=== PATIENT | female | born 1965 | race Two or more races ===

== ENCOUNTER 2019-12-10 01:20 | Emergency (ER) | payer MEDICAID, SELFPAY ==
--- NOTE | 2019-12-10 | XR_ITS ---
EXAMINATION: XR HAND, RIGHT CLINICAL INFORMATION: Pain COMPARISON: 10/11/2019 TECHNIQUE: PA, lateral, and oblique views of the right hand. FINDINGS: Osseous alignment is anatomic. No acute fracture is seen. There is redemonstrated severe degenerative change at the basal joint of the thumb. Redemonstrated soft tissue calcification near the second MCP joint. No acute fracture is seen. Generalized osteopenia is noted. There are scattered degenerative changes in the digits, most prominently at the DIP joints of the second and fifth digits. XR/XR hand RT min 3V IMPRESSION: No acute findings identified. Chronic/degenerative changes as noted above.
[2019-12-10 03:08] VITALS: BP 113/55; PULSE 63; RESP 18; TEMP 36.6; O2SAT 96; BMI 33.7
--- NOTE | 2019-12-10 03:14 | PC.NURSE ---
Pt to room #14 with c/o right arm pain after a dresser drawer fell on arm/hand. +right thumb pain. no bruising noted to area. Pt arrives alert, respirations easy, n/l. skin w/d. Ice pack applied to hand/arm. Pt awaiting for MD jesús hallman.
[2019-12-10 04:00] VITALS: BP 133/78; PULSE 85; RESP 16; O2SAT 97
--- NOTE | 2019-12-10 04:31 | PC.NURSE ---
in room for eval. Page getting x-rays at this time.
--- NOTE | 2019-12-10 04:50 | PC.NURSE ---
X-ray in room for right hand x-ray.
--- NOTE | 2019-12-10 05:22 | ED.EXTPRO ---
HPI - Extremity Problem General Chief complaint: Extremity Injury, Upper Stated complaint: hand injury Time Seen by Provider: 12/10/19 05:21 History of Present Illness HPI Narrative: patient is a 54-year-old female had a dresser fell on her right thumb. Patient complaining of increasing pain there since. There is no systemic complaints. Patient denies any nausea vomiting. No coughing or congestion or upper respiratory symptoms. No head injury. Not on any blood thinners. Pain is localized worse with movement. Related Data Allergies Allergy/AdvReac Type Severity Reaction Status Date / Time clindamycin [Clindamycin] Allergy Severe BURGESS-JOHNATHON Unverified 11/02/19 17:11 SYNDROME ibuprofen [From MOTRIN] Allergy Severe UNKNOWN Unverified 11/02/19 17:11 Sulfa (Sulfonamide Allergy Severe RASH, hives Unverified 11/02/19 17:11 Antibiotics) [Sulfa (Sulfonamides)] latex [LATEX] Allergy Unknown RASH Unverified 11/02/19 17:11 nitrofurantoin Allergy Unknown Verified 08/24/19 00:00 paroxetine Allergy Unknown Verified 08/24/19 00:00 phenazopyridine Allergy Unknown Verified 08/24/19 00:00 sumatriptan Allergy Unknown avoid due Verified 08/24/19 00:00 to sulfa allergy Clindamycin HCl Allergy Unknown Uncoded 08/24/19 00:00 Motrin Allergy Unknown hives Uncoded 12/31/16 00:00 Ondansetron HCl Allergy Unknown Uncoded 08/24/19 00:00 Review of Systems Review of Systems: Constitutional: No Weight loss, No Fever, No Chills, No Night Sweats, No Fatigue, No Malaise ENT/Mouth: No Hearing loss, No Ear Pain, No Nasal Congestion, No Sinus Pain, No Hoarseness, No sore throat, No Rhinorrhea, No Swallowing Difficulty Eyes: No Eye Pain, No Swelling, No Redness, No Foreign Body, No Discharge, No Vision Changes Cardiovascular: No Chest Pain, No SOB, No Dyspnea on Exertion, No Orthopnea, No Edema, No Palpitations Respiratory: No Cough, No Sputum, No Wheezing, No Smoke Exposure, No Dyspnea Gastrointestinal: No Nausea, No Vomiting, No Diarrhea, No Constipation, No abdominal Pain, No Hematochezia, No Melena Genitourinary: no irregular bleeding, No Dysuria, No Urinary Frequency, No Hematuria, No Urinary Incontinence, No Urgency, No Flank Pain, No Urinary Flow Changes, No Hesitancy Musculoskeletal: positive pain to the right thumb No Myalgias, No Joint Swelling Skin: No Skin Lesions, No rash Neuro: No Weakness, No Numbness, No Paresthesias, No Loss of Consciousness, No Dizziness, No Headache Psych: No Anxiety/Panic, No Depression, No SI/HI/AH/VH, No Social Issues, Heme/Lymph: No Bruising, No Bleeding,No Lymphadenopathy Endocrine: No Polyuria, No Polydipsia, No Temperature Intolerance [facility], [facility] Social History Social History Smoked in Last 30 Days: No Advance Directives: No Advance Directives Information Provided: No Physical Exam Vital Signs: Vital Signs: Vital Signs Temp Pulse Resp BP Pulse Ox 12/10/19 04:00 85 16 133/78 97 12/10/19 03:08 98 F 63 18 113/55 L 96 Body Mass Index 33.7 Appearance: Alert. Oriented X3. No acute distress. Eyes: Pupils equal, round and reactive to light. ENT: Pharynx normal. Neck: Normal inspection. Neck supple. No lymph nodes noted. No crepitus CVS: Normal heart rate and rhythm. Pulses normal. Normal S1 and S2 Respiratory: No respiratory distress. Breath sounds normal. No Wheezing. No rales Abdomen: Soft and nontender. No rigidity. No distention. good BS x4 Skin: Skin warm and dry. Normal skin color. Normal skin turgor. Extremities: examination of the right hand showed pain on palpation of the right thumb. Nail bed intact. Skin intact. Pain on opposition of the thumb. There is no anatomical snuffbox tenderness. Flexion extension ulnar deviation and radial deviation at the wrist is completely intact.. No Lacerations. No Rash Neuro: Oriented X 3. No motor deficit. No sensory deficit. Moving all extermities. No slurred speech MDM - Extremity (Nontraumatic) MDM Narrative Medical decision making narrative: X-ray showed no acute fracture. There is no anatomical snuffbox tenderness. No evidence of any risk injury. Range of motion there is intact. Will have patient take some Tylenol close follow-up on an outpatient basis. In stable condition. Discharge Plan Discharge Clinical Impression: Finger sprain Patient Disposition: Home, Self-Care Instructions: Finger Sprain (ED) Referrals: Iris Herring MD [Primary Care Provider] - 2 days
== END 2019-12-10 05:30 | disposition home or self-care (01) ==
PROVIDERS: Emergency Provider Emergency Medicine Emergency Medical Services; PCP Internal Medicine
DX: S63.601A Unspecified sprain of right thumb, initial encounter (principal); M79.641 Pain in right hand; Y29.XXXA Contact with blunt object, undetermined intent, initial encounter; Y93.9 Activity, unspecified; Y92.009 Unspecified place in unspecified non-institutional (private) residence as the place of occurrence of the external cause
CPT/HCPCS: 73130; 99283; 99284

== ENCOUNTER 2020-03-12 10:44 | Outpatient (REF) | payer MEDICAID, SELFPAY ==
[2020-03-12 12:33] LABS: MANUAL DIFF FLAG NO
[2020-03-12 12:36] LABS: Basophils Absolute Auto 0.1 X10*3/uL (0.0-0.2); Basophils Percent Auto 1.1 % (0-2); Eosinophils Absolute Auto 0.2 X10*3/uL (0.0-0.4); Hematocrit 43.7 % (37-47); Hemoglobin 13.8 g/dl (12.0-16.0); Imm Gran Abs Auto 0.01 X10*3/uL (0.00-0.03); Imm Gran Pct Auto 0.2 % (0.0-0.4); Lymphocytes Absolute Auto 1.7 X10*3/uL (1.2-4.9); Lymphocytes Percent Auto 30.9 % (20-40); Mean Corpuscular HGB Conc 31.6 g/dl (31.0-35.0); Mean Corpuscular Hemoglobin 30.1 pg (27.0-33.0); Mean Corpuscular Volume 95.4 fL (80-98); Mean Platelet Volume 10.9 fL (9.4-12.3); Monocytes Absolute Auto 0.4 X10*3/uL (0.1-1.2); Monocytes Percent Auto 7.5 % (2-11); Neutrophils Absolute Auto 3.1 X10*3/uL (2.0-8.3); Neutrophils Percent Auto 57.3 % (45-73); Platelet Count 263 X10*3/uL (160-400); Red Blood Count 4.58 X10*6/uL (4.20-5.50); Red Cell Distribution Width 12.4 % (11.0-16.0); White Blood Count 5.3 X10*3/uL (4.8-10.8)
[2020-03-12 13:12] LABS: Alanine Aminotransferase 12 U/L (0-31); Albumin Level 4.4 g/dL (3.5-5.0); Alkaline Phosphatase 161 U/L (39-117); Anion Gap 12 (12-20); Aspartate Amino Transferase 16 U/L (5-31); Bilirubin Total 0.6 mg/dL (0.0-1.0); Blood Urea Nitrogen 17 mg/dL (9-16); C Reactive Protein 0.12 mg/dL (< or = 0.50); Calcium 9.6 mg/dL (8.4-10.2); Carbon Dioxide 30 mmol/L (22-29); Chloride 104 mmol/L (96-108); Estimated Glomerular Filt Rate > 60; Glucose Random 82 mg/dL (60-115); Potassium 4.3 mmol/l (3.3-5.1); Sodium 142 mmol/L (135-145); Total Protein 7.7 g/dL (6.5-8.0)
[2020-03-12 13:29] LABS: Erythrocyte Sedimentation Rate 7 MM/HR (0-20)
== END 2020-03-12 10:45 | disposition home or self-care (01) ==
LOC: HO.LAB 10:44
PROVIDERS: PCP Internal Medicine; Visit Provider Student in an Organized Health Care Education/Training Program
DX: M05.9 Rheumatoid arthritis with rheumatoid factor, unspecified (principal); M89.49 Other hypertrophic osteoarthropathy, multiple sites; Z79.899 Other long term (current) drug therapy; Z79.52 Long term (current) use of systemic steroids
CPT/HCPCS: 36415; 80053; 85025; 85652; 86140; 99212

== ENCOUNTER 2020-03-27 11:42 | Emergency (ER) | payer MEDICAID, SELFPAY ==
--- NOTE | ~2020-03-27 | XR_ITS ---
EXAMINATION: CHEST. LEFT ELBOW.. Left shoulder CLINICAL INFORMATION: Chest pain. COMPARISON: None TECHNIQUE: Chest 2 views. Left shoulder 3 views. Left elbow 4 views. FINDINGS: CHEST: Both lungs are fairly well-expanded and clear. The heart size and pulmonary vascularity is normal. There is mild to moderate dextroscoliosis. LEFT SHOULDER: There is no visible acute fracture, dislocation or subluxation. There is moderate enthesophyte lateral to the humeral head. The soft tissues are normal. LEFT ELBOW: There is no visible acute fracture, dislocation or subluxation. There is a positive anterior fat pad sign. The soft tissues are normal. XR/XR elbow LT min 3V IMPRESSION: Unremarkable chest exam. Unremarkable left shoulder. Lateral humeral head enthesophyte. Positive anterior fat pad sign with no visible fracture seen.
--- NOTE | ~2020-03-27 | XR_ITS ---
EXAMINATION: CHEST. LEFT ELBOW.. Left shoulder CLINICAL INFORMATION: Chest pain. COMPARISON: None TECHNIQUE: Chest 2 views. Left shoulder 3 views. Left elbow 4 views. FINDINGS: CHEST: Both lungs are fairly well-expanded and clear. The heart size and pulmonary vascularity is normal. There is mild to moderate dextroscoliosis. LEFT SHOULDER: There is no visible acute fracture, dislocation or subluxation. There is moderate enthesophyte lateral to the humeral head. The soft tissues are normal. LEFT ELBOW: There is no visible acute fracture, dislocation or subluxation. There is a positive anterior fat pad sign. The soft tissues are normal. XR/XR shoulder LT min 2V IMPRESSION: Unremarkable chest exam. Unremarkable left shoulder. Lateral humeral head enthesophyte. Positive anterior fat pad sign with no visible fracture seen.
--- NOTE | ~2020-03-27 | XR_ITS ---
EXAMINATION: CHEST. LEFT ELBOW.. Left shoulder CLINICAL INFORMATION: Chest pain. COMPARISON: None TECHNIQUE: Chest 2 views. Left shoulder 3 views. Left elbow 4 views. FINDINGS: CHEST: Both lungs are fairly well-expanded and clear. The heart size and pulmonary vascularity is normal. There is mild to moderate dextroscoliosis. LEFT SHOULDER: There is no visible acute fracture, dislocation or subluxation. There is moderate enthesophyte lateral to the humeral head. The soft tissues are normal. LEFT ELBOW: There is no visible acute fracture, dislocation or subluxation. There is a positive anterior fat pad sign. The soft tissues are normal. XR/XR chest 2V IMPRESSION: Unremarkable chest exam. Unremarkable left shoulder. Lateral humeral head enthesophyte. Positive anterior fat pad sign with no visible fracture seen.
[2020-03-27 12:16] VITALS: BP 127/67; PULSE 58; RESP 18; TEMP 37.3; O2SAT 95; BMI 26.1
--- NOTE | 2020-03-27 12:22 | ED_ITS ---
HPI - Chest Pain General Chief Complaint: Chest Pain Stated Complaint: chest pain going down lt arm Time Seen by Provider: 03/27/20 12:22 Related Data Home Medications Medication Instructions Recorded Confirmed amlodipine 2.5 mg tablet 2.5 mg PO DAILY 03/12/20 03/12/20 okjrcxypzt-axdkgkumtvunq-cbitmreh 1 cap PO Q4H PRN 03/12/20 03/12/20 50 mg-325 mg-40 mg capsule omeprazole 20 mg capsule,delayed 20 mg PO DAILY 03/12/20 03/12/20 release oxycodone 15 mg tablet 15 mg PO QID PRN 03/12/20 03/12/20 Previous Rx's Medication Instructions Recorded prednisone 5 mg tablet 5 mg PO DAILY #30 tab 12/12/19 baricitinib 2 mg tablet 2 mg PO DAILY #30 tab 03/12/20 Allergies Allergy/AdvReac Type Severity Reaction Status Date / Time clindamycin [Clindamycin] Allergy Severe BURGESS-JOHNATHON Verified 03/12/20 11:05 SYNDROME ibuprofen [From MOTRIN] Allergy Severe UNKNOWN Verified 03/12/20 11:05 Sulfa (Sulfonamide Allergy Severe RASH, hives Verified 03/12/20 11:05 Antibiotics) [Sulfa (Sulfonamides)] latex [LATEX] Allergy Unknown RASH Verified 03/12/20 11:05 nitrofurantoin Allergy Unknown unknown Verified 03/12/20 11:05 paroxetine Allergy Unknown unknown Verified 03/12/20 11:05 phenazopyridine Allergy Unknown unknown Verified 03/12/20 11:05 sumatriptan Allergy Unknown avoid due Verified 03/12/20 11:05 to sulfa allergy Ondansetron HCl Allergy Unknown unknown Uncoded 03/12/20 11:05 [facility] Past Medical History Medical History Primary osteoarthritis involving multiple joints Seropositive rheumatoid arthritis Social History Social History (Updated 03/12/20 @ 11:06 by Rios Shah LPN) Alcohol intake: never Smoking Status: Never smoker Advance Directives: Yes Advance Directives Information Provided: Yes Advance Directives on File: No Physical Exam Vital Signs: Vital Signs: Last Vital Signs Temp 99.1 F 03/27/20 12:16 Pulse 58 03/27/20 12:16 Resp 18 03/27/20 12:16 BP 127/67 03/27/20 12:16 Pulse Ox 95 03/27/20 12:16 Body Mass Index 26.1 Discharge Plan Discharge Prescriptions: No Action prednisone 5 mg tablet 5 mg PO DAILY Qty: 30 RF: 3 oxycodone 15 mg tablet 15 mg PO QID PRNRF: 0 amlodipine 2.5 mg tablet 2.5 mg PO DAILY RF: 0 omeprazole 20 mg capsule,delayed release(DR/EC) 20 mg PO DAILY RF: 0 xfuzxkqxbj-dmybvfcwecwps-qdia 50-325-40 mg capsule 1 cap PO Q4H PRNRF: 0 Olumiant 2 mg tablet 2 mg PO DAILY Qty: 30 RF: 3
--- NOTE | 2020-03-27 12:35 | ECG_ITS ---
Test Reason : CP Blood Pressure : / mmHG Vent. Rate : 070 BPM Atrial Rate : 070 BPM P-R Int : 156 ms QRS Dur : 086 ms QT Int : 416 ms P-R-T Axes : 048 -12 040 degrees QTc Int : 449 ms Normal sinus rhythm Moderate voltage criteria for LVH, may be normal variant Nonspecific ST and T wave abnormality Borderline ECG When compared with ECG of 09-MAY-2011 17:50, No significant change was found Referred By: Caleb Hogan Electronically Signed By:MATHEUS MCFADDEN
--- NOTE | 2020-03-27 13:15 | ED.EXTPRO ---
HPI - Extremity Problem General Chief complaint: Chest Pain Stated complaint: chest pain going down lt arm Time Seen by Provider: 03/27/20 12:22 History of Present Illness HPI Narrative: Patient complains of left shoulder pain for over 24 hours that is worse with movement worse when she presses on it and the pain is radiating somewhat into the left clavicle area and is worse when she takes a deep breath, she denies any chest pain or shortness of breath. The pain radiates from the left shoulder when she moves it towards the left upper chest area, pain is continuous and not associated with exertion, the there is no sweating, no nausea no vomiting no exertional symptoms, there is no numbness or weakness, the pain radiates down the arm as well as to the left upper chest when she moves her arm but there is no numbness or weakness. There has been no injury. She does have a history of rheumatoid arthritis but has never had pain in the shoulder joint before MD Complaint: extremity pain Related Data Home Medications Medication Instructions Recorded Confirmed amlodipine 2.5 mg tablet 2.5 mg PO DAILY 03/12/20 03/12/20 iohhlnpfxt-jvyzhlrtjdvqk-vkjdglws 1 cap PO Q4H PRN 03/12/20 03/12/20 50 mg-325 mg-40 mg capsule omeprazole 20 mg capsule,delayed 20 mg PO DAILY 03/12/20 03/12/20 release oxycodone 15 mg tablet 15 mg PO QID PRN 03/12/20 03/12/20 Previous Rx's Medication Instructions Recorded prednisone 5 mg tablet 5 mg PO DAILY #30 tab 12/12/19 baricitinib 2 mg tablet 2 mg PO DAILY #30 tab 03/12/20 diazepam [Valium] 5 mg PO TID PRN #10 tab 03/27/20 prednisone 40 mg PO DAILY 3 Days #6 tab 03/27/20 Allergies Allergy/AdvReac Type Severity Reaction Status Date / Time clindamycin [Clindamycin] Allergy Severe BURGESS-JOHNATHON Verified 03/12/20 11:05 SYNDROME ibuprofen [From MOTRIN] Allergy Severe UNKNOWN Verified 03/12/20 11:05 Sulfa (Sulfonamide Allergy Severe RASH, hives Verified 03/12/20 11:05 Antibiotics) [Sulfa (Sulfonamides)] latex [LATEX] Allergy Unknown RASH Verified 03/12/20 11:05 nitrofurantoin Allergy Unknown unknown Verified 03/12/20 11:05 paroxetine Allergy Unknown unknown Verified 03/12/20 11:05 phenazopyridine Allergy Unknown unknown Verified 03/12/20 11:05 sumatriptan Allergy Unknown avoid due Verified 03/12/20 11:05 to sulfa allergy Ondansetron HCl Allergy Unknown unknown Uncoded 03/12/20 11:05 Review of Systems Review of Systems: Positive for left shoulder pain Negatives are no fever no chills no dizziness no weakness no palpitations no chest pain no shortness of breath no exertional symptoms no nausea no sweating, no fainting, no numbness no weakness no headache no rash no pain in any other joints [facility] Past Medical History [facility] Narrative: History of hypertension and rheumatoid as well as osteoarthritis Medical History Primary osteoarthritis involving multiple joints Seropositive rheumatoid arthritis Social History Social History (Updated 03/12/20 @ 11:06 by Rios Shah LPN) Alcohol intake: never Smoking Status: Never smoker Advance Directives: Yes Advance Directives Information Provided: Yes Advance Directives on File: No Physical Exam Vital Signs: Vital Signs: Last Vital Signs Temp 99.1 F 03/27/20 12:16 Pulse 58 03/27/20 12:16 Resp 18 03/27/20 12:16 BP 127/67 03/27/20 12:16 Pulse Ox 95 03/27/20 12:16 Body Mass Index 26.1 General appearance no acute distress Normocephalic atraumatic Neck is supple nontender The chest is clear to auscultation bilaterally, there is some tenderness to the left upper clavicular region, pain is reproduced with a very deep breath in that area, the skin there is no rash no shingles The heart no murmur auscultated Abdomen soft nontender Extremities there is no calf swelling or edema Left shoulder was not red or warm but it was very tender to the touch as well as left trapezius and deltoid area, pain is elicited with movement of extension abduction and external rotation of the shoulder there was also pain on extension of the left elbow, the skin of the left arm is normal, pulses radial pulse was 2 +, intact and symmetric with right pulse, neurovascular sensation and motor intact distal Skin no rashes Course Course Course Narrative: Patient's shoulder pain with some radiation to the clavicle area is not consistent with cardiac pain as it is completely reproducible and only occurs with movement EKG did not show any evidence of ischemic change, shoulder and chest x-rays were without acute finding Patient was given a sling diagnosis musculoskeletal pain and will follow with Orthopedics MDM - Extremity (Nontraumatic) ECG Data Interpretation: EKG was normal sinus rhythm with a rate of 70, no acute ischemic changes no acute ST changes, QT was normal and QRS duration was normal Discharge Plan Discharge Clinical Impression: Arthralgia of left shoulder region Patient Disposition: Home, Self-Care Additional Instructions: Follow with your blower feeder dyed raw stock and if needed orthopedist Return any time any worse condition or any concerns I started a short course of prednisone so discuss with your blower feeder dyed raw stock whether a longer course is needed Prescriptions: New prednisone 20 mg tablet 40 mg PO DAILY 3 Days Qty: 6 RF: 0 diazepam [Valium] 5 mg tablet 5 mg PO TID PRN (Reason: muscle spasm) Qty: 10 RF: 0 No Action prednisone 5 mg tablet 5 mg PO DAILY Qty: 30 RF: 3 oxycodone 15 mg tablet 15 mg PO QID PRNRF: 0 amlodipine 2.5 mg tablet 2.5 mg PO DAILY RF: 0 omeprazole 20 mg capsule,delayed release(DR/EC) 20 mg PO DAILY RF: 0 cabgwhsjop-llbioufkdpauf-jekh 50-325-40 mg capsule 1 cap PO Q4H PRNRF: 0 Olumiant 2 mg tablet 2 mg PO DAILY Qty: 30 RF: 3 Referrals: Gil Crystal MD [Physician] - 2 days ( Left shoulder pain) Interventions: ED Discharge Assessment Last Done: 03/27/20 15:16 Discharge Date/Time: 03/27/20 15:19
[2020-03-27] MEDS: predniSONE 20 MG TABLET 60 MG PO (15:05)
== END 2020-03-27 15:19 | disposition home or self-care (01) ==
PROVIDERS: Emergency Provider Emergency Medicine Emergency Medical Services; PCP Internal Medicine
DX: M25.512 Pain in left shoulder (principal)
CPT/HCPCS: 71046; 73030; 73080; 93005; 99283

== ENCOUNTER → 2020-04-05 12:03 | Outpatient (BNVA) | payer MEDICAID, SELFPAY | PROVIDERS: PCP Internal Medicine; Visit Provider Physician Assistant | DX: Z13.89 Encounter for screening for other disorder (principal) | CPT/HCPCS: 99202 ==

== ENCOUNTER → 2020-04-24 12:39 | Outpatient (BNVA) | payer MEDICAID, SELFPAY | PROVIDERS: Visit Provider Physician Assistant ==

== ENCOUNTER 2020-05-03 11:32 | Outpatient (REF) | payer MEDICAID, SELFPAY ==
[2020-05-03 13:32] LABS: Alanine Aminotransferase 13 U/L (0-31); Albumin Level 4.2 g/dL (3.5-5.0); Alkaline Phosphatase 131 U/L (39-117); Anion Gap 12 (12-20); Aspartate Amino Transferase 22 U/L (5-31); Bilirubin Total 1.2 mg/dL (0.0-1.0); Blood Urea Nitrogen 15 mg/dL (9-16); C Reactive Protein 0.26 mg/dL (< or = 0.50); Calcium 9.3 mg/dL (8.4-10.2); Carbon Dioxide 28 mmol/L (22-29); Chloride 104 mmol/L (96-108); Estimated Glomerular Filt Rate > 60; Glucose Random 91 mg/dL (60-115); Potassium 4.2 mmol/L (3.3-5.1); Sodium 140 mmol/L (135-145); Total Protein 7.2 g/dL (6.5-8.0)
[2020-05-03 14:22] LABS: Erythrocyte Sedimentation Rate 9 MM/HR (0-20)
== END 2020-05-03 11:33 | disposition home or self-care (01) ==
LOC: HO.LAB 11:32
PROVIDERS: PCP Family Medicine Geriatric Medicine; Visit Provider Student in an Organized Health Care Education/Training Program
DX: M05.9 Rheumatoid arthritis with rheumatoid factor, unspecified (principal); M89.49 Other hypertrophic osteoarthropathy, multiple sites
CPT/HCPCS: 36415; 80053; 85652; 86140; 99212

== ENCOUNTER 2020-07-08 09:55 | Day surgery (SDC) | payer MEDICAID, SELFPAY ==
--- NOTE | 2020-07-04 12:26 | HO.ANESPROP2 ---
Documented by User: Kaylin Gee 07/04/20 12:28 HPI - Anesthesia Eval Consult details Narrative: 54yo F for Colonoscopy mult med allergies chronic opioids PMFSH Active Problems Active Problems: All Active Problems (Updated 05/17/20 @ 14:53 by Violeta Francis) Shoulder arthralgia (Acute) Tendinitis of left rotator cuff (Acute) Encounter for screening colonoscopy (Acute) Chronic constipation (Acute) Primary osteoarthritis involving multiple joints (Acute) Seropositive rheumatoid arthritis (Acute) Past Medical History Medical History Anemia Back pain Chronic constipation GERD (gastroesophageal reflux disease) HTN (hypertension) Hx of migraines Primary osteoarthritis involving multiple joints Rheumatoid arthritis Seropositive rheumatoid arthritis Family History Family History Father Prostate cancer Skin cancer Son Stomach problems Surgical History Surgical History History of left knee surgery Hx of colonoscopy Hx of esophagogastroduodenoscopy Social History Social History Alcohol intake: never Smoking Status: Never smoker Use of substances other than those prescribed or required for medical reasons: No Are you DNR?: No Advance Directives: No Advance Directives Information Provided: Yes Advance Directives on File: No Meds Allergies Allergy/AdvReac Type Severity Reaction Status Date / Time clindamycin [Clindamycin] Allergy Severe BURGESS-JOHNATHON Verified 05/17/20 14:53 SYNDROME ibuprofen [From MOTRIN] Allergy Severe UNKNOWN Verified 05/17/20 14:53 Sulfa (Sulfonamide Allergy Severe RASH, hives Verified 05/17/20 14:53 Antibiotics) [Sulfa (Sulfonamides)] latex [LATEX] Allergy Unknown RASH Verified 05/17/20 14:53 nitrofurantoin Allergy Unknown unknown Verified 05/17/20 14:53 paroxetine Allergy Unknown unknown Verified 05/17/20 14:53 sumatriptan Allergy Unknown avoid due Verified 05/17/20 14:53 to sulfa allergy Home Medications Medication Instructions Recorded Confirmed Last Taken Type amlodipine 2.5 mg tablet 2.5 mg PO DAILY 03/12/20 05/17/20 Unknown History clreyrjiig-dmzllvpnwggla-mevmiwbw 1 cap PO Q4H PRN 03/12/20 05/17/20 Unknown History 50 mg-325 mg-40 mg capsule omeprazole 20 mg capsule,delayed 20 mg PO DAILY 03/12/20 05/17/20 Unknown History release oxycodone 15 mg tablet 15 mg PO QID PRN 03/12/20 05/17/20 Unknown History diazepam 1 tab PO TID PRN 05/17/20 05/17/20 Unknown History fluoxetine [Prozac] 1 cap PO QAM 05/17/20 05/17/20 Unknown History lisinopril 1 tab PO DAILY 05/17/20 05/17/20 Unknown History naloxone [Narcan] 1 INTRANASAL DAILY 05/17/20 Unknown History nortriptyline 1 cap PO BEDTIME 05/17/20 05/17/20 Unknown History tizanidine 1 tab PO Q6-8H PRN 05/17/20 05/17/20 Unknown History topiramate 1 tab PO BEDTIME 05/17/20 05/17/20 Unknown History zolpidem 1 tab PO BEDTIME PRN 05/17/20 05/17/20 Unknown History Exam Exam Date and Time: July 04, 2020 1226 Pertinent Lab Results Pertinent Lab Results: Laboratory Tests 03/12/20 05/03/20 11:40 11:40 WBC 5.3 Hgb 13.8 Hct 43.7 Plt Count 263 Sodium 140 Potassium 4.2 Chloride 104 Carbon Dioxide 28 BUN 15 Creatinine 0.72 Assessment and Plan Assessment Anesthesia Assessment: Chart Reviewed Documented by User: Danika Crocker 07/08/20 11:25 PMFSH Past Medical History Medical History Anemia Back pain Chronic constipation GERD (gastroesophageal reflux disease) HTN (hypertension) Hx of migraines Primary osteoarthritis involving multiple joints Rheumatoid arthritis Seropositive rheumatoid arthritis Family History Family History Father Prostate cancer Skin cancer Son Stomach problems Surgical History Surgical History History of left knee surgery Hx of colonoscopy Hx of esophagogastroduodenoscopy Social History Social History Alcohol intake: never Smoking Status: Never smoker Use of substances other than those prescribed or required for medical reasons: No Are you DNR?: No Advance Directives: No Advance Directives Information Provided: Yes Advance Directives on File: No Meds Allergies Allergy/AdvReac Type Severity Reaction Status Date / Time clindamycin [Clindamycin] Allergy Severe BURGESS-JOHNATHON Verified 05/17/20 14:53 SYNDROME ibuprofen [From MOTRIN] Allergy Severe UNKNOWN Verified 05/17/20 14:53 Sulfa (Sulfonamide Allergy Severe RASH, hives Verified 05/17/20 14:53 Antibiotics) [Sulfa (Sulfonamides)] latex [LATEX] Allergy Unknown RASH Verified 05/17/20 14:53 nitrofurantoin Allergy Unknown unknown Verified 05/17/20 14:53 paroxetine Allergy Unknown unknown Verified 05/17/20 14:53 sumatriptan Allergy Unknown avoid due Verified 05/17/20 14:53 to sulfa allergy Home Medications Medication Instructions Recorded Confirmed Last Taken Type amlodipine 2.5 mg tablet 2.5 mg PO DAILY 03/12/20 05/17/20 Unknown History ffxlqfvhrq-dvaluqaznqsdc-qvlhqict 1 cap PO Q4H PRN 03/12/20 05/17/20 Unknown History 50 mg-325 mg-40 mg capsule omeprazole 20 mg capsule,delayed 20 mg PO DAILY 03/12/20 05/17/20 Unknown History release oxycodone 15 mg tablet 15 mg PO QID PRN 03/12/20 05/17/20 Unknown History diazepam 1 tab PO TID PRN 05/17/20 05/17/20 Unknown History fluoxetine [Prozac] 1 cap PO QAM 05/17/20 05/17/20 Unknown History lisinopril 1 tab PO DAILY 05/17/20 05/17/20 Unknown History naloxone [Narcan] 1 INTRANASAL DAILY 05/17/20 Unknown History nortriptyline 1 cap PO BEDTIME 05/17/20 05/17/20 Unknown History tizanidine 1 tab PO Q6-8H PRN 05/17/20 05/17/20 Unknown History topiramate 1 tab PO BEDTIME 05/17/20 05/17/20 Unknown History zolpidem 1 tab PO BEDTIME PRN 05/17/20 05/17/20 Unknown History Exam Airway Mallampati Class: II TM Dist: >3cm Neck ROM: Full Assessment and Plan Assessment Anesthesia Assessment: Anesthesia Plan Discussed and Chart Reviewed Final Anesthetic Review NPO: Yes ASA Class: II Final Preanesthetic Review: No Changes in Pt Med Stat, Meds/Allgs Chart Reviewed, Consent Obtained/Reviewed and Anes Risks/Benef Reviewed Patient Risk: Low Procedure Risk: Low Assessment/Block/Sedation in SS: Assess/Block/Sedation-SS Anesthetic Plan Anesthetic Plan: MAC: Disposition: Standard PACU
--- NOTE | 2020-07-08 10:33 | MHC.SHP ---
Pre-Procedural Eval Section B Chief Complaint: Screening Relevant Family History (Specify if Yes): No Relevant Social History: None Present Medications: see Short Stay Collaborative assessment Medical History: Significant History (Anemia Back pain Chronic constipation GERD (gastroesophageal reflux disease) HTN (hypertension) Hx of migraines Primary osteoarthritis involving multiple joints Rheumatoid arthritis Seropositive rheumatoid arthriti) History of Previous Operations: Relevant previous surgery/procedure and date(s) (knee surgery, colonoscopy) Allergies: Allergies Allergy/AdvReac Type Severity Reaction Status Date / Time clindamycin [Clindamycin] Allergy Severe BURGESS-JOHNATHON Verified 05/17/20 14:53 SYNDROME ibuprofen [From MOTRIN] Allergy Severe UNKNOWN Verified 05/17/20 14:53 Sulfa (Sulfonamide Allergy Severe RASH, hives Verified 05/17/20 14:53 Antibiotics) [Sulfa (Sulfonamides)] latex [LATEX] Allergy Unknown RASH Verified 05/17/20 14:53 nitrofurantoin Allergy Unknown unknown Verified 05/17/20 14:53 paroxetine Allergy Unknown unknown Verified 05/17/20 14:53 sumatriptan Allergy Unknown avoid due Verified 05/17/20 14:53 to sulfa allergy Review of Systems Sugical H&P ROS: Negative: Constitution, Cardiovascular, Respiratory, Neurological, Psychiatric, Hem-Onc, Allergic/Immunologic, Gastrointestinal, Genitourinary, Musculoskeletal, Integumentary, Endocrine and Eyes/Ears/Nose/Throat Exam Surgical H&P Exam: Normal: HEENT, Normal: Heart, Normal: Lungs, Normal: Extremities, Normal: Abdomen, Normal: Skin and Normal: Neurological Plan Diagnosis/Plan: Unchanged I have reviewed the history and physical and performed a pertinent physical examination on my patient. No changes have occurred unless specified.
[2020-07-08 10:45] VITALS: BMI 26.1
[2020-07-08 10:52] VITALS: BP 120/78; PULSE 76; RESP 16; TEMP 36.6; O2SAT 98
--- NOTE | 2020-07-08 11:06 | P.BOP_ITS ---
Brief Operative Note Date of Service: 07/08/20 Pre-op diagnosis: colon screen, hx of polyp Post-op diagnosis: same Procedure: see op note Surgeon: Kerwin Briones MD Anesthesia: MAC Was an Head Up Operator used for this Procedure?: No Estimated blood loss (mL): 0 Condition: stable Disposition: PACU
[2020-07-08] MEDS: Lactated Ringers 1,000 ML 100 ML IVCONT (11:07)
--- NOTE | 2020-07-08 11:07 | W.PM.OPN ---
Operative Note Operative Note Date of Service: 07/08/20 Narrative: Operative Information Procedure Description: Colonoscopy COLONOSCOPY Instrument: Olympus variable stiffness pediatric scope 190L Colonoscopy Monitoring: Vital signs and clinical assessment, continuous EKG monitoring, Pulse oximetry, Carbon Dioxide monitoring and blood pressure monitoring were done throughout the procedure. Colon withdrawal time was 12 minutes. Procedure: The patient was placed in the left lateral decubitis position and pre-procedure medications were administered. After a digital rectal examination of the ano-rectum, the video colonoscope was inserted into the rectum and advanced through the colon to the cecum/TI. The colonoscope was slowly withdrawn in a retrograde panoramic fashion and the colon mucosa was carefully examined including a retroflexed view of the rectum. Findings and interventions are described below. Procedure Difficulty: easy Findings: Terminal Ileum-normal Cecum:normal Ascending Colon: x 2 sessile polyps 10-12 mm in length removed with cold snare Transverse Colon -normal Descending Colon:normal Sigmoid Colon: normal Rectum: Retroflexion with moderate sized internal hemorrhoids, grade I Anorectum - normal Colon preparation: Stendal Bowel Preparation Scale Right colon; 3 Transverse colon: 3 Left colon; 3 (0 = Unprepared colon segment with mucosa not seen due to solid stool that cannot be cleared. 1 = Portion of mucosa of the colon segment seen, but other areas of the colon segment not well seen due to staining, residual stool and/or opaque liquid. 2 = Minor amount of residual staining, small fragments of stool and/or opaque liquid, but mucosa of colon segment seen well. 3 = Entire mucosa of colon segment seen well with no residual staining, small fragments of stool or opaque liquid) Impression and Post Procedure Diagnosis: polyps internal hemorrhoids Plan: High fiber diet leaflet Avoid straining at stool, epsom salts and sitz bath, anusol supps or cream as needed Repeat Colonoscopy in 5 years or earlier if clinically indicated Above findings were reviewed with the patient and relevant handouts were provided if indicated.
[2020-07-08 11:45] VITALS: BP 106/57; PULSE 78; RESP 16; TEMP 36.2; O2SAT 94
[2020-07-08 12:00] VITALS: BP 110/71; PULSE 69; RESP 16; TEMP 36.2; O2SAT 96
== END 2020-07-08 12:36 | disposition home or self-care (01) ==
PROVIDERS: PCP Family Medicine Geriatric Medicine; Visit Provider Internal Medicine Gastroenterology
PROC: 0DJD8ZZ Inspection of Lower Intestinal Tract, Via Natural or Artificial Opening Endoscopic (ICD-10-PCS; CPT 45378; principal; 2020-07-08 11:40)
DX: Z12.11 Encounter for screening for malignant neoplasm of colon (principal); D12.2 Benign neoplasm of ascending colon; K64.0 First degree hemorrhoids; K59.09 Other constipation; K21.9 Gastro-esophageal reflux disease without esophagitis; D64.9 Anemia, unspecified; I10 Essential (primary) hypertension; Z79.899 Other long term (current) drug therapy; M05.9 Rheumatoid arthritis with rheumatoid factor, unspecified; Z88.2 Allergy status to sulfonamides; Z88.8 Allergy status to other drugs, medicaments and biological substances; Z91.040 Latex allergy status
CPT/HCPCS: 45385; 88305

== ENCOUNTER 2020-07-10 10:49 | Outpatient (REF) | payer MEDICAID, SELFPAY ==
--- NOTE | ~2020-07-10 | MM_ITS ---
EXAMINATION: MM SCREENING DIGITAL BREAST TOMOSYNTHESIS, BILATERAL CLINICAL INFORMATION: Screening. Asymptomatic. The lifetime risk of breast cancer based on the Tyrer-Cuzick Model is 6%. COMPARISON: Mammography: 06/27/2018, 06/11/2017, 08/31/2016 TECHNIQUE: Digital breast tomosynthesis is performed in both the craniocaudal and mediolateral oblique views along with computer-aided detection (CAD). Synthesized 2D images are generated from the tomosynthesis. FINDINGS: There are scattered areas of fibroglandular density (ACR BI-RADS breast composition Category b). There are no significant masses, abnormal calcifications, or other abnormalities. There is small oval stable nodular asymmetry central left breast on CC view mid depth approximately 0.4 cm. No significant changes from prior studies. The axilla and skin contours are unremarkable. MM/MM tomosynthesis screening BI IMPRESSION: No significant changes from prior exams. ASSESSMENT: BI-RADS 2: Benign RECOMMENDATION: Routine annual mammography screening. This patient's information was entered into a reminder system with a target due date for their next mammogram.
== END 2020-07-10 10:50 | disposition home or self-care (01) ==
LOC: HO.MAMMO 10:49
PROVIDERS: PCP Student in an Organized Health Care Education/Training Program; Visit Provider Student in an Organized Health Care Education/Training Program
DX: Z12.31 Encounter for screening mammogram for malignant neoplasm of breast (principal)
CPT/HCPCS: 77063; 77067

== ENCOUNTER → 2020-08-12 10:21 | Outpatient (BNVA) | payer MEDICAID, SELFPAY | PROVIDERS: PCP Student in an Organized Health Care Education/Training Program; Visit Provider Physician Assistant ==

== ENCOUNTER 2020-09-02 09:01 | Outpatient (REF) | payer MEDICAID, SELFPAY ==
[2020-09-02 10:07] LABS: MANUAL DIFF FLAG NO
[2020-09-02 10:15] LABS: Basophils Percent Auto 0.6 % (0-2); Eosinophils Absolute Auto 0.1 X10*3/uL (0.0-0.4); Eosinophils Percent Auto 2.5 % (0-4); Hematocrit 41.6 % (37-47); Hemoglobin 13.5 g/dl (12.0-16.0); Imm Gran Abs Auto 0.01 X10*3/uL (0.00-0.03); Imm Gran Pct Auto 0.2 % (0.0-0.4); Lymphocytes Absolute Auto 1.4 X10*3/uL (1.2-4.9); Lymphocytes Percent Auto 27.3 % (20-40); Mean Corpuscular HGB Conc 32.5 g/dl (31.0-35.0); Mean Corpuscular Hemoglobin 30.8 pg (27.0-33.0); Mean Corpuscular Volume 94.8 fL (80-98); Mean Platelet Volume 10.8 fL (9.4-12.3); Monocytes Absolute Auto 0.4 X10*3/uL (0.1-1.2); Monocytes Percent Auto 7.6 % (2-11); Neutrophils Absolute Auto 3.3 X10*3/uL (2.0-8.3); Neutrophils Percent Auto 61.8 % (45-73); Platelet Count 254 X10*3/uL (160-400); Red Blood Count 4.39 X10*6/uL (4.20-5.50); Red Cell Distribution Width 12.6 % (11.0-16.0); White Blood Count 5.3 X10*3/uL (4.8-10.8)
[2020-09-02 10:39] LABS: Alanine Aminotransferase 20 U/L (0-31); Albumin Level 4.3 g/dL (3.5-5.0); Alkaline Phosphatase 189 U/L (39-117); Anion Gap 12 (12-20); Aspartate Amino Transferase 18 U/L (5-31); Bilirubin Total 0.9 mg/dL (0.0-1.0); Blood Urea Nitrogen 12 mg/dL (9-16); C Reactive Protein 0.13 mg/dL (< or = 0.50); Calcium 9.8 mg/dL (8.4-10.2); Carbon Dioxide 27 mmol/L (22-29); Chloride 105 mmol/L (96-108); Cholesterol 225 mg/dL; Estimated Glomerular Filt Rate > 60; Glucose Random 92 mg/dL (60-115); HDL Cholesterol 61 mg/dL; LDL Cholesterol Calculated 141 mg/dl; Potassium 3.9 mmol/L (3.3-5.1); Sodium 140 mmol/L (135-145); Total Protein 7.6 g/dL (6.5-8.0); Triglycerides 119 mg/dL
[2020-09-02 10:47] LABS: Reflex LDLD? No
[2020-09-02 11:15] LABS: Erythrocyte Sedimentation Rate 10 MM/HR (0-20)
== END 2020-09-02 09:02 | disposition home or self-care (01) ==
LOC: HO.LAB 09:01
PROVIDERS: PCP Student in an Organized Health Care Education/Training Program; Visit Provider Student in an Organized Health Care Education/Training Program
DX: M05.9 Rheumatoid arthritis with rheumatoid factor, unspecified (principal)
CPT/HCPCS: 36415; 80053; 80061; 85025; 85652; 86140

== ENCOUNTER → 2020-09-03 08:31 | Outpatient (BNVA) | payer MEDICAID, SELFPAY | PROVIDERS: PCP Student in an Organized Health Care Education/Training Program; Visit Provider Student in an Organized Health Care Education/Training Program | DX: R21 Rash and other nonspecific skin eruption (principal); M05.9 Rheumatoid arthritis with rheumatoid factor, unspecified; M89.49 Other hypertrophic osteoarthropathy, multiple sites; R94.5 Abnormal results of liver function studies; Z88.2 Allergy status to sulfonamides; Z88.8 Allergy status to other drugs, medicaments and biological substances; Z91.040 Latex allergy status; Z79.899 Other long term (current) drug therapy; Z79.891 Long term (current) use of opiate analgesic; Z51.81 Encounter for therapeutic drug level monitoring | CPT/HCPCS: 99212 ==

== ENCOUNTER 2020-10-15 04:13 | Emergency (ER) | payer MEDICAID, SELFPAY ==
[2020-10-15 04:26] VITALS: BP 132/83; PULSE 66; RESP 18; TEMP 36.6; O2SAT 98; BMI 24.2
[2020-10-15] MEDS: Acetaminophen 325 MG TABLET 975 MG PO (04:48)
[2020-10-15] MEDS: Ketorolac Tromethamine 15 MG/ML VIAL IM (04:49)
[2020-10-15] MEDS: Lidocaine 4 % Patch ADH..PATCH 1 PATCH TRANSDERMA (04:49)
--- NOTE | 2020-10-15 07:25 | ED_ITS ---
HPI - Back Pain/Injury General Chief Complaint: Back Pain/Injury Stated Complaint: body aches Time Seen by Provider: 10/15/20 04:33 Source: patient and staff interpreter Mode of arrival: ambulatory Limitations: no limitations History of Present Illness HPI Narrative: 55 yo female with fibromyalgia and RA on prednisone currently and 15mg oxycodone for pain states the last 3 days she has had worsening body aches and sore throat MD elicited complaint: other (body aches) Pertinent past history: arthritis Onset (ago): day(s) (3) Timing: constant Severity: moderate Similar Symptoms Previously: Yes Quality: dull, aching and throbbing Radiation: none Exacerbating factors: movement Relieving factors: none Context: other (hx of similar bouts in the past) Associated symptoms: denies other symptoms Treatments prior to arrival: other (took her oxycodone prior to arrival) Work related injury: No Related Data Home Medications Medication Instructions Recorded Confirmed amlodipine 2.5 mg tablet 2.5 mg PO DAILY 03/12/20 09/03/20 uoovevqjci-sxhhvtkfehstm-[id number] 1 cap PO Q4H PRN 03/12/20 09/03/20 50 mg-325 mg-40 mg capsule omeprazole 20 mg capsule,delayed 20 mg PO DAILY 03/12/20 09/03/20 release oxycodone 15 mg tablet 15 mg PO QID PRN 03/12/20 09/03/20 lisinopril 20 mg tablet 1 tab PO DAILY 05/17/20 09/03/20 naloxone 4 mg/actuation nasal 1 INTRANASAL DAILY 05/17/20 09/03/20 spray (Narcan) Previous Rx's Medication Instructions Recorded docusate sodium 100 mg capsule 200 mg PO BEDTIME #60 cap 04/24/20 (Colace) polyethylene glycol 3350 17 238 g PO ONCE 1 Days #238 g 04/24/20 gram/dose oral powder (Miralax) sennosides 8.6 mg tablet (Senna 8.6 mg PO DAILY #30 tab 04/24/20 Laxative) polyethylene glycol 3350 17 238 g PO ONCE 1 Days #238 g 05/22/20 gram/dose oral powder (Miralax) sodium,potassium,mag sulfates 17.5 See Rx Instructions PO .COMPLEX 06/14/20 gram-3.13 gram-1.6 gram oral soln #354 ml (Suprep Bowel Prep Kit) hydrocortisone 2.5 % topical cream 1 appl ID BID PRN #30 g 08/12/20 with perineal applicator (Proctozone-HC) methylcellulose (laxative) 500 mg 500 mg PO BID #60 tab 08/12/20 tablet (Citrucel) baricitinib 2 mg tablet (Olumiant) 2 mg PO DAILY #30 tab 09/03/20 miscellaneous medical supply 1 ea MISCELLANEOUS DAILY #1 ea 09/03/20 prednisone 5 mg tablet 5 mg PO DAILY #30 tab 09/03/20 cefuroxime axetil 250 mg tablet 250 mg PO BID 7 Days #14 tab 10/15/20 diazepam 5 mg tablet (Valium) 5 mg PO TID PRN #10 tab 10/15/20 Allergies Allergy/AdvReac Type Severity Reaction Status Date / Time clindamycin [Clindamycin] Allergy Severe BURGESS-JOHNATHON Verified 09/03/20 08:38 SYNDROME ibuprofen [From MOTRIN] Allergy Severe UNKNOWN Verified 09/03/20 08:38 Sulfa (Sulfonamide Allergy Severe RASH, hives Verified 09/03/20 08:38 Antibiotics) [Sulfa (Sulfonamides)] latex [LATEX] Allergy Unknown RASH Verified 09/03/20 08:38 nitrofurantoin Allergy Unknown unknown Verified 09/03/20 08:38 paroxetine Allergy Unknown unknown Verified 09/03/20 08:38 sumatriptan Allergy Unknown avoid due Verified 09/03/20 08:38 to sulfa allergy Review of Systems Review of Systems: Constitutional : No Weight loss, No Fever, No Chills, ENT/Mouth : No Hearing loss, No Ear Pain, No Nasal Congestion, No Sinus Pain, No Hoarseness, pos sore throat, No Rhinorrhea, No Swallowing Difficulty Cardiovascular : No Chest Pain, No SOB Respiratory : No Cough, No Dyspnea Gastrointestinal : No Nausea, No Vomiting, No Diarrhea, No abdominal Pain, No Hematochezia, No Melena Genitourinary : No Dysuria, No Urinary Frequency, No Hematuria, No Urinary Incontinence, Musculoskeletal : positive back pain, pos myalgias Skin : No Skin Lesions, No rash Neuro : No Weakness, No Numbness, No Paresthesias, no loss of bowel or bladder incontinence, no saddle anesthesia All other systems reviewed and are negative PMFSH Past Medical History Attestation statement: The following information was validated with the patient. Medical History Anemia Back pain Chronic constipation GERD (gastroesophageal reflux disease) HTN (hypertension) Hx of migraines Primary osteoarthritis involving multiple joints Rheumatoid arthritis Seropositive rheumatoid arthritis Surgical History History of left knee surgery Hx of colonoscopy Hx of esophagogastroduodenoscopy Family History Family History Father Prostate cancer Skin cancer Son Stomach problems Social History Social History Household Members: None Alcohol intake: never Patient Tobacco Use Status: Never used Tobacco Advance Directives: No Patient : No Physical Exam Vital Signs: Vital Signs: Last Vital Signs Temp 98 F 10/15/20 04:26 Pulse 66 10/15/20 04:26 Resp 18 10/15/20 04:26 BP 132/83 10/15/20 04:26 Pulse Ox 98 10/15/20 04:26 Body Mass Index 24.2 Appearance: Alert. Oriented X3. No acute distress. Eyes: Pupils equal, round and reactive to light. ENT: Pharynx normal. no redness, swelling, exudates Neck: Normal inspection. Neck supple. CVS: Normal heart rate and rhythm. Pulses normal. Respiratory: No respiratory distress. Breath sounds normal. Abdomen: Soft and nontender. Skin: Skin warm and dry. Normal skin color. Normal skin turgor. Extremities: No lower extremity edema. No calf ttp Neuro: Oriented X 3. No motor deficit. No sensory deficit. Course Course Course Narrative: work up negative, stable for DC doing better, + UA MDM - Back Pain/Injury MDM Narrative Medical decision making narrative: 55 to female with RA and fibromyalgia here with body aches and sore throat, already on narcotics which are not helping. At this time labs, COVID swab ordered. PO valium to see if this helps Lab Data Result diagrams: 10/15/20 07:45 10/15/20 07:45 Labs: Lab Results 10/15/20 10/15/20 10/15/20 Range/Units 07:18 07:45 07:45 WBC (4.8-10.8) X10*3/uL RBC (4.20-5.50) X10*6/uL Hgb (12.0-16.0) g/dl Hct (37-47) % MCV (80-98) fL MCH (27.0-33.0) pg MCHC (31.0-35.0) g/dl RDW (11.0-16.0) % Plt Count (160-400) X10*3/uL MPV (9.4-12.3) fL Immature Gran % (Auto) (0.0-0.4) % Neut % (Auto) (45-73) % Lymph % (Auto) (20-40) % [place] % (Auto) (2-11) % Eos % (Auto) (0-4) % Baso % (Auto) (0-2) % Lymph # (Auto) (1.2-4.9) X10*3/uL [place] # (Auto) (0.1-1.2) X10*3/uL Eos # (Auto) (0.0-0.4) X10*3/uL Baso # (Auto) (0.0-0.2) X10*3/uL Abs Immat Gran (auto) (0.00-0.03) X10*3/uL Absolute Neuts (auto) (2.0-8.3) X10*3/uL Absolute Nucleated RBC (0.0-0.012) X10*3/uL Nucleated RBC % (auto) (0.0-0.2) /100WBC Sodium 138 (135-145) mmol/L Potassium 4.5 (3.3-5.1) mmol/L Chloride 105 (96-108) mmol/L Carbon Dioxide 28 (22-29) mmol/L Anion Gap 10 L (12-20) BUN 20 H D (9-16) mg/dL Creatinine 0.65 (0.5-1.4) mg/dL Estim Creat Clear Calc 89.3 Estimated GFR > 60 Random Glucose 106 (60-115) mg/dL Calcium 9.7 (8.4-10.2) mg/dL Magnesium 2.3 (1.6-2.6) mg/dL Total Creatine Kinase 57 (26-140) U/L Urine Color YELLOW Urine Appearance CLOUDY Urine pH 5.5 (5.0-8.0) Ur Specific [place] 1.025 (1.005-1.025) Urine Protein TRACE (NEG-TRACE) MG/DL Urine Glucose (UA) NEG (NEG) MG/DL Urine Ketones NEG (NEG) MG/DL Urine Blood TRACE (NEG) Urine Nitrite NEG (NEG) Ur Leukocyte Esterase 2+ H (NEG) Urine RBC 1-4 (0) /HPF Urine WBC 76-150 H (0-4) /HPF Ur Squamous Epith Cells 2+ /LPF Urine Bacteria 1+ /LPF Urine Mucus 1+ /LPF COVID-19 ([facility]) Negative (Negative) COVID-19 Clin Com See Note 10/15/20 Range/Units 07:45 WBC 5.6 (4.8-10.8) X10*3/uL RBC 4.13 L (4.20-5.50) X10*6/uL Hgb 12.7 (12.0-16.0) g/dl Hct 39.8 (37-47) % MCV 96.4 (80-98) fL MCH 30.8 (27.0-33.0) pg MCHC 31.9 (31.0-35.0) g/dl RDW 12.9 (11.0-16.0) % Plt Count 201 (160-400) X10*3/uL MPV 10.2 (9.4-12.3) fL Immature Gran % (Auto) 0.4 (0.0-0.4) % Neut % (Auto) 73.7 H (45-73) % Lymph % (Auto) 18.4 L (20-40) % [place] % (Auto) 5.5 (2-11) % Eos % (Auto) 1.6 (0-4) % Baso % (Auto) 0.4 (0-2) % Lymph # (Auto) 1.0 L (1.2-4.9) X10*3/uL [place] # (Auto) 0.3 (0.1-1.2) X10*3/uL Eos # (Auto) 0.1 (0.0-0.4) X10*3/uL Baso # (Auto) 0.0 (0.0-0.2) X10*3/uL Abs Immat Gran (auto) 0.02 (0.00-0.03) X10*3/uL Absolute Neuts (auto) 4.1 (2.0-8.3) X10*3/uL Absolute Nucleated RBC 0.000 (0.0-0.012) X10*3/uL Nucleated RBC % (auto) 0.0 (0.0-0.2) /100WBC Sodium (135-145) mmol/L Potassium (3.3-5.1) mmol/L Chloride (96-108) mmol/L Carbon Dioxide (22-29) mmol/L Anion Gap (12-20) BUN (9-16) mg/dL Creatinine (0.5-1.4) mg/dL Estim Creat Clear Calc Estimated GFR Random Glucose (60-115) mg/dL Calcium (8.4-10.2) mg/dL Magnesium (1.6-2.6) mg/dL Total Creatine Kinase (26-140) U/L Urine Color Urine Appearance Urine pH (5.0-8.0) Ur Specific [place] (1.005-1.025) Urine Protein (NEG-TRACE) MG/DL Urine Glucose (UA) (NEG) MG/DL Urine Ketones (NEG) MG/DL Urine Blood (NEG) Urine Nitrite (NEG) Ur Leukocyte Esterase (NEG) Urine RBC (0) /HPF Urine WBC (0-4) /HPF Ur Squamous Epith Cells /LPF Urine Bacteria /LPF Urine Mucus /LPF COVID-19 ([facility]) (Negative) COVID-19 Clin Com Discharge Plan Discharge Clinical Impression: Myalgia UTI (urinary tract infection) Qualifiers: Urinary tract infection type: acute cystitis Hematuria presence: without hematuria Qualified Code(s): N30.00 - Acute cystitis without hematuria Patient Disposition: Home, Self-Care Instructions: Urinary Tract Infection in Women (ED), Musculoskeletal Pain (ED) Additional Instructions: return to ED for any worsening symptoms or concerns Prescriptions: New diazepam [Valium] 5 mg tablet 5 mg PO TID PRN (Reason: muscle spasm) Qty: 10 RF: 0 cefuroxime axetil 250 mg tablet 250 mg PO BID 7 Days Qty: 14 RF: 0 No Action polyethylene glycol 3350 [Miralax] 17 gram/dose powder 238 g PO ONCE 1 Days Qty: 238 RF: 0 Suprep Bowel Prep Kit 17.5-3.13-1.6 gram recon soln See Rx Instructions PO .COMPLEX Qty: 354 RF: 0 Olumiant 2 mg tablet 2 mg PO DAILY Qty: 30 RF: 3 lisinopril 20 mg tablet 1 tab PO DAILY RF: 0 Narcan 4 mg/actuation spray,non-aerosol 1 INTRANASAL DAILY RF: 0 oxycodone 15 mg tablet 15 mg PO QID PRN (Reason: Pain) RF: 0 amlodipine 2.5 mg tablet 2.5 mg PO DAILY RF: 0 omeprazole 20 mg capsule,delayed release(DR/EC) 20 mg PO DAILY RF: 0 ektjfuextp-tutaysndnghzz-yxuf 50-325-40 mg capsule 1 cap PO Q4H PRN (Reason: Headache) RF: 0 docusate sodium [Colace] 100 mg capsule 200 mg PO BEDTIME Qty: 60 RF: 5 polyethylene glycol 3350 [Miralax] 17 gram/dose powder 238 g PO ONCE 1 Days Qty: 238 RF: 0 sennosides [Senna Laxative] 8.6 mg tablet 8.6 mg PO DAILY Qty: 30 RF: 0 Citrucel 500 mg tablet 500 mg PO BID Qty: 60 RF: 5 hydrocortisone [Proctozone-HC] 2.5 % cream with perineal applicator 1 appl ID BID PRN (Reason: hemorrhoids) Qty: 30 RF: 3 miscellaneous medical supply Misc 1 ea miscellaneous DAILY Qty: 1 RF: 0 prednisone 5 mg tablet 5 mg PO DAILY Qty: 30 RF: 0 Referrals: Physician,Unknown [Primary Care Provider] - 2 days (if not better)
[2020-10-15 07:30] LABS: Glucose Urine UA NEG (NEG); Leukocyte Esterase Urine 2+ (NEG); Nitrite Urine NEG (NEG); PH 5.5 (5.0-8.0); Specific Gravity - Urine 1.025 (1.005-1.025); UACC Culture Trigger YES; Urine Blood TRACE (NEG); Urine Ketones NEG (NEG); Urine Protein TRACE MG/DL (NEG-TRACE)
[2020-10-15 07:32] LABS: Appearance Urine CLOUDY; Color Urine YELLOW
[2020-10-15 07:51] LABS: MANUAL DIFF FLAG NO
[2020-10-15 07:52] LABS: Bacteria Urine 1+ /LPF; Mucus Urine 1+ /LPF; Squamous Epithelial Cell Urine 2+ /LPF
[2020-10-15] MEDS: diazePAM 5 MG TABLET 10 MG PO (07:59)
[2020-10-15 08:08] LABS: Basophils Percent Auto 0.4 % (0-2); Eosinophils Absolute Auto 0.1 X10*3/uL (0.0-0.4); Eosinophils Percent Auto 1.6 % (0-4); Hematocrit 39.8 % (37-47); Hemoglobin 12.7 g/dl (12.0-16.0); Imm Gran Abs Auto 0.02 X10*3/uL (0.00-0.03); Imm Gran Pct Auto 0.4 % (0.0-0.4); Lymphocytes Percent Auto 18.4 % (20-40); Mean Corpuscular HGB Conc 31.9 g/dl (31.0-35.0); Mean Corpuscular Hemoglobin 30.8 pg (27.0-33.0); Mean Corpuscular Volume 96.4 fL (80-98); Mean Platelet Volume 10.2 fL (9.4-12.3); Monocytes Absolute Auto 0.3 X10*3/uL (0.1-1.2); Monocytes Percent Auto 5.5 % (2-11); Neutrophils Absolute Auto 4.1 X10*3/uL (2.0-8.3); Neutrophils Percent Auto 73.7 % (45-73); Platelet Count 201 X10*3/uL (160-400); Red Blood Count 4.13 X10*6/uL (4.20-5.50); Red Cell Distribution Width 12.9 % (11.0-16.0); White Blood Count 5.6 X10*3/uL (4.8-10.8)
[2020-10-15 08:10] LABS: COVID-19 Test Negative (Negative)
[2020-10-15 08:15] LABS: Anion Gap 10 (12-20); Blood Urea Nitrogen 20 mg/dL (9-16); Calcium 9.7 mg/dL (8.4-10.2); Carbon Dioxide 28 mmol/L (22-29); Chloride 105 mmol/L (96-108); Creatinine Clr Calc Pharmacy 89.3; Estimated Glomerular Filt Rate > 60; Glucose Random 106 mg/dL (60-115); Magnesium 2.3 mg/dL (1.6-2.6); Potassium 4.5 mmol/L (3.3-5.1); Sodium 138 mmol/L (135-145)
--- NOTE | 2020-10-15 08:27 | PC.NURSE ---
REPORT TAKEN FROM OLYA MCBRIDE PT HERE FOR BACK PAIN, ABLE TO EASILY REPOSITION SELF IN STRETCHER, AMBULATORY IN ROOM. BLOOD LABS DRAWN AND SENT. MEDICATED PER EMAR, TOLERATING PO W/O ISSUE.
== END 2020-10-15 08:43 | disposition home or self-care (01) ==
PROVIDERS: Student in an Organized Health Care Education/Training Program; Emergency Provider Emergency Medicine
DX: M79.10 Myalgia, unspecified site (principal); N30.00 Acute cystitis without hematuria; Z20.822 Contact with and (suspected) exposure to COVID-19; J02.9 Acute pharyngitis, unspecified; I10 Essential (primary) hypertension
CPT/HCPCS: 36415; 80048; 81001; 82550; 83735; 85025; 87086; 87635; 96372; 99284; J1885

== ENCOUNTER 2020-11-08 21:48 | Inpatient (IN) | payer MEDICAID, SELFPAY ==
--- NOTE | ~2020-11-08 | CT_ITS ---
EXAMINATION: CT ABDOMEN AND PELVIS WITH CONTRAST CLINICAL INFORMATION: Small bowel obstruction COMPARISON: 11/08/2020 TECHNIQUE: Multidetector volumetric images were obtained from the superior aspect of the liver through the pubic symphysis following administration of oral and 85 mL of Omnipaque 350 intravenous contrast. Sagittal and coronal reformatted images were obtained on the technologist's workstation. Oral contrast: No This CT examination was performed using dose optimization techniques as appropriate, variously including the following: *Automated exposure control *Adjustment of mA and/or kV according to patient size (this includes techniques or standardized protocols for targeted exams where dose is matched to indication/reason for exam; i.e. extremities or head) *Use of iterative reconstruction technique DLP: 618 mGy-cm FINDINGS: LUNG BASES: Peripheral right lower lobe atelectasis versus scarring. LIVER, GALLBLADDER, AND BILIARY TREE: The liver is normal in size, shape, and attenuation. Patient is status post cholecystectomy, and there is intrahepatic and extrahepatic biliary ductal dilatation. PANCREAS: Pancreatic duct appears mildly dilated to approximately 5 mm. No peripancreatic inflammation is seen. SPLEEN: There are mildly hypodense lesions in the spleen on images 20/2 and 05/08/1991 measuring up to 1 cm, nonspecific. ADRENAL GLANDS: Unremarkable. KIDNEYS AND URETERS: The kidneys are normal in size, shape, and attenuation. A few small hypodensities in the right kidney favor cysts. No hydronephrosis, hydroureter, or obstructing calculi seen. No perinephric stranding. BLADDER: Unremarkable. GASTROINTESTINAL TRACT: Oral contrast material is present throughout much of the small bowel. Again noted is mild relative dilatation of small bowel loops in the left abdomen compared to nondilated distal small bowel loops. However, some contrast material is present within the distal nondilated small bowel in the right lower quadrant. Transition from dilated to nondilated small bowel appears to occur within a thick-walled segment of small bowel in the central abdomen such as seen on axial image 60/92 and coronal image 17. Large bowel appears unremarkable. ABDOMINAL WALL: There is a fat-containing periumbilical hernia. LYMPH NODES: Normal. VASCULAR: Scattered atherosclerotic calcifications noted. PELVIC VISCERA: Unremarkable. Moderate pelvic free fluid is present. OSSEOUS STRUCTURES: Redemonstrated chronic and degenerative changes in the spine. CT/CT abdomen pelvis w con IMPRESSION: 1. Redemonstrated dilated small bowel loops in the left abdomen with nondilated distal small bowel loops in the right abdomen. Transition from dilated to nondilated bowel appears to occur in the central abdomen at a thick-walled segment which could represent inflammation or stricturing. Some oral contrast material is seen beyond this location, favoring a partial small bowel obstruction. 2. Moderate pelvic free fluid. 3. Redemonstrated intrahepatic and extrahepatic biliary ductal dilatation in the setting of prior cholecystectomy. Pancreatic duct also appears dilated. As previously noted these findings have a chronic appearance and may be further assessed with MRI/MRCP. 4. Nonspecific mildly hypodense lesions in the spleen, not adequately assessed on prior noncontrast imaging.
--- NOTE | ~2020-11-08 | XR_ITS ---
EXAMINATION: XR CHEST CLINICAL INFORMATION: NG tube placement COMPARISON: 03/27/2020 TECHNIQUE: Frontal view of the chest was obtained. 3 images obtained. FINDINGS: Final image demonstrates enteric tube tip in the region of the proximal stomach with side-port at the level of the distal esophagus. Lung volumes are symmetric. No focal consolidation is seen. No evidence of pneumothorax, pleural effusion, or pulmonary edema. Cardiac size is within normal limits. The thoracic aorta is tortuous. No acute osseous findings are seen. Dilated gas-filled small bowel loops noted in the visualized upper to mid abdomen, more fully assessed on recent abdomen/pelvis CT. Metallic densities overlie the spine and lateral right abdomen. XR/XR chest 1V IMPRESSION: 3 images obtained. Final image demonstrates NG tube tip at the proximal stomach with side-port at the level of the distal esophagus; advancement recommended. No acute cardiopulmonary findings.
--- NOTE | ~2020-11-08 | CT_ITS ---
EXAMINATION: CT ABDOMEN AND PELVIS WITHOUT CONTRAST CLINICAL INFORMATION: Abdominal pain and distention. Rule out small bowel obstruction. COMPARISON: CT abdomen/pelvis dated from 10/04/2019. TECHNIQUE: Multidetector volumetric imaging was performed from the superior aspect of the liver through the pubic symphysis. Sagittal and coronal reformatted images were obtained on the technologist's workstation. This CT examination was performed using dose optimization techniques as appropriate, variously including the following: *Automated exposure control *Adjustment of mA and/or kV according to patient size (this includes techniques or standardized protocols for targeted exams where dose is matched to indication/reason for exam; i.e. extremities or head) *Use of iterative reconstruction technique DLP: 601 mGy-cm FINDINGS: LUNG BASES: Redemonstration of architectural distortion and scarring in the right middle and right lung base stable since 2020. No new focal airspace opacities or pleural effusions. LIVER, GALLBLADDER, AND BILIARY TREE: There is redemonstration of intra and extrahepatic biliary ductal dilatation with a CBD that measures up to 1.2 cm, stable since 2020. There are no focal liver parenchymal abnormalities. The patient is status post cholecystectomy. PANCREAS: The main pancreatic duct is dilated at the level of the head and proximal body measuring up to 8 mm, this is also unchanged since 2020. There is no peripancreatic free fluid and fat stranding. SPLEEN: Unremarkable. ADRENAL GLANDS: Unremarkable. KIDNEYS AND URETERS: In the right kidney there is a 3 mm nonobstructive stone in the lower pole (37:3). There is an additional calcification in the parenchyma of the right kidney adjacent to a hypodensity at the level of the interpolar region (50:7) which is stable since 2020 and likely represents a thin calcification within the wall of a cyst. A few indeterminate bilateral hypodensities are not significantly changed and likely represent cysts. There is no hydronephrosis. BLADDER: Decompressed and suboptimally assessed. GASTROINTESTINAL TRACT: There are several dilated loops of small bowel in the lower abdomen measuring up to 3.5 cm in diameter with air-fluid levels. There is wall thickening within some of these loops, and free fluid. A clear transition point is not identified. The distal colon is decompressed limiting its evaluation. The ascending colon and transverse colon are normal in appearance. ABDOMINAL WALL: Midline surgical scar with redemonstration of a fat-containing paraumbilical hernia with a neck that measures up to 7 mm, similar to prior. There are also small fat-containing inguinal hernias. LYMPH NODES: The absence of intravenous contrast limits assessment of lymph nodes. A tiny for these limitations, there is no evidence of lymphadenopathy by size criteria. VASCULAR: Scattered atherosclerotic disease. No aneurysmal dilatation. PELVIC VISCERA: Anteverted uterus. No adnexal lesions. OSSEOUS STRUCTURES: No acute or aggressive osseous abnormalities. Levoscoliosis of the thoracolumbar spine with postoperative changes at T12-L1 and multilevel degenerative changes. Unchanged deformity at the pubic symphysis. CT/CT abdomen pelvis wo con IMPRESSION: Findings are consistent with a distal small bowel obstruction. The presence of wall thickening and free fluid raises concern for a complication such as close loop obstruction or bowel ischemia. Recommend surgical consultation. There is biliary ductal dilatation and pancreatic ductal dilatation not significantly changed since 2019. The etiology of these findings is uncertain and further evaluation should be obtained with an MR of the abdomen/MRCP to rule out possible occult lesions. This critical result was discussed with Dr العراقي at 11/09/2020 12:22 AM and it was ascertained that the content and urgency of the report was understood at the time of direct communication.
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
--- NOTE | ~2020-11-08 | XR_ITS ---
EXAMINATION: XR ABDOMEN KUB CLINICAL INDICATION: Nausea. Follow-up small bowel obstruction COMPARISON: Previous CT of the abdomen and pelvis November 08 and 11/09/2020 and KUB 11/10/2020 TECHNIQUE: AP view of the abdomen. FINDINGS: The nasogastric tube is no longer seen. There is interval decrease in small bowel dilatation. There is oral contrast seen in the distal colon and rectum. There are no dilated loops of bowel. There is no evidence of free air. There are foreign bodies that project over the right upper quadrant and left pelvis. There is a radiopaque density projecting over the right T12-L1 disc space, question representing postsurgical change. There are degenerative changes mild scoliosis of lumbar spine. XR/XR KUB IMPRESSION: No dilated loops of bowel. Interval decrease in small bowel dilatation and oral contrast in the colon.
[2020-11-08 21:51] VITALS: BP 105/58; PULSE 93; RESP 16; TEMP 36.1; O2SAT 98; BMI 24.2
--- NOTE | 2020-11-08 22:30 | PC.NURSE ---
PT TO ROOM, CHG INTO GOWN AND AWAITING MD'S EVAL.
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
[2020-11-08 23:19] LABS: Basophils Percent Auto 0.2 % (0-2); Eosinophils Absolute Auto 0.2 X10*3/uL (0.0-0.4); Hematocrit 41.8 % (37-47); Hemoglobin 13.8 g/dl (12.0-16.0); Imm Gran Abs Auto 0.03 X10*3/uL (0.00-0.03); Imm Gran Pct Auto 0.4 % (0.0-0.4); Lymphocytes Absolute Auto 1.3 X10*3/uL (1.2-4.9); Lymphocytes Percent Auto 14.8 % (20-40); MANUAL DIFF FLAG NO; Mean Corpuscular Hemoglobin 31.3 pg (27.0-33.0); Mean Corpuscular Volume 94.8 fL (80-98); Mean Platelet Volume 9.9 fL (9.4-12.3); Monocytes Absolute Auto 0.7 X10*3/uL (0.1-1.2); Monocytes Percent Auto 8.4 % (2-11); Neutrophils Absolute Auto 6.3 X10*3/uL (2.0-8.3); Neutrophils Percent Auto 74.2 % (45-73); Platelet Count 253 X10*3/uL (160-400); Red Blood Count 4.41 X10*6/uL (4.20-5.50); White Blood Count 8.5 X10*3/uL (4.8-10.8)
[2020-11-08] MEDS: Famotidine/PF 20 MG/2 ML VIAL IVPUSH (23:22)
[2020-11-08] MEDS: ondansetron HCL 4 MG/2 ML VIAL IVPUSH (23:22)
[2020-11-08] MEDS: 0.9 % Sodium Chloride 1,000 ML 999 ML IVCONT (23:23)
[2020-11-08] MEDS: Magnesium Hydrox/Alum Hydrox 30 ML ORAL.SUSP PO (23:23)
--- NOTE | 2020-11-08 23:31 | PC.NURSE ---
IN ROOM FOR EVAL. IV PLACED TO LAC, LABS DRAWN TO LAB. PT MEDICATED PER EMAR FOR DISCOMFORT RATING 10/10 TO ABD AREA. NS UP AND RUNNING W/O SITE INTACT. PT AWAITING FOR FURTHER ORDERS. WILL CONTINUE TO MONITOR PT.
[2020-11-08 23:57] VITALS: RESP 18
[2020-11-08] MEDS: Morphine Sulfate 2 MG/ML CARTRIDGE IVPUSH (23:57)
[2020-11-09] VITALS (12 sets, daily range): BP systolic 128–151; BP diastolic 68–85; PULSE 56–89; RESP 16–22; TEMP 36.6–37.1; O2SAT 94–97
[2020-11-09 00:02] LABS: Alanine Aminotransferase 200 U/L (0-31); Albumin Level 4.2 g/dL (3.5-5.0); Alkaline Phosphatase 195 U/L (39-117); Anion Gap 11 (12-20); Aspartate Amino Transferase 373 U/L (5-31); Bilirubin Direct 1.3 mg/dL (0.0-0.5); Bilirubin Total 2.5 mg/dL (0.0-1.0); Blood Urea Nitrogen 19 mg/dL (9-16); Calcium 10.7 mg/dL (8.4-10.2); Carbon Dioxide 29 mmol/L (22-29); Chloride 102 mmol/L (96-108); Creatinine Clr Calc Pharmacy 75.4; Estimated Glomerular Filt Rate > 60; Glucose Random 111 mg/dL (60-115); Lipase 728 U/L (8-78); Potassium 3.3 mmol/L (3.3-5.1); Sodium 139 mmol/L (135-145); Total Protein 7.2 g/dL (6.5-8.0)
--- NOTE | 2020-11-09 00:36 | PC.NURSE ---
pt up to restroom for urine sample sent to lab. additional labs drawn to lab for eval.
[2020-11-09 00:43] LABS: Appearance Urine CLEAR; Color Urine DK YELLOW; Glucose Urine UA NEG (NEG); Leukocyte Esterase Urine TRACE (NEG); Nitrite Urine POS (NEG); Specific Gravity - Urine >= 1.030 (1.005-1.025); UACC Culture Trigger YES; Urine Blood NEG (NEG); Urine Ketones NEG (NEG); Urine Protein 1+ MG/DL (NEG-TRACE)
[2020-11-09 00:47] LABS: UPreg QC Valid YES; Urine Pregnancy NEGATIVE (NEGATIVE)
[2020-11-09 00:52] LABS: Ethanol < 10 mg/dL
[2020-11-09] MEDS: HYDROmorphone HCl 1 MG/ML SYRINGE IVPUSH ×7 (00:52→22:06)
[2020-11-09 01:00] LABS: Bacteria Urine 1+ /LPF; Mucus Urine 2+ /LPF; Squamous Epithelial Cell Urine TRACE /LPF
--- NOTE | 2020-11-09 01:30 | PC.NURSE ---
N/G TUBE INSERTED W/O DIFFICULTY. PT TOLERATED WELL. LABS DRAWN TO LAB FOR EVAL. REMAINS WITH PT AT BEDSIDE.
[2020-11-09 01:40] LABS: Lactic Acid 0.9 mmol/L (0.5-2.0)
--- NOTE | 2020-11-09 02:00 | PC.NURSE ---
PT MEDICATED FOR PAIN PER EMAR.
[2020-11-09] MEDS: 0.9 % Sodium Chloride 1,000 ML 999 ML IVCONT (02:04)
[2020-11-09] MEDS: Piperacillin Sodium/Tazobactam 3.375 GM in 0.9 % Sodium Chloride 50 ML IV ×4 (03:00→21:17)
--- NOTE | 2020-11-09 03:03 | PC.NURSE ---
CONTRAST INJECTED THRU N/G TUBE, PT TOLERATED WELL.
--- NOTE | 2020-11-09 03:22 | PC.NURSE ---
BC OBTAINED TO LAB. PT C/O PAIN TO ABD AREA AND RATING PAIN 10/10. AWARE.
--- NOTE | 2020-11-09 03:23 | PC.NURSE ---
PT TO CT IN STRETCHER.
[2020-11-09] MEDS: iohexoL 350 MG/ML 100 ML INFUS..BTL 85 ML IV (03:36)
--- NOTE | 2020-11-09 04:17 | PC.NURSE ---
PT RATING PAIN 10/10. PT MEDICATED PER EMAR.
[2020-11-09 05:58] LABS: COVID-19 Test Negative (Negative); IDNOW Serial# 9DD0AD1C
[2020-11-09] MEDS: Metoclopramide HCl 10 MG/2 ML VIAL IVPUSH (07:18)
[2020-11-09] MEDS: diphenhydrAMINE HCL 50 MG/ML VIAL 25 MG IVPUSH (07:18)
[2020-11-09] MEDS: Pantoprazole Sodium 40 MG/10 ML VIAL IVPUSH (07:18)
[2020-11-09] MEDS: Enoxaparin Sodium 40 MG/0.4 ML SYRINGE SUBCUT (07:20)
[2020-11-09] MEDS: Sodium Chloride 0.45 % 1,000 ML 100 ML IVCONT ×2 (07:55→18:42)
--- NOTE | 2020-11-09 08:07 | PC.NURSE ---
pt alert and oriented, vss. Pt c/o of sharp LLQ pain. pt given pain med as documented. pt has NG tube in place, tolerating well 200 ml noted in canister. pt resting quietly after IV meds were given. Pt NPO, PO meds held as documented. Pt's daughter at bedside, will let pt sleep.
[2020-11-09 09:17] LABS: MANUAL DIFF FLAG NO
[2020-11-09 09:20] LABS: Basophils Percent Auto 0.3 % (0-2); Eosinophils Absolute Auto 0.1 X10*3/uL (0.0-0.4); Eosinophils Percent Auto 1.8 % (0-4); Hematocrit 39.4 % (37-47); Hemoglobin 12.7 g/dl (12.0-16.0); Imm Gran Abs Auto 0.02 X10*3/uL (0.00-0.03); Imm Gran Pct Auto 0.3 % (0.0-0.4); Lymphocytes Absolute Auto 1.1 X10*3/uL (1.2-4.9); Lymphocytes Percent Auto 17.6 % (20-40); Mean Corpuscular HGB Conc 32.2 g/dl (31.0-35.0); Mean Corpuscular Hemoglobin 30.7 pg (27.0-33.0); Mean Corpuscular Volume 95.2 fL (80-98); Mean Platelet Volume 10.2 fL (9.4-12.3); Monocytes Absolute Auto 0.6 X10*3/uL (0.1-1.2); Monocytes Percent Auto 10.7 % (2-11); Neutrophils Absolute Auto 4.1 X10*3/uL (2.0-8.3); Neutrophils Percent Auto 69.3 % (45-73); Platelet Count 246 X10*3/uL (160-400); Red Blood Count 4.14 X10*6/uL (4.20-5.50); Red Cell Distribution Width 12.8 % (11.0-16.0)
[2020-11-09 11:27] LABS: Alanine Aminotransferase 377 U/L (0-31); Albumin Level 3.8 g/dL (3.5-5.0); Alkaline Phosphatase 250 U/L (39-117); Aspartate Amino Transferase 389 U/L (5-31); Bilirubin Direct 1.3 mg/dL (0.0-0.5); Bilirubin Total 2.9 mg/dL (0.0-1.0); Total Protein 6.5 g/dL (6.5-8.0)
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
[2020-11-09] MEDS: HYDROmorphone HCl 0.5 MG/0.5 ML SYRINGE IVPUSH (11:35)
--- NOTE | 2020-11-09 11:40 | PC.NURSE ---
pt awake, requested pain meds for LLQ pain. pain med given as documented. Effectiveness pending. IV fluids infusing, Pt assisted to the restroom. bedside commode placed at her bedside. Pt's son is at her bedside. will continue to monitor.
[2020-11-09] MEDS: ondansetron HCL 4 MG/2 ML VIAL IVPUSH (15:53)
--- NOTE | 2020-11-09 16:20 | PC.NURSE ---
pt awake, requested meds for nausea and pain. meds given as documented, no other complaints. pt's NG output 150 ml. pt's daughter is at her bedside.
[2020-11-09 22:05] LABS: Baso%MD 0.3 %; Hemoglobin 12.2 g/dl (12.0-16.0); IG%MD 0.2 %; Lymph%MD 17.2 %; Mean Corpuscular Hemoglobin 31.1 pg (27.0-33.0); Mean Corpuscular Volume 94.4 fL (80-98); Mean Platelet Volume 10.1 fL (9.4-12.3); Mono%MD 7.3 %; Platelet Count 225 X10*3/uL (160-400); Red Blood Count 3.92 X10*6/uL (4.20-5.50); Red Cell Distribution Width 12.6 % (11.0-16.0)
--- NOTE | 2020-11-09 22:08 | MHC.PIE ---
p; pt c/o pain 11/24, prn dilaudid 1 mg iv given with little to effect. pt cont to c/o extreme pain, pt noted moaning and in obvious pain. pt also c/o insominia d/t pain. i; dr bailey notified; in room. new order dilaudid 1 mg iv now. stat labs ordered e; will cont to monitor
[2020-11-09 22:13] LABS: Lactic Acid 0.8 mmol/L (0.5-2.0)
[2020-11-09 22:17] LABS: Anion Gap 13 (12-20); Blood Urea Nitrogen 8 mg/dL (9-16); Carbon Dioxide 24 mmol/L (22-29); Chloride 105 mmol/L (96-108); Creatinine Clr Calc Pharmacy 92.2; Estimated Glomerular Filt Rate > 60; Glucose Random 90 mg/dL (60-115); Potassium 3.6 mmol/L (3.3-5.1); Sodium 138 mmol/L (135-145)
[2020-11-09 22:23] LABS: Band Neutrophils Percent 2 % (3-5); Lymphocytes Percent Manual 17 % (20-40); Monocytes Absolute Manual 0.2 X10*3/uL (0.0-1.2); Monocytes Percent Manual 4 % (2-11); Neutrophils Absolute Manual 4.7 X10*3/uL (2.2-7.9); Neutrophils Percent Manual 77 % (45-73); Platelet Estimate NORMAL (NORMAL); Platelet Morphology Comment NORMAL; RBC Morphology NORMAL
[2020-11-09 23:49] LABS: Lipase 52 U/L (8-78)
[2020-11-10] MEDS: HYDROmorphone HCl 1 MG/ML SYRINGE IVPUSH ×4 (00:31→20:36)
[2020-11-10] MEDS: Piperacillin Sodium/Tazobactam 3.375 GM in 0.9 % Sodium Chloride 50 ML IV ×4 (02:41→20:36)
[2020-11-10] MEDS: ondansetron HCL 4 MG/2 ML VIAL IVPUSH (02:41)
[2020-11-10] MEDS: Sodium Chloride 0.45 % 1,000 ML 100 ML IVCONT ×2 (03:27→15:35)
[2020-11-10] MEDS: Morphine Sulfate 4 MG/ML CARTRIDGE IVPUSH (03:29)
--- NOTE | 2020-11-10 03:36 | MHC.PIE ---
0251 p; pt in room dry heaving and crying in pain. note prn dilaudid 1 mg q4 iv given at 0031 i; prn zofran givn, ice packs for h/a given i; dr rider notified; new order morphine 4 mg iv now e; will cont to monitor
[2020-11-10] MEDS: Pantoprazole Sodium 40 MG/10 ML VIAL IVPUSH (06:02)
[2020-11-10 06:09] LABS: Baso%MD 0.3 %; Eos%MD 0.6 %; Hemoglobin 12.3 g/dl (12.0-16.0); IG%MD 0.3 %; Lymph%MD 15.5 %; Mean Corpuscular HGB Conc 33.2 g/dl (31.0-35.0); Mean Corpuscular Hemoglobin 30.9 pg (27.0-33.0); Mean Platelet Volume 10.1 fL (9.4-12.3); Mono%MD 6.1 %; Neut%MD 77.2 %; Platelet Count 213 X10*3/uL (160-400); Red Blood Count 3.98 X10*6/uL (4.20-5.50); Red Cell Distribution Width 12.3 % (11.0-16.0); White Blood Count 6.2 X10*3/uL (4.8-10.8)
[2020-11-10 06:23] LABS: Lactic Acid 0.9 mmol/L (0.5-2.0)
[2020-11-10 06:32] LABS: Alanine Aminotransferase 265 U/L (0-31); Albumin Level 3.8 g/dL (3.5-5.0); Alkaline Phosphatase 234 U/L (39-117); Anion Gap 12 (12-20); Aspartate Amino Transferase 180 U/L (5-31); Bilirubin Total 1.6 mg/dL (0.0-1.0); Blood Urea Nitrogen 9 mg/dL (9-16); Calcium 9.2 mg/dL (8.4-10.2); Carbon Dioxide 26 mmol/L (22-29); Chloride 102 mmol/L (96-108); Creatinine Clr Calc Pharmacy 90.8; Estimated Glomerular Filt Rate > 60; Glucose Random 98 mg/dL (60-115); Sodium 136 mmol/L (135-145); Total Protein 6.6 g/dL (6.5-8.0)
[2020-11-10 06:53] LABS: Band Neutrophils Percent 1 % (3-5); Basophils Abs Manual 0.1 X10*3/uL (0.0-0.3); Basophils Percent Manual 1 % (0-1); Eosinophils Absolute Manual 0.1 X10*3/UL (0.0-0.8); Eosinophils Percent Manual 1 % (0-4); Lymphocytes Absolute Manual 0.9 X10*3/uL (0.6-4.8); Lymphocytes Percent Manual 14 % (20-40); Monocytes Absolute Manual 0.2 X10*3/uL (0.0-1.2); Monocytes Percent Manual 3 % (2-11); Neutrophils Percent Manual 80 % (45-73)
[2020-11-10 06:57] LABS: Acanthocytes 1+ (0-2) /OIF; Platelet Estimate NORMAL (NORMAL); Platelet Morphology Comment NORMAL; RBC Morphology NORMAL; Tear Drop Cells 1+ (0-2) /OIF; Toxic Vacuolation PRESENT
[2020-11-10 08:00] VITALS: BP 164/90; PULSE 63; RESP 18; TEMP 36; O2SAT 93
[2020-11-10] MEDS: Enoxaparin Sodium 40 MG/0.4 ML SYRINGE SUBCUT (08:13)
[2020-11-10] MEDS: Metoclopramide HCl 10 MG/2 ML VIAL IVPUSH (08:13)
[2020-11-10] MEDS: 0.9 % Sodium Chloride Flush 3 ML SYRINGE IVFLUSH (08:14)
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
--- NOTE | 2020-11-10 09:42 | PM.PNGS ---
Subjective Subjective Date of Service: 11/10/20 Interval history: pt feeling better and less abdo pain,nausea, by the afternoon having a bowel movement Physical Exam Vital Signs: Vital Signs: Last Vital Signs Temp 96.8 F 11/10/20 08:00 Pulse 63 11/10/20 08:00 Resp 18 11/10/20 08:00 BP 164/90 H 11/10/20 08:00 Pulse Ox 93 11/10/20 08:00 Body Mass Index 24.2 GI: Other: abdo - soft nondistended mild tenderness epigastric area active bowel sounds Procedures Date of Service Date of Service: 11/10/20 Progress Note: A&P Assessment and plan (1) Acute pancreatitis: Status: Acute Assessment and Plan: i think this pt pain from pancreatitis - sbo clinically improving and passing gas and labs are all benign. lipase is markedly decreased -? etiology for pancreatitis - get GI consut and med team involved small bowel study tried with 100 cc gastrograffin down ng tube and clamp - pt passed stool and then at 5 o'clock kub showing contrast easily into colon and no dilated sb loops dc ngtube and sips of clears appreciate gi input (2) Partial small bowel obstruction: Status: Acute Fall Risk Details Current Medications: Current Medications Enoxaparin Sodium (Enoxaparin Sodium 40 Mg/0.4 Ml Syringe) 40 mg SUBCUT Q24H [facility] Last Admin: 11/10/20 08:13 Dose: 40 mg Documented by: Hydromorphone HCl (Hydromorphone Hcl 1 Mg/Ml Syringe) 1 mg IVPUSH RQ4H PRN; Protocol PRN Reason: Pain, Severe (Pain Scale 7-10) Last Admin: 11/10/20 06:02 Dose: 1 mg Documented by: Sodium Chloride () 1,000 mls @ 100 mls/hr IVCONT .Q10H [facility] Last Admin: 11/10/20 03:27 Dose: 100 mls/hr Documented by: Piperacillin Sod/Tazobactam (Sod 3.375 gm/ Sodium Chloride) 50 mls @ 100 mls/hr IV Q6H [facility] Last Infusion: 11/10/20 09:37 Dose: Infused Documented by: Lisinopril (Lisinopril 20 Mg Tablet) 20 mg PO DAILY [facility]; Protocol Last Admin: 11/10/20 08:06 Dose: Not Given Documented by: Metoclopramide HCl (Metoclopramide Hcl 10 Mg/2 Ml Vial) 10 mg IVPUSH Q6H PRN PRN Reason: Nausea and Vomiting Last Admin: 11/10/20 08:13 Dose: 10 mg Documented by: Ondansetron HCl (Ondansetron Hcl 4 Mg/2 Ml Vial) 4 mg IVPUSH Q8H PRN PRN Reason: Nausea and Vomiting Last Admin: 11/10/20 02:41 Dose: 4 mg Documented by: Pantoprazole Sodium (Pantoprazole Sodium 40 Mg/10 Ml Vial) 40 mg IVPUSH DAILY@0630 [facility] Last Admin: 11/10/20 06:02 Dose: 40 mg Documented by: Sodium Chloride (0.9 % Sodium Chloride Flush 3 Ml Syringe) 3 ml IVFLUSH [facility] Last Admin: 11/10/20 08:14 Dose: 3 ml Documented by: Time Spent With Patient Time: Total time spent is greater than 50% in coordination of care (as documented) at patient's floor/unit and/or counseling patient: Time with patient: Greater than 35 minutes Quality Stroke Does the patient have a stroke diagnosis?: No VTE Prior VTE?: No VTE Risk Level:: Surgical - moderate VTE Device Contraindication: N/A - Device Ordered VTE Drug Contraindication: N/A - Med Ordered
[2020-11-10 10:52] VITALS: RESP 20
--- NOTE | 2020-11-10 11:01 | P.CONIM_ITS ---
History of Present Illness Data of Consult Service Date: 11/10/20 Requesting physician: Catrachita Sen Primary Care Provider: Kenny Loyd MD [facility] Reason for consult: Pancreatitis This is a 55-year-old Mongolian-speaking female with a history of rheumatoid arthritis on prednisone, hypertension who presented to the emergency department with abdominal pain. The patient states that she has been having abdominal pain for the past 4 days. This was primarily located in the mid abdominal and epigastric area and described as a burning sensation. In the emergency department her CT scan showed concern for a bowel obstruction. She was evaluated by General surgery and repeat CT scan with contrast was done and confirmed partial small-bowel obstruction. Her lipase was also elevated in the 700s. Her LFTs were elevated an obstructive pattern. She was admitted to the surgical service for bowel obstruction. The hospitalists were asked to see her in consultation today due to possible pancreatitis. Patient reports that her pain is somewhat better than yesterday but is still present in the epigastric region. She has NG tube present. She is passing gas but has not had any bowel movement. Her lipase this morning has decreased to 52 and her LFTs are trending down. Imaging shows intra and extrahepatic ductal dilatation as well as mild dilatation of the pancreatic duct. She has history of cholecystectomy in the past. Her main complaint at this time is a headache which she has had for the past 2 days. She gets them frequently at home and takes Fioricet. Review of Systems Review of Systems: Yes all other systems are reviewed and are negative Constitutional: Constitutional: Denies chills and Denies fever(s) Cardiovascular: Cardiovascular: Denies chest pain Respiratory: Respiratory: Denies cough Gastrointestinal: Gastrointestinal: Reports abdominal pain, Denies diarrhea and Denies vomiting PMFSH Medical History Anemia Back pain Chronic constipation GERD (gastroesophageal reflux disease) HTN (hypertension) Hx of migraines Primary osteoarthritis involving multiple joints Rheumatoid arthritis Seropositive rheumatoid arthritis Functional capacity: independent ambulation Family History Father Prostate cancer Skin cancer Son Stomach problems Pertinent family history: See above Surgical History (Updated 11/10/20 @ 11:08 by FAMILIA Zaldivar) H/O exploratory laparotomy History of left knee surgery Hx of cholecystectomy Hx of colonoscopy Hx of esophagogastroduodenoscopy Social History Household Members: Spouse Housing: Apartment Do you presently have visiting nurse or other home services: Yes ([employer]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 If so, by whom?: No Do you feel safe in your current relationship?: Yes Is there a partner from a previous relationship who is making you feel unsafe now?: No Are you made to feel afraid or neglected: No Advance Directives: No Advance Directives Information Provided: No Do you have thoughts of harming others: None Do you have a plan to hurt others: No Plan Recently lost weight without trying: Unsure Nutrition Risks: Poor intake 0-25% >4 days Patient : No : No Poor oral hygiene: No Meds Allergies Allergy/AdvReac Type Severity Reaction Status Date / Time clindamycin [Clindamycin] Allergy Severe BURGESS-JOHNATHON Verified 09/03/20 08:38 SYNDROME ibuprofen [From MOTRIN] Allergy Severe UNKNOWN Verified 09/03/20 08:38 Sulfa (Sulfonamide Allergy Severe RASH, hives Verified 09/03/20 08:38 Antibiotics) [Sulfa (Sulfonamides)] latex [LATEX] Allergy Unknown RASH Verified 09/03/20 08:38 nitrofurantoin Allergy Unknown unknown Verified 09/03/20 08:38 paroxetine Allergy Unknown unknown Verified 09/03/20 08:38 sumatriptan Allergy Unknown avoid due Verified 09/03/20 08:38 to sulfa allergy Active Medications: Current Medications Acetaminophen/Butalbital/Caffeine (Butalb/Acetamin/Caff 50/325/40 Tablet) 1 tab PO Q6H PRN PRN Reason: Headache Enoxaparin Sodium (Enoxaparin Sodium 40 Mg/0.4 Ml Syringe) 40 mg SUBCUT Q24H [facility] Last Admin: 11/10/20 08:13 Dose: 40 mg Documented by: Hydromorphone HCl (Hydromorphone Hcl 1 Mg/Ml Syringe) 1 mg IVPUSH RQ4H PRN; Protocol PRN Reason: Pain, Severe (Pain Scale 7-10) Last Admin: 11/10/20 10:52 Dose: 1 mg Documented by: Sodium Chloride () 1,000 mls @ 100 mls/hr IVCONT .Q10H [facility] Last Admin: 11/10/20 03:27 Dose: 100 mls/hr Documented by: Piperacillin Sod/Tazobactam (Sod 3.375 gm/ Sodium Chloride) 50 mls @ 100 mls/hr IV Q6H [facility] Last Infusion: 11/10/20 09:37 Dose: Infused Documented by: Lisinopril (Lisinopril 20 Mg Tablet) 20 mg PO DAILY [facility]; Protocol Last Admin: 11/10/20 08:06 Dose: Not Given Documented by: Metoclopramide HCl (Metoclopramide Hcl 10 Mg/2 Ml Vial) 10 mg IVPUSH Q6H PRN PRN Reason: Nausea and Vomiting Last Admin: 11/10/20 08:13 Dose: 10 mg Documented by: Ondansetron HCl (Ondansetron Hcl 4 Mg/2 Ml Vial) 4 mg IVPUSH Q8H PRN PRN Reason: Nausea and Vomiting Last Admin: 11/10/20 02:41 Dose: 4 mg Documented by: Pantoprazole Sodium (Pantoprazole Sodium 40 Mg/10 Ml Vial) 40 mg IVPUSH DAILY@0630 [facility] Last Admin: 11/10/20 06:02 Dose: 40 mg Documented by: Sodium Chloride (0.9 % Sodium Chloride Flush 3 Ml Syringe) 3 ml IVFLUSH QSHIFT [facility] Last Admin: 11/10/20 08:14 Dose: 3 ml Documented by: Home Medications Medication Instructions Recorded Confirmed Last Taken Type [id number] 1 cap PO Q4H PRN 03/12/20 11/09/20 Unknown History 50 mg-325 mg-40 mg capsule oxycodone 15 mg tablet 15 mg PO QID PRN 03/12/20 11/09/20 Unknown History lisinopril 20 mg tablet 1 tab PO DAILY 05/17/20 11/09/20 Unknown History Physical Exam Vital Signs and Narrative: Vital Signs: Last Vital Signs Temp 96.8 F 11/10/20 08:00 Pulse 63 11/10/20 08:00 Resp 20 11/10/20 10:52 BP 164/90 H 11/10/20 08:00 Pulse Ox 93 11/10/20 08:00 Body Mass Index 24.2 Const: Other: appears uncomfortable General: alert and awake Nutritional Appearance: well nourished Orientation/consciousness: patient oriented x3 HENMT: Other: NGT in place with dark drainage Head: Yes normocephalic and Yes atraumatic Eyes: Sclerae: sclerae normal Resp: Effort & Inspection: normal respiratory effort and no respiratory distress Cardio: Rate: regular rate Rhythm: regular rhythm GI: Other: multiple scars; +bowel sounds; tender to palpation in epigastrum Inspection: No distended Palpation (GI): Soft to palpation Neuro: General: patient oriented x3 Cranial nerves: Yes CN's II-XII intact bilaterally and Yes Bilaterally intact EOM present Extrem: Other: no leg edema Results Labs CBC and Chem 7: 11/10/20 05:50 11/10/20 05:50 Labs: Laboratory Results - last 24 hr 11/09/20 11/09/20 11/09/20 11:00 21:54 21:54 MCV 94.4 MCH 31.1 MCHC 33.0 RDW 12.6 Plt Count 225 MPV 10.1 Absolute Nucleated RBC 0.000 Nucleated RBC % (auto) 0.0 Neutrophils % (Manual) 77 H Band Neutrophils % 2 L Lymphocytes % (Manual) 17 L Monocytes % (Manual) 4 Eosinophils % (Manual) Basophils % (Manual) Abs Neuts (Manual) 4.7 Lymphocytes # (Manual) 1.0 Monocytes # (Manual) 0.2 Eosinophils # (Manual) Basophils # (Manual) Toxic Vacuolation Platelet Estimate NORMAL Plt Morphology Comment NORMAL RBC Morphology NORMAL Tear Drop Cells Acanthocytes (Spur) Anion Gap 13 Estim Creat Clear Calc 92.2 Estimated GFR > 60 Random Glucose 90 Lactic Acid Calcium 9.0 D Total Bilirubin 2.9 H Direct Bilirubin 1.3 H AST 389 H ALT 377 H Alkaline Phosphatase 250 H D Total Protein 6.5 Albumin 3.8 Lipase 52 11/09/20 11/10/20 11/10/20 21:54 05:50 05:50 MCV 93.0 MCH 30.9 MCHC 33.2 RDW 12.3 Plt Count 213 MPV 10.1 Absolute Nucleated RBC 0.000 Nucleated RBC % (auto) 0.0 Neutrophils % (Manual) 80 H Band Neutrophils % 1 L Lymphocytes % (Manual) 14 L Monocytes % (Manual) 3 Eosinophils % (Manual) 1 Basophils % (Manual) 1 Abs Neuts (Manual) 5.0 Lymphocytes # (Manual) 0.9 Monocytes # (Manual) 0.2 Eosinophils # (Manual) 0.1 Basophils # (Manual) 0.1 Toxic Vacuolation PRESENT Platelet Estimate NORMAL Plt Morphology Comment NORMAL RBC Morphology NORMAL Tear Drop Cells 1+ (0-2) Acanthocytes (Spur) 1+ (0-2) Anion Gap 12 Estim Creat Clear Calc 90.8 Estimated GFR > 60 Random Glucose 98 Lactic Acid 0.8 Calcium 9.2 Total Bilirubin 1.6 H Direct Bilirubin AST 180 H ALT 265 H Alkaline Phosphatase 234 H Total Protein 6.6 Albumin 3.8 Lipase 11/10/20 05:50 MCV MCH MCHC RDW Plt Count MPV Absolute Nucleated RBC Nucleated RBC % (auto) Neutrophils % (Manual) Band Neutrophils % Lymphocytes % (Manual) Monocytes % (Manual) Eosinophils % (Manual) Basophils % (Manual) Abs Neuts (Manual) Lymphocytes # (Manual) Monocytes # (Manual) Eosinophils # (Manual) Basophils # (Manual) Toxic Vacuolation Platelet Estimate Plt Morphology Comment RBC Morphology Tear Drop Cells Acanthocytes (Spur) Anion Gap Estim Creat Clear Calc Estimated GFR Random Glucose Lactic Acid 0.9 Calcium Total Bilirubin Direct Bilirubin AST ALT Alkaline Phosphatase Total Protein Albumin Lipase Assessment and Plan (1) Elevated LFTs: Status: Acute (2) Partial small bowel obstruction: Status: Acute This is a 55-year-old female with history of rheumatoid arthritis on prednisone, hypertension who presented to the emergency department with abdominal pain, nausea, vomiting found to have partial small-bowel obstruction and elevated lipase concerning for pancreatitis. Elevated LFTs LFTs in obstructive pattern, tending down today. Intra/extrahepatic ductal dilation and pancreatic duct dilation on imaging Previous CCY. ?passed stone/sludge. will likely need MRCP for further evaluation GI consult pending Trend LFTs pSBO NGT in place seems to be improving with conservative management management per surgical team RA continue prednisone HTN continue lisinopril h/o migraine continue fioricet prn dvt ppx - Lovenox Attending Dr. Woods Thank you for allowing us to participate in the care of this patient. We will follow along with you
[2020-11-10 12:00] VITALS: BP 150/84; PULSE 59; RESP 20; TEMP 36.2; O2SAT 95
[2020-11-10] MEDS: Butalb/Acetamin/Caff 50/325/40 TABLET 1 TAB PO (12:08)
[2020-11-10] MEDS: predniSONE 5 MG TABLET PO (12:09)
[2020-11-10 15:43] VITALS: BP 135/74; PULSE 55; RESP 18; TEMP 36.8; O2SAT 92
--- NOTE | 2020-11-10 19:42 | PC.NURSE ---
Dr. Sen ordered removal of NG tube. Ng tube removed from right nare at 1810. Patient tolerated well.
[2020-11-10 20:00] VITALS: BP 140/80; PULSE 57; RESP 18; TEMP 36.3; O2SAT 96
[2020-11-10 23:51] VITALS: BP 128/82; PULSE 63; RESP 14; TEMP 35.6; O2SAT 93
[2020-11-11] MEDS: HYDROmorphone HCl 1 MG/ML SYRINGE IVPUSH ×6 (01:36→23:27)
[2020-11-11] MEDS: ondansetron HCL 4 MG/2 ML VIAL IVPUSH ×2 (01:40→23:32)
[2020-11-11] MEDS: Piperacillin Sodium/Tazobactam 3.375 GM in 0.9 % Sodium Chloride 50 ML IV ×4 (02:22→20:46)
[2020-11-11 03:51] VITALS: BP 136/75; PULSE 51; TEMP 36.7; O2SAT 97
[2020-11-11] MEDS: Sodium Chloride 0.45 % 1,000 ML 100 ML IVCONT (05:48)
[2020-11-11] MEDS: Pantoprazole Sodium 40 MG/10 ML VIAL IVPUSH (05:48)
[2020-11-11 05:54] LABS: Alanine Aminotransferase 169 U/L (0-31); Albumin Level 3.7 g/dL (3.5-5.0); Alkaline Phosphatase 183 U/L (39-117); Anion Gap 10 (12-20); Aspartate Amino Transferase 76 U/L (5-31); Bilirubin Direct 0.5 mg/dL (0.0-0.5); Bilirubin Total 1.1 mg/dL (0.0-1.0); Blood Urea Nitrogen 10 mg/dL (9-16); Calcium 9.1 mg/dL (8.4-10.2); Carbon Dioxide 28 mmol/L (22-29); Chloride 103 mmol/L (96-108); Estimated Glomerular Filt Rate > 60; Glucose Random 94 mg/dL (60-115); Potassium 3.2 mmol/L (3.3-5.1); Sodium 138 mmol/L (135-145); Total Protein 6.3 g/dL (6.5-8.0)
[2020-11-11 08:00] VITALS: BP 123/59; PULSE 65; RESP 16; TEMP 36.9; O2SAT 95
[2020-11-11 08:42] LABS: HBc Num1 0.06 S/CO (0.00-0.79); HBsAGNum1 0.13 S/CO (0.00-0.99); Hepatitis B Core Antibody Nonreactive (Nonreactive); Hepatitis B Surface Antigen Negative (Negative); ~HepC Num1 0.12 S/CO (0.00-0.79); ~Hepatitis C Antibody Nonreactive (Nonreactive)
[2020-11-11 08:56] LABS: HBS Num1 0.44 mIU/mL (0-7.99); ~Hepatitis B Surface Antibody NONREACTIVE (Nonreactive)
[2020-11-11] MEDS: predniSONE 5 MG TABLET PO (09:33)
[2020-11-11] MEDS: lisinopriL 20 MG TABLET PO (09:33)
[2020-11-11] MEDS: Enoxaparin Sodium 40 MG/0.4 ML SYRINGE SUBCUT (09:33)
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
--- NOTE | 2020-11-11 10:16 | MHC.CM.PN ---
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 Pt verifies pcp and would like to complete a HCP prior to d/c. D/C Plan: Home w/resump of CAPPER MACHINE OPERATOR vs new VNA and CAPPER MACHINE OPERATOR, family for transport. PCP: Kenny Loyd
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
[2020-11-11] MEDS: Butalb/Acetamin/Caff 50/325/40 TABLET 1 TAB PO (11:55)
[2020-11-11 12:00] VITALS: BP 168/73; PULSE 61; RESP 19; TEMP 36.5; O2SAT 95
[2020-11-11 15:41] VITALS: BP 135/63; PULSE 58; RESP 17; TEMP 36.2; O2SAT 96
[2020-11-11 20:00] VITALS: BP 133/58; PULSE 54; RESP 18; TEMP 36.6; O2SAT 95
[2020-11-12] VITALS: BP 112/59; PULSE 77; RESP 18; TEMP 36.2; O2SAT 95
[2020-11-12] MEDS: Sodium Chloride 0.45 % 1,000 ML 100 ML IVCONT (00:07)
[2020-11-12] MEDS: Butalb/Acetamin/Caff 50/325/40 TABLET 1 TAB PO ×2 (00:09→08:40)
[2020-11-12] MEDS: Piperacillin Sodium/Tazobactam 3.375 GM in 0.9 % Sodium Chloride 50 ML IV ×2 (02:29→08:34)
[2020-11-12 03:57] VITALS: BP 114/60; PULSE 48; RESP 18; TEMP 36.1; O2SAT 96
[2020-11-12] MEDS: HYDROmorphone HCl 1 MG/ML SYRINGE IVPUSH ×4 (05:18→22:14)
[2020-11-12] MEDS: Pantoprazole Sodium 40 MG/10 ML VIAL IVPUSH (05:18)
[2020-11-12 05:34] LABS: Hematocrit 34.1 % (37-47); Hemoglobin 11.5 g/dl (12.0-16.0); Mean Corpuscular HGB Conc 33.7 g/dl (31.0-35.0); Mean Corpuscular Volume 91.9 fL (80-98); Mean Platelet Volume 9.8 fL (9.4-12.3); Platelet Count 191 X10*3/uL (160-400); Red Blood Count 3.71 X10*6/uL (4.20-5.50); Red Cell Distribution Width 12.3 % (11.0-16.0); White Blood Count 4.8 X10*3/uL (4.8-10.8)
[2020-11-12 05:59] LABS: Alanine Aminotransferase 115 U/L (0-31); Albumin Level 3.6 g/dL (3.5-5.0); Alkaline Phosphatase 160 U/L (39-117); Anion Gap 12 (12-20); Aspartate Amino Transferase 39 U/L (5-31); Bilirubin Direct 0.3 mg/dL (0.0-0.5); Bilirubin Total 0.8 mg/dL (0.0-1.0); Blood Urea Nitrogen 7 mg/dL (9-16); Calcium 8.8 mg/dL (8.4-10.2); Carbon Dioxide 27 mmol/L (22-29); Chloride 104 mmol/L (96-108); Creatinine Clr Calc Pharmacy 85.4; Estimated Glomerular Filt Rate > 60; Glucose Fasting 98 mg/dL (60-99); Potassium 3.1 mmol/L (3.3-5.1); Sodium 140 mmol/L (135-145); Total Protein 6.1 g/dL (6.5-8.0)
[2020-11-12 07:12] VITALS: BP 118/58; PULSE 50; RESP 17; TEMP 36.4; O2SAT 95
[2020-11-12] MEDS: lisinopriL 20 MG TABLET PO (08:33)
[2020-11-12] MEDS: predniSONE 5 MG TABLET PO (08:33)
[2020-11-12] MEDS: Enoxaparin Sodium 40 MG/0.4 ML SYRINGE SUBCUT (08:34)
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
[2020-11-12] MEDS: ondansetron HCL 4 MG/2 ML VIAL IVPUSH ×2 (09:22→20:10)
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
[2020-11-12 11:17] VITALS: BP 105/59; PULSE 49; RESP 16; TEMP 36.7; O2SAT 94
[2020-11-12] MEDS: 0.9 % Sodium Chloride Flush 3 ML SYRINGE IVFLUSH ×2 (14:18→20:10)
[2020-11-12 15:43] VITALS: BP 112/61; PULSE 83; RESP 16; TEMP 36.1; O2SAT 94
[2020-11-12 19:23] VITALS: BP 107/63; PULSE 95; RESP 15; TEMP 36.2; O2SAT 95
[2020-11-12] MEDS: Acetaminophen 325 MG TABLET 650 MG PO (20:10)
[2020-11-13] VITALS: BP 125/77; PULSE 50; RESP 17; TEMP 36.4; O2SAT 95
[2020-11-13 04:00] VITALS: BP 140/85; PULSE 51; RESP 17; TEMP 36.6; O2SAT 95
[2020-11-13] MEDS: HYDROmorphone HCl 1 MG/ML SYRINGE IVPUSH (05:27)
[2020-11-13 05:51] LABS: Hematocrit 33.8 % (37-47); Hemoglobin 11.6 g/dl (12.0-16.0); Mean Corpuscular HGB Conc 34.3 g/dl (31.0-35.0); Mean Corpuscular Volume 93.1 fL (80-98); Platelet Count 201 X10*3/uL (160-400); Red Blood Count 3.63 X10*6/uL (4.20-5.50); Red Cell Distribution Width 12.6 % (11.0-16.0); White Blood Count 3.9 X10*3/uL (4.8-10.8)
[2020-11-13 06:11] LABS: Alanine Aminotransferase 88 U/L (0-31); Albumin Level 3.7 g/dL (3.5-5.0); Alkaline Phosphatase 147 U/L (39-117); Anion Gap 9 (12-20); Aspartate Amino Transferase 26 U/L (5-31); Bilirubin Direct 0.2 mg/dL (0.0-0.5); Bilirubin Total 0.4 mg/dL (0.0-1.0); Blood Urea Nitrogen 5 mg/dL (9-16); Calcium 9.1 mg/dL (8.4-10.2); Carbon Dioxide 31 mmol/L (22-29); Chloride 106 mmol/L (96-108); Estimated Glomerular Filt Rate > 60; Glucose Fasting 100 mg/dL (60-99); Sodium 143 mmol/L (135-145); Total Protein 6.2 g/dL (6.5-8.0)
[2020-11-13 07:55] VITALS: BP 136/74; PULSE 55; RESP 18; TEMP 36.4; O2SAT 97
[2020-11-13 08:00] LABS: ~Hepatitis A Antibody IgM Nonreactive (Nonreactive)
[2020-11-13] MEDS: Potassium Chloride Packet 20 MEQ PACKET 40 MEQ PO (08:07)
[2020-11-13] MEDS: Enoxaparin Sodium 40 MG/0.4 ML SYRINGE SUBCUT (08:07)
[2020-11-13] MEDS: lisinopriL 20 MG TABLET PO (08:07)
[2020-11-13] MEDS: ondansetron HCL 4 MG/2 ML VIAL IVPUSH (08:07)
[2020-11-13] MEDS: predniSONE 5 MG TABLET PO (08:07)
[2020-11-13] MEDS: 0.9 % Sodium Chloride Flush 3 ML SYRINGE IVFLUSH ×2 (08:10→15:44)
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
[2020-11-13] MEDS: Acetaminophen 325 MG TABLET 650 MG PO (10:53)
[2020-11-13] MEDS: oxyCODONE HCl Immed Release 5 MG TABLET 10 MG PO ×2 (10:54→16:56)
[2020-11-13 11:45] VITALS: BP 127/58; PULSE 50; RESP 16; TEMP 36.4; O2SAT 94
[2020-11-13 15:18] VITALS: BP 124/75; PULSE 50; RESP 18; TEMP 36.4; O2SAT 95
[2020-11-13 20:00] VITALS: BP 124/70; PULSE 51; RESP 18; TEMP 36.3; O2SAT 96
[2020-11-14] VITALS: BP 134/68; PULSE 58; RESP 17; TEMP 37.2; O2SAT 100
[2020-11-14 04:00] VITALS: BP 125/76; PULSE 53; RESP 17; TEMP 36.3; O2SAT 96
[2020-11-14 07:20] VITALS: BP 141/72; PULSE 54; RESP 18; TEMP 36.4; O2SAT 94
[2020-11-14] MEDS: predniSONE 5 MG TABLET PO (07:22)
[2020-11-14] MEDS: Enoxaparin Sodium 40 MG/0.4 ML SYRINGE SUBCUT (07:22)
[2020-11-14] MEDS: ondansetron HCL 4 MG/2 ML VIAL IVPUSH (07:22)
[2020-11-14] MEDS: lisinopriL 20 MG TABLET PO (07:22)
[2020-11-14] MEDS: 0.9 % Sodium Chloride Flush 3 ML SYRINGE IVFLUSH (07:27)
--- NOTE | 2020-11-14 08:22 | P.PNGS_ITS ---
Subjective Subjective Date of Service: 11/14/20 Interval history: Feels much better Minimal abdominal pain Tolerating diet Good flatus, BMs Says she is ready to be discharged Physical Exam Vital Signs: Vital Signs: Last Vital Signs Temp 97.5 F 11/14/20 07:20 Pulse 54 11/14/20 07:20 Resp 18 11/14/20 07:20 BP 141/72 H 11/14/20 07:20 Pulse Ox 94 11/14/20 07:20 Body Mass Index 24.2 Chemistry 11/12/20 11/13/20 05:22 05:28 Sodium 140 143 Potassium 3.1 L 3.0 L Carbon Dioxide 27 31 H BUN 7 L 5 L Creatinine 0.68 0.66 Calcium 8.8 9.1 Hematology 11/12/20 11/13/20 05:22 05:28 WBC 4.8 3.9 L Hgb 11.5 L 11.6 L Plt Count 191 201 Const: General: comfortable and no acute distress Resp: Effort & Inspection: normal respiratory effort Cardio: Rhythm: regular rhythm GI: Other: Soft, nondistended, nontender Procedures Date of Service Date of Service: 11/14/20 Progress Note: A&P Assessment and plan (1) Elevated LFTs: Status: Acute Assessment and Plan: LFTs have normalized May have had primary bile duct stone To follow-up with GI as an outpatient (2) Partial small bowel obstruction: Status: Acute Assessment and Plan: Clinically resolved Tolerating diet Good flatus, BMs Abdomen soft and benign Okay to DC home today Potassium replaced yesterday Fall Risk Details Current Medications: Current Medications Acetaminophen (Acetaminophen 325 Mg Tablet) 650 mg PO Q6H PRN PRN Reason: fever, pain Last Admin: 11/13/20 10:53 Dose: 650 mg Documented by: Acetaminophen/Butalbital/Caffeine (Butalb/Acetamin/Caff 50/325/40 Tablet) 1 tab PO Q6H PRN PRN Reason: Headache Last Admin: 11/12/20 08:40 Dose: 1 tab Documented by: Enoxaparin Sodium (Enoxaparin Sodium 40 Mg/0.4 Ml Syringe) 40 mg SUBCUT Q24H [facility] Last Admin: 11/14/20 07:22 Dose: 40 mg Documented by: Lisinopril (Lisinopril 20 Mg Tablet) 20 mg PO DAILY [facility]; Protocol Last Admin: 11/14/20 07:22 Dose: 20 mg Documented by: Metoclopramide HCl (Metoclopramide Hcl 10 Mg/2 Ml Vial) 10 mg IVPUSH Q6H PRN PRN Reason: Nausea and Vomiting Last Admin: 11/10/20 08:13 Dose: 10 mg Documented by: Ondansetron HCl (Ondansetron Hcl 4 Mg/2 Ml Vial) 4 mg IVPUSH Q8H PRN PRN Reason: Nausea and Vomiting Last Admin: 11/14/20 07:22 Dose: 4 mg Documented by: Oxycodone HCl (Oxycodone Hcl Immed Release 5 Mg Tablet) 5 mg PO Q4H PRN PRN Reason: Pain, Moderate (Pain Scale 4-6 Oxycodone HCl (Oxycodone Hcl Immed Release 5 Mg Tablet) 10 mg PO Q4H PRN PRN Reason: Pain, Severe (Pain Scale 7-10) Last Admin: 11/13/20 16:56 Dose: 10 mg Documented by: Prednisone (Prednisone 5 Mg Tablet) 5 mg PO DAILY [facility] Last Admin: 11/14/20 07:22 Dose: 5 mg Documented by: Sodium Chloride (0.9 % Sodium Chloride Flush 3 Ml Syringe) 3 ml IVFLUSH QSHIFT [facility] Last Admin: 11/14/20 07:27 Dose: 3 ml Documented by: Time Spent With Patient Time: Total time spent is greater than 50% in coordination of care (as documented) at patient's floor/unit and/or counseling patient: Time with patient: 15 - 24 minutes Quality Stroke Does the patient have a stroke diagnosis?: No VTE Prior VTE?: No VTE Risk Level:: Surgical - moderate VTE Device Contraindication: N/A - Device Ordered VTE Drug Contraindication: N/A - Med Ordered
--- NOTE | 2020-11-14 10:12 | MHC.CM.PN ---
PT DISCHARGED HOME SELF-CARE W/RESUMP OF [facility], FAMILY FOR TRANSPORT PT DID COMPLETE A HCP W/CM, PT PROVIDED W/EDUCATIONAL INFO, ORIGINAL AND 2 COPIES, COPY UPLOADED TO [employer] AND PLACED IN CHART. HEALTH CARE AGENT: PARAG PEARCE (DTR) [phone] VITALY APARNA (SPOUSE) [phone]
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
== END 2020-11-14 09:33 | disposition home or self-care (01) | DRG 282 ==
LOC: HO.ED 11-09 02:02 → HO.EDOVER 11-09 05:33 → HO.S3 11-09 16:07
PROVIDERS: Emergency Medicine; Internal Medicine; Physician Assistant Medical; Admitting Provider Surgery; Emergency Provider Emergency Medicine Emergency Medical Services; PCP Internal Medicine; Visit Provider Surgery
DX: K85.90 Acute pancreatitis without necrosis or infection, unspecified (principal); K56.51 Intestinal adhesions [bands], with partial obstruction; K21.9 Gastro-esophageal reflux disease without esophagitis; G43.909 Migraine, unspecified, not intractable, without status migrainosus; M05.9 Rheumatoid arthritis with rheumatoid factor, unspecified; Z20.822 Contact with and (suspected) exposure to COVID-19; Z88.2 Allergy status to sulfonamides; Z88.6 Allergy status to analgesic agent; Z79.52 Long term (current) use of systemic steroids; Z79.899 Other long term (current) drug therapy
CPT/HCPCS: 36415; 71045; 74018; 74176; 74177; 80048; 80053; 80076; 81001; 81025; 82077; 83605; 83690; 85007; 85025; 85027; 86704; 86706; 86709; 86803; 87040; 87086; 87340; 87635; 96361; 96374; 96375; 96376; 99284; 99285; J1170; J1200; J1650; J2270; J2405; J2543; J2765; Q9967

== ENCOUNTER 2020-11-23 00:04 | Emergency (ER) | payer MEDICAID, SELFPAY ==
[2020-11-23 01:03] VITALS: BP 159/50; PULSE 72; RESP 20; TEMP 36.4; O2SAT 99; BMI 26.9
[2020-11-23] MEDS: 0.9 % Sodium Chloride 1,000 ML 999 ML IVCONT (02:32)
[2020-11-23] MEDS: ondansetron HCL 4 MG/2 ML VIAL IVPUSH (02:36)
--- NOTE | 2020-11-23 02:41 | ED.HA ---
HPI - Headache General Chief Complaint: Headache Stated Complaint: Headache/Vomiting (Flu shot today) Time Seen by Provider: 11/23/20 02:20 Source: patient Mode of arrival: ambulatory Limitations: no limitations History of Present Illness HPI Narrative: Patient comes emergency room complaining of a migraine headache. Patient states that she usually takes Fioricet, but she ran out of bed 1 week ago. She has had this migraine headache for about 2 days, she has been taking Tylenol without any relief. Patient complaining of photophobia, nausea, vomiting. Her flu shot earlier today. Related Data Home Medications Medication Instructions Recorded Confirmed tvhdlwhhvc-wqphzpevuypfp-gkpjslga 1 cap PO Q4H PRN 03/12/20 11/09/20 50 mg-325 mg-40 mg capsule oxycodone 15 mg tablet 15 mg PO QID PRN 03/12/20 11/09/20 lisinopril 20 mg tablet 1 tab PO DAILY 05/17/20 11/09/20 Previous Rx's Medication Instructions Recorded docusate sodium 100 mg capsule 200 mg PO BEDTIME #60 cap 04/24/20 (Colace) polyethylene glycol 3350 17 238 g PO ONCE 1 Days #238 g 05/22/20 gram/dose oral powder (Miralax) hydrocortisone 2.5 % topical cream 1 appl MA BID PRN #30 g 08/12/20 with perineal applicator (Proctozone-HC) methylcellulose (laxative) 500 mg 500 mg PO BID #60 tab 08/12/20 tablet (Citrucel) prednisone 5 mg tablet 5 mg PO DAILY #30 tab 09/03/20 omeprazole 20 mg capsule,delayed 20 mg PO DAILY 30 Days #30 cap 10/28/20 release igukhieyly-sorggsesllrak-pxfkdymb 1 cap PO TID PRN #14 cap 11/23/20 50 mg-300 mg-40 mg capsule (Fioricet) Allergies Allergy/AdvReac Type Severity Reaction Status Date / Time clindamycin [Clindamycin] Allergy Severe BURGESS-JOHNATHON Verified 09/03/20 08:38 SYNDROME ibuprofen [From MOTRIN] Allergy Severe UNKNOWN Verified 09/03/20 08:38 Sulfa (Sulfonamide Allergy Severe RASH, hives Verified 09/03/20 08:38 Antibiotics) [Sulfa (Sulfonamides)] latex [LATEX] Allergy Unknown RASH Verified 09/03/20 08:38 nitrofurantoin Allergy Unknown unknown Verified 09/03/20 08:38 paroxetine Allergy Unknown unknown Verified 09/03/20 08:38 sumatriptan Allergy Unknown avoid due Verified 09/03/20 08:38 to sulfa allergy Review of Systems Review of Systems: Constitutional : No Weight loss, No Fever, No Chills, No Night Sweats, No Fatigue, No Malaise ENT/Mouth : No Hearing loss, No Ear Pain, No Nasal Congestion, No Sinus Pain, No Hoarseness, No sore throat, No Rhinorrhea, No Swallowing Difficulty Eyes: No Eye Pain, No Swelling, No Redness, No Foreign Body, No Discharge, complaining photophobia, complaining of bilateral blurriness, states is normal for her during migraines Cardiovascular : No Chest Pain, No SOB, No Dyspnea on Exertion, No Orthopnea, No Edema, No Palpitations Respiratory : No Cough, No Sputum, No Wheezing, No Smoke Exposure, No Dyspnea Gastrointestinal : No Nausea, No Vomiting, No Diarrhea, No Constipation, No abdominal Pain, No Hematochezia, No Melena Genitourinary : no irregular bleeding, No Dysuria, No Urinary Frequency, No Hematuria, No Urinary Incontinence, No Urgency, No Flank Pain, No Urinary Flow Changes, No Hesitancy Musculoskeletal : No joint pain, No Myalgias, No Joint Swelling Skin : No Skin Lesions, No rash Neuro : No Weakness, No Numbness, No Paresthesias, No Loss of Consciousness, No Dizziness, complaining a frontal headache radiating towards the back/states it is her normal pattern of migraines Psych : No Anxiety/Panic, No Depression, No SI/HI/AH/VH, No Social Issues, Heme/Lymph: No Bruising, No Bleeding,No Lymphadenopathy Endocrine : No Polyuria, No Polydipsia, No Temperature Intolerance PMFSH Past Medical History Medical History Anemia Back pain Chronic constipation GERD (gastroesophageal reflux disease) HTN (hypertension) Hx of migraines Primary osteoarthritis involving multiple joints Rheumatoid arthritis Seropositive rheumatoid arthritis Surgical History H/O exploratory laparotomy History of left knee surgery Hx of cholecystectomy Hx of colonoscopy Hx of esophagogastroduodenoscopy Family History Family History Father Prostate cancer Skin cancer Son Stomach problems Social History Social History Household Members: Spouse Housing: Apartment 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 Oriented X3 seems uncomfortable Eyes: Pupils equal, round and reactive to light. Has photophobia ENT: Pharynx normal. Neck: Normal inspection. Neck supple. No lymph nodes noted. No crepitus CVS: Normal heart rate and rhythm. Pulses normal. Normal S1 and S2 Respiratory: No respiratory distress. Breath sounds normal. No Wheezing. No rales Abdomen: Soft and nontender. No rigidity. No distention. Skin: Skin warm and dry. Normal skin color. Normal skin turgor. Extremities: No lower extremity edema. No lower extremity edema. No Lacerations. No Rash Neuro: Oriented X 3. No motor deficit. No sensory deficit. Moving all extermities. No slurred speech. Course Course Course Narrative: Patient states that she feels much better after 1 dose of Toradol IV fluids and Benadryl. Patient states her vision is back to normal, headache is 1/10. Patient feels very to be discharged. Discharge Plan Discharge Clinical Impression: Migraine Qualifiers: Migraine type: unspecified Intractability: not intractable Patient Disposition: Home, Self-Care Instructions: Migraine Headache (ED) Additional Instructions: Please follow-up with your primary care physician tomorrow. If you have any worsening or new symptoms, please return to the emergency room or call 911 Prescriptions: New ceunasxbfi-ocxznmfagoksh-nphl [Fioricet] 50-300-40 mg capsule 1 cap PO TID PRN (Reason: pain) Qty: 14 RF: 0 No Action polyethylene glycol 3350 [Miralax] 17 gram/dose powder 238 g PO ONCE 1 Days Qty: 238 RF: 0 omeprazole 20 mg capsule,delayed release(DR/EC) 20 mg PO DAILY 30 Days Qty: 30 RF: 0 lisinopril 20 mg tablet 1 tab PO DAILY RF: 0 oxycodone 15 mg tablet 15 mg PO QID PRN (Reason: Pain) RF: 0 qxldbxepod-kdskidskxdjzg-ipok 50-325-40 mg capsule 1 cap PO Q4H PRN (Reason: Headache) RF: 0 docusate sodium [Colace] 100 mg capsule 200 mg PO BEDTIME Qty: 60 RF: 5 Citrucel 500 mg tablet 500 mg PO BID Qty: 60 RF: 5 hydrocortisone [Proctozone-HC] 2.5 % cream with perineal applicator 1 appl MA BID PRN (Reason: hemorrhoids) Qty: 30 RF: 3 prednisone 5 mg tablet 5 mg PO DAILY Qty: 30 RF: 0
[2020-11-23] MEDS: Ketorolac Tromethamine 15 MG/ML VIAL 30 MG IVPUSH (03:00)
[2020-11-23] MEDS: diphenhydrAMINE HCL 50 MG/ML VIAL 25 MG IVPUSH (03:02)
[2020-11-23] MEDS: Metoclopramide HCl 10 MG/2 ML VIAL IVPUSH (03:05)
[2020-11-23] MEDS: Butalb/Acetamin/Caff 50/325/40 TABLET 1 TAB PO (03:07)
[2020-11-23 04:06] VITALS: RESP 16
[2020-11-23 04:07] VITALS: RESP 16
[2020-11-23 04:17] VITALS: BP 120/71; PULSE 53; RESP 16; O2SAT 96
== END 2020-11-23 04:29 | disposition home or self-care (01) ==
PROVIDERS: Emergency Provider Emergency Medicine
DX: G43.909 Migraine, unspecified, not intractable, without status migrainosus (principal); R11.2 Nausea with vomiting, unspecified; Z79.899 Other long term (current) drug therapy
CPT/HCPCS: 96361; 96374; 96375; 99284; J1200; J1885; J2405; J2765

== ENCOUNTER 2021-02-13 06:10 | Day surgery (SDC) | payer MEDICAID, SELFPAY ==
--- NOTE | 2021-02-12 10:14 | P.CONAN_ITS ---
Documented by User: Kaylin Gee NP 02/12/21 10:19 HPI - Anesthesia Eval Consult details Narrative: 55yo F for ERCP [facility] [place] D/C 11/14/20: Admit with SBO (resolved without surgery) and possible primary bile duct stone Prednisone daily *Multiple Med Allergies PMFSH Active Problems Active Problems: All Active Problems (Updated 11/24/20 @ 00:02 by Background Remberto) Shoulder arthralgia (Acute) Tendinitis of left rotator cuff (Acute) Encounter for screening colonoscopy (Acute) Tubular adenoma of colon (Acute) Hemorrhoids (Acute) Acute pancreatitis (Acute) Elevated LFTs (Acute) Partial small bowel obstruction (Acute) Chronic constipation (Acute) Primary osteoarthritis involving multiple joints (Acute) Seropositive rheumatoid arthritis (Acute) Past Medical History Medical History Anemia Back pain Chronic constipation GERD (gastroesophageal reflux disease) HTN (hypertension) Hx of migraines Primary osteoarthritis involving multiple joints Rheumatoid arthritis Seropositive rheumatoid arthritis Family History Family History Father Prostate cancer Skin cancer Son Stomach problems Surgical History Surgical History H/O exploratory laparotomy History of left knee surgery Hx of cholecystectomy Hx of colonoscopy Hx of esophagogastroduodenoscopy Social History Social History Household Members: Spouse Housing: Apartment Do you presently have visiting nurse or other home services: Yes ([employer]) Alcohol intake: never Patient Tobacco Use Status: Never used Tobacco Use of substances other than those prescribed or required for medical reasons: No Are you DNR?: No Advance Directives: No Advance Directives Information Provided: Yes Advance Directives Date on File: 11/11/20 service: No Current occupational status: disabled Meds Allergies Allergy/AdvReac Type Severity Reaction Status Date / Time clindamycin [Clindamycin] Allergy Severe BURGESS-JOHNATHON Verified 02/13/21 06:34 SYNDROME ibuprofen [From MOTRIN] Allergy Severe UNKNOWN Verified 02/13/21 08:16 Sulfa (Sulfonamide Allergy Severe RASH, hives Verified 02/13/21 06:34 Antibiotics) [Sulfa (Sulfonamides)] sumatriptan Allergy Severe avoid due Verified 02/13/21 06:34 to sulfa allergy latex [LATEX] Allergy Intermediate RASH Verified 02/13/21 06:34 nitrofurantoin Allergy Unknown unknown Verified 02/13/21 06:34 paroxetine Allergy Unknown unknown Verified 02/13/21 06:34 Home Medications Medication Instructions Recorded Confirmed Last Taken Type comkykrjsa-sqyimqwugioqq-wqmrzykb 1 cap PO Q4H PRN 03/12/20 11/09/20 Unknown History 50 mg-325 mg-40 mg capsule oxycodone 15 mg tablet 15 mg PO QID PRN 03/12/20 11/09/20 02/13/21 05:00 History lisinopril 20 mg tablet 1 tab PO DAILY 05/17/20 11/09/20 02/13/21 06:00 History Exam Exam Date and Time: February 12, 2021 1014 Pertinent Lab Results Pertinent Lab Results: Laboratory Tests ? 11/13/20 11/13/20 ? 05:28 05:28 WBC ?3.9 L ? Hgb ?11.6 L ? Hct ?33.8 L ? Plt Count ?201 ? Sodium ? ?143 Potassium ? ?3.0 L Chloride ? ?106 BUN ? ?5 L Creatinine ? ?0.66 Laboratory Tests 11/13/20 05:28 Calcium 9.1 Total Bilirubin 0.4 Direct Bilirubin 0.2 AST 26 ALT 88 H Alkaline Phosphatase 147 H Total Protein 6.2 L Albumin 3.7 Narrative Narrative: EKG 03/2020 Vent. Rate : 070 BPM ? ? Atrial Rate : 070 BPM ?? P-R Int : 156 ms? QRS Dur : 086 ms ? ? QT Int : 416 ms ? ? ? P-R-T Axes : 048 -12 040 degrees ?? QTc Int : 449 ms ? Normal sinus rhythm Moderate voltage criteria for LVH, may be normal variant Nonspecific ST and T wave abnormality Borderline ECG When compared with ECG of 09-MAY-2011 17:50, No significant change was found Assessment and Plan Assessment Anesthesia Assessment: Chart Reviewed Documented by User: Julissa De MD 02/13/21 09:39 [facility] Past Medical History Medical History Anemia Back pain Chronic constipation GERD (gastroesophageal reflux disease) HTN (hypertension) Hx of migraines Primary osteoarthritis involving multiple joints Rheumatoid arthritis Seropositive rheumatoid arthritis Family History Family History Father Prostate cancer Skin cancer Son Stomach problems Surgical History Surgical History H/O exploratory laparotomy History of left knee surgery Hx of cholecystectomy Hx of colonoscopy Hx of esophagogastroduodenoscopy History of Problems with Anesthesia: No Social History Social History Household Members: Spouse Housing: Apartment Do you presently have visiting nurse or other home services: Yes ([employer]) Alcohol intake: never Patient Tobacco Use Status: Never used Tobacco Use of substances other than those prescribed or required for medical reasons: No Are you DNR?: No Advance Directives: No Advance Directives Information Provided: Yes Advance Directives Date on File: 11/11/20 service: No Current occupational status: disabled Meds Allergies Allergy/AdvReac Type Severity Reaction Status Date / Time clindamycin [Clindamycin] Allergy Severe BURGESS-JOHNATHON Verified 02/13/21 06:34 SYNDROME ibuprofen [From MOTRIN] Allergy Severe UNKNOWN Verified 02/13/21 08:16 Sulfa (Sulfonamide Allergy Severe RASH, hives Verified 02/13/21 06:34 Antibiotics) [Sulfa (Sulfonamides)] sumatriptan Allergy Severe avoid due Verified 02/13/21 06:34 to sulfa allergy latex [LATEX] Allergy Intermediate RASH Verified 02/13/21 06:34 nitrofurantoin Allergy Unknown unknown Verified 02/13/21 06:34 paroxetine Allergy Unknown unknown Verified 02/13/21 06:34 Home Medications Medication Instructions Recorded Confirmed Last Taken Type iwatukywdq-lqugxrqsneyvi-vuedadag 1 cap PO Q4H PRN 03/12/20 11/09/20 Unknown History 50 mg-325 mg-40 mg capsule oxycodone 15 mg tablet 15 mg PO QID PRN 03/12/20 11/09/20 02/13/21 05:00 History lisinopril 20 mg tablet 1 tab PO DAILY 05/17/20 11/09/20 02/13/21 06:00 History Exam Airway Mallampati Class: II TM Dist: >3cm Neck ROM: Limited Loose/Missing/Broken Teeth: No Heart: RRR Lungs: CTA Assessment and Plan Assessment Anesthesia Assessment: Anesthesia Plan Discussed Final Anesthetic Review History of Problems with Anesthesia: No NPO: Yes ASA Class: II Final Preanesthetic Review: Meds/Allgs Chart Reviewed, Consent Obtained/Reviewed and Anes Risks/Benef Reviewed Patient Risk: Low Procedure Risk: Low Anesthetic Plan Anesthetic Plan: GA Disposition: Standard PACU
[2021-02-13] VITALS (14 sets, daily range): BP systolic 98–152; BP diastolic 64–81; PULSE 43–65; RESP 16–18; TEMP 36.2–36.8; O2SAT 96–100; BMI 26.6
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
[2021-02-13 06:55] LABS: Alanine Aminotransferase 43 U/L (0-31); Albumin Level 4.1 g/dL (3.5-5.0); Alkaline Phosphatase 184 U/L (39-117); Anion Gap 10 (12-20); Aspartate Amino Transferase 22 U/L (5-31); Bilirubin Total 0.7 mg/dL (0.0-1.0); Blood Urea Nitrogen 12 mg/dL (9-16); Calcium 9.6 mg/dL (8.4-10.2); Carbon Dioxide 27 mmol/L (22-29); Chloride 107 mmol/L (96-108); Estimated Glomerular Filt Rate > 60; Glucose Fasting 89 mg/dL (60-99); Potassium 3.8 mmol/L (3.3-5.1); Sodium 140 mmol/L (135-145)
[2021-02-13] MEDS: Lactated Ringers 1,000 ML 100 ML IVCONT (07:09)
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
--- NOTE | 2021-02-13 09:21 | PM.OP ---
Brief Operative Note Date of Service: 02/13/21 Pre-op diagnosis: hx of biliary obstruction, abn LFT Post-op diagnosis: same Procedure: see op note Surgeon: Kerwin Briones MD Anesthesia: GETA Was an County [employer] Demonstration Agent used for this Procedure?: No Estimated blood loss (mL): 0 Condition: stable Disposition: PACU
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
[2021-02-13] MEDS: oxyCODONE HCl Immed Release 5 MG TABLET PO (09:42)
[2021-02-13] MEDS: Acetaminophen 325 MG TABLET 650 MG PO (09:47)
[2021-02-13] MEDS: Mag&Al/Sim/Diphenhyd/Lidocaine 10 ML ORAL.SUSP PO (10:35)
== END 2021-02-13 12:38 | disposition home or self-care (01) ==
PROVIDERS: Nurse Practitioner; PCP Internal Medicine; Visit Provider Internal Medicine Gastroenterology
PROC: (CPT 43260; principal; 2021-02-13 08:00)
DX: K83.1 Obstruction of bile duct (principal); K83.8 Other specified diseases of biliary tract; R79.89 Other specified abnormal findings of blood chemistry; K85.90 Acute pancreatitis without necrosis or infection, unspecified; K59.09 Other constipation; K21.9 Gastro-esophageal reflux disease without esophagitis; M05.9 Rheumatoid arthritis with rheumatoid factor, unspecified; D64.9 Anemia, unspecified; I10 Essential (primary) hypertension; Z79.899 Other long term (current) drug therapy; Z90.49 Acquired absence of other specified parts of digestive tract; Z18.10 Retained metal fragments, unspecified; Z98.890 Other specified postprocedural states; Z87.828 Personal history of other (healed) physical injury and trauma; Z88.1 Allergy status to other antibiotic agents; Z88.2 Allergy status to sulfonamides; Z88.8 Allergy status to other drugs, medicaments and biological substances; Z91.040 Latex allergy status
CPT/HCPCS: 43262; 36415; 80053; C1769; J0690; J1610; J2250; J3010; Q9967

== ENCOUNTER → 2021-08-28 13:06 | Outpatient (BNVA) | payer MEDICAID, SELFPAY | PROVIDERS: PCP Student in an Organized Health Care Education/Training Program; Visit Provider Physician Assistant | DX: K59.09 Other constipation (principal); K64.9 Unspecified hemorrhoids; K21.9 Gastro-esophageal reflux disease without esophagitis | CPT/HCPCS: 99212 ==

== ENCOUNTER → 2022-01-29 08:48 | Outpatient (BNVA) | payer MEDICAID, SELFPAY | PROVIDERS: PCP Student in an Organized Health Care Education/Training Program; Referring Provider Student in an Organized Health Care Education/Training Program; Visit Provider Nurse Practitioner Family | DX: M05.9 Rheumatoid arthritis with rheumatoid factor, unspecified (principal); M89.49 Other hypertrophic osteoarthropathy, multiple sites; M25.551 Pain in right hip; M25.552 Pain in left hip; M19.041 Primary osteoarthritis, right hand; M19.042 Primary osteoarthritis, left hand | CPT/HCPCS: 99212 ==

== ENCOUNTER 2022-03-24 12:07 | Outpatient (REF) | payer MEDICAID, SELFPAY ==
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
== END 2022-03-24 12:08 | disposition home or self-care (01) ==
LOC: HO.XRAY 12:07
PROVIDERS: Visit Provider Nurse Practitioner Family
DX: M25.551 Pain in right hip (principal); M25.552 Pain in left hip
CPT/HCPCS: 73502

== ENCOUNTER 2022-04-06 03:06 | Inpatient (IN) | payer MEDICAID, SELFPAY ==
[2022-04-06] VITALS (10 sets, daily range): BP systolic 110–150; BP diastolic 57–87; PULSE 54–102; RESP 11–22; TEMP 36.3–37.1; O2SAT 90–97; BMI 26.5
--- NOTE | ~2022-04-06 | US_ITS ---
EXAMINATION: US ABDOMEN LIMITED CLINICAL INFORMATION: Biliary duct dilation and abdominal pain. COMPARISON: CT abdomen pelvis 05/04/2022 TECHNIQUE: Real-time imaging of the right upper quadrant abdominal viscera. FINDINGS: PANCREAS: Pancreatic duct is dilated up to 0.5 cm in diameter. Small focus of echogenic intraductal gas corresponding to finding on earlier CT. Otherwise, visualized pancreatic parenchyma is unremarkable. No pancreatic lesion appreciated. LIVER: Normal. The liver is normal in size. The liver contour is normal. Parenchymal echogenicity is normal. No focal hepatic lesion. There is no intrahepatic biliary duct dilatation seen. GALLBLADDER: Surgically absent. COMMON BILE DUCT: Dilated measuring 1.4 cm in diameter. RIGHT KIDNEY: Normal cortical thickness and echogenicity. No hydronephrosis. Couple of small benign/simple renal cysts, largest 1.9 cm in the upper pole. The kidney measures 9.3 cm in maximum dimension. FREE FLUID: None. US/US abdomen limited IMPRESSION: 1. Dilated common bile duct measuring up to 1.4 cm in diameter with mild intrahepatic biliary ductal dilation status post cholecystectomy. No CBD stone identified, though the distalmost CBD is obscured by bowel gas at the level of the pancreatic head. If clinical concern for choledocholithiasis or obstructing ampullary lesion, consider MRI/MRCP for more sensitive evaluation. 2. Mild pancreatic ductal dilation, as on earlier CT.
--- NOTE | ~2022-04-06 | CT_ITS ---
EXAMINATION: CT ABDOMEN AND PELVIS WITH CONTRAST CLINICAL INFORMATION: Elevated liver function tests. Postcholecystectomy. COMPARISON: Previous CT of the abdomen and pelvis most recent January 2021 TECHNIQUE: Multidetector volumetric images were obtained from the superior aspect of the liver through the pubic symphysis following administration 85 mL of Omnipaque 350 intravenous contrast. Sagittal and coronal reformatted images were obtained on the technologist's workstation. Oral contrast: Yes This CT examination was performed using dose optimization techniques as appropriate, variously including the following: *Automated exposure control *Adjustment of mA and/or kV according to patient size (this includes techniques or standardized protocols for targeted exams where dose is matched to indication/reason for exam; i.e. extremities or head) *Use of iterative reconstruction technique DLP: 499 mGy-cm FINDINGS: LUNG BASES: There is scarring or atelectasis at the right lung base. LIVER, GALLBLADDER, AND BILIARY TREE: The liver is normal normal in size, shape and attenuation. There is mild intra and extrahepatic biliary duct dilatation. The common bile duct is dilated down to the head of the pancreas. The common bile duct measures up to 1.5 cm. No common bile duct stone is appreciated by CT. Appearance is similar to October 2020 exam. There is a cystic structure to the right of the common bile duct that measures 1.2 cm axial image 24 series 2. This is similar to previous exam and is questionable for a cystic duct remnant. PANCREAS: The main pancreatic duct is dilated. This measures up to 4 to 5 mm. This appears slightly decreased in size from most recent exam October 2020. There is a small amount of air in the main pancreatic duct that is new. The pancreas is otherwise normal. No mass or evidence of pancreatitis. SPLEEN: Small cyst in the inferior spleen that is stable. ADRENAL GLANDS: Unremarkable. KIDNEYS AND URETERS: Right renal cyst. No imaging follow-up. Kidneys are otherwise normal. BLADDER: Unremarkable. GASTROINTESTINAL TRACT: Stool throughout the colon suggestive of constipation. Small and large bowel is otherwise normal. The appendix is not seen. ABDOMINAL WALL: Atrophy of the right rectus muscle. Left periumbilical hernia containing fat. small right inguinal hernia containing fat. LYMPH NODES: Normal. VASCULAR: Atherosclerotic disease. PELVIC VISCERA: Unremarkable. Prominent pelvic Vessels questionable for pelvic congestion, left greater than right. OSSEOUS STRUCTURES: Radiopaque soft tissue foreign bodies in the left groin and left side of T12-L1. Scoliosis and degenerative changes of the spine. Orthopedic hardware in the right femoral shaft. CT/CT abdomen pelvis w IV con IMPRESSION: Intra and extrahepatic biliary duct dilatation similar to October 2020 CT. Post cholecystectomy. No stone seen by CT. Dilated main pancreatic duct. This is slightly decreased from October 2020. There is some air in the main pancreatic duct that is new. This may be related to previous ERCP/papillotomy procedure. Clinical correlation recommended. Differential would include infection. Findings could be better evaluated with MR with MRCP if clinically indicated. Constipation. Fleischner guidelines were followed.
--- NOTE | ~2022-04-06 | FL_ITS ---
EXAMINATION: XR FLUOROSCOPY WITH IMAGES CLINICAL INFORMATION: ERCP COMPARISON: CT abdomen 04/06/2022 TECHNIQUE: Fluoroscopy Supervised By: Dr. Cassie Briones. Fluoroscopy Time: 109.5 seconds. Cumulative Dose: 22.71 mGy. Images: 10. FINDINGS: A catheter is seen placed in the common bile duct. Contrast is injected. The balloon is seen inflated. FL/FL guidance in OR IMPRESSION: Fluoroscopy was provided to the referring physician for ERCP. Please see Dr. Cassie Briones's note for full details.
--- NOTE | 2022-04-06 03:16 | ED_ITS ---
HPI - Chest Pain General Chief Complaint: Chest Pain Stated Complaint: chest tightness/headache Time Seen by Provider: 04/06/22 03:15 Source: patient Mode of arrival: EMS Limitations: no limitations History of Present Illness HPI narrative: Patient 56 years old with history of hypertension rheumatoid arthritis panc reatitis comes here for left-sided chest pain and headache started in afternoon got worse 4 hours prior to arrival radiated to left arm. Also has shortness of breath nausea and vomitingx3 patient received aspirin and nitroglycerin sublingual blood pressure on arrival 138/87 pulse rate 81 saturating 95% room air EKG slight ST depression in anterior leads patient does have history of migraine headache going on since afternoon. Patient was diaphoretic when the pain started at midnight , chest pain improved after nitroglycerin never had similar chest pain in the past Related Data Home Medications Medication Instructions Recorded Confirmed iiteqijvnt-xqvgvoqfweriq-leowgsmr 1 cap PO Q4H PRN Headache 03/12/20 01/29/22 50 mg-325 mg-40 mg capsule oxycodone 15 mg tablet 15 mg PO QID PRN Pain 03/12/20 01/29/22 lisinopril 20 mg tablet 1 tab PO DAILY 05/17/20 01/29/22 Previous Rx's Medication Instructions Recorded hydrocortisone 2.5 % topical cream 1 appl GA BID PRN hemorrhoids #30 08/12/20 with perineal applicator grams (Proctozone-HC) itrzvjbxjr-opajgndqpkjqa-hozaqyqg 1 cap PO TID PRN pain #14 caps 11/23/20 50 mg-300 mg-40 mg capsule (Fioricet) pantoprazole 40 mg tablet,delayed 40 mg PO DAILY #60 tabs 02/24/21 release docusate sodium 100 mg capsule 200 mg PO BEDTIME #60 caps 08/28/21 (Colace) hydrocortisone 2.5 % topical cream 1 appl GA BID PRN hemorrhoids #30 08/28/21 with perineal applicator grams (Proctozone-HC) methylcellulose (laxative) 500 mg 500 mg PO BID #60 tabs 08/28/21 tablet (Citrucel) omeprazole 20 mg capsule,delayed 20 mg PO DAILY #30 caps 08/28/21 release polyethylene glycol 3350 17 17 g PO DAILY #510 grams 08/28/21 gram/dose oral powder (Miralax) Allergies Allergy/AdvReac Type Severity Reaction Status Date / Time clindamycin [Clindamycin] Allergy Severe BURGESS-JOHNATHON Verified 01/29/22 09:14 SYNDROME ibuprofen [From MOTRIN] Allergy Severe UNKNOWN Verified 01/29/22 09:14 Sulfa (Sulfonamide Allergy Severe RASH, hives Verified 01/29/22 09:14 Antibiotics) [Sulfa (Sulfonamides)] sumatriptan Allergy Severe avoid due Verified 01/29/22 09:14 to sulfa allergy latex [LATEX] Allergy Intermediate RASH Verified 01/29/22 09:14 nitrofurantoin Allergy Unknown unknown Verified 01/29/22 09:14 paroxetine Allergy Unknown unknown Verified 01/29/22 09:14 Review of Systems Review of Systems: Yes all other systems are reviewed and are negative PMFSH Past Medical History Medical History Anemia Back pain Chronic constipation GERD (gastroesophageal reflux disease) HTN (hypertension) Hx of migraines Osteoarthritis, hip, bilateral Primary osteoarthritis involving multiple joints Rheumatoid arthritis Seropositive rheumatoid arthritis Surgical History H/O exploratory laparotomy History of left knee surgery Hx of cholecystectomy Hx of colonoscopy Hx of endoscopy Hx of esophagogastroduodenoscopy Family History Family History Father Prostate cancer Skin cancer Son Stomach problems Social History Social History Household Members: Spouse Housing: Apartment Do you presently have visiting nurse or other home services: Yes ([employer]) Alcohol intake: never Patient Tobacco Use Status: Never used Tobacco Smoked in Last 30 Days: No Use of substances other than those prescribed or required for medical reasons: No Advance Directives: Yes Advance Directives on File: Yes Advance Directives Date on File: 11/15/20 Patient : No service: No Current occupational status: disabled Physical Exam Vital Signs: Vital Signs: Last Vital Signs Temp 98.2 F 04/06/22 06:13 Pulse 61 04/06/22 06:13 Resp 20 04/06/22 06:13 BP 119/73 04/06/22 06:13 Pulse Ox 95 04/06/22 06:13 O2 Del Method 04/06/22 06:13 BMI result Body Mass Index 26.5 Appearance: Alert. Oriented X3. No acute distress. Eyes: PERRLA, No Nystagmus ENT: Pharynx normal. Oral Mucosa moist Neck: Normal inspection. Neck supple. CVS: Normal heart rate and rhythm. Pulses normal. No murmur/rub or gallop Respiratory: No respiratory distress. Equal air entry bilateral, no wheezing/rales/rhonchi Abdomen: Soft and nontender. Bowel sounds are present, no mass palpable, no CVA tenderness Skin: Skin warm and dry. Normal skin color. Normal skin turgor. Extremities: No lower extremity edema. No calf tenderness left arm tenderness on abduction rheumatoid arthritic changes ++ Neuro: Oriented X 3. No motor deficit. No sensory deficit.No cerebellar signs , cranial nerves II-XII intact Medications Administered Discontinued Medications Generic Name Dose Route Start Last Admin Trade Name Freq PRN Reason Stop Dose Admin Acetaminophen/Butalbital/Caffeine 1 tab 04/06/22 05:43 04/06/22 05:52 Butalb/Acetamin/Caff 50/325/40 Tablet PO 04/06/22 05:44 1 tab ONCE ONE Administration Ketorolac Tromethamine 30 mg 04/06/22 05:43 04/06/22 05:53 Ketorolac Tromethamine 30 Mg/Ml Vial IVPUSH 04/06/22 05:44 30 mg ONCE ONE Administration Morphine Sulfate 4 mg 04/06/22 03:31 04/06/22 03:39 Morphine Sulfate 4 Mg/Ml Cartridge IVPUSH 04/06/22 03:32 4 mg ONCE ONE Administration Protocol Ondansetron HCl 4 mg 04/06/22 03:31 04/06/22 03:39 Ondansetron Hcl 4 Mg/2 Ml Vial IVPUSH 04/06/22 03:32 4 mg ONCE ONE Administration Medical Decision Making Medical Decision Making MDM Narrative: Patient 56 years old with history of hypertension rheumatoid arthritis came with the chest pain radiated to left arm improved after nitroglycerin. EKG showed slight ST depression in V3 V4. Patient has flat sensitive troponin chest pain- free in the ER. Case discussed Dr. Min vulnerability researcher was advised to get outpatient echocardiogram. And he will see the patient in the ER. Patient does have elevated LFTs in the past but this time patient has higher LFTs etiology not clear patient status post cholecystectomy and has no pain in the abdomen area, patient need further evaluation as outpatient Differential Diagnosis Differential Diagnoses: The differential diagnosis associated with the presentation includes Consult Healthcare Provider Management of the patient was discussed with: Hospitalist Lab Data MDM Lab Attestation statement: I reviewed the patient's lab results. 04/06/22 03:31 04/06/22 03:31 Labs: Lab Results 04/06/22 04/06/22 04/06/22 Range/Units 03:31 03:31 03:31 WBC 4.3 L (4.8-10.8) X10*3/uL RBC 4.37 (4.20-5.50) X10*6/uL Hgb 13.4 (12.0-16.0) g/dl Hct 39.9 (37.0-47.0) % MCV 91.3 (80.0-98.0) fL MCH 30.7 (27.0-33.0) pg MCHC 33.6 (31.0-35.0) g/dl RDW 12.5 (11.0-16.0) % Plt Count 189 (160-400) X10*3/uL MPV 10.3 (9.4-12.3) fL Immature Gran % (Auto) 0.2 (0.0-0.4) % Neut % (Auto) 88.6 H (45-73) % Lymph % (Auto) 6.8 L (20-40) % [place] % (Auto) 4.0 (2-11) % Eos % (Auto) 0.2 (0-4) % Baso % (Auto) 0.2 (0-2) % Lymph # (Auto) 0.3 L (1.2-4.9) X10*3/uL [place] # (Auto) 0.2 (0.1-1.2) X10*3/uL Eos # (Auto) 0.0 (0.0-0.4) X10*3/uL Baso # (Auto) 0.0 (0.0-0.2) X10*3/uL Abs Immat Gran (auto) 0.01 (0.00-0.03) X10*3/uL Absolute Neuts (auto) 3.8 (2.0-8.3) x10*3/uL Absolute Nucleated RBC 0.000 (0.0-0.012) X10*3/uL Nucleated RBC % (auto) 0.0 (0.0-0.2) /100WBC PT (10.0-13.1) SEC INR (0.9-1.1) Sodium 136 (135-145) mmol/L Potassium 4.1 (3.3-5.1) mmol/L Chloride 105 (96-108) mmol/L Carbon Dioxide 17 L (22-29) mmol/L Anion Gap 18 (12-20) BUN 20 H (9-16) mg/dL Creatinine 0.64 (0.5-1.4) mg/dL Estim Creat Clear Calc 88.7 Estimated GFR > 60 Random Glucose 126 H (60-115) mg/dL Calcium 9.2 (8.4-10.2) mg/dL Total Bilirubin 1.3 H (0.0-1.0) mg/dL AST 350 H (5-31) U/L ALT 339 H (0-31) U/L Alkaline Phosphatase 258 H (39-117) U/L Troponin I High Sens 24.0 H (<3.5-17.0) ng/L Total Protein 7.2 (6.5-8.0) g/dL Albumin 4.0 (3.5-5.0) g/dL 04/06/22 04/06/22 04/06/22 Range/Units 03:31 05:00 06:19 WBC (4.8-10.8) X10*3/uL RBC (4.20-5.50) X10*6/uL Hgb (12.0-16.0) g/dl Hct (37.0-47.0) % MCV (80.0-98.0) fL MCH (27.0-33.0) pg MCHC (31.0-35.0) g/dl RDW (11.0-16.0) % Plt Count (160-400) X10*3/uL MPV (9.4-12.3) fL Immature Gran % (Auto) (0.0-0.4) % Neut % (Auto) (45-73) % Lymph % (Auto) (20-40) % [place] % (Auto) (2-11) % Eos % (Auto) (0-4) % Baso % (Auto) (0-2) % Lymph # (Auto) (1.2-4.9) X10*3/uL [place] # (Auto) (0.1-1.2) X10*3/uL Eos # (Auto) (0.0-0.4) X10*3/uL Baso # (Auto) (0.0-0.2) X10*3/uL Abs Immat Gran (auto) (0.00-0.03) X10*3/uL Absolute Neuts (auto) (2.0-8.3) x10*3/uL Absolute Nucleated RBC (0.0-0.012) X10*3/uL Nucleated RBC % (auto) (0.0-0.2) /100WBC PT 11.0 (10.0-13.1) SEC INR 1.0 (0.9-1.1) Sodium (135-145) mmol/L Potassium (3.3-5.1) mmol/L Chloride (96-108) mmol/L Carbon Dioxide (22-29) mmol/L Anion Gap (12-20) BUN (9-16) mg/dL Creatinine (0.5-1.4) mg/dL Estim Creat Clear Calc Estimated GFR Random Glucose (60-115) mg/dL Calcium (8.4-10.2) mg/dL Total Bilirubin (0.0-1.0) mg/dL AST (5-31) U/L ALT (0-31) U/L Alkaline Phosphatase (39-117) U/L Troponin I High Sens 22.7 H 24.2 H (<3.5-17.0) ng/L Total Protein (6.5-8.0) g/dL Albumin (3.5-5.0) g/dL Independent Interpretation I performed an independent interpretation of an: EKG Interpretation: Normal sinus rhythm no intervals nonspecific ST wave changes no acute ischemia Discharge Plan Discharge Clinical Impression: Chest pain, Elevated LFTs, Headache, migraine Patient Disposition: Still a Patient Prescriptions: No Action pantoprazole 40 mg tablet,delayed release (DR/EC) 40 mg PO DAILY Qty: 60 1RF lisinopril 20 mg tablet 1 tab PO DAILY kfnawxxjak-iybiuejqlgpnv-yhlp [Fioricet] 50-300-40 mg capsule 1 cap PO TID PRN (Reason: pain) Qty: 14 0RF oxycodone 15 mg tablet 15 mg PO QID PRN (Reason: Pain) vhpgtuqkpa-wippqbdmhewru-mbyc 50-325-40 mg capsule 1 cap PO Q4H PRN (Reason: Headache) hydrocortisone [Proctozone-HC] 2.5 % cream with perineal applicator 1 appl GA BID PRN (Reason: hemorrhoids) Qty: 30 3RF Rx Instructions: apply GA BID prn Citrucel 500 mg tablet 500 mg PO BID Qty: 60 5RF docusate sodium [Colace] 100 mg capsule 200 mg PO BEDTIME Qty: 60 5RF omeprazole 20 mg capsule,delayed release(DR/EC) 20 mg PO DAILY Qty: 30 5RF polyethylene glycol 3350 [Miralax] 17 gram/dose powder 17 g PO DAILY Qty: 510 2RF hydrocortisone [Proctozone-HC] 2.5 % cream with perineal applicator 1 appl GA BID PRN (Reason: hemorrhoids) Qty: 30 3RF Rx Instructions: apply GA BID prn
--- NOTE | 2022-04-06 03:21 | ECG_ITS ---
Test Reason : CP Blood Pressure : / mmHG Vent. Rate : 073 BPM Atrial Rate : 073 BPM P-R Int : 148 ms QRS Dur : 092 ms QT Int : 430 ms P-R-T Axes : 049 -14 028 degrees QTc Int : 473 ms Normal sinus rhythm Minimal voltage criteria for LVH, may be normal variant ( R in aVL ) Nonspecific ST abnormality Abnormal ECG When compared with ECG of 27-MAR-2020 11:52, No significant change was found Referred By: Pedro Morgan Electronically Signed By:MATHEUS MCFADDEN
[2022-04-06 03:36] LABS: MANUAL DIFF FLAG NO
[2022-04-06 03:38] LABS: Basophils Percent Auto 0.2 % (0-2); Eosinophils Percent Auto 0.2 % (0-4); Hematocrit 39.9 % (37.0-47.0); Hemoglobin 13.4 g/dl (12.0-16.0); Imm Gran Abs Auto 0.01 X10*3/uL (0.00-0.03); Imm Gran Pct Auto 0.2 % (0.0-0.4); Lymphocytes Absolute Auto 0.3 X10*3/uL (1.2-4.9); Lymphocytes Percent Auto 6.8 % (20-40); Mean Corpuscular HGB Conc 33.6 g/dl (31.0-35.0); Mean Corpuscular Hemoglobin 30.7 pg (27.0-33.0); Mean Corpuscular Volume 91.3 fL (80.0-98.0); Mean Platelet Volume 10.3 fL (9.4-12.3); Monocytes Absolute Auto 0.2 X10*3/uL (0.1-1.2); Neutrophils Absolute Auto 3.8 x10*3/uL (2.0-8.3); Neutrophils Percent Auto 88.6 % (45-73); Platelet Count 189 X10*3/uL (160-400); Red Blood Count 4.37 X10*6/uL (4.20-5.50); Red Cell Distribution Width 12.5 % (11.0-16.0); White Blood Count 4.3 X10*3/uL (4.8-10.8)
[2022-04-06] MEDS: Morphine Sulfate 4 MG/ML CARTRIDGE IVPUSH (03:39)
[2022-04-06] MEDS: ondansetron HCL 4 MG/2 ML VIAL IVPUSH ×2 (03:39→16:06)
--- NOTE | 2022-04-06 03:40 | PC.NURSE ---
Patient BIB for chest pain radiating to left arm, headache, nausea, vomiting x3 episodes, shortness of breath. Patient received Aspirin 81 mg x4 and Nitro 0.[address] the way to ED. 20 G IV line placed in R AC by EMS. Patient reports chest pain improved after receiving Nitro, however headache became worse. Dr. Abad at bedside. EKG obtained, Labs drawn per MD orders. Patient oriented to room, call avlarez placed within patient's reach. Patient medicated with Zofran 4 mg IV push and Morphine 4 mg IV push. Patient's is at bedside.
[2022-04-06 03:57] LABS: Alanine Aminotransferase 339 U/L (0-31); Alkaline Phosphatase 258 U/L (39-117); Anion Gap 18 (12-20); Aspartate Amino Transferase 350 U/L (5-31); Bilirubin Total 1.3 mg/dL (0.0-1.0); Blood Urea Nitrogen 20 mg/dL (9-16); Calcium 9.2 mg/dL (8.4-10.2); Carbon Dioxide 17 mmol/L (22-29); Chloride 105 mmol/L (96-108); Creatinine Clr Calc Pharmacy 88.7; Estimated Glomerular Filt Rate > 60; Glucose Random 126 mg/dL (60-115); Potassium 4.1 mmol/L (3.3-5.1); Sodium 136 mmol/L (135-145); Total Protein 7.2 g/dL (6.5-8.0)
[2022-04-06 05:25] LABS: Troponin-I High Sensitivity 22.7 ng/L (<3.5-17.0)
[2022-04-06] MEDS: Butalb/Acetamin/Caff 50/325/40 TABLET 1 TAB PO (05:52)
[2022-04-06] MEDS: Ketorolac Tromethamine 30 MG/ML VIAL IVPUSH (05:53)
[2022-04-06 06:50] LABS: Troponin-I High Sensitivity 24.2 ng/L (<3.5-17.0)
--- NOTE | 2022-04-06 07:06 | CA_ITS ---
Transthoracic Echocardiogram Patient (Last, First, Middle): Soni Mahoney, Gender: Female Date of : 1965 Age: 56 Procedure Date: 04/06/2022 Procedure Type: Transthoracic Echocardiogram Location: ER Height: 160.02 cm Weight: 68.04 kg BSA: 1.71 m2 Heart Rate: 57 bpm BP: 110 / 66 mmHg Consulting Manager: MERT Referring MD: Pedro Morgan MD Symptoms: acs Study Quality: Adequate/Contrast ECG Rhythm: Bradycardia Conclusions: - The left ventricular systolic function is normal. The calculated ejection fraction is 65% by biplane method. - No obvious valvular pathology seen on this study. - There is mild dilatation of the ascending aorta measuring 4.20 cm. Findings Procedure Information Contrast agent, definity, is being given per protocol without apparent complications. Left Ventricle Normal left ventricular cavity size. There is mildly increased left ventricular wall thickness. The left ventricular systolic function is normal. The calculated ejection fraction is 65% by biplane method. There is no evidence of regional wall motion abnormalities. Diastolic function is normal for age. Right Ventricle Normal right ventricular cavity size and systolic function. Atria Both atria are normal in size. Aortic Valve The aortic valve was not well visualized. The aortic valve structure and function is likely normal. There is mild calcification of the aortic valve. There is no aortic valve stenosis. There is no aortic valve regurgitation. Mitral Valve The mitral valve appears normal. There is no mitral valve regurgitation. There is no mitral valve stenosis. Pulmonic Valve The pulmonic valve is likely normal. Tricuspid Valve Normal tricuspid valve structure. There is trace tricuspid valve regurgitation. There is no evidence of pulmonary hypertension. Great Vessels There is mild dilatation of the ascending aorta measuring 4.20 cm. Venous The inferior vena cava is normal in size and collapses greater than 50% with inspiration. Pericardium/Pleural There is no evidence of pericardial effusion. Prior Study Comparison Changes noted compared to prior study dated: 07/17/2019. Increase in ascending aortic size. Recommendations, Care & Conclusions No obvious valvular pathology seen on this study. Measurements 2D Linear Measurements IVSd: 1.18 0.6-0.9/0.6-1.0 cm LVIDd: 4.51 3.9-5.3/4.2-5.9 cm LVIDd Index: 2.64 2.4-3.2/2.2-3.1 cm/m2 LVIDs: 3.05 2.0-3.6 cm LVPWd: 1.07 0.7-1.1 cm LA Diam: 2.60 2.7-3.8/3.0-4.0 cm LAIDs Index: 1.52 1.5-2.3 cm/m2 LV Mass: 225.87 67-162/88-224 g LV Mass Index: 132.09 43-95/49-115 g/m2 LVOT Diam: 2.00 3.0+(-)1.3 cm 2D Systolic Function EF 4C: 69.10 >55% EF 2C: 61.70 >55% EF BiP: 64.70 >55% Mitral Valve MV Pk E: 0.61 MV PK A: 0.71 MV Decel Time: 313.00 E/A: 0.90 E'Lateral: 5.55 E'Medial: 5.11 E/E' Med: 11.90 E/E' Lat: 10.90 PHT: 92.00 MVA PHT: 2.[address]: 1.94 Aortic Valve AoV Pk [place]: 1.42 AoV Mn [place]: 1.01 AoV VTI: 0.30 AoV Pk Grad: 8.00 Aov Mn Grad: 5.00 AB Cont.VTI: 2.72 LVOT LVOT Pk [place]: 1.28 LVOT Mn [place]: 0.84 LVOT VTI: 0.26 LVOT Pk Grad: 7.00 LVOT Mn Grad: 3.00 LVOT Diam: 2.00 LVOT Area: 3.14 Diastolic Function MV Pk E: 0.61 MV Pk A: 0.71 E/A: 0.90 E'Medial: 5.11 E/E' Med: 11.90 E' Laterial: 5.55 E/E' Lat: 10.90 Right Ventricle TAPSE (mm): 27.20 TVS' [place]: 18.50 Tricuspid Valve TR Pk [place]: 1.61 TR Pk Grad: 10.00 RA Press: 3.00 RVSP: 13.00 Great Vessels Aorta Sinus of Valsalva: 4.00 2.0-3.5 cm Ao Asc: 4.20 2.1-3.4 cm Pulmonary Valve PV Pk [place]: 0.91 Peak PV Grad: 3.00 Updated in Other Vendor System with Status of Final Mono Min MD electronically signed on 04/06/2022 11:46:00 AM with status of Final
--- NOTE | 2022-04-06 07:36 | PC.NURSE ---
Addendum entered by Marita Richardson 04/06/22 08:01: Plan for CT scan of abd d/t elevated LFTs Original Note: Pt alert/oriented, iranian speaking. Denies CP at this time, no SOB or diff breathing. NSR on tele. Pt does report mild 2/10 upper abd pain, also reports vomiting x 3 yesterday and reports h/o bowel obstruction in January. Skin PWD.
[2022-04-06] MEDS: iohexoL 350 MG/ML 100 ML INFUS..BTL 85 ML IV (08:01)
[2022-04-06 08:23] LABS: HBc Num1 0.12 S/CO (0.00-0.79); HBsAGNum1 0.27 S/CO (0.00-0.99); Hepatitis A Antibody IgM 0.19 Index (0-0.79); Hepatitis B Core Antibody Nonreactive (Nonreactive); Hepatitis B Surface Antigen Negative (Negative); ~HepC Num1 0.13 S/CO (0.00-0.79); ~Hepatitis A Antibody IgM Nonreactive (Nonreactive); ~Hepatitis B Surface Antibody NONREACTIVE (Nonreactive); ~Hepatitis C Antibody Nonreactive (Nonreactive)
[2022-04-06 08:41] LABS: Lipase 13 U/L (8-78)
--- NOTE | 2022-04-06 10:27 | P.CONCA_ITS ---
History of Present Illness History of Present Illness Date of Service: 04/06/22 Chief complaint: chest tightness/headache Narrative: This is a cardiology consultation regarding chest pain. Patient presents with multiple complaints. She states that she was having epigastric pain. Subseq uently, she was also having left-sided chest discomfort. Lots of headache. Multiple episodes of vomiting. Hence overall numerous complaints. Currently, she is essentially symptom-free. We have been asked to see her for further evaluation. No history of any coronary disease or myocardial infarction or cardiomyopathy. Listed have chronic GERD. Also has chronic constipation. Chronically abnormal LFTs. Review of Systems Review of Systems: Yes all other systems are reviewed and are negative Constitutional: Constitutional: Reports as per HPI and Reports headache(s) Eyes: Eyes: Reports as per HPI ENT: Reports as per HPI and Reports headache(s) Cardiovascular: Cardiovascular: Reports as per HPI, Denies acrocyanosis, D enies cool extremities, Reports chest pain, Denies leg edema, Denies lightheadedness, Denies palpitations and Denies dyspnea Respiratory: Respiratory: Reports as per HPI, Reports no additional respiratory complaints and Denies dyspnea Gastrointestinal: Gastrointestinal: Reports as per HPI, Reports no additional gastrointestinal complaints, Reports abdominal pain and Reports vomiting Genitourinary: Genitourinary: Reports as per HPI Musculoskeletal: Musculoskeletal: Reports no additional musculoskeletal complaints and Reports as per HPI Integumentary/Breasts: Skin/Breast: Reports system reviewed and no additional complaints, except as docu Neurologic: Reports system reviewed and no additional complaints, except as documented, Reports as per HPI and Reports headache(s) Psychiatric: Psychiatric: Reports no additional psychiatric complaints and Reports as per HPI Endocrine: Endocrine: Reports no additional endocrine complaints, Reports as per HPI and Denies palpitations Hematologic/Lymphatic: Hematologic/Lymphatic: Reports no additional hematologic/lymphatic complaints and Reports as per HPI Allergic/Immunologic: Allergic/Immunologic: Reports no additional allergic/immunologic complaints and Reports as per HPI PMFSH Past Medical History Medical History Anemia Back pain Chronic constipation GERD (gastroesophageal reflux disease) HTN (hypertension) Hx of migraines Osteoarthritis, hip, bilateral Primary osteoarthritis involving multiple joints Rheumatoid arthritis Seropositive rheumatoid arthritis Family History Family History Father Prostate cancer Skin cancer Son Stomach problems Surgical History Surgical History H/O exploratory laparotomy History of left knee surgery Hx of cholecystectomy Hx of colonoscopy Hx of endoscopy Hx of esophagogastroduodenoscopy Social History Social History Household Members: Spouse Housing: Apartment Do you presently have visiting nurse or other home services: Yes ([employer]) Alcohol intake: never Patient Tobacco Use Status: Never used Tobacco Smoked in Last 30 Days: No Use of substances other than those prescribed or required for medical reasons: No Advance Directives: Yes Advance Directives on File: Yes Advance Directives Date on File: 11/15/20 Patient : No service: No Current occupational status: disabled Meds Allergies Allergy/AdvReac Type Severity Reaction Status Date / Time clindamycin [Clindamycin] Allergy Severe BURGESS-JOHNATHON Verified 01/29/22 09:14 SYNDROME ibuprofen [From MOTRIN] Allergy Severe UNKNOWN Verified 01/29/22 09:14 Sulfa (Sulfonamide Allergy Severe RASH, hives Verified 01/29/22 09:14 Antibiotics) [Sulfa (Sulfonamides)] sumatriptan Allergy Severe avoid due Verified 01/29/22 09:14 to sulfa allergy latex [LATEX] Allergy Intermediate RASH Verified 01/29/22 09:14 nitrofurantoin Allergy Unknown unknown Verified 01/29/22 09:14 paroxetine Allergy Unknown unknown Verified 01/29/22 09:14 Active Medications: Current Medications Pharmacy Consult (Consult Rx Perform Med Rec) 1 each MISCELLANE ONCE PRN PRN Reason: Consult order Home Medications Medication Instructions Recorded Confirmed Last Taken Type dtmgllvzfx-yyixqrewrovki-aspbrzvb 1 cap PO Q4H PRN Headache 03/12/20 01/29/22 Unknown History 50 mg-325 mg-40 mg capsule oxycodone 15 mg tablet 15 mg PO QID PRN Pain 03/12/20 01/29/22 02/13/21 05:00 History lisinopril 20 mg tablet 1 tab PO DAILY 05/17/20 01/29/22 02/13/21 06:00 History Physical Exam Vital Signs: Vital Signs: Last Vital Signs Temp 98.2 F 04/06/22 06:13 Pulse 54 04/06/22 10:24 Resp 16 02/20/23 10:24 BP 110/69 04/06/22 10:24 Pulse Ox 96 04/06/22 10:24 O2 Del Method 04/06/22 10:24 BMI result Body Mass Index 26.5 Const: General: comfortable and no acute distress Orientation/consciousness: patient oriented x3 HEENT: Other: Unremarkable Head: Yes normal to inspection Neck: Neck: Yes normal visual inspection Chest: Chest palpation & inspection: normal inspection of the chest Resp: Auscultation: clear to auscultation bilaterally Cardio: Palpation: normal PMI Heart sounds: S1 normal heart sound present, S2 normal heart sound present, no gallops, no murmurs and no rubs GI: Palpation (GI): Soft to palpation Back/Spine/Pelvis: Other: unremarkable Skin: General skin exam: no rashes or lesions noted Neuro: General: patient oriented x3 Extrem: General: Yes normal to inspection Psych: Mental Status: mental status grossly normal Objective Labs and Meds 04/06/22 03:31 04/06/22 03:31 Lab results: Laboratory Results - last 24 hr 04/06/22 04/06/22 04/06/22 03:31 03:31 03:31 WBC 4.3 L RBC 4.37 Hgb 13.4 Hct 39.9 MCV 91.3 MCH 30.7 MCHC 33.6 RDW 12.5 Plt Count 189 MPV 10.3 Immature Gran % (Auto) 0.2 Neut % (Auto) 88.6 H Lymph % (Auto) 6.8 L Weak[place] % (Auto) 4.0 Eos % (Auto) 0.2 Baso % (Auto) 0.2 Lymph # (Auto) 0.3 L Weak[place] # (Auto) 0.2 Eos # (Auto) 0.0 Baso # (Auto) 0.0 Abs Immat Gran (auto) 0.01 Absolute Neuts (auto) 3.8 Absolute Nucleated RBC 0.000 Nucleated RBC % (auto) 0.0 PT INR Sodium 136 Potassium 4.1 Chloride 105 Carbon Dioxide 17 L Anion Gap 18 BUN 20 H Creatinine 0.64 Estim Creat Clear Calc 88.7 Estimated GFR > 60 Random Glucose 126 H Calcium 9.2 Total Bilirubin 1.3 H AST 350 H ALT 339 H Alkaline Phosphatase 258 H Troponin I High Sens 24.0 H Total Protein 7.2 Albumin 4.0 Lipase 13 Hepatitis A IgM Ab Hep Bs Antigen Hep Bs Antibody Hep B Core Total Ab Hepatitis C Ab (EIA) 04/06/22 04/06/22 04/06/22 03:31 03:31 05:00 WBC RBC Hgb Hct MCV MCH MCHC RDW Plt Count MPV Immature Gran % (Auto) Neut % (Auto) Lymph % (Auto) Weak[place] % (Auto) Eos % (Auto) Baso % (Auto) Lymph # (Auto) Weak[place] # (Auto) Eos # (Auto) Baso # (Auto) Abs Immat Gran (auto) Absolute Neuts (auto) Absolute Nucleated RBC Nucleated RBC % (auto) PT 11.0 INR 1.0 Sodium Potassium Chloride Carbon Dioxide Anion Gap BUN Creatinine Estim Creat Clear Calc Estimated GFR Random Glucose Calcium Total Bilirubin AST ALT Alkaline Phosphatase Troponin I High Sens 22.7 H Total Protein Albumin Lipase Hepatitis A IgM Ab Nonreactive Hep Bs Antigen Negative Hep Bs Antibody NONREACTIVE Hep B Core Total Ab Nonreactive Hepatitis C Ab (EIA) Nonreactive 04/06/22 06:19 WBC RBC Hgb Hct MCV MCH MCHC RDW Plt Count MPV Immature Gran % (Auto) Neut % (Auto) Lymph % (Auto) Weak[place] % (Auto) Eos % (Auto) Baso % (Auto) Lymph # (Auto) Weak[place] # (Auto) Eos # (Auto) Baso # (Auto) Abs Immat Gran (auto) Absolute Neuts (auto) Absolute Nucleated RBC Nucleated RBC % (auto) PT INR Sodium Potassium Chloride Carbon Dioxide Anion Gap BUN Creatinine Estim Creat Clear Calc Estimated GFR Random Glucose Calcium Total Bilirubin AST ALT Alkaline Phosphatase Troponin I High Sens 24.2 H Total Protein Albumin Lipase Hepatitis A IgM Ab Hep Bs Antigen Hep Bs Antibody Hep B Core Total Ab Hepatitis C Ab (EIA) ECG Interpretation: EKG with sinus rhythm at 73/Min; nonspecific ST-T changes. Possible LVH. Similar to prior. Imaging Radiologist's impression: Impressions Abdomen/Pelvis CT 04/06/22 08:51 IMPRESSION: Intra and extrahepatic biliary duct dilatation similar to October 2020 CT. Post cholecystectomy. No stone seen by CT. Dilated main pancreatic duct. This is slightly decreased from October 2020. There is some air in the main pancreatic duct that is new. This may be related to previous ERCP/papillotomy procedure. Clinical correlation recommended. Differential would include infection. Findings could be better evaluated with MR with MRCP if clinically indicated. Constipation. Fleischner guidelines were followed. Assessment and Plan (1) Chest pain: Status: Acute (2) Elevated LFTs: Status: Acute (3) Chronic GERD: Status: Acute Plan Troponins are borderline abnormal at 24, 22.7 and 24.2. Upper limit is 17. Overall, there is no rise and fall to suggest acute coronary syndrome. Symptoms are also atypical as she describes numerous other complaints along with chest pain including abdominal pain, headache. Etiology is unclear. Will obtain echocardiogram and review the same. Among other labs, LFTs are abnormal and chronic. Abdomen CT noted. Will follow with you. Discussed with Dr. Antoine. Time Spent With Patient Time: Total time managing care of this patient today ____ minutes. Procedures Date of Service Date of Service: 04/06/22
--- NOTE | 2022-04-06 10:50 | PHA.MEDREC ---
MED REC COMPLETE, NO ISSUES Pharmacy Consult ? Medication Reconciliation Pharmacy has completed the medication reconciliation.
[2022-04-06 10:59] LABS: COVID-19 Test Negative (Negative); IDNOW Serial# BCCEAD1C
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
[2022-04-06 12:37] LABS: Venous Blood Gas Refer to POC result
[2022-04-06 12:40] LABS: VBG Base Excess -1.3 mmol/L; VBG HCO3 21 mmol/L (22-26); VBG pCO2 31 mmHg; VBG pH 7.44 (7.32-7.43); VBG pO2 82 mmHg
[2022-04-06] MEDS: oxyCODONE HCl Immed Release 15 MG TABLET PO ×2 (15:26→20:14)
[2022-04-06] MEDS: Enoxaparin Sodium 40 MG/0.4 ML SYRINGE SUBCUT (15:27)
[2022-04-06] MEDS: 0.9 % Sodium Chloride Flush 3 ML SYRINGE IVFLUSH ×2 (16:08→20:15)
[2022-04-06] MEDS: calcium polycarbophiL TABLET 1 TAB PO (20:14)
[2022-04-06] MEDS: Docusate Sodium 100 MG CAPSULE 200 MG PO (20:14)
[2022-04-06] MEDS: Zolpidem Tartrate 5 MG TABLET PO (22:29)
[2022-04-06 22:38] LABS: Hematocrit 39.2 % (37.0-47.0); Hemoglobin 12.7 g/dl (12.0-16.0)
[2022-04-07] VITALS (12 sets, daily range): BP systolic 108–154; BP diastolic 57–90; PULSE 52–66; RESP 12–20; TEMP 36.1–37.1; O2SAT 94–99
[2022-04-07] MEDS: oxyCODONE HCl Immed Release 15 MG TABLET PO ×4 (04:45→20:13)
[2022-04-07] MEDS: Omeprazole 20 MG CAPSULE.DR PO (06:30)
[2022-04-07 07:18] LABS: Hematocrit 39.5 % (37.0-47.0); Lymphocytes Absolute Auto 0.7 X10*3/uL (1.2-4.9); Lymphocytes Percent Auto 36.7 % (20-40); MANUAL DIFF FLAG SCAN; Mean Corpuscular HGB Conc 32.9 g/dl (31.0-35.0); Mean Corpuscular Hemoglobin 30.7 pg (27.0-33.0); Mean Corpuscular Volume 93.4 fL (80.0-98.0); Mean Platelet Volume 10.7 fL (9.4-12.3); Monocytes Absolute Auto 0.4 X10*3/uL (0.1-1.2); Monocytes Percent Auto 19.4 % (2-11); Neutrophils Absolute Auto 0.8 x10*3/uL (2.0-8.3); Neutrophils Percent Auto 40.9 % (45-73); Platelet Count 158 X10*3/uL (160-400); Red Blood Count 4.23 X10*6/uL (4.20-5.50); Red Cell Distribution Width 12.9 % (11.0-16.0); SCAN SMEAR FLAG 1
[2022-04-07 07:37] LABS: Alanine Aminotransferase 225 U/L (0-31); Albumin Level 3.8 g/dL (3.5-5.0); Alkaline Phosphatase 270 U/L (39-117); Aspartate Amino Transferase 146 U/L (5-31); Bilirubin Total 0.9 mg/dL (0.0-1.0); Blood Urea Nitrogen 16 mg/dL (9-16); Calcium 8.9 mg/dL (8.4-10.2); Creatinine Clr Calc Pharmacy 79.9; Estimated Glomerular Filt Rate > 60; Glucose Random 102 mg/dL (60-115); Total Protein 6.6 g/dL (6.5-8.0)
[2022-04-07 07:42] LABS: SLIDE REVIEW VERIFIED
[2022-04-07 07:45] LABS: Anion Gap 12 (12-20); Carbon Dioxide 24 mmol/L (22-29); Chloride 104 mmol/L (96-108); Potassium 3.7 mmol/L (3.3-5.1); Sodium 136 mmol/L (135-145)
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
[2022-04-07] MEDS: 0.9 % Sodium Chloride Flush 3 ML SYRINGE IVFLUSH ×2 (09:03→15:48)
[2022-04-07] MEDS: Loratadine 10 MG TABLET PO (09:04)
[2022-04-07] MEDS: calcium polycarbophiL TABLET 1 TAB PO ×2 (09:04→20:14)
[2022-04-07] MEDS: lisinopriL 10 MG TABLET PO (09:04)
[2022-04-07] MEDS: Cholecalciferol (Vitamin D3) 25 MCG TABLET 50 MCG PO (09:04)
--- NOTE | 2022-04-07 09:54 | MHC.CM.PN ---
CM MET WITH PT WITH THE ASSISTANCE OF [facility] BATCH ATTENDANT PT LIVES ALONE AND HAS DAILY [employer] PT HAS A WALKER, COMMODE, AND SHOWER CHAIR SHE IS NOT COVID VAX PCP: CHRISTY MERIDA HCP ON FILE DCP: HOME RESUME [employer]ILY [employer]SP[employer]
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
--- NOTE | 2022-04-07 10:16 | PM.PNCARD ---
Subjective Subjective Date of Service: 04/07/22 Interval history: She states that she is feeling okay. Some abdominal pain but nothing the chest. With regard to left arm pain, only when she moves the shoulder. In fact, can reproduce it by moving the left shoulder. Review of Systems Review of Systems Yes all other systems are reviewed and are negative Constitutional: Reports as per HPI Eyes: Reports as per HPI Reports as per HPI Cardiovascular: Reports as per HPI, Denies acrocyanosis, Denies cool extremities, Denies chest pain, Denies leg edema, Denies lightheadedness, Denies palpitations and Denies dyspnea Respiratory: Reports as per HPI, Reports no additional respiratory complaints and Denies dyspnea Gastrointestinal: Reports as per HPI, Reports no additional gastrointestinal complaints and Reports abdominal pain Genitourinary: Reports as per HPI Musculoskeletal: Reports no additional musculoskeletal complaints and Reports as per HPI Skin/Breast: Reports system reviewed and no additional complaints, except as docu Reports system reviewed and no additional complaints, except as documented and Reports as per HPI Psychiatric: Reports no additional psychiatric complaints and Reports as per HPI Endocrine: Reports no additional endocrine complaints, Reports as per HPI and Denies palpitations Hematologic/Lymphatic: Reports no additional hematologic/lymphatic complaints and Reports as per HPI Allergic/Immunologic: Reports no additional allergic/immunologic complaints and Reports as per HPI Physical Exam Vital Signs: Last Vital Signs Temp 97.6 F 04/07/22 07:45 Pulse 56 04/07/22 07:45 Resp 12 04/07/22 07:45 BP 109/60 04/07/22 07:45 Pulse Ox 95 04/07/22 07:45 O2 Del Method 04/07/22 07:45 BMI result Body Mass Index 26.5 Const General: comfortable and no acute distress Orientation/consciousness: patient oriented x3 HEENT Other: Unremarkable Head: Yes normal to inspection Neck Neck: Yes normal visual inspection Chest Chest palpation & inspection: normal inspection of the chest Resp Auscultation: clear to auscultation bilaterally Cardio Palpation: normal PMI Heart sounds: S1 normal heart sound present, S2 normal heart sound present, no gallops, no murmurs and no rubs GI Palpation (GI): Soft to palpation Back/Spine/Pelvis Other: unremarkable Skin General skin exam: no rashes or lesions noted Neuro General: patient oriented x3 Extrem General: Yes normal to inspection Psych Mental Status: mental status grossly normal Objective Labs and Meds 04/07/22 06:25 04/07/22 06:25 Lab results: Laboratory Results - last 24 hr 04/06/22 04/06/22 04/06/22 10:27 12:34 22:32 WBC RBC Hgb 12.7 Hct 39.2 MCV MCH MCHC RDW Plt Count MPV Immature Gran % (Auto) Neut % (Auto) Lymph % (Auto) [place] % (Auto) Eos % (Auto) Baso % (Auto) Lymph # (Auto) [place] # (Auto) Eos # (Auto) Baso # (Auto) Abs Immat Gran (auto) Absolute Neuts (auto) Absolute Nucleated RBC Nucleated RBC % (auto) Smear Tech's Comments VBG pH 7.44 H VBG pCO2 31 VBG pO2 82 VBG HCO3 21 L VBG O2 Saturation 98.0 VBG Base Excess -1.3 Sodium Potassium Chloride Carbon Dioxide Anion Gap BUN Creatinine Estim Creat Clear Calc Estimated GFR Random Glucose Calcium Total Bilirubin AST ALT Alkaline Phosphatase Total Protein Albumin COVID-19 (MANOLO) Negative COVID-19 Clin Com See Note 04/07/22 04/07/22 06:25 06:25 WBC 2.0 L RBC 4.23 Hgb 13.0 Hct 39.5 MCV 93.4 MCH 30.7 MCHC 32.9 RDW 12.9 Plt Count 158 L MPV 10.7 Immature Gran % (Auto) 0.0 Neut % (Auto) 40.9 L Lymph % (Auto) 36.7 [place] % (Auto) 19.4 H Eos % (Auto) 2.0 Baso % (Auto) 1.0 Lymph # (Auto) 0.7 L [place] # (Auto) 0.4 Eos # (Auto) 0.0 Baso # (Auto) 0.0 Abs Immat Gran (auto) 0.00 Absolute Neuts (auto) 0.8 L Absolute Nucleated RBC 0.000 Nucleated RBC % (auto) 0.0 Smear Tech's Comments VERIFIED VBG pH VBG pCO2 VBG pO2 VBG HCO3 VBG O2 Saturation VBG Base Excess Sodium 136 Potassium 3.7 Chloride 104 Carbon Dioxide 24 Anion Gap 12 BUN 16 Creatinine 0.71 Estim Creat Clear Calc 79.9 Estimated GFR > 60 Random Glucose 102 Calcium 8.9 Total Bilirubin 0.9 AST 146 H ALT 225 H Alkaline Phosphatase 270 H Total Protein 6.6 Albumin 3.8 COVID-19 (MAN[facility]) COVID-19 Clin Com Imaging Radiologist's impression: Impressions Abdomen Ultrasound 04/06/22 15:52 IMPRESSION: 1. Dilated common bile duct measuring up to 1.4 cm in diameter with mild intrahepatic biliary ductal dilation status post cholecystectomy. No CBD stone identified, though the distalmost CBD is obscured by bowel gas at the level of the pancreatic head. If clinical concern for choledocholithiasis or obstructing ampullary lesion, consider MRI/MRCP for more sensitive evaluation. 2. Mild pancreatic ductal dilation, as on earlier CT. Progress Note: A&P Assessment and plan (1) Chest pain: Status: Acute (2) Elevated LFTs: Status: Acute (3) Chronic GERD: Status: Acute (4) Preoperative cardiovascular examination: Status: Acute (5) Ascending aorta enlargement: Status: Acute Plan Troponins are borderline abnormal at 24, 22.7 and 24.2. Upper limit is 17. Overall, there is no rise and fall to suggest acute coronary syndrome. Echocardiogram with LVEF of 65%. No wall motion abnormalities. Mild ascending aortic dilatation at 4.2 cm. Overall, not believe her presentation is cardiac in nature. Possibly more GI etiology. Plans for ERCP noted. May proceed as planned. Low cardiac risk. Mild ascending aortic enlargement may be followed up as an outpatient. Time Spent With Patient Time: Total time managing care of this patient today ____ minutes. Progress Note: Quality Stroke Does the patient have a stroke diagnosis?: No Procedures Date of Service Date of Service: 04/07/22
--- NOTE | 2022-04-07 12:29 | MHC.SHP ---
Pre-Procedural Eval Section A Date of Service: 04/07/22 The patient is an INPATIENT: Yes The History & Physical has been completed within 30 days and I have reviewed it.: Yes Section B Chief Complaint: chest pain, nausea/vomiting Allergies: Allergies Allergy/AdvReac Type Severity Reaction Status Date / Time clindamycin [Clindamycin] Allergy Severe BURGESS-JOHNATHON Verified 01/29/22 09:14 SYNDROME ibuprofen [From MOTRIN] Allergy Severe UNKNOWN Verified 01/29/22 09:14 Sulfa (Sulfonamide Allergy Severe RASH, hives Verified 01/29/22 09:14 Antibiotics) [Sulfa (Sulfonamides)] sumatriptan Allergy Severe avoid due Verified 01/29/22 09:14 to sulfa allergy latex [LATEX] Allergy Intermediate RASH Verified 01/29/22 09:14 nitrofurantoin Allergy Unknown unknown Verified 01/29/22 09:14 paroxetine Allergy Unknown unknown Verified 01/29/22 09:14 Plan I have reviewed the history and physical and performed a pertinent physical examination on my patient. No changes have occurred unless specified. EGD and ERCP Time Spent With Patient Time: Total time managing care of this patient today ____ minutes.
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
--- NOTE | 2022-04-07 14:14 | W.PM.OPN ---
Operative Note Operative Note Date of Service: 04/07/22 Narrative: Description: Endoscopic retrograde cholangiopancreatography (ERCP) with brush cytology as well as EGD with balloon dilaton and biopsy PROCEDURE: Endoscopic retrograde cholangiopancreatography with brush cytology and EGD with balloon dilation and biopsy INDICATION FOR THE PROCEDURE: Patient with a history of abdominal pain and abnormal LFT with dilated CBD as well as dysphagia MEDICATIONS: General anesthesia, rectal indomethacin 100 mg, The risks of the procedure were made aware to the patient and consisted of medication reaction, bleeding, perforation, aspiration, and post ERCP pancreatitis. DESCRIPTION OF PROCEDURE: After informed consent and appropriate sedation, the upper endoscope was passed. The GEJ was at 40 cm and no obvious esophageal stricture was noted. Balloon dilation was done at LES and UES to 20 mm without any tears seen. Random biopsies for esophagus were taken to r/o EOE. The Gastric mucosa was inflammed, random stomach biopsies were taken. The upper scope was withdrawn and the duodenoscope was inserted into the oropharynx, down the esophagus, and into the stomach. The scope was then advanced through the pylorus to the ampulla. An opening was noted with bilious appearing material coming out, and this was cannulated. After wire was passed and constrast was injected it became apparent that this was actually the PD and not the CBD. It appeared mildly dilated without any focal lesions. It drained quickly. Further inspection revealed that the CBD was actually a separate orifice at a 9 o'clock position to the PD. This was very small and strictured appearing.This was then cannulated. Contrast revealed this to be the CBD which was diffusely dilated. No focal lesion or filling defect was noted. A generous sphincterotomy was then performed and brushings taken from the duct. There appeared to be a generous flush of bile thereafter. There was some minor oozing which had ceased by the end of the procedure. The stomach was then decompressed and the endoscope was withdrawn. FINDINGS: 1. gastritis 2. sphincter of oddi dysfunction RECOMMENDATIONS: 1. NPO except ice chips for next 4-6 hrs then clears as tolerated, can advance diet tomorrow if feels well 2. if H pylori pos then treat, would also give low dose PPI 3. if abn LFt persist and ongoing dysphagia then can escalate work up e.g esophgeal manometry, liver serologies
[2022-04-07] MEDS: Enoxaparin Sodium 40 MG/0.4 ML SYRINGE SUBCUT (15:47)
[2022-04-07] MEDS: Docusate Sodium 100 MG CAPSULE 200 MG PO (20:14)
[2022-04-07] MEDS: Zolpidem Tartrate 5 MG TABLET PO (21:54)
[2022-04-08] MEDS: oxyCODONE HCl Immed Release 15 MG TABLET PO ×4 (02:13→20:55)
[2022-04-08 03:33] VITALS: BP 94/55; PULSE 48; RESP 16; TEMP 36.7; O2SAT 94
[2022-04-08] MEDS: Acetaminophen 325 MG TABLET 650 MG PO (06:38)
[2022-04-08] MEDS: Omeprazole 20 MG CAPSULE.DR PO (06:39)
[2022-04-08 07:16] VITALS: BP 101/58; PULSE 51; RESP 14; TEMP 36.1; O2SAT 98
[2022-04-08 08:01] LABS: Alanine Aminotransferase 152 U/L (0-31); Albumin Level 3.6 g/dL (3.5-5.0); Alkaline Phosphatase 228 U/L (39-117); Aspartate Amino Transferase 71 U/L (5-31); Bilirubin Direct 0.2 mg/dL (0.0-0.5); Bilirubin Total 0.7 mg/dL (0.0-1.0); Total Protein 6.1 g/dL (6.5-8.0)
[2022-04-08] MEDS: Cholecalciferol (Vitamin D3) 25 MCG TABLET 50 MCG PO (08:41)
[2022-04-08] MEDS: Loratadine 10 MG TABLET PO (08:42)
[2022-04-08] MEDS: calcium polycarbophiL TABLET 1 TAB PO ×2 (08:42→20:56)
[2022-04-08] MEDS: 0.9 % Sodium Chloride Flush 3 ML SYRINGE IVFLUSH ×2 (08:42→20:59)
[2022-04-08] MEDS: polyethylene glycoL 3350 17 GM POWD.PACK PO (08:47)
[2022-04-08 11:50] VITALS: BP 90/57; PULSE 51; RESP 12; TEMP 36.3; O2SAT 97
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
[2022-04-08] MEDS: 0.9 % Sodium Chloride 1,000 ML 100 ML IVCONT (14:04)
[2022-04-08] MEDS: Enoxaparin Sodium 40 MG/0.4 ML SYRINGE SUBCUT (14:52)
[2022-04-08 16:00] VITALS: BP 101/59; PULSE 56; RESP 16; TEMP 36.4; O2SAT 97
[2022-04-08 19:23] VITALS: BP 135/60; PULSE 64; RESP 16; TEMP 36.5; O2SAT 96
--- NOTE | 2022-04-08 19:38 | HO.POSTANES ---
Post Anesthesia Evaluation Post Anesthesia Evaluation Vital Signs: Vital Signs Temp Pulse Resp BP Pulse Ox O2 Del Method 04/08/22 19:23 97.7 F 64 16 135/60 96 Room Air 04/08/22 16:00 97.5 F 56 16 101/59 L 97 Room Air 04/08/22 11:50 97.4 F 51 12 90/57 L 97 Room Air 04/08/22 13:29 Room Air Anesthesia: General Endotracheal-GETA and General Mental Status: Awake Pain Control: Satisfactory Nausea/Vomiting: None Hydration: Adequate Anesthesia-Related Issues: No Anes. Related Issues
[2022-04-08] MEDS: Docusate Sodium 100 MG CAPSULE 200 MG PO (20:54)
[2022-04-08] MEDS: ondansetron HCL 4 MG/2 ML VIAL IVPUSH (21:01)
[2022-04-08] MEDS: diphenhydrAMINE HCL 25 MG CAPSULE 50 MG PO (22:49)
[2022-04-09 00:37] VITALS: BP 117/63; PULSE 50; RESP 16; TEMP 36.3; O2SAT 93
[2022-04-09 04:00] VITALS: BP 142/69; PULSE 65; RESP 18; TEMP 36.9; O2SAT 95
[2022-04-09] MEDS: oxyCODONE HCl Immed Release 15 MG TABLET PO ×3 (05:15→21:29)
[2022-04-09] MEDS: Omeprazole 20 MG CAPSULE.DR PO ×2 (05:16→17:43)
[2022-04-09 07:32] VITALS: BP 118/62; PULSE 93; RESP 12; TEMP 36.2; O2SAT 93
[2022-04-09 07:32] LABS: Hematocrit 36.3 % (37.0-47.0); Hemoglobin 11.8 g/dl (12.0-16.0); Mean Corpuscular HGB Conc 32.5 g/dl (31.0-35.0); Mean Corpuscular Hemoglobin 30.6 pg (27.0-33.0); Mean Platelet Volume 10.4 fL (9.4-12.3); Platelet Count 150 X10*3/uL (160-400); Red Blood Count 3.86 X10*6/uL (4.20-5.50); Red Cell Distribution Width 12.7 % (11.0-16.0); White Blood Count 3.6 X10*3/uL (4.8-10.8)
[2022-04-09 07:58] LABS: Anion Gap 9 (12-20); Blood Urea Nitrogen 11 mg/dL (9-16); Calcium 8.6 mg/dL (8.4-10.2); Carbon Dioxide 28 mmol/L (22-29); Chloride 108 mmol/L (96-108); Creatinine Clr Calc Pharmacy 87.3; Estimated Glomerular Filt Rate > 60; Glucose Random 96 mg/dL (60-115); Potassium 3.9 mmol/L (3.3-5.1); Sodium 141 mmol/L (135-145)
[2022-04-09] MEDS: ondansetron HCL 4 MG/2 ML VIAL IVPUSH (08:56)
[2022-04-09] MEDS: calcium polycarbophiL TABLET 1 TAB PO ×2 (08:56→21:22)
[2022-04-09] MEDS: Loratadine 10 MG TABLET PO (08:57)
[2022-04-09] MEDS: Cholecalciferol (Vitamin D3) 25 MCG TABLET 50 MCG PO (08:57)
[2022-04-09] MEDS: 0.9 % Sodium Chloride Flush 3 ML SYRINGE IVFLUSH ×3 (08:57→21:23)
[2022-04-09] MEDS: polyethylene glycoL 3350 17 GM POWD.PACK PO (08:59)
[2022-04-09 11:29] VITALS: BP 117/58; PULSE 53; RESP 14; TEMP 36; O2SAT 95
[2022-04-09 11:51] LABS: Alanine Aminotransferase 97 U/L (0-31); Albumin Level 3.3 g/dL (3.5-5.0); Alkaline Phosphatase 200 U/L (39-117); Aspartate Amino Transferase 37 U/L (5-31); Bilirubin Direct 0.2 mg/dL (0.0-0.5); Bilirubin Total 0.7 mg/dL (0.0-1.0); Lipase 17 U/L (8-78); Total Protein 5.7 g/dL (6.5-8.0)
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
[2022-04-09] MEDS: Enoxaparin Sodium 40 MG/0.4 ML SYRINGE SUBCUT (14:30)
[2022-04-09 15:26] VITALS: BP 140/68; PULSE 84; RESP 17; TEMP 36.4; O2SAT 95
--- NOTE | 2022-04-09 15:38 | MHC.CM.PN ---
PER MD ROUNDS, PT NOT YET CLEARED FOR DC (ABD DISCOMFORT, NAUSEA) CM WILL CONTINUE TO FOLLOW
[2022-04-09 19:08] VITALS: BP 123/66; PULSE 62; RESP 17; TEMP 36.6; O2SAT 98
--- NOTE | 2022-04-09 20:37 | PM.GIPN ---
Subjective Subjective Date of Service: 04/09/22 Interval History: relaxed appearing c/o ongoing dysohagia with reflux also has constipation and feeling of satiety passing gas wants to go home Critical Care Time (minutes): 0 Physical Exam Vital Signs: Vital Signs: Last Vital Signs Temp 97.8 F 04/09/22 19:08 Pulse 62 04/09/22 19:08 Resp 17 04/09/22 19:08 BP 123/66 04/09/22 19:08 Pulse Ox 98 04/09/22 19:08 O2 Del Method 04/09/22 19:08 O2 Flow Rate 3 04/07/22 14:30 BMI result Body Mass Index 26.5 EXAM: GENERAL: The patient is well developed and nontoxic. VITAL SIGNS:see workflow HEENT: Nonicteric sclerae, PERRLA, EOMI. Oropharynx clear. Moist mucous membranes. Conjunctivae appear well perfused. No thyroid mass. CHEST: Chest wall is nontender. HEART: Regular rate and rhythm without murmurs. LUNGS: Clear to auscultation bilaterally. ABDOMEN: Soft, positive bowel sounds, nontender, no organomegaly.no flank tenderness SKIN: No rash, no excessive bruising, petechiae, or purpura. NEUROLOGIC: Cranial nerves II-XII intact without motor/sensory deficit. psych--nml Objective Data Labs 04/09/22 07:06 04/09/22 07:06 Labs: Laboratory Results - last 24 hr 04/09/22 04/09/22 07:06 07:06 WBC 3.6 L RBC 3.86 L Hgb 11.8 L Hct 36.3 L MCV 94.0 MCH 30.6 MCHC 32.5 RDW 12.7 Plt Count 150 L MPV 10.4 Absolute Nucleated RBC 0.000 Nucleated RBC % (auto) 0.0 Sodium 141 Potassium 3.9 Chloride 108 Carbon Dioxide 28 Anion Gap 9 L BUN 11 Creatinine 0.65 Estim Creat Clear Calc 87.3 Estimated GFR > 60 Random Glucose 96 Calcium 8.6 Total Bilirubin 0.7 Direct Bilirubin 0.2 AST 37 H ALT 97 H Alkaline Phosphatase 200 H Total Protein 5.7 L Albumin 3.3 L Lipase 17 Procedures Date of Service Date of Service: 04/09/22 Progress Note: A&P Assessment and plan (1) Sphincter of Oddi dysfunction: Status: Acute (2) Dysphagia: Status: Acute (3) Chronic GERD: Status: Acute Plan 1/ 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 C/o satiety and reflux with dysphagia suspect this is due to opiate use, possible gastroparesis, stomach biopsy was neg for H pylori or infiltrative disease PLAN: 1/ recommend relistor SQ 2/ short term trial of IV erythromycin 3/ double dose PPI 4/ outpatient GES Time Spent With Patient Time: Total time managing care of this patient today ____ minutes. Quality Stroke Does the patient have a stroke diagnosis?: No VTE Prior VTE?: No VTE Risk Level:: Medical - moderate - high VTE Device Contraindication: Treatment Not Indicated VTE Drug Contraindication: N/A - Med Ordered
[2022-04-09] MEDS: Docusate Sodium 100 MG CAPSULE 200 MG PO (21:22)
[2022-04-09] MEDS: Zolpidem Tartrate 5 MG TABLET PO (21:26)
[2022-04-10 00:32] VITALS: BP 137/70; PULSE 63; RESP 18; TEMP 36.3; O2SAT 95
[2022-04-10 03:09] VITALS: BP 130/60; PULSE 55; RESP 16; TEMP 36.4; O2SAT 95
[2022-04-10] MEDS: oxyCODONE HCl Immed Release 15 MG TABLET PO ×2 (03:56→10:22)
[2022-04-10] MEDS: Omeprazole 20 MG CAPSULE.DR PO (03:58)
[2022-04-10 07:32] VITALS: BP 122/73; PULSE 52; RESP 18; TEMP 35.9; O2SAT 93
[2022-04-10 08:00] VITALS: BP 122/73; PULSE 52; RESP 18; TEMP 35.9; O2SAT 93
[2022-04-10] MEDS: Cholecalciferol (Vitamin D3) 25 MCG TABLET 50 MCG PO (09:56)
[2022-04-10] MEDS: calcium polycarbophiL TABLET 1 TAB PO (09:57)
[2022-04-10] MEDS: 0.9 % Sodium Chloride Flush 3 ML SYRINGE IVFLUSH (09:57)
[2022-04-10] MEDS: Loratadine 10 MG TABLET PO (09:57)
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
[2022-04-10 12:00] VITALS: BP 113/74; PULSE 50; RESP 18; TEMP 36.2; O2SAT 96
--- NOTE | 2022-04-10 13:02 | MHC.CM.PN ---
Addendum entered by Liza Cope 04/10/22 13:10: Discharge order received. Home with resumption of services family assist and transport. Original Note: Discharge today per MD rounds. Home with resumption of S[employer]EL[employer] services. Patients family will assist with transport.
== END 2022-04-10 13:45 | disposition home or self-care (01) ==
LOC: HO.ED 09:59 → HO.EDOVER 12:35 → HO.IMC 12:55
PROVIDERS: Hospitalist; Internal Medicine; Internal Medicine Gastroenterology; Admitting Provider Physician Assistant; Emergency Provider Internal Medicine; Visit Provider Physician Assistant Medical
PROC: 0F798ZZ Dilation of Common Bile Duct, Via Natural or Artificial Opening Endoscopic (ICD-10-PCS; CPT 43260; principal; 2022-04-07 13:30)
PROC: 0F798ZZ Dilation of Common Bile Duct, Via Natural or Artificial Opening Endoscopic (ICD-10-PCS; 2022-04-07 13:30)
DX: K83.1 Obstruction of bile duct (principal); D61.818 Other pancytopenia; I10 Essential (primary) hypertension; K29.70 Gastritis, unspecified, without bleeding; K83.4 Spasm of sphincter of Oddi; K21.9 Gastro-esophageal reflux disease without esophagitis; K59.09 Other constipation; M05.9 Rheumatoid arthritis with rheumatoid factor, unspecified; M15.9 Polyosteoarthritis, unspecified; Z20.822 Contact with and (suspected) exposure to COVID-19; Z91.040 Latex allergy status; Z88.1 Allergy status to other antibiotic agents; Z88.2 Allergy status to sulfonamides; Z88.8 Allergy status to other drugs, medicaments and biological substances; Z79.891 Long term (current) use of opiate analgesic; Z79.899 Other long term (current) drug therapy
CPT/HCPCS: 36415; 74177; 76705; 80048; 80053; 80076; 82803; 83690; 84484; 85014; 85018; 85025; 85027; 85610; 86704; 86706; 86709; 86803; 87340; 87635; 88112; 88305; 88342; 88366; 93005; 93306; 99285; C1726; C1769; J1364; J1610; J1650; J1885; J2212; J2250; J2270; J2405; J3010; Q9957; Q9967

== ENCOUNTER 2022-04-16 11:28 | Outpatient (REF) | payer MEDICAID, SELFPAY ==
[2022-04-16 12:45] LABS: MANUAL DIFF FLAG NO
[2022-04-16 12:56] LABS: Basophils Percent Auto 0.6 % (0-2); Eosinophils Absolute Auto 0.2 X10*3/uL (0.0-0.4); Eosinophils Percent Auto 3.8 % (0-4); Hematocrit 36.9 % (37.0-47.0); Hemoglobin 11.9 g/dl (12.0-16.0); Imm Gran Abs Auto 0.02 X10*3/uL (0.00-0.03); Imm Gran Pct Auto 0.4 % (0.0-0.4); Lymphocytes Absolute Auto 1.7 X10*3/uL (1.2-4.9); Lymphocytes Percent Auto 33.9 % (20-40); Mean Corpuscular HGB Conc 32.2 g/dl (31.0-35.0); Mean Corpuscular Hemoglobin 30.7 pg (27.0-33.0); Mean Corpuscular Volume 95.1 fL (80.0-98.0); Mean Platelet Volume 10.3 fL (9.4-12.3); Monocytes Absolute Auto 0.4 X10*3/uL (0.1-1.2); Monocytes Percent Auto 7.4 % (2-11); Neutrophils Absolute Auto 2.7 x10*3/uL (2.0-8.3); Neutrophils Percent Auto 53.9 % (45-73); Platelet Count 286 X10*3/uL (160-400); Red Blood Count 3.88 X10*6/uL (4.20-5.50); Red Cell Distribution Width 12.8 % (11.0-16.0)
[2022-04-16 13:31] LABS: Alanine Aminotransferase 26 U/L (0-31); Albumin Level 4.1 g/dL (3.5-5.0); Alkaline Phosphatase 163 U/L (39-117); Anion Gap 13 (12-20); Aspartate Amino Transferase 18 U/L (5-31); Bilirubin Total 0.5 mg/dL (0.0-1.0); Blood Urea Nitrogen 23 mg/dL (9-16); Calcium 9.2 mg/dL (8.4-10.2); Carbon Dioxide 27 mmol/L (22-29); Chloride 104 mmol/L (96-108); Estimated Glomerular Filt Rate > 60; Glucose Random 101 mg/dL (60-115); Potassium 4.6 mmol/L (3.3-5.1); Sodium 139 mmol/L (135-145); Total Protein 7.1 g/dL (6.5-8.0)
== END 2022-04-16 11:29 | disposition home or self-care (01) ==
LOC: HO.LAB 11:28
PROVIDERS: Visit Provider Physician Assistant
DX: K83.4 Spasm of sphincter of Oddi (principal); K31.84 Gastroparesis; K21.9 Gastro-esophageal reflux disease without esophagitis; K59.00 Constipation, unspecified; R10.13 Epigastric pain; R10.11 Right upper quadrant pain; Z79.899 Other long term (current) drug therapy
CPT/HCPCS: 36415; 80053; 85025; 99212

== ENCOUNTER → 2022-04-17 11:58 | Outpatient (BNVA) | payer MEDICAID, SELFPAY | PROVIDERS: Visit Provider Internal Medicine Gastroenterology | DX: M05.9 Rheumatoid arthritis with rheumatoid factor, unspecified (principal); M79.7 Fibromyalgia; G89.29 Other chronic pain; M54.50 Low back pain, unspecified; Z79.891 Long term (current) use of opiate analgesic | CPT/HCPCS: 99212 ==

== ENCOUNTER → 2022-04-30 13:48 | Outpatient (BNVA) | payer MEDICAID, SELFPAY | PROVIDERS: Visit Provider Orthopaedic Surgery | DX: M54.50 Low back pain, unspecified (principal); M25.512 Pain in left shoulder; M25.559 Pain in unspecified hip | CPT/HCPCS: 99202 ==

== ENCOUNTER 2022-05-05 14:41 | Emergency (ER) | payer MEDICAID, SELFPAY | END 2022-05-05 15:50 | disposition left against medical advice (07) | PROVIDERS: Emergency Provider Emergency Medicine | DX: R21 Rash and other nonspecific skin eruption (principal) ==

== ENCOUNTER → 2022-05-19 06:47 | Outpatient (REF) | payer MEDICAID, SELFPAY ==
--- NOTE | ~2022-05-19 | NM_ITS ---
EXAMINATION: RADIONUCLIDE SOLID FOOD GASTRIC EMPTYING 4-HOUR STUDY CLINICAL INFORMATION: Gastroparesis. TECHNIQUE: A standard meal consisting of 4 oz of Egg Beaters brand tagged with 130 microcuries Tc-99m Sulfur Colloid, 8 oz water and 2 slices of toast with jelly was administered orally to the patient. Images were obtained using a dual head gamma camera in the anterior and posterior projections over of the stomach immediately post ingestion and at hourly intervals up to 3 hours post ingestion. Images were not obtained at 4 hours due to the minimal retention at 3 hours. The anterior and posterior counts at each time interval were averaged using the geometric mean and expressed as percentage of the immediate post ingestion counts. FINDINGS: There is good visualization of activity in the stomach immediately post ingestion. As the study progresses, there is good clearance of activity from the stomach and visualization of progressively increasing small bowel activity. By the end of the study, there is almost no retention noted in the stomach. Retention in the stomach at each time interval was: 1 hour 55% (normal 37%-90%) 2 hours 17% (normal 30%-60%) 3 hours 5% 4 hours (Not Obtained) (normal 0%-10%) NM/NM gastric emptying study IMPRESSION: Normal solid food gastric emptying study.
== END ==
LOC: HO.NUCMED 06:47
PROVIDERS: PCP Internal Medicine; Visit Provider Physician Assistant
DX: K31.84 Gastroparesis (principal); K83.4 Spasm of sphincter of Oddi
CPT/HCPCS: 78264; A9541

== ENCOUNTER → 2022-05-27 13:46 | Outpatient (BNVA) | payer MEDICAID, SELFPAY | PROVIDERS: PCP Internal Medicine; Visit Provider Nurse Practitioner Family | DX: M05.9 Rheumatoid arthritis with rheumatoid factor, unspecified (principal); M89.49 Other hypertrophic osteoarthropathy, multiple sites | CPT/HCPCS: 99212 ==

== ENCOUNTER 2022-06-09 13:35 | Outpatient (REF) | payer MEDICAID, SELFPAY ==
--- NOTE | ~2022-06-09 | MM_ITS ---
EXAMINATION: MM SCREENING DIGITAL BREAST TOMOSYNTHESIS, BILATERAL CLINICAL INFORMATION: Screening. Asymptomatic. The lifetime risk of breast cancer based on the Tyrer-Cuzick Model is 5%. COMPARISON: Mammography: 07/10/2020, 06/27/2018, 06/11/2017 TECHNIQUE: Digital breast tomosynthesis is performed in both the craniocaudal and mediolateral oblique views along with computer-aided detection (CAD). Synthesized 2D images are generated from the tomosynthesis. FINDINGS: There are scattered areas of fibroglandular density (ACR BI-RADS breast composition Category b). Parenchymal pattern is similar to prior exams. There is no developing density or architectural abnormality. Small smooth nodular asymmetry mid left breast CC view is stable. The axilla and skin contours are unremarkable. There are no significant masses, abnormal calcifications, or other abnormalities. MM/MM tomosynthesis screening BI IMPRESSION: No mammographic evidence of malignancy. ASSESSMENT: BI-RADS 2: Benign RECOMMENDATION: Routine annual mammography screening. This patient's information was entered into a reminder system with a target due date for their next mammogram.
== END 2022-06-09 13:36 | disposition home or self-care (01) ==
LOC: HO.MAMMO 13:35
PROVIDERS: PCP Internal Medicine; Visit Provider Internal Medicine
DX: Z12.31 Encounter for screening mammogram for malignant neoplasm of breast (principal)
CPT/HCPCS: 77063; 77067

== ENCOUNTER → 2022-07-02 14:18 | Outpatient (BNVA) | payer MEDICAID, SELFPAY | PROVIDERS: PCP Internal Medicine; Referring Provider Internal Medicine; Visit Provider Nurse Practitioner Family | DX: R07.89 Other chest pain (principal); I71.21 Aneurysm of the ascending aorta, without rupture | CPT/HCPCS: 99212 ==

== ENCOUNTER 2022-08-05 12:47 | Outpatient (RCR) | payer MEDICAID, SELFPAY ==
--- NOTE | 2022-08-05 13:51 | MHC.OT.EP ---
[address] [phone] Occupational Therapy Plan of Care Patient Name: Soni Mahoney Date of Evaluation: 08/05/22 Diagnosis: B/L hand pain Pain Location: Constant pain in digits, worsening with use Pain Score: 5 Pain Scale Used: Numeric (0 - 10) Aggravating Factors: General use, forceful use of hands Alleviating Factors: Oxycodone is only thing that gives relief Assessment: 57 yo female presents w/ persistent hand pain for years, she was seen by cabin equipment supervisor and referred to outpatient OT services. On assessment, she reports moderate pain at rest in both hands and has visible [place] and [place] nodules B/L'ly. She has a hard time tolerating sitting up in chair (given pillow for back support) due to back and neck pain. Digit range is grossly WFL with some intrinsic tightness, right moreso than left, and hand strength is low in both hands. She has DAIRY TECHNICIAN daily and assist from her and family, but unable to participate in light daily activities due to hand pain and weakness. She will benefit from course of OT to discuss pain management techniques, activity modification, joint protection and home exercise program. Frequency and Duration: The patient will be seen 2x/wk for 4 weeks Short Term Goals: Ind w/ HEP Pt to trial use of warm water or hot pack at home for comfort Pt to demo right hook fist within 1 cm Pt to demo good bimanual coordination w/ ADL closure boards Assembler Insulator Goals: Gross grasp >20lb B/L'ly Pt to report <2/10 pain in hands at rest Pt to report use of hands w/ light bimanual tasks at home (folding clothes, washing light dishes, etc) Ind w/ orthosis wear Good verbal understanding of joint protection techniques Treatment Plan: Therapeutic Exercise Therapeutic Activity Home Exercise Program Splinting Patient Education ADL Training Paraffin Fluidotherapy MHP Cold Packs Joint Mobilization Soft Tissue Mobilization B/L CMC orthosis Electronically Signed By: Carlotta Morillo OTR/L CHT Please Sign and return to therapist. Thank you once again for your referral.
--- NOTE | 2022-08-19 13:18 | MHC.OT.DC ---
[address] [phone] F: [phone] Occupational Therapy Discharge Note Patient Name: Soni Mahoney Provider: AMANDA Tavarez Diagnosis: B/L hand pain due to arthritis Date of Evaluation: 08/05/22 Date of Discharge: 08/19/22 Treatments to Date: 1 Cancellations to Date: 1 No Shows to Date: 3 Discharge Status: Visit Non-compliance Discharge Summary: Soni was seen in OT for initial assessment two weeks ago, she has since missed all scheduled appointments. We will be discharging from therapy services at this time due to visit non compliance policy. Electronically Signed By: KIESHA Beverly/Suhas CHT Reviewed/agree with student documentation: Therapist: Please Sign and return to therapist, thank you for your referral.
== END 2022-08-19 13:18 | disposition home or self-care (01) ==
LOC: HO.OT 12:47
PROVIDERS: PCP Internal Medicine; Visit Provider Nurse Practitioner Family
DX: M79.641 Pain in right hand (principal); M79.642 Pain in left hand
CPT/HCPCS: 97110; 97165

== ENCOUNTER 2023-01-11 11:58 | Emergency (ER) | payer MEDICAID, SELFPAY ==
--- NOTE | ~2023-01-11 | XR_ITS ---
EXAMINATION: XR CHEST CLINICAL INFORMATION: Chest pain. Back pain COMPARISON: None available. TECHNIQUE: 2 views of the chest were obtained. FINDINGS: The lungs are well-expanded and clear. The heart size and pulmonary vascularity is normal. There is mild dextro scoliosis of dorsal spine. There is an radiopaque metal fragment overlying right T12/L1 disc level. No aggressive lytic or sclerotic process seen. XR/XR chest 2V IMPRESSION: Unremarkable chest exam.
[2023-01-11 12:35] VITALS: BP 119/59; PULSE 59; RESP 16; TEMP 36.7; O2SAT 98; BMI 24.9
--- NOTE | 2023-01-11 12:36 | ECG_ITS ---
Test Reason : CHEST PAIN/BACK PAIN Blood Pressure : / mmHG Vent. Rate : 056 BPM Atrial Rate : 056 BPM P-R Int : 182 ms QRS Dur : 090 ms QT Int : 438 ms P-R-T Axes : 050 -14 041 degrees QTc Int : 422 ms Sinus bradycardia Nonspecific ST abnormality Abnormal ECG When compared with ECG of 06-APR-2022 03:20, QT has shortened Referred By: Kristie Minaya Electronically Signed By:MONIKA HERNANDEZ MD
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
[2023-01-11 13:05] LABS: Basophils Percent Auto 0.7 % (0-2); Eosinophils Absolute Auto 0.1 X10*3/uL (0.0-0.4); Eosinophils Percent Auto 3.7 % (0-4); Hematocrit 38.4 % (37.0-47.0); Hemoglobin 12.3 g/dl (12.0-16.0); Imm Gran Abs Auto 0.01 X10*3/uL (0.00-0.03); Imm Gran Pct Auto 0.4 % (0.0-0.4); Lymphocytes Absolute Auto 1.3 X10*3/uL (1.2-4.9); Lymphocytes Percent Auto 47.8 % (20-40); MANUAL DIFF FLAG SCAN; Mean Corpuscular Hemoglobin 29.6 pg (27.0-33.0); Mean Corpuscular Volume 92.5 fL (80.0-98.0); Mean Platelet Volume 10.7 fL (9.4-12.3); Monocytes Absolute Auto 0.3 X10*3/uL (0.1-1.2); Monocytes Percent Auto 11.6 % (2-11); Neutrophils Percent Auto 35.8 % (45-73); Platelet Count 169 X10*3/uL (160-400); Red Blood Count 4.15 X10*6/uL (4.20-5.50); Red Cell Distribution Width 13.3 % (11.0-16.0); SCAN SMEAR FLAG 1; White Blood Count 2.7 X10*3/uL (4.8-10.8)
[2023-01-11 13:18] LABS: Alanine Aminotransferase 12 U/L (0-31); Albumin Level 3.9 g/dL (3.5-5.0); Alkaline Phosphatase 123 U/L (39-117); Anion Gap 11 (12-20); Aspartate Amino Transferase 21 U/L (5-31); Bilirubin Direct 0.3 mg/dL (0.0-0.5); Bilirubin Total 0.7 mg/dL (0.0-1.0); Blood Urea Nitrogen 15 mg/dL (9-16); Calcium 9.1 mg/dL (8.4-10.2); Carbon Dioxide 25 mmol/L (22-29); Chloride 106 mmol/L (96-108); Creatinine Clr Calc Pharmacy 77.9; Estimated Glomerular Filt Rate > 60; Glucose Random 90 mg/dL (60-115); Lipase 23 U/L (8-78); Potassium 3.8 mmol/L (3.3-5.1); Sodium 138 mmol/L (135-145); Total Protein 7.1 g/dL (6.5-8.0)
[2023-01-11 13:38] LABS: Troponin-I High Sensitivity < 2.7 ng/L (<3.5-17.0)
[2023-01-11 13:40] LABS: Influenza A PCR NEGATIVE (Negative); Influenza B PCR NEGATIVE (Negative); Resp Syncy Virus RNA Qual PCR NEGATIVE (Negative); SARS COV2 PCR INHOUSE NEGATIVE (Negative)
[2023-01-11 14:11] LABS: SLIDE REVIEW VERIFIED
== END 2023-01-11 18:23 | disposition left against medical advice (07) ==
PROVIDERS: Nurse Practitioner Family; Emergency Provider Emergency Medicine; PCP Internal Medicine
DX: R07.9 Chest pain, unspecified (principal); Z20.822 Contact with and (suspected) exposure to COVID-19; Z20.828 Contact with and (suspected) exposure to other viral communicable diseases; I10 Essential (primary) hypertension; Z53.21 Procedure and treatment not carried out due to patient leaving prior to being seen by health care provider
CPT/HCPCS: 0241U; 36415; 71046; 80048; 80076; 83690; 84484; 85025; 85610; 93005; 99283

== ENCOUNTER 2023-01-12 00:45 | Emergency (ER) | payer MEDICAID, SELFPAY ==
[2023-01-12 00:54] VITALS: BP 114/58; PULSE 58; RESP 16; TEMP 36.3; O2SAT 98; BMI 25.2
[2023-01-12 02:32] VITALS: BP 118/63; PULSE 55; RESP 19
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
[2023-01-12] MEDS: Cyclobenzaprine HCl 10 MG TABLET PO (04:31)
--- NOTE | 2023-01-12 04:34 | PC.NURSE ---
pt mediated according to mar. pt not given im ketorolac due to allergy. made aware. senior j2ee developer utilized
[2023-01-12 05:12] VITALS: BP 123/63; PULSE 51; RESP 17; TEMP 36.9; O2SAT 97
--- NOTE | 2023-01-12 05:21 | PC.NURSE ---
syruper utilized at discharge. pt partner at bed side. vss. pt ambulatory at discharge. pt calm and cooperative. pt provided with discharge packet. pt verbalized understanding of discharge plan
== END 2023-01-12 05:26 | disposition home or self-care (01) ==
PROVIDERS: Emergency Provider Internal Medicine
DX: G89.29 Other chronic pain (principal); M54.50 Low back pain, unspecified
CPT/HCPCS: 99283; 99284

== ENCOUNTER 2023-05-04 12:44 | Outpatient (AMB) | payer MEDICAID, SELFPAY ==
[2023-05-04 12:55] VITALS: BP 114/86; PULSE 82; BMI 23.1
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
== END 2023-05-04 13:38 | disposition home or self-care (01) ==
PROVIDERS: Visit Provider Nurse Practitioner Family
DX: I77.89 Other specified disorders of arteries and arterioles (principal); R07.9 Chest pain, unspecified; M06.9 Rheumatoid arthritis, unspecified; I10 Essential (primary) hypertension
CPT/HCPCS: 99213

== ENCOUNTER → 2023-05-04 12:44 | Outpatient (BNVA) | payer MEDICAID, SELFPAY | PROVIDERS: Visit Provider Nurse Practitioner Family | DX: I77.89 Other specified disorders of arteries and arterioles (principal); R07.9 Chest pain, unspecified; I10 Essential (primary) hypertension | CPT/HCPCS: 99212 ==

== ENCOUNTER 2023-05-14 10:13 | Outpatient (AMB) | payer MEDICAID, SELFPAY ==
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
[2023-05-14 10:19] VITALS: BP 100/58; PULSE 49; BMI 22.4
== END 2023-05-14 11:00 | disposition home or self-care (01) ==
PROVIDERS: PCP Internal Medicine; Referring Provider Internal Medicine; Visit Provider Internal Medicine Gastroenterology
DX: K59.09 Other constipation (principal)
CPT/HCPCS: 99213

== ENCOUNTER → 2023-05-14 10:13 | Outpatient (BNVA) | payer MEDICAID, SELFPAY | PROVIDERS: Visit Provider Internal Medicine Gastroenterology | DX: M06.00 Rheumatoid arthritis without rheumatoid factor, unspecified site (principal); M89.49 Other hypertrophic osteoarthropathy, multiple sites; M19.041 Primary osteoarthritis, right hand; M19.042 Primary osteoarthritis, left hand | CPT/HCPCS: 99212 ==

== ENCOUNTER 2023-05-14 11:07 | Outpatient (AMB) | payer MEDICAID, SELFPAY ==
[2023-05-14 11:13] VITALS: BP 100/60; PULSE 52; BMI 22.9
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
== END 2023-05-14 12:31 | disposition home or self-care (01) ==
LOC: HO.RHE 11:07
PROVIDERS: PCP Internal Medicine Geriatric Medicine; Visit Provider Student in an Organized Health Care Education/Training Program
DX: M89.49 Other hypertrophic osteoarthropathy, multiple sites (principal)
CPT/HCPCS: 99214

== ENCOUNTER → 2023-05-21 12:55 | Outpatient (REF) | payer MEDICAID, SELFPAY ==
--- NOTE | 2023-05-21 12:57 | CA_ITS ---
Transthoracic Echocardiogram Patient (Last, First, Middle): Soni Mahnoey, Gender: Female Date of : 1965 Age: 57 Procedure Date: 05/21/2023 Procedure Type: Transthoracic Echocardiogram Location: OP Height: 167.64 cm Weight: 64.41 kg BSA: 1.73 m2 Heart Rate: bpm BP: 120 / 82 mmHg Citizen Participation Specialist: TO Referring MD: Seble Canchola NP-Jessica Tai Chi Instructor: Vijay Blanco MD Symptoms: I77.89 - Other specified disorders of arteries and arterioles Study Quality: Adequate ECG Rhythm: Sinus Conclusions: - 1. Normal LV systolic function with LVEF of 60 65% 2. Trivial aortic regurgitation 3. Mildly dilated ascending aorta at 4.1 cm 4. Normal RV systolic pressure 5. No gross pericardial effusion Findings Left Ventricle Normal left ventricular size, thickness, and systolic function. The visually estimated ejection fraction is between 60-65%. Spectral Doppler is indicative of a normal filling pattern. Peak GLS is -22.0%, within normal limits. Right Ventricle Normal right ventricular cavity size and systolic function. Atria The left atrium is likely dilated. There is no evidence of interatrial shunt. The right atrium is normal in size. Aortic Valve Normal aortic valve structure and function. There is no aortic valve stenosis. There is trace (trivial) aortic valve regurgitation. Mitral Valve Normal mitral valve structure and function. There is trace mitral valve regurgitation. There is no mitral valve stenosis. Pulmonic Valve The pulmonic valve is likely normal. There is trace pulmonic valve regurgitation. Tricuspid Valve Normal tricuspid valve structure. There is mild tricuspid valve regurgitation. The right ventricular systolic pressure is normal. The right ventricular systolic pressure is 24 mmHg. Normal right atrial pressure. There is no evidence of pulmonary hypertension. Great Vessels The pulmonary artery was not well visualized. There is mild dilatation of the ascending aorta measuring 4.10 cm. Venous The inferior vena cava is normal in size and collapses greater than 50% with inspiration. Pericardium/Pleural There is no evidence of pericardial effusion. Prior Study Comparison No significant change compared to prior study dated: 04/06/2022. Measurements 2D Linear Measurements IVSd: 1.02 0.6-0.9/0.6-1.0 cm LVIDd: 4.63 3.9-5.3/4.2-5.9 cm LVIDd Index: 2.68 2.4-3.2/2.2-3.1 cm/m2 LVIDs: 2.40 2.0-3.6 cm LVPWd: 0.67 0.7-1.1 cm LA Diam: 2.90 2.7-3.8/3.0-4.0 cm LAIDs Index: 1.68 1.5-2.3 cm/m2 LV Mass: 159.68 67-162/88-224 g LV Mass Index: 92.30 43-95/49-115 g/m2 LVOT Diam: 2.30 3.0+(-)1.3 cm 2D Systolic Function EF 4C: 67.40 >55% EF 2C: 59.10 >55% EF BiP: 63.00 >55% Mitral Valve MV Pk E: 0.66 MV PK A: 0.68 MV Decel Time: 232.00 E/A: 1.00 E'Lateral: 6.53 E'Medial: 4.03 E/E' Med: 16.40 E/E' Lat: 10.10 PHT: 68.00 MVA PHT: 3.24 Decel [place]: 2.84 Aortic Valve AoV Pk [place]: 1.51 AoV Mn [place]: 0.97 AoV VTI: 0.35 AoV Pk Grad: 9.00 Aov Mn Grad: 4.00 AB Cont.VTI: 3.28 LVOT LVOT Pk [place]: 1.26 LVOT Mn [place]: 0.77 LVOT VTI: 0.28 LVOT Pk Grad: 6.00 LVOT Mn Grad: 3.00 LVOT Diam: 2.30 LVOT Area: 4.15 Diastolic Function MV Pk E: 0.66 MV Pk A: 0.68 E/A: 1.00 E'Medial: 4.03 E/E' Med: 16.40 E' Laterial: 6.53 E/E' Lat: 10.10 Right Ventricle TAPSE (mm): 25.20 TVS' [place]: 14.50 Tricuspid Valve TR Pk [place]: 2.27 TR Pk Grad: 21.00 RA Press: 3.00 RVSP: 24.00 Great Vessels Aorta Sinus of Valsalva: 3.98 2.0-3.5 cm Ao Asc: 4.10 2.1-3.4 cm Ao Arch: 2.90 Updated in Other Vendor System with Status of Final Vijay Blanco MD electronically signed on 05/22/2023 11:00:58 AM with status of Final
== END ==
LOC: HO.CARD 12:55
PROVIDERS: Visit Provider Nurse Practitioner Family
DX: I77.89 Other specified disorders of arteries and arterioles (principal)
CPT/HCPCS: 93306; 93356

== ENCOUNTER → 2023-05-21 12:57 | Outpatient (BNV) | payer MEDICAID, SELFPAY | PROVIDERS: Visit Provider Internal Medicine Cardiovascular Disease | DX: I36.1 Nonrheumatic tricuspid (valve) insufficiency (principal); I71.23 Aneurysm of the descending thoracic aorta, without rupture | CPT/HCPCS: 93306; 93356 ==

== ENCOUNTER 2023-06-04 11:03 | Outpatient (REF) | payer MEDICAID, SELFPAY ==
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
[2023-06-04 13:50] LABS: MANUAL DIFF FLAG NO
[2023-06-04 14:00] LABS: Basophils Percent Auto 0.8 % (0-2); Eosinophils Absolute Auto 0.2 X10*3/uL (0.0-0.4); Eosinophils Percent Auto 3.5 % (0-4); Hematocrit 37.4 % (37.0-47.0); Imm Gran Abs Auto 0.01 X10*3/uL (0.00-0.03); Imm Gran Pct Auto 0.2 % (0.0-0.4); Lymphocytes Absolute Auto 1.6 X10*3/uL (1.2-4.9); Lymphocytes Percent Auto 32.2 % (20-40); Mean Corpuscular HGB Conc 32.1 g/dl (31.0-35.0); Mean Corpuscular Volume 93.5 fL (80.0-98.0); Mean Platelet Volume 10.6 fL (9.4-12.3); Monocytes Absolute Auto 0.4 X10*3/uL (0.1-1.2); Monocytes Percent Auto 7.4 % (2-11); Neutrophils Absolute Auto 2.7 x10*3/uL (2.0-8.3); Neutrophils Percent Auto 55.9 % (45-73); Platelet Count 224 X10*3/uL (160-400); Red Cell Distribution Width 13.1 % (11.0-16.0); White Blood Count 4.8 X10*3/uL (4.8-10.8)
[2023-06-04 17:06] LABS: Alanine Aminotransferase 9 U/L (0-31); Albumin Level 4.2 g/dL (3.5-5.0); Alkaline Phosphatase 126 U/L (39-117); Anion Gap 12 (12-20); Aspartate Amino Transferase 17 U/L (5-31); Bilirubin Total 0.6 mg/dL (0.0-1.0); Blood Urea Nitrogen 16 mg/dL (9-16); Calcium 9.6 mg/dL (8.4-10.2); Carbon Dioxide 26 mmol/L (22-29); Chloride 106 mmol/L (96-108); Estimated Glomerular Filt Rate > 60; Glucose Random 88 mg/dL (60-115); Potassium 4.2 mmol/L (3.3-5.1); Sodium 140 mmol/L (135-145); Total Protein 7.5 g/dL (6.5-8.0)
[2023-06-04 17:25] LABS: Thyroid Stimulating Hormone 0.75 uIU/mL (0.32-4.0)
== END 2023-06-04 11:04 | disposition home or self-care (01) ==
LOC: HO.HHCL 11:03
PROVIDERS: Visit Provider Nurse Practitioner Family
DX: M06.9 Rheumatoid arthritis, unspecified (principal); G89.4 Chronic pain syndrome; M54.16 Radiculopathy, lumbar region
CPT/HCPCS: 36415; 72070; 72110; 80053; 84443; 85025

== ENCOUNTER 2023-09-10 09:54 | Outpatient (AMB) | payer MEDICAID, SELFPAY ==
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
[2023-09-10 09:58] VITALS: BP 84/56; PULSE 56; BMI 21.7
== END 2023-09-10 10:26 | disposition home or self-care (01) ==
PROVIDERS: Referring Provider Internal Medicine Geriatric Medicine; Visit Provider Internal Medicine Gastroenterology
DX: K59.09 Other constipation (principal)
CPT/HCPCS: 99213

== ENCOUNTER → 2023-09-10 09:54 | Outpatient (BNVA) | payer MEDICAID, SELFPAY | PROVIDERS: Visit Provider Internal Medicine Gastroenterology | DX: K59.09 Other constipation (principal) | CPT/HCPCS: 99212 ==

== ENCOUNTER 2024-02-11 13:15 | Outpatient (REF) | payer MEDICAID, SELFPAY | END 2024-02-11 13:16 | disposition home or self-care (01) | LOC: HO.HOSX 13:15 | DX: Z13.89 Encounter for screening for other disorder (principal) ==

== ENCOUNTER 2024-02-12 16:14 | Emergency (ER) | payer MEDICAID, SELFPAY ==
--- NOTE | ~2024-02-12 | XR_ITS ---
CLINICAL HISTORY: productive cough 2 view chest x-ray Comparison: CR/SR - XR CHEST 2V - 01/11/23 13:03 EST Findings: No consolidation or effusion. Normal size heart. No acute fracture. Moderate scoliosis. Hyperdensity in the region of the gastroesophageal junction, likely a vascular coil. IMPRESSION: 1. No acute findings. This document has been electronically signed by: Rachelle Connell MD on 02/12/2024 17:45:27
[2024-02-12 16:19] VITALS: BP 137/82; PULSE 77; RESP 20; TEMP 36.5; O2SAT 98; BMI 22.9
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
[2024-02-12 17:16] LABS: Influenza A PCR POSITIVE (Negative); Influenza B PCR NEGATIVE (Negative); Resp Syncy Virus RNA Qual PCR NEGATIVE (Negative); SARS COV2 PCR INHOUSE NEGATIVE (Negative)
[2024-02-12 18:35] VITALS: BP 137/82; PULSE 77; RESP 18; TEMP 36.5; O2SAT 98
[2024-02-13 11:08] LABS: Adenovirus PCR Not Detected (Not Detect.); Bordetella parapertussis PCR Not Detected (Not Detect.); Bordetella pertussis PCR Not Detected (Not Detect.); Chlamydia pneumoniae PCR Not Detected (Not Detect.); Coronavirus 229E PCR Not Detected (Not Detect.); Coronavirus HKU1 PCR Not Detected (Not Detect.); Coronavirus NL63 PCR Not Detected (Not Detect.); Coronavirus OC43 PCR Not Detected (Not Detect.); Human metapneumovirus PCR Not Detected (Not Detect.); Influenza B PCR Not Detected (Not Detect.); Mycoplasma pneumoniae PCR Not Detected (Not Detect.); Parainfluenza 1 PCR Not Detected (Not Detect.); Parainfluenza 2 PCR Not Detected (Not Detect.); Parainfluenza 3 PCR Not Detected (Not Detect.); Parainfluenza 4 PCR Not Detected (Not Detect.); RSV PCR Not Detected (Not Detect.); Rhino/Enterovirus PCR Not Detected (Not Detect.)
[2024-02-13 11:30] LABS: Influenza A PCR Detected (Not Detect.); SARS-CoV-2 PCR Not Detected (Not Detect.)
== END 2024-02-12 18:36 | disposition home or self-care (01) ==
PROVIDERS: Physician Assistant Medical; Emergency Provider Internal Medicine; PCP Internal Medicine Geriatric Medicine
DX: J10.1 Influenza due to other identified influenza virus with other respiratory manifestations (principal); R05.9 Cough, unspecified; Z03.818 Encounter for observation for suspected exposure to other biological agents ruled out
CPT/HCPCS: 0241U; 71046; 87633; 99282; 99283

== ENCOUNTER → 2024-02-12 16:24 | Outpatient (BNV) | payer MEDICAID, SELFPAY | PROVIDERS: PCP Internal Medicine Geriatric Medicine; Visit Provider Radiology Diagnostic Radiology | DX: R05.8 Other specified cough (principal) | CPT/HCPCS: 71046 ==

== ENCOUNTER 2024-06-04 19:19 | Emergency (ER) | payer MEDICAID, SELFPAY ==
--- NOTE | ~2024-06-04 | XR_ITS ---
CLINICAL HISTORY: chest pain 2 view chest x-ray Comparison: CR - XR CHEST 2V - 02/12/24 16:56 EST Findings: No consolidation or effusion. Normal size heart. No acute fracture. Scoliosis. IMPRESSION: 1. No acute thoracic findings. This document has been electronically signed by: Nancy Bryan MD on 06/04/2024 21:21:25
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
[2024-06-04 19:38] VITALS: BP 128/86; PULSE 66; RESP 18; TEMP 36.9; O2SAT 98; BMI 23.9
--- NOTE | 2024-06-04 19:44 | ECG_ITS ---
Test Reason : cp Blood Pressure : */* mmHG Vent. Rate : 56 BPM Atrial Rate : 56 BPM P-R Int : 158 ms QRS Dur : 78 ms QT Int : 450 ms P-R-T Axes : 33 1 43 degrees QTcB Int : 434 ms Sinus bradycardia Nonspecific ST abnormality Abnormal ECG When compared with ECG of 11-Jan-2023 12:47, No significant change was found Referred By: Destinee Elder Electronically Signed By: MATHEUS MCFADDEN
[2024-06-04 20:38] LABS: MANUAL DIFF FLAG NO
[2024-06-04 20:44] LABS: Basophils Percent Auto 0.7 % (0-2); Eosinophils Absolute Auto 0.2 X10*3/uL (0.0-0.4); Eosinophils Percent Auto 5.4 % (0-4); Hematocrit 36.6 % (37.0-47.0); Hemoglobin 11.9 g/dl (12.0-16.0); Imm Gran Abs Auto 0.01 X10*3/uL (0.00-0.03); Imm Gran Pct Auto 0.2 % (0.0-0.4); Lymphocytes Absolute Auto 1.4 X10*3/uL (1.2-4.9); Lymphocytes Percent Auto 33.8 % (20-40); Mean Corpuscular HGB Conc 32.5 g/dl (31.0-35.0); Mean Corpuscular Hemoglobin 30.4 pg (27.0-33.0); Mean Corpuscular Volume 93.4 fL (80.0-98.0); Mean Platelet Volume 9.7 fL (9.4-12.3); Monocytes Absolute Auto 0.4 X10*3/uL (0.1-1.2); Monocytes Percent Auto 9.1 % (2-11); Neutrophils Absolute Auto 2.1 x10*3/uL (2.0-8.3); Neutrophils Percent Auto 50.8 % (45-73); Platelet Count 203 X10*3/uL (160-400); Red Blood Count 3.92 X10*6/uL (4.20-5.50); Red Cell Distribution Width 13.2 % (11.0-16.0); White Blood Count 4.1 X10*3/uL (4.8-10.8)
[2024-06-04 21:03] LABS: Alanine Aminotransferase 14 U/L (0-31); Albumin Level 4.1 g/dL (3.5-5.0); Alkaline Phosphatase 102 U/L (39-117); Anion Gap 10 (12-20); Aspartate Amino Transferase 25 U/L (5-31); Bilirubin Total 0.6 mg/dL (0.0-1.0); Blood Urea Nitrogen 14 mg/dL (9-16); Calcium 9.4 mg/dL (8.4-10.2); Carbon Dioxide 24 mmol/L (22-29); Chloride 111 mmol/L (96-108); Creatinine Clr Calc Pharmacy 76.2; Estimated Glomerular Filt Rate > 60; Glucose Random 68 mg/dL (60-115); Lipase 20 U/L (8-78); Magnesium 2.1 mg/dL (1.6-2.6); Potassium 3.4 mmol/L (3.3-5.1); Sodium 142 mmol/L (135-145); Total Protein 7.1 g/dL (6.5-8.0)
[2024-06-04 21:14] LABS: Troponin-I High Sensitivity < 2.7 ng/L (<3.5-17.0)
[2024-06-04 21:28] LABS: Influenza A PCR NEGATIVE (Negative); Influenza B PCR NEGATIVE (Negative); Resp Syncy Virus RNA Qual PCR NEGATIVE (Negative); SARS COV2 PCR INHOUSE NEGATIVE (Negative)
[2024-06-04] MEDS: Cyclobenzaprine HCl 10 MG TABLET PO (21:51)
[2024-06-04 21:59] VITALS: BP 128/86; PULSE 66; RESP 18; TEMP 36.9; O2SAT 98
== END 2024-06-04 22:00 | disposition home or self-care (01) ==
PROVIDERS: Nurse Practitioner Family; Emergency Provider Internal Medicine; PCP Internal Medicine Geriatric Medicine
DX: M75.31 Calcific tendinitis of right shoulder (principal); R07.9 Chest pain, unspecified; M25.511 Pain in right shoulder; M79.641 Pain in right hand; Z03.818 Encounter for observation for suspected exposure to other biological agents ruled out
CPT/HCPCS: 0241U; 71046; 80053; 83690; 83735; 84484; 85025; 93005; 99283; 99284

== ENCOUNTER → 2024-06-04 19:44 | Outpatient (BNV) | payer MEDICAID, SELFPAY | PROVIDERS: Emergency Provider Internal Medicine; PCP Internal Medicine Geriatric Medicine; Visit Provider Radiology Diagnostic Radiology | DX: R07.9 Chest pain, unspecified (principal) | CPT/HCPCS: 71046 ==

== ENCOUNTER → 2024-06-04 19:44 | Outpatient (BNV) | payer MEDICAID, SELFPAY | PROVIDERS: Emergency Provider Internal Medicine; PCP Internal Medicine Geriatric Medicine; Visit Provider Internal Medicine | DX: R00.1 Bradycardia, unspecified (principal) | CPT/HCPCS: 93010 ==

== ENCOUNTER 2024-07-20 10:06 | Outpatient (AMB) | payer MEDICAID, SELFPAY ==
[2024-07-20 10:30] VITALS: BP 100/70; PULSE 63; BMI 23.8
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
--- OUTSIDE RECORDS SUMMARY | 2024-07-20 11:42 | XMS_ITS | Encounter Summary ---
Author Organization [employer] Address [address] [place] [address] [address] [place] [address] Care Team Providers Care Family Nurse Name Role Phone Ezequiel Davis Primary Care Provider Unavail Sarah PugaP Primary Care Provider [phone] Latasha lCine NP Primary Care Provider [phone] Reason for Visit * Reason Comments Med Refill Encounter Details Date Type Department Care Team ([facility] Contact Info) Description 08/18/2022 Refill [facility] [address], [place] [id number] Ezequiel Davis AGNP Insomnia, unspecified type Social History Tobacco Use Types Packs/Day Years Used Date Smoking Tobacco: Never Smokeless Tobacco: Never Depression Answer Date Recorded Patient Health Questionnaire-2 Score 0 03/18/2022 Comments Unknown Sex and Gender Information Value Date Recorded Sex Assigned at Female 12/15/2021 10:17 AM EDT Legal Sex Female 10:17 AM EDT Gender Identity Female 12/15/2021 10:17 AM EDT Sexual Orientation Choose not to disclose 2021 10:17 AM EDT COVID-19 Exposure Response Date Recorded In the last 10 days, have yo u been in contact with someone who was confirmed or suspected to have Coronavirus/COVID-19? No / Unsure 08/10/2022 12:35 PM EDT documented as of this encounter Plan of Treatment Upcoming Encounters Date Type Department Care Team ([facility] Contact Info) Description 07/24/2024 1:30 PM EDT Clinical Support [facility] [address] [place] [address] Ileana, Patricia, RN documented as of this encounter Visit Diagnoses Diagnosis Insomnia, unspecified type documented in this encounter Care Teams Family Nurse Relationship Specialty Start Date End Date Ezequiel Davis AGNP PCP - General Family Medicine 02/23/22 10/15/22 Sarah Burrell FNP [address] [place], [place] [address] PCP - General Family Medicine 10/16/22 03/16/23 Latasha Cline NP [address] [place] [address] PCP - General Family Medicine 03/17/23 Pramod Del Real [employer] Lacer 07/15/23 documented as of this encounter
== END 2024-07-20 11:04 | disposition home or self-care (01) ==
LOC: HO.HCS 10:06
PROVIDERS: PCP Internal Medicine Geriatric Medicine; Visit Provider Nurse Practitioner Family
DX: I77.89 Other specified disorders of arteries and arterioles (principal); M06.9 Rheumatoid arthritis, unspecified; I10 Essential (primary) hypertension
CPT/HCPCS: 93010; 99213

== ENCOUNTER → 2024-07-20 10:06 | Outpatient (BNVA) | payer MEDICAID, SELFPAY | PROVIDERS: PCP Internal Medicine Geriatric Medicine; Visit Provider Nurse Practitioner Family | DX: I10 Essential (primary) hypertension (principal); M06.9 Rheumatoid arthritis, unspecified; I77.89 Other specified disorders of arteries and arterioles; R07.9 Chest pain, unspecified | CPT/HCPCS: 93005; 99212 ==

== ENCOUNTER 2024-09-28 16:39 | Outpatient (REF) | payer MEDICAID, SELFPAY ==
[2024-10-02 09:13] LABS: Alphahydroxymidazolam,GCMS Ur NEGATIVE; Alphahydroxytriazolam, GCMS Ur NEGATIVE; Alprazolam, GCMS Urine NEGATIVE; Lorazepam GCMS Urine NEGATIVE; Nordiazepam, GCMS Urine 52; Oxazepam, GCMS Urine NEGATIVE; Temazepam, GCMS Urine 132
[2024-10-02 09:14] LABS: Aminoclonazepam, GCMS Urine NEGATIVE; Flurazepam Metabolite,GCMS Ur NEGATIVE
== END 2024-09-28 16:40 | disposition home or self-care (01) ==
LOC: HO.HHCLNP 16:39
PROVIDERS: Visit Provider Nurse Practitioner Family
DX: Z79.891 Long term (current) use of opiate analgesic (principal)
CPT/HCPCS: 80346

== ENCOUNTER 2024-10-05 12:12 | Outpatient (AMB) | payer MEDICAID, SELFPAY ==
[2024-10-05 12:31] VITALS: BMI 24.2
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
== END 2024-10-05 13:18 | disposition home or self-care (01) ==
LOC: HO.RHES 12:13
PROVIDERS: PCP Internal Medicine Geriatric Medicine; Visit Provider Student in an Organized Health Care Education/Training Program
DX: M15.9 Polyosteoarthritis, unspecified (principal); Z13.820 Encounter for screening for osteoporosis
CPT/HCPCS: 99214

== ENCOUNTER → 2024-10-05 12:12 | Outpatient (BNVA) | payer MEDICAID, SELFPAY | PROVIDERS: PCP Internal Medicine Geriatric Medicine; Visit Provider Student in an Organized Health Care Education/Training Program | DX: M19.041 Primary osteoarthritis, right hand (principal); M19.042 Primary osteoarthritis, left hand | CPT/HCPCS: 99212 ==

== ENCOUNTER 2024-12-08 05:18 | Emergency (ER) | payer MEDICAID, SELFPAY ==
--- NOTE | ~2024-12-08 | XR_ITS ---
CLINICAL HISTORY: cough 1 view chest x-ray Comparison: CR - XR CHEST 2V - 06/04/24 20:20 EDT Findings: No consolidation. The right costophrenic angle is blunted and right pleural reaction or small effusion not excluded. Heart size is normal. No acute fracture. IMPRESSION: 1. No focal pneumonia. 2. The right costophrenic angle is blunted and right pleural reaction or small effusion not excluded. This document has been electronically signed by: Fredy Araujo MD on 12/08/2024 06:22:49
[2024-12-08 05:20] VITALS: BP 147/82; PULSE 74; RESP 20; TEMP 36.7; O2SAT 95; BMI 22.9
[2024-12-08 05:42] VITALS: BP 119/75; PULSE 72; RESP 20; TEMP 36.7; O2SAT 95
[2024-12-08 05:45] LABS: MANUAL DIFF FLAG NO
[2024-12-08 05:46] VITALS: PULSE 72; O2SAT 95
[2024-12-08 05:46] LABS: Hematocrit 37.3 % (37.0-47.0); Hemoglobin 12.2 g/dl (12.0-16.0); Imm Gran Abs Auto 0.02 X10*3/uL (0.00-0.03); Imm Gran Pct Auto 0.4 % (0.0-0.4); Lymphocytes Absolute Auto 1.5 X10*3/uL (1.2-4.9); Mean Corpuscular HGB Conc 32.7 g/dl (31.0-35.0); Mean Corpuscular Hemoglobin 30.1 pg (27.0-33.0); Mean Corpuscular Volume 92.1 fL (80.0-98.0); NRBC Abs Auto 0.000 X10*3/uL (0.0-0.012); NRBC Pct Auto 0.0 /100WBC (0.0-0.2); Platelet Count 175 X10*3/uL (160-400); Red Blood Count 4.05 X10*6/uL (4.20-5.50); White Blood Count 5.4 X10*3/uL (4.8-10.8)
[2024-12-08 06:04] LABS: Alanine Aminotransferase 12 U/L (0-31); Albumin Level 4.1 g/dL (3.5-5.0); Alkaline Phosphatase 112 U/L (39-117); Anion Gap 13 (12-20); Aspartate Amino Transferase 24 U/L (5-31); Blood Urea Nitrogen 10 mg/dL (9-16); Calcium 9.3 mg/dL (8.4-10.2); Carbon Dioxide 24 mmol/L (22-29); Chloride 108 mmol/L (96-108); Creatinine Clr Calc Pharmacy 104.3; Estimated Glomerular Filt Rate > 60; Potassium 3.7 mmol/L (3.3-5.1); Sodium 141 mmol/L (135-145); Total Protein 7.2 g/dL (6.5-8.0)
--- NOTE | 2024-12-08 06:07 | ECG_ITS ---
Test Reason : CHEST PAIN Blood Pressure : */* mmHG Vent. Rate : 58 BPM Atrial Rate : 58 BPM P-R Int : 178 ms QRS Dur : 88 ms QT Int : 442 ms P-R-T Axes : 42 -15 29 degrees QTcB Int : 433 ms Sinus bradycardia Moderate voltage criteria for LVH, may be normal variant ( R in aVL , [place] product ) Borderline ECG When compared with ECG of 04-Jun-2024 20:29, No significant change was found Referred By: Laisha Coon Electronically Signed By: SAMANTHA PINEDA MD
[2024-12-08 06:10] LABS: IDNOW Serial# 55D5AD1C; Influenza B2 Negative (Negative)
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
[2024-12-08 06:11] LABS: COVID-19 Test Negative (Negative); IDNOW Serial# 58CA691E
[2024-12-08] MEDS: guaiFEN/Codeine SF 200/20/10ML 10 ML LIQUID 5 ML PO (06:27)
[2024-12-08] MEDS: Albuterol Sulfate 90 MCG 8 GM INHALER 2 PUFF INHALE (06:28)
[2024-12-08 06:31] VITALS: PULSE 66; RESP 20; O2SAT 96
--- OUTSIDE RECORDS SUMMARY | 2024-12-08 06:37 | XMS_ITS | Encounter Summary ---
Author Organization [employer] [facility] Address [address] [place] [address] Care Team Providers Care Counseling Psychologist Name Role Phone Ezequiel Davis Primary Care Provider Unavail Sarah PugaP Primary Care Provider [phone] Latasha Cline NP Primary Care Provider [phone] Reason for Visit * Reason Comments Med Refill Encounter Details Date Type Department Care Team (Late st Contact Info) Description 08/18/2022 Refill [facility] [address] [place], [place] [phone] Ezequiel Davis AGNP Insomnia, unspecified type Social [...] Upcoming Encounters Date Type Department Care Team (Late st Contact Info) Description 02/02/2025 3:15 PM EST Office Visit [facility] MED[facility] [address] [place], [place] [phone] Latasha Cline, EV[place] [address] [place] [address] 03/01/2025 1:00 PM EST Clinical Support [facility] [address] [place] [address] Patricia Tejeda, RN documented as of this encounter Visit Diagnoses Diagnosis Insomnia, unspecified type documented in this encounter Care Teams Counseling Psychologist Relationship Specialty Start Date End Date Ezequiel Davis AGNP PCP - General Family Medicine 02/23/22 10/15/22 Sarah Burrell FNP [address] [place] [id number] PCP - General Family Medicine 10/16/22 03/16/23 Latasha Cline, EVANS [address] [place] [id number] PCP - General Family Medicine 03/17/23 Pramod Del Real Relay EngineerWafer Line Worker 07/15/23 documented as of this encounter
--- OUTSIDE RECORDS SUMMARY | 2024-12-08 06:37 | XMS_ITS | Encounter Summary ---
Author Organization [employer] Address [address] [facility] 7t [place] [address] Care Team Providers Care Customer Support Consultant Name Role Phone Latasha Cline NP Primary Care Provider [phone] Encounter Details Date Type Department Care Team (Late st Contact Info) Description 12/08/2024 Orders Only GENERIC EXTERNAL DATA DEPARTMENT Provider, Generic External Data Social History Tobacco Use Types Packs/Day Years Used Date Smoking Tobacco: Never Passive Smoke Exposure: Never Smokeless Tobacco: Never Alcohol Use Standard Drinks/Week Comments Never 0 (1 standard drink = 0.6 oz pur e alcohol) Depression Answer Date Recorded Patient Health Questionnaire-9 Score 0 10/30/2024 Patient Health Questionnaire-9 Score 0 10/30/2024 Last PHQ-9: Questionnaire Data Not on file 0 10/30/2024 Housing Stability Answer Date Recorded What is your housing situation today? I have giovany jayme 10/30/[address] you li ve. Do you have problems with any of the following? None of the above 10/30/2024 Food Insecurity Answer Date Recorded Within the past 12 months, y ou worried that your food would run out before you got money to buy more: Never True 10/30/2024 Within the past 12 months,th e food you bought just didn't last and you didn't have enough money to get more: Never True Transportation Answer Date Recorded In the past 12 months, has l ack of transportation kept you from medical appts, meetings, work or from getting things needed for daily living? No 10/30/2024 Utilities Answer Date Recorded In the past 12 months, has t he electric, gas, oil or water [employer] threatened to shut off services in your home? No 10/30/2024 Depression Answer Date Recorded Patient Health Questionnaire-2 Score 0 10/30/2024 Internet Access Answer Date Recorded Internet Access Q1 No 10/30/2024 Internet Access Q2 I do not want or need it 10/16 Comments Unknown Sex and Gender Information Value Date Recorded Sex Assigned at Female 12/15/2021 10:17 AM EDT Legal Sex Female 10:17 AM EDT Gender Identity Female 12/15/2021 10:17 AM EDT Sexual Orientation Choose not to disclose 2021 10:17 AM EDT documented as of this encounter Plan of Treatment Upcoming Encounters Date Type Department Care Team (Late st Contact Info) Description 02/02/2025 3:15 PM EST Office Visit [facility] [address] [place] [address] [phone] Latasha Cline NP [address] [place], [place] [phone] 03/01/2025 1:00 PM EST Clinical Support [address] [phone] Patricia Tejeda RN documented as of this encounter Procedures Procedure Name Priority Date/Time Associated Diagnosis Comments XR CHEST 1 VIEW Routine 12/08/2024 6:22 AM EDT INFLUENZA A B2 ID NOW (LI) Routine 12/08/2024 5:36 AM EDT COVID-19 ID NOW (LI) Routine 12/08/2024 5:36 AM EDT CBC WITH AUTO DIFFERENTIAL Routine 12/08/2024 5:36 AM EDT COMPREHENSIVE METABOLIC PANEL Routine 12/08/2024 5:36 AM EDT documented in this encounter Results * XR Chest 1 View (12/08/2024 6:22 AM EDT) Anatomical Region Laterality Modality Chest Radiographic Carole ging 12/08/2024 6:22 AM EDT Narrative 12/08/2024 6:24 AM EDT [address] [address] XRay Report Signed Patient: Soni Mahoney MR#: [id number] : 1965 Acct:[id number] Age/Sex: 59 / F ADM Date: 12/08/24 Loc: HO.ED Attending Dr: Ordering Physician: Laisha Coon DO Date of Service: 12/08/24 Procedure(s): XR chest 1V Accession Number(s): [id number] cc: Laisha Coon DO; [facility] Reason for Exam: cough CLINICAL HISTORY: cough 1 view chest x-ray Comparison: CR - XR CHEST 2V - 06/04/24 20:20 EDT Findings: No consolidation. The right costophrenic angle is blunted and right pleural reaction or small effusion not excluded. Heart size is normal. No acute fracture. IMPRESSION: 1. No focal pneumonia. 2. The right costophrenic angle is blunted and right pleural reaction or small effusion not excluded. This document has been electronically signed by: Fredy Araujo MD on 12/08/2024 06:22:49 Dictated By: Fredy Araujo MD Signed By: <Electronically signed by Fredy Araujo MD in OV> 12/08/24622 DD/ 1 TD/TT: 12/08/24621 Quilting Machine Operator: Procedure Note Donotuseinterpreter, Image - 12/08/[address] [address] XRay Report Signed Patient: Soni MahoneyMR#: [id number] : 1965Acct:[id number] Age/Sex: 59 / FADM Date: 12/08/24 Loc: .ED Attending Dr: Ordering Physician: Laisha Coon DO Date of Service: 12/08/24 Procedure(s): XR chest 1V Accession Number(s): [id number] cc: Laisha Coon DO; [facility] Reason for Exam: cough CLINICAL HISTORY: cough 1 view chest x-ray Comparison: CR - XR CHEST 2V - 06/04/24 20:20 EDT Findings: No consolidation. The right costophrenic angle is blunted and right pleural reaction or small effusion not excluded. Heart size is normal. No acute fracture. IMPRESSION: 1. No focal pneumonia. 2. The right costophrenic angle is blunted and right pleural reaction or small effusion not excluded. This document has been electronically signed by: Fredy Araujo MD on 12/08/2024 06:22:49 Dictated By: Fredy Araujo MD Signed By: <Electronically signed by Fredy Araujo MD in OV> 12/08/24622 DD/ 1 TD/TT: 12/08/24621 Quilting Machine Operator: [facility] External Provider IMG XR PROCEDURES Final Result * COVID-19 ID NOW (LI) (12/08/2024 5:36 AM EDT) IDNOW SERIAL# [id number] [facility] COVID-19 TEST Negative Negative [facility] COVID-19 NOTE See Note [facility] Comment: Results are for the identification of SARS-CoV2 RNA. TheSARS-CoV2 RNA is generally detectable in respiratory samplesduring the acute phase of infection. Positive results areindicative of the presence of SARS-CoV-2 RNA; clinicalcorrelation with patient history and other diagnosticinformation is necessary to determine patient infectionstatus. Positive results do not rule out bacterial infectionor co- infection with other viruses.Testing facilities within the [facility] and [facility] are required to report all positive results tothe appropriate public health authorities.Negative results should be treated as presumptive and, ifinconsistent with clinical signs and symptoms or necessaryfor patient management, should be tested with differentauthorized or cleared molecular tests. Negative results donot preclude SARS-CoV2 RNA infection and should not be usedas the sole basis for patient management decisions. Negativeresults should be considered in the context of a patient'srecent exposures, history and the presence of clinical signsand symptoms consistent with COVID-19.This test has been authorized by the FDA under an EmergencyUse Authorization (EUA) for use by authorized laboratories.Testing performed on the Li ID NOW utilizing NAAT. 12/08/2024 5:36 AM EDT 12/08/2024 5:44 AM EDT Generic External Data Provider LAB MOLECULAR DON GNOSTICS ORDERABLES Final Result Performing Organization Address [facility] Co de Phone Number [facility] [address] [place] [phone] * Influenza A B2 ID NOW (Li) (12/08/2024 5:36 AM EDT) IDNOW SERIAL# [id number] [facility] Influenza A Negative Negative [facility] Influenza B2 Negative Negative [facility] Influenza A B2 Note See Note [facility] Comment:The Li ID NOW In fluenza A B2 test is used for thequalitative detection of influenza A and B from patientswith signs and symptoms of respiratory infection.Negative results do not preclude influenza virus infectionand should not be used as the sole basis for diagnosis,treatment or other patient management decisions.There is a risk of false negative results due to thepresence of variants in the viral targets of the assay, lowlevels of virus in the specimen and co- infection withRespiratory Syncytial Virus. 12/08/2024 5:36 AM EDT 12/08/2024 5:44 AM EDT Generic External Data Provider LAB MICROBIOLOGY - GENERAL ORDERABLES Final Result Performing Organization Address [facility] Co de Phone Number [facility] [address] [place] [phone] * Comprehensive Metabolic Panel (12/08/2024 5:36 AM EDT) Sodium 141 135 - 145 mmol/L [facility] Potassium 3.7 3.3 - 5.1 mmol/L [facility] Chloride 108 96 - 108 mmol/L [facility] Carbon Dioxide 24 22 - 29 mmol/L [facility] Anion Gap 13 12 - 20 [facility] Urea Nitrogen (BUN) 10 9 - 16 mg/dL [facility] Creatinine, Serum 0.53 0.5 - 1.4 mg/dL [facility] Creatinine Clr Calc Pharmacy 104.3 [facility] Comment:Provided height and weight: 167.64 cm,64.41 kg.eGFR (calculated from the MDRD study equation) and eCrCl(calculated from the Cockcroft-Gault equation) are based ondifferent parameters and may not yield comparable results.If eCrCl result is absurd, please check patient'sheight/weight. Estimated Glomerular Filt Rate >60 [facility] Comment:Chronic Kidney Disea se: Estimated GFR < 60 mL/min/1.95a5Scwawk Kidney Disease: Estimated GFR < 15 mL/min/1.73m2 Glucose 99 60 - 115 mg/dL [facility] Calcium 9.3 8.4 - 10.2 mg/dL [facility] Bilirubin, Total 0.9 0.0 - 1.0 mg/dL [facility] Aspartate Amino Transferase 24 5 - 31 U/L [facility] Alanine Aminotransferase 12 0 - 31 U/L [facility] Total Protein 7.2 6.5 - 8.0 g/dL [facility] Albumin Level 4.1 3.5 - 5.0 g/dL [facility] Alkaline Phosphatase 112 39 - 117 U/L [facility] 12/08/2024 5:36 AM EDT 12/08/2024 5:44 AM EDT us Generic External Data Provider LAB BLOOD ORDERAB LES Final Result [facility] [address] [place] [address] [phone] * (ABNORMAL) CBC auto differential (12/08/2024 5:36 AM EDT) White Blood Count 5.4 4.8 - 10.8 X10*3/uL [facility] Red Blood Count 4.05(L) 4.20 - 5.50 X10*6/uL [facility] Hemoglobin 12.2 12.0 - 16.0 g/dl [facility] Hematocrit 37.3 37.0 - 47.0 % [facility] Mean Corpuscular Volume 92.1 80.0 - 98.0 fL [facility] Mean Corpuscular Hemoglobin 30.1 27.0 - 33.0 pg [facility] Mean Corpuscular HGB Conc 32.7 31.0 - 35.0 g/dl [facility] Red Cell Distribution Width 12.7 11.0 - 16.0 % [facility] Platelet Count 175 160 - 400 X10*3/uL [facility] Mean Platelet Volume 9.9 9.4 - 12.3 fL [facility] Neutrophils Percent Auto 55.0 45 - 73 % [facility] Imm Gran Pct Auto 0.4 0.0 - 0.4 % [facility] Lymphocytes Percent Auto 27.5 20 - 40 % [facility] Monocytes Percent Auto 10.4 2 - 11 % [facility] Eosinophils Percent Auto 6.1(H) 0 - 4 % [facility] Basophils Percent Auto 0.6 0 - 2 % [facility] NRBC Pct Auto 0.0 0.0 - 0.2 /100WBC [facility] Neutrophils Absolute Auto 3.0 2.0 - 8.3 x10*3/uL [facility] Imm Gran Abs Auto 0.02 0.00 - 0.03 X10*3/uL [facility] Lymphocytes Absolute Auto 1.5 1.2 - 4.9 X10*3/uL [facility] Monocytes Absolute Auto 0.6 0.1 - 1.2 X10*3/uL [facility] Eosinophils Absolute Auto 0.3 0.0 - 0.4 X10*3/uL [facility] Basophils Absolute Auto 0.0 0.0 - 0.2 X10*3/uL [facility] NRBC Abs Auto 0.000 0.0 - 0.012 X10*3/uL [facility] 12/08/2024 5:36 AM EDT 12/08/2024 5:44 AM EDT us Generic External Data Provider LAB BLOOD ORDERAB LES Final Result [facility] [address] [place] [phone] [phone] documented in this encounter Visit Diagnoses Not on filedocumented in this encounter Additional Health Concerns Assessment Noted Time PHQ-9 Depression Total Score: 0 10/31/19 25 12:58 PM EDT documented as of this encounter Care Teams Customer Support Consultant Relationship Specialty Start Date End Date Latasha Cline NP [address] [place] [address] PCP - General Family Medicine 03/17/23 Pramod Del Real Pediatric Speech TherapistHot Roll Inspector 07/15/23 documented as of this encounter
--- OUTSIDE RECORDS SUMMARY | 2024-12-08 06:37 | XMS_ITS | Encounter Summary ---
Author Organization [employer] Address [address] [facility] 7t [place] [address] Care Team Providers Care Honeycomb Decapper Name Role Phone Latasha Cline NP Primary Care Provider [phone] Reason for Visit * Reason Comments Med Refill Encounter Details Date Type Department Care Team (Late st Contact Info) Description 12/22/2023 Refill [facility] [address] [place] [address] Name, MD Vidal [address] [place] [address] Migraine without status migrainosus, not intractable, unspecified migraine type Social History Tobacco Use Types Packs/Day Years Used Date Smoking Tobacco: Never Passive Smoke Exposure: Never Smokeless Tobacco: Never Alcohol Use Standard Drinks/Week Comments Never 0 (1 standard drink = 0.6 oz pur e alcohol) Depression Answer Date Recorded Patient Health Questionnaire-9 Score 0 06/04/2023 Patient Health Questionnaire-9 Score 0 06/04/2023 Last PHQ-9: Questionnaire Data Not on file 0 06/04/2023 Housing Stability Answer Date Recorded What is your housing situation today? I have giovany delacruz 06/04/[address] you li ve. Do you have problems with any of the following? None of the above 06/04/2023 Food Insecurity Answer Date Recorded Within the past 12 months, y ou worried that your food would run out before you got money to buy more: Never True 06/04/2023 Within the past 12 months,th e food you bought just didn't last and you didn't have enough money to get more: Never True Transportation Answer Date Recorded In the past 12 months, has l ack of transportation kept you from medical appts, meetings, work or from getting things needed for daily living? No 06/04/2023 Utilities Answer Date Recorded In the past 12 months, has t he electric, gas, oil or water company threatened to shut off services in your home? No 06/04/2023 Depression Answer Date Recorded Patient Health Questionnaire-2 Score 0 06/04/2023 Comments Unknown Sex and Gender Information Value [...] Description 02/02/2025 3:15 PM EST Office Visit [address] [address] Latasha Cline NP [address] [place] [phone] 03/01/2025 1:00 PM EST Clinical Support [address] [address] Patricia Tejeda RN documented as of this encounter Visit Diagnoses Diagnosis Migraine without status migrainosus, not intractable, unspecified migraine type documented in this encounter Additional Health Concerns Assessment Noted Time PHQ-9 Depression Total Score: 0 06/04/19 24 9:43 AM EDT documented as of this encounter Care Teams Honeycomb Decapper Relationship Specialty Start Date End Date Latasha Cline NP [address] [place] [phone] PCP - General Family Medicine 03/17/23 Pramod Del Real Salesperson Men'S HatsDoor To Door Sales Representative 07/15/23 documented as of this encounter
--- OUTSIDE RECORDS SUMMARY | 2024-12-08 06:37 | XMS_ITS | Encounter Summary ---
Author Organization [employer] Address [address] [facility] [address] 7t [place] [address] Care Team Providers Care Quarter Doper Name Role Phone Latasha Cline NP Primary Care Provider [phone] Encounter Details Date Type Department Care Team ([facility] st Contact Info) Description 01/20/2024 Refill [facility] [address] [place], [place] [phone] Latasha Cline NP [address] [place] [address] Chronic pain syndrome Social History Tobacco Use Types Packs/Day Years [...] AM EDT documented as of this encounter Miscellaneous Notes * Telephone Encounter - Patricia Tejeda RN - 01/20/2024 10:35 AM EST Per Jbt, patient last picked up Oxycodone 12/29/23. Refill due 01/26/24. Will forward to PCP on01/24/24 * Telephone Encounter - Dhruv Hanley - 01/20/2024 9:49 AM EST TC from pt requesting medication refill. Medications needing refill : oxyCODONE (Roxicodone) 15 MG immediate release tablet To be sent to: [id number] - [place] [facility] documented in this encounter Plan of Treatment Upcoming Encounters Date Type Department Care Team (Late st Contact Info) Description 02/02/2025 3:15 PM EST Office Visit [facility] [address] [place] [phone] Latasha Cline NP [address] [place] [address] 03/01/2025 1:00 PM EST Clinical Support [address] [address] Patricia Tejeda, RAE documented as of this encounter Visit Diagnoses Diagnosis Chronic pain syndrome documented in this encounter Additional Health Concerns Assessment Noted Time PHQ-9 Depression Total Score: 0 06/04/19 24 9:43 AM EDT documented as of this encounter Care Teams Quarter Doper Relationship Specialty Start Date End Date Latasha Cline NP [address] [place] [address] PCP - General Family Medicine 03/17/23 Pramod Del Real Tong HookerCyber Intelligence Analyst 07/15/23 documented as of this encounter
--- OUTSIDE RECORDS SUMMARY | 2024-12-08 06:37 | XMS_ITS | Encounter Summary ---
Author Organization [employer] Address [address] [facility] 7t [place] [address] Care Team Providers Care Nuclear Physician Name Role Phone Latasha Cline NP Primary Care Provider [phone] Reason for Visit * Reason Onset Date Comments Med Refill 10/13/2024 Encounter Details Date Type Department Care Team ([facility] st Contact Info) Description 10/13/2024 Telephone [facility] [address] [place] [address] Latasha Cline NP [address] [place] [address] Med Refill Social History Tobacco Use Types Packs/Day Years [...] encounter Miscellaneous Notes * Telephone Encounter - Mehnaz Smith LPN - 10/13/2024 4:08 PM EDT Medication pended to PCP. * Telephone Encounter - Vidal Sawyer - 10/13/2024 4:00 PM EDT TC from pt requesting medication refill. Medications needing refill : zolpidem (Ambien) 5 MG tablet To be sent to: [facility]/pharmacy [address] [place] [address] documented in this encounter Plan of Treatment Upcoming Encounters Date Type Department Care Team (Late st Contact Info) Description 02/02/2025 3:15 PM EST Office Visit [facility] [address] [place] [phone] Latasha Cline NP [address] [place] [address] 03/01/2025 1:00 PM EST Clinical Support [facility] [address] [place] [phone] Patricia Tejeda RN documented as of this encounter Visit Diagnoses Not on filedocumented in this encounter Additional Health Concerns Assessment Noted Time PHQ-9 Depression Total Score: 0 06/04/19 24 9:43 AM EDT documented as of this encounter Care Teams Nuclear Physician Relationship Specialty Start Date End Date Latasha Cline NP [address] [place] [address] PCP - General Family Medicine 03/17/23 Pramod Del Real Field Artillery Fire Control ManHuman Resource Analyst 07/15/23 documented as of this encounter
--- OUTSIDE RECORDS SUMMARY | 2024-12-08 06:37 | XMS_ITS | Encounter Summary ---
Author Organization [employer] Address [address] [facility] 7t [place] [address] Care Team Providers Care Operations General Agent Name Role Phone Sarah BurrellP Primary Care Provider [phone] Latasha Cline NP Primary Care Provider [phone] Reason for Visit * Reason Onset Date Comments Appointment Request 02/22/2023 Encounter Details Date Type Department Care Team ([facility] st Contact Info) Description 02/22/2023 Telephone [facility] MEDICINE [address] [place] [address] Sarah Burrell FNP [address] [place], [place] [phone] Appointment Request Social History Tobacco Use Types Packs/Day Years Used Date Smoking Tobacco: Never Passive Smoke Exposure: Never Smokeless Tobacco: Never Housing Stability Answer Date Recorded What is your housing situation today? I have giovany delacruz 12/09/[address] you li ve. Do you have problems with any of the following? None of the above 12/09/2022 Food Insecurity Answer Date Recorded Within the past 12 months, y ou worried that your food would run out before you got money to buy more: Never True 12/09/2022 Within the past 12 months,th e food you bought just didn't last and you didn't have enough money to get more: Never True Transportation Answer Date Recorded In the past 12 months, has l ack of transportation kept you from medical appts, meetings, work or from getting things needed for daily living? No 12/09/2022 Utilities Answer Date Recorded In the past 12 months, has t he electric, gas, oil or water company threatened to shut off services in your home? No 12/09/2022 Depression Answer Date Recorded Patient Health Questionnaire-2 Score 0 03/18/2022 Comments Unknown Sex and Gender Information Value Date Recorded Sex Assigned at Female 12/15/2021 10:17 AM EDT Legal Sex Female 10:17 AM EDT Gender Identity Female 12/15/2021 10:17 AM EDT Sexual Orientation Choose not to disclose 2021 10:17 AM EDT documented as of this encounter Miscellaneous Notes * Telephone Encounter - Rachelle Lucas RN - 02/25/2023 11:57 AM EST Cancelled appointment noted. Pt is on a recall for a TP in March. * Telephone Encounter - Bg Catalan - 02/22/2023 9:31 AM EST Tc from patient calling to cancel appt on 02/22/2023 due to the snow and is scared of falling writerdid cancel and attempted to reschedule but there was no availability documented in this encounter Plan of Treatment Upcoming Encounters Date Type Department Care Team (Late st Contact Info) Description 02/02/2025 3:15 PM EST Office Visit [facility] MEDICINE [address] [place] [phone] Latasha Cline NP [address] [place] [address] 03/01/2025 1:00 PM EST Clinical Support [address] [address] Patricia Tejeda, RAE documented as of this encounter Visit Diagnoses Not on filedocumented in this encounter Care Teams Operations General Agent Relationship Specialty Start Date End Date Sarah Burrell FNP [address] [place] [phone] PCP - General Family Medicine 10/16/22 03/16/23 Latasha Cline NP [address] [place] [phone] PCP - General Family Medicine 03/17/23 Pramod Del Real Plug MakerSample Taker Operator 07/15/23 documented as of this encounter
--- OUTSIDE RECORDS SUMMARY | 2024-12-08 06:37 | XMS_ITS | Encounter Summary ---
Author Organization [employer] Address [address] [facility] 7t [place] [address] Care Team Providers Care Uniform Force Captain Name Role Phone Latasha Cline NP Primary Care Provider [phone] Reason for Visit * Reason Onset Date Comments Med Refill 12/31/2023 Encounter Details Date Type Department Care Team ([facility] st Contact Info) Description 12/31/2023 Telephone [facility] MEDICINE [address] [place] [address] Latasha Cline NP [address] [place] [address] Med Refill Social History Tobacco Use Types [...] Telephone Encounter - Mehnaz Smith LPN - 12/31/2023 2:14 PM EST Please review request medication was discontinued. * Telephone Encounter - Dhruv Hanley - 12/31/2023 2:05 PM EST TC from pt requesting medication refill. Medications needing refill : gwvmmppcby-sbccveccbgdul-jzmvhbkw 50-325-40 MG tablet To be sent to: [facility][id number] - [place], [place] - [facility] [place] AT [facility] documented in this encounter Plan of Treatment Upcoming Encounters Date Type Department Care Team (Late st Contact Info) Description 02/02/2025 3:15 PM EST Office Visit [facility] MEDICINE [address] [place] [address] Latasha Cline NP [address] [place] [address] 03/01/2025 1:00 PM EST Clinical Support [facility] MED[facility]INE [address] [place], [place] [phone] Ileana, Patricia, RN documented as of this encounter Visit Diagnoses Not on filedocumented in this encounter Additional Health Concerns Assessment Noted Time PHQ-9 Depression Total Score: 0 06/04/19 24 9:43 AM EDT documented as of this encounter Care Teams Uniform Force Captain Relationship Specialty Start Date End Date Latasha Cline NP [address] [place] [address] PCP - General Family Medicine 03/17/23 Pramod Del Real PeoplesoftFire Fighter Airport 07/15/23 documented as of this encounter
--- OUTSIDE RECORDS SUMMARY | 2024-12-08 06:37 | XMS_ITS | Encounter Summary ---
Author Organization [employer] Address 75 [facility] 7t [place] [address] Care Team Providers Care Fertilizer Applicator Name Role Phone Sarah Burrell Primary Care Provider [phone] Latasha Cline NP Primary Care Provider [phone] Reason for Visit * Reason Onset Date Comments Med Refill 01/06/2023 Encounter Details Date Type Department Care Team ([facility] st Contact Info) Description 01/06/2023 Telephone [facility] MEDICINE [address] [place] [address] Sarah Burrell FNP [address] [place], [place] [phone] Med Refill Social History Tobacco Use Types [...] encounter Miscellaneous Notes * Telephone Encounter - Joanie Muse - 01/06/2023 9:31 AM EST Tc from pt requesting medication refill on oxyCODONE (Roxicodone) 15 MG immediate release tablet and zolpidem (Ambien) 5 MG tablet to be sent to [facility] #[id number] - [place], [place] - [address] [place] [facility] documented in this encounter Plan of Treatment Upcoming Encounters Date Type Department Care Team (Late st Contact Info) Description 02/02/2025 3:15 PM EST Office Visit [address] [address] Latasha Cline NP 230 [place] [address] 03/01/2025 1:00 PM EST Clinical Support [address] [address] Patricia Tejeda RN documented as of this encounter Visit Diagnoses Not on filedocumented in this encounter Care Teams Fertilizer Applicator Relationship Specialty Start Date End Date Sarah Burrell FNP [address] [place] [address] PCP - General Family Medicine 10/16/22 03/16/23 Latasha Cline NP [address] [place] [address] PCP - General Family Medicine 03/17/23 Pramod Del Real Wire Saw OperatorAutomotive Tire Worker 07/15/23 documented as of this encounter
--- OUTSIDE RECORDS SUMMARY | 2024-12-08 06:37 | XMS_ITS | Encounter Summary ---
Author Organization [employer] Address [address] [facility] 7t [place] [address] Care Team Providers Care Custody Officer Name Role Phone Latasha Cline NP Primary Care Provider [phone] Reason for Visit * Reason Onset Date Comments Medication Question 09/27/2023 Encounter Details Date Type Department Care Team ([facility] st Contact Info) Description 09/27/2023 Telephone [facility] MEDICINE [address] [place] [address] Latasha Cline NP [address] [place] [address] Medication Question Social History Tobacco Use Types Packs/Day Years [...] encounter Miscellaneous Notes * Telephone Encounter - Stephanie Nova RN - 09/27/2023 11:15 AM EDT Return T/C x 2 am through [facility] id - [id number] for below message, No answer. LVM to call back on [phone]. * Telephone Encounter - Krzysztof Harrison - 09/27/2023 9:53 AM EDT Tc from pt calling in regards to a migraine medication and vitamin that she was prescribed. Pt states migraine medication is not covered by insurance so she is requesting a possible alternative. Regarding the vitamin pt staated she was prescribed medication as a trail to see how she feels and she is now requesting a full prescription. (Pt is unsure on medication names) If any questions you can contact pt at [phone]. (Latvian Speaker) documented in this encounter Plan of Treatment Upcoming Encounters Date Type Department Care Team ([facility] st Contact Info) Description 02/02/2025 3:15 PM EST Office Visit [facility] MEDICINE [address] [place] [address] Latasha Cline NP [address] [place] [address] 03/01/2025 1:00 PM EST Clinical Support [facility] MEDICINE [address] [facility] [place] [address] Patricia Tejeda, RN documented as of this encounter Visit Diagnoses Not on filedocumented in this encounter Additional Health Concerns Assessment Noted Time PHQ-9 Depression Total Score: 0 06/04/19 24 9:43 AM EDT documented as of this encounter Care Teams Custody Officer Relationship Specialty Start Date End Date Latasha Cline NP [address] [facility] [place] [address] PCP - General Family Medicine 03/17/23 Pramod Del Real Economic HistorianMoving Van Driver 07/15/23 documented as of this encounter
--- OUTSIDE RECORDS SUMMARY | 2024-12-08 06:37 | XMS_ITS | Encounter Summary ---
Author Organization [employer] Address 75 [facility] 7t [place] [address] Care Team Providers Care Lehr Cutter Name Role Phone Latasha Cline NP Primary Care Provider [phone] Reason for Visit * Reason Onset Date Comments Med Refill 04/01/2023 Encounter Details Date Type Department Care Team (Late st Contact Info) Description 04/01/2023 Refill [facility] MEDICINE [address] [place] [address] Latasha Cline, EVANS 230 [place] [address] Migraine without status migrainosus, not intractable, unspecified [...] encounter Miscellaneous Notes * Telephone Encounter - Latasha Cline NP - 04/02/2023 4:25 PM EST Will address at * Telephone Encounter - Ruby Park - 04/01/2023 3:34 PM EST TC from pt requesting medication refill. Medications needing refill : pglrzkwuow-envncqcwxnhra-wubtnazm 50-325-40 MG tablet To be sent to: [facility] #[id number] - [place], [place] - [facility] [place] AT [facility] documented in this encounter Plan of Treatment Upcoming Encounters Date Type Department Care Team (Late st Contact Info) Description 02/02/2025 3:15 PM EST Office Visit [facility] MEDICINE [address] [place] [address] Latasha Cline NP [address] [place] [address] 03/01/2025 1:00 PM EST Clinical Support [facility] MEDICINE [address] [place] [address] Patricia Tejeda RN documented as of this encounter Visit Diagnoses Diagnosis Migraine without status migrainosus, not intractable, unspecified migraine type documented in this encounter Care Teams Lehr Cutter Relationship Specialty Start Date End Date Latasha Cline NP [address] [place] [address] PCP - General Family Medicine 03/17/23 Pramod Del Real Print Machine OperatorWrapping Clerk 07/15/23 documented as of this encounter
--- OUTSIDE RECORDS SUMMARY | 2024-12-08 06:37 | XMS_ITS | Encounter Summary ---
Author Organization [employer] Address [address] [facility] 7t [place] [address] Care Team Providers Care Ore Trimmer Name Role Phone Latasha Cline NP Primary Care Provider [phone] Encounter Details Date Type Department Care Team ([facility] st Contact Info) Description 06/07/2023 Telephone [facility] MEDICINE [address] [place], [place] [phone] Latasha Cline NP 230 [place] [address] Social History Tobacco Use Types Packs/Day Years Used Date Smoking Tobacco: Never Passive Smoke Exposure: Never Smokeless Tobacco: Never Depression Answer Date Recorded Patient Health Questionnaire-9 [...] Description 02/02/2025 3:15 PM EST Office Visit [address] [address] Latasha Cline NP [address] [place] [address] 03/01/2025 1:00 PM EST Clinical Support [address] [address] Patricia Tejeda RN documented as of this encounter Visit Diagnoses Not on filedocumented in this encounter Additional Health Concerns Assessment Noted Time PHQ-9 Depression Total Score: 0 06/04/19 24 9:43 AM EDT documented as of this encounter Care Teams Ore Trimmer Relationship Specialty Start Date End Date Latasha Cline NP [address] [place] [address] PCP - General Family Medicine 03/17/23 Pramod Del Real Senior Wealth AdvisorAeronautical Test Engineer 07/15/23 documented as of this encounter
--- OUTSIDE RECORDS SUMMARY | 2024-12-08 06:37 | XMS_ITS | Encounter Summary ---
Author Organization [employer] Address 75 [facility] 7t [place] [address] Care Team Providers Care Radial Saw Operator Name Role Phone Kenny Loyd MD Primary Care Provider Ezequiel Roblero AGNP Primary Care Provider Unavail Sarah PugaP Primary Care Provider [phone] Latasha Cline NP Primary Care Provider [phone] Reason for Visit * Reason Onset Date Comments Appointment Request 02/20/2022 Encounter Details Date Type Department Care Team (Late st Contact Info) Description 02/20/2022 Telephone [facility] MEDICINE 230 [place] [address] Kenny Loyd MD Appointment Request Social History Tobacco Use Types Packs/Day Years Used Date Smoking Tobacco: Never Assessed Comments Unknown Sex and Gender Information Value [...] suspected to have Coronavirus/COVID-19? No / Unsure 01/30/2022 10:05 AM EST documented as of this encounter Miscellaneous Notes * Telephone Encounter - Delta Pineda - 02/20/2022 11:35 AM EST Tc from pt requesting to r/s TP 02/20/22 at 1 pm Please contact pt at [phone] documented in this encounter Plan of Treatment Upcoming Encounters Date Type Department Care Team (Late st Contact Info) Description 02/02/2025 3:15 PM EST Office Visit [address] [address] Latasha Cline, EVANS [address] [place] [address] 03/01/2025 1:00 PM EST Clinical Support [address] [address] Patricia Tejeda RN documented as of this encounter Visit Diagnoses Not on filedocumented in this encounter Care Teams Radial Saw Operator Relationship Specialty Start Date End Date Kenny Loyd MD PCP - General Family Medicine 12/30/18 02/22/22 Ezequiel Davis AGNP PCP - General Family Medicine 02/23/22 10/15/22 Sarah Burrell FNP [address] [place] [address] PCP - General Family Medicine 10/16/22 03/16/23 Latasha Cline, EVANS [address] [place] [address] PCP - General Family Medicine 03/17/23 Pramod Del Real Bilingual Elementary School TeacherSales Manager 07/15/23 documented as of this encounter
--- OUTSIDE RECORDS SUMMARY | 2024-12-08 06:37 | XMS_ITS | Encounter Summary ---
Author Organization [employer] Address 75 [facility] 7t [place] [address] Care Team Providers Care Siding Stapler Name Role Phone Latasha Cline NP Primary Care Provider [phone] Reason for Visit * Reason Onset Date Comments Med Refill 05/19/2024 Encounter Details Date Type Department Care Team ([facility] st Contact Info) Description 05/19/2024 Telephone [facility] MEDICINE 230 [place] [address] Latasha Cline NP [address] [place] [address] Med Refill Social History Tobacco Use Types [...] Telephone Encounter - Mehnaz Smith LPN - 05/19/2024 11:07 AM EDT Please review medication isn't on active med list. * Telephone Encounter - Dhruv Hanley - 05/19/2024 11:02 AM EDT TC from pt requesting medication refill. Medications needing refill : diphenhydrAMINE (BENADryl) 25 MG capsule To be sent to: [id number] [place] [facility] [place] [facility] documented in this encounter Plan of Treatment Upcoming Encounters Date Type Department Care Team (Late st Contact Info) Description 02/02/2025 3:15 PM EST Office Visit [address] [phone] Latasha Cline NP 230 [place] [address] 03/01/2025 1:00 PM EST Clinical Support [address] [phone] Ileana, Patricia, RN documented as of this encounter Visit Diagnoses Not on filedocumented in this encounter Additional Health Concerns Assessment Noted Time PHQ-9 Depression Total Score: 0 06/04/19 24 9:43 AM EDT documented as of this encounter Care Teams Siding Stapler Relationship Specialty Start Date End Date Latasha Cline NP [address] [place] [address] PCP - General Family Medicine 03/17/23 Pramod Del Real Gerontology AideMedical Services Assistant 07/15/23 documented as of this encounter
--- OUTSIDE RECORDS SUMMARY | 2024-12-08 06:37 | XMS_ITS | Encounter Summary ---
Author Organization [employer] Address 75 [facility] 7t [place] [address] Care Team Providers Care Reservation Manager Name Role Phone Sarah BurrellP Primary Care Provider [phone] Latasha Cline NP Primary Care Provider Encounter Details Date Type Department Care Team (Late st Contact Info) Description 12/28/2022 Abstract [facility] MEDICINE [address] [place] [address] Sarah Burrell FNP [address] [place], [place] [phone] Social History Tobacco Use Types Packs/Day Years [...] Description 02/02/2025 3:15 PM EST Office Visit [address] [address] Latasha Cline NP [address] [place] [address] 03/01/2025 1:00 PM EST Clinical Support [address] [address] Patricia Tejeda, RAE documented as of this encounter Visit Diagnoses Not on filedocumented in this encounter Care Teams Reservation Manager Relationship Specialty Start Date End Date Sarah Burrell FNP [address] [place] [address] PCP - General Family Medicine 10/16/22 03/16/23 Latasha Cline NP [address] [place] [address] PCP - General Family Medicine 03/17/23 Pramod Del Real Family And Consumer Education TeacherHead Of Marketing Analytics 07/15/23 documented as of this encounter
--- OUTSIDE RECORDS SUMMARY | 2024-12-08 06:37 | XMS_ITS | Encounter Summary ---
Author Organization [employer] Address 75 [facility] 7t [place] [address] Care Team Providers Care Brewing Director Name Role Phone Latasha Cline NP Primary Care Provider [phone] Reason for Visit * Reason Onset Date Comments Med Refill 11/01/2023 Encounter Details Date Type Department Care Team ([facility] st Contact Info) Description 11/01/2023 Telephone [facility] MEDICINE 230 [place] [address] Latahsa Cline NP [address] [place] [address] Med Refill Social History Tobacco Use Types [...] Telephone Encounter - Mehnaz Smith LPN - 11/01/2023 9:47 AM EDT Medication was sent to [facility] #[id number] on 09/28/23 #30 with 1 refill. EQUIPMENT PLANNER checked 11/01/23 last filled 09/28/23 patient has 1 refill left. * Telephone Encounter - Bg Catalan - 11/01/2023 9:15 AM EDT TC from pt requesting medication refill. Medications needing refill : zolpidem (Ambien) 5 MG tablet To be sent to: [id number] - [place] - [address] [facility] documented in this encounter Plan of Treatment Upcoming Encounters Date Type Department Care Team ([facility] st Contact Info) Description 02/02/2025 3:15 PM EST Office Visit [facility] MEDICINE 230 [place] [address] Latasha Cline NP [address] [place] [address] 03/01/2025 1:00 PM EST Clinical Support [facility] MEDICINE 230 [place] [address] Patricia Tejeda, RN documented as of this encounter Visit Diagnoses Not on filedocumented in this encounter Additional Health Concerns Assessment Noted Time PHQ-9 Depression Total Score: 0 06/04/19 9:43 AM EDT documented as of this encounter Care Teams Brewing Director Relationship Specialty Start Date End Date Latasha Cline NP [address] [place] [address] PCP - General Family Medicine 03/17/23 Pramod Del Real Cnc Wood Lathe OperatorWood Tank Erector 07/15/23 documented as of this encounter
--- OUTSIDE RECORDS SUMMARY | 2024-12-08 06:37 | XMS_ITS | Encounter Summary ---
Author Organization [employer] Address 75 [facility] 7t [place] [address] Care Team Providers Care Quality Technician Name Role Phone Ezequiel Davis Primary Care Provider Unavail Sarah Puga INDUSTRIAL ENERGY ENGINEER Primary Care Provider [phone] Latasha Cline NP Primary Care Provider [phone] Reason for Visit * Reason Onset Date Comments Med Refill 04/17/2022 Encounter Details Date Type Department Care Team (Late st Contact Info) Description 04/17/2022 Telephone [facility] MEDICINE 230 [place] [address] Ezequiel Davis AGNP Med Refill Social History Tobacco Use Types [...] suspected to have Coronavirus/COVID-19? No / Unsure 03/18/2022 2:13 PM EST documented as of this encounter Miscellaneous Notes * Telephone Encounter - Mehnaz Smith LPN - 04/17/2022 11:52 AM EST LOADING UNIT OPERATOR POWDER CHARGING checked on 04/17/22 medication has not been prescribed elsewhere. Per [facility] medication /19/2015. Please review. Last seen 03/18/22. * Telephone Encounter - Ruby Park - 04/17/2022 10:40 AM EST Tc from pt requesting med refill on Ambien 5 mg Tablet. Medication is currently inactive. Please sent to [facility] #[id number] - [place] - [address] [facility] documented in this encounter Plan of Treatment Upcoming Encounters Date Type Department Care Team (Late st Contact Info) Description 02/02/2025 3:15 PM EST Office Visit [address] [address] Latasha Cline NP [address] [place] [address] 03/01/2025 1:00 PM EST Clinical Support [address] [address] Patricia Tejeda RN documented as of this encounter Visit Diagnoses Not on filedocumented in this encounter Care Teams Quality Technician Relationship Specialty Start Date End Date Ezequiel Davis AGNP PCP - General Family Medicine 02/23/22 10/15/22 Sarah Burrell FNP [address] [place] [address] PCP - General Family Medicine 10/16/22 03/16/23 Latasha Cline NP [address] [place] [address] PCP - General Family Medicine 03/17/23 Pramod Del Real Doll Wigs HacklerBullet Lubricant Mixer 07/15/23 documented as of this encounter
--- OUTSIDE RECORDS SUMMARY | 2024-12-08 06:37 | XMS_ITS | Encounter Summary ---
Author Organization [employer] Address 75 [facility] 7t [place] [address] Care Team Providers Care Battery Mechanic Name Role Phone Latasha Cline NP Primary Care Provider [phone] Encounter Details Date Type Department Care Team ([facility] st Contact Info) Description 10/03/2024 Results Follow-Up [facility] MEDICINE 230 [place] [address] Latasha Cline NP [address] [place] [address] POCT NELSON-14 Urine Drug Screen, Drug Monitoring, Benzodiazepines, Quantitative, Urine Social History Tobacco Use Types Packs/Day Years [...] AM EDT documented as of this encounter Functional Status * Over the past 2 weeks, how often have you been bothered by any of the following problems? Question Answer Date of Assessment Author Patient Health Questionnaire -2 Score 0 10/30/2024 12:58 PM EDT Maritza Pineda [place] * Little interest or pleasure in doing things Answer Date of Assessment Author Not at all 10/30/2024 12:58 PM EDT Maritza Pineda [place] * Feeling down, depressed, or hopeless Answer Date of Assessment Author Not at all 10/30/2024 12:58 PM EDT Maritza Pineda [place] * Trouble falling or staying asleep, or sleeping too much Answer Date of Assessment Author Not at all 10/30/2024 12:58 PM EDT Maritza Pineda [place] * Feeling tired or having little energy Answer Date of Assessment Author Not at all 10/30/2024 12:58 PM EDT Maritza Pineda [place] * Poor appetite or overeating Answer Date of Assessment Author Not at all 10/30/2024 12:58 PM EDT Maritza Pineda [place] * Feeling bad about yourself - or that you are a failure or have let yourself or your family down Answer Date of Assessment Author Not at all 10/30/2024 12:58 PM EDT Maritza Pineda [place] * Trouble concentrating on things, such as reading the newspaper or watching television Answer Date of Assessment Author Not at all 10/30/2024 12:58 PM VENTURAT Maritza Pineda [place] * Moving or speaking so slowly that other people could have noticed? Or the opposite - being so fidgety or restless that you have been moving around a lot more than usual. Answer Date of Assessment Author Not at all 10/30/2024 12:58 PM VENTURAT Maritza Pineda [place] * Thoughts that you would be better off or hurting yourself in some way Answer Date of Assessment Author Not at all 10/30/2024 12:58 PM Maritza Renae [place] * Patient Health Questionnaire-9 Score Answer Date of Assessment Author 0 10/30/2024 12:58 PM VENTURAT Maritza Pineda [place] * Over the last 2 weeks, how often have you been bothered by any of the following problems? Question Answer Date of Assessment Author Feeling nervous, anxious, or on edge 0 10/30/2024 12:59 PM EDT Maritza Pineda MA Not being able to stop or co ntrol worrying 0 10/30/2024 12:59 PM VENTURAT Maritza Pineda MA Worrying too much about diff erent things 0 10/30/2024 12:59 PM VENTURAT Maritza Pineda MA Trouble relaxing 0 10/30/2024 12:59 PM VENTURAT Maritza Pineda [place] Being so restless that it is hard to sit still 0 10/30/2024 12:59 PM VENTURAT Maritza Pineda MA Becoming easily annoyed or irritable 0 10/30/2024 12:59 PM VENTURAT Maritza Pineda MA Feeling afraid as if somethi ng awful might happen 0 10/30/2024 12:59 PM VENTURAT Maritza Pineda [place] HERNANDEZ-7 Total Score 0 10/30/2024 12:59 PM Maritza Renae MA documented as of this encounter Miscellaneous Notes * Result Encounter Note - Latasha Cline NP - 10/03/2024 11:15 AM EDT Visit to be scheduled documented in this encounter Plan of Treatment Upcoming Encounters Date Type Department Care Team (Late st Contact Info) Description 02/02/2025 3:15 PM EST Office Visit [address] [address] Latasha Cline NP [address] [place] [address] 03/01/2025 1:00 PM EST Clinical Support [address] [address] Patricia Tejeda RN documented as of this encounter Visit Diagnoses Not on filedocumented in this encounter Additional Health Concerns Assessment Noted Time PHQ-9 Depression Total Score: 0 06/04/19 24 9:43 AM EDT documented as of this encounter Care Teams Battery Mechanic Relationship Specialty Start Date End Date Latasha Cline NP [address] [place] [address] PCP - General Family Medicine 03/17/23 Pramod Del Real Metal Riveting Machine OperatorChild Health Associate 07/15/23 documented as of this encounter
--- OUTSIDE RECORDS SUMMARY | 2024-12-08 06:37 | XMS_ITS | Encounter Summary ---
Author Organization [employer] Address [address] [facility] [place] [address] Care Team Providers Care Auxiliary Equipment Tender Name Role Phone Latasha Cline NP Primary Care Provider [phone] Encounter Details Date Type Department Care Team ([facility] st Contact Info) Description 01/19/2024 Telephone [facility] [address] [place], [place] [phone] Latasha Cline NP [address] [place] [address] Social History Tobacco Use Types Packs/Day Years [...] encounter Miscellaneous Notes * Telephone Encounter - Yuri Jaimes - 01/19/2024 3:40 PM EST TC from pt requesting medication refill. Medications needing refill : oxyCODONE (Roxicodone) 15 MG immediate release tablet To be sent to: documented in this encounter Plan of Treatment Upcoming Encounters Date Type Department Care Team (Late st Contact Info) Description 02/02/2025 3:15 PM EST Office Visit [address] [address] Latasha Cline NP [address] [place] [address] 03/01/2025 1:00 PM EST Clinical Support [address] [address] Patricia Tejeda RN documented as of this encounter Visit Diagnoses Not on filedocumented in this encounter Additional Health Concerns Assessment Noted Time PHQ-9 Depression Total Score: 0 06/04/19 24 9:43 AM EDT documented as of this encounter Care Teams Auxiliary Equipment Tender Relationship Specialty Start Date End Date Latasha Cline NP [address] [place] [id number] PCP - General Family Medicine 03/17/23 Pramod Del Real Orientation & Mobility SpecialistOrchid Superintendent 07/15/23 documented as of this encounter
--- OUTSIDE RECORDS SUMMARY | 2024-12-08 06:38 | XMS_ITS ---
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 Asymptomatic. The lifetime risk of breast cancer based on the Tyrer-Cuzick Model is 5%. COMPARISON: Mammography: 07/10/2020, 06/27/2018, 06/11/2017 TECHNIQUE: Digital breast tomosynthesis is performed in both the craniocaudal and mediolateral oblique views along with computer-aided detection (CAD). Synthesized 2D images are generated from the tomosynthesis. FINDINGS: There are scattered areas of fibroglandular density (ACR BI-RADS breast composition Category b). Parenchymal pattern is similar to prior exams. There is no developing density or architectural abnormality. Small smooth nodular asymmetry mid left breast CC view is stable. The axilla and skin contours are unremarkable. There are no significant masses, abnormal calcifications, or other abnormalities. MM/MM tomosynthesis screening BI IMPRESSION: No mammographic evidence of malignancy. ASSESSMENT: BI-RADS 2: Benign RECOMMENDATION: Routine annual mammography screening. This patient's information was entered into a reminder system with a target due date for their next mammogram. Dictated By: Jesus Carcamo MD Signed By: <Electronically signed by Jesus Carcaom MD in OV> 06/11/22 1712 DD/ 1350 TD/TT: Loss Prevention Lead: MORILLO Procedure Note Donotuseinterpreter, Image - [facility] [address] [place] [address] Mammography Report Signed Patient: Artur Mahoney#: [id number] : 1965Acct:[id number] Age/Sex: 56 / FADM Date: 06/09/22 Loc: HO.MAMMO Attending Dr: Camron Medrano MD Ordering Physician: Camron Medrano MDResults: 2 Benign Findings Date of Service: 06/09/22Follow Up: 1 Year From [facility] Mamm[facility] Procedure(s): MM tomosynthesis screening BI Accession Number(s): [id number] cc: Camron Medrano MD EXAMINATION: MM SCREENING DIGITAL BREAST TOMOSYNTHESIS, BILATERAL CLINICAL INFORMATION: Screening. Asymptomatic. The lifetime risk of breast cancer based on the Tyrer-Cuzick Model is 5%. COMPARISON: Mammography: 07/10/2020, 06/27/2018, 06/11/2017 TECHNIQUE: Digital breast tomosynthesis is performed in both the craniocaudal and mediolateral oblique views along with computer-aided detection (CAD). Synthesized 2D images are generated from the tomosynthesis. FINDINGS: There are scattered areas of fibroglandular density (ACR BI-RADS breast composition Category b). Parenchymal pattern is similar to prior exams. There is no developing density or architectural abnormality. Small smooth nodular asymmetry mid left breast CC view is stable. The axilla and skin contours are unremarkable. There are no significant masses, abnormal calcifications, or other abnormalities. MM/MM tomosynthesis screening BI IMPRESSION: No mammographic evidence of malignancy. ASSESSMENT: BI-RADS 2: Benign RECOMMENDATION: Routine annual mammography screening. This patient's information was entered into a reminder system with a target due date for their next mammogram. Dictated By: Jesus Carcamo MD Signed By: <Electronically signed by Jesus Carcamo MD in OV> 06/11/22 1712 DD/ 1350 TD/TT: Loss Prevention Lead: MORILLO [facility] External Provider IMG BI PROCEDURES Final Result * Hepatitis Panel, General (04/06/2022 3:31 AM EST) Hepatitis A IgM Nonreactive Nonreactive [facility] Comment:IgM antibodies to DELGADO V not detected; does not exclude earlyacute or recovered HAV infection. ~Hepatitis B Surface Antibody NONREACTIVE Nonreactive [facility] Comment:Nonreactive: < 8.00 mIU/mL Hepatitis B Core Antibody Nonreactive Nonreactive [facility] Hepatitis C Antibody Nonreactive Nonreactive [facility] Comment:Antibodies to HCV no t detected; does not exclude early acuteHCV infection. 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 Relationship Specialty Start Date End Date Latasha Cline NP [address] [place] [address] PCP - General Family Medicine 03/17/23 Pramod Del Real Insulation TechnicianStreet Commissioner 07/15/23 Clinical Summary Created on: December 08, 2024 Soni Mahoney : 1965 Sex: Female Author Organization [employer] Address [address] [place] [address] Care Team Providers Care Radial Arm Saw Operator Name Role Phone Latasha Cline EVANS Primary Care Provider [phone] Allergies Active Allergy Reactions Criticality Noted Date Comments Clindamycin Unknown 02/24/2010 Ibuprofen 02/19/2022 Latex 02/19/2022 Morphine 02/19/2022 Other reaction(s): hallucinations, headaches Nitrofurantoin 03/24/2016 Ondansetron 03/24/2016 Paroxetine Unknown 02/24/2010 Phenazopyridine 03/24/2016 Sulfa Antibiotics Unknown,Rash Low 02/24/2010 Other reaction(s): face gets red Sulfadiazine 02/19/2022 Sumatriptan 07/28/2012 Other reaction(s): Avoid due to sulfa allergy, Avoid due to sulfa allergy Medications * This document contains information received from the source organization and may not represent a complete record from that organization. senna (Senokot) 8.6 MG tablet take 2 tablet by oral route every day as needed for constipation Active Calamine-Zinc Oxide (RA Calamine) 6.971-6.971 % lotion Apply to affected area upto 4 times daily as needed Active Clobetasol Prop Emollient Base 0.05 % emollient cream Apply topically. 2 times every day a thin layer to the affected area Active diclofenac (Voltaren) 75 MG EC tablet Take 1 tablet by mouth. 2 times every day Active docusate sodium (Colace) 50 MG capsule Take 1 capsule by mouth at bed time. As needed Active diphenhydrAMINE (BENADryl) 25 MG capsule Take 2 capsules by mouth. Every 4-6 hours as needed Active hydrOXYzine HCl (Atarax) 10 MG tablet take 1-2 Tablet (s) by mouth route at bedtime as needed for insomnia and anxiety Active magnesium oxide (Mag-Ox) 400 MG tablet one tablet daily Active omeprazole (PriLOSEC) [address] capsule Take 1 tablet by mouth in the morning. Active sodium chloride ([place]) 0.65 % nasal spray 1-2 sprays in each nostril Active zoster vaccine-recombi nant adjuvanted (Shingrix) 50 MCG/0.5ML vaccine Inject 0.5 mL into the shoulder, thigh, or buttocks. Active diphenhydrAMINE (BENADryl) 25 MG capsule Take 25 mg by mouth. Active senna 176 MG/5ML syrup Take by mouth. Active aspirin 325 MG EC tablet Take 325 mg by mouth. Active Flowflex COVID-19 Ag Home Test kit USE DIRECTED Active neomycin-polymy echo-dexAMETHaso ne (Polydex) 3.5-21094-6.1 ointment ophthalmic ointment Active omeprazole OTC (PriLOSEC OTC) 20 MG EC tablet Take 20 mg by mouth. Active pantoprazole (ProtoNix) 40 MG EC tablet Take 40 mg by mouth in the morning. Active polyethylene glycol, PEG, 3350 (Glycolax) 17 GM/SCOOP powder MIX AND DRINK 17 GM BY MOUTH DAILY Active docusate sodium (Colace) 100 MG capsule TAKE 2 CAPSULES BY MOUTH DAILY AT BEDTIME Active calamine lotionIndicatio ns:Herpes zoster without complication Apply topically every 8 (eight) hours if needed for itching. 118 mL 023 Active naloxone (Narcan) 4 mg/0.1 mL nasal spray Administer 1 spray (4 mg) into affected nostril(s) if needed for opioid reversal. 2 each 3 Active hydrocortisone (Anusol-HC) 2.5 % rectal creamIndication s:Guttate psoriasis APPLY RECTALLY TO THE AFFECTED AREA TWICE DAILY NEEDED FOR HEMORRHOIDS 30 g 1 024 Active Calcium Carb-Cholecalci ferol (Calcium 600+D3) 600-10 MG-MCG tablet Take 1 tablet by mouth 2 times daily. TAKE 1 TABLET BY MOUTH TWICE A DAY 180 tablet Active Citrucel 500 MG tablet Take 1 tablet by mouth 2 times daily. 30 tablet 2 024 Active fish oil ([place]-3) 500 MG capsuleIndicati ons:Elevated lipids TAKE 1 CAPSULE BY MOUTH EVERY DAY 90 capsule Active amoxicillin-cla vulanate (Augmentin) 875-125 MG tablet Take 1 tablet by mouth 2 times daily. 14 tablet 025 Active loratadine (Claritin) 10 MG tabletIndicatio ns:Allergic rhinitis, unspecified seasonality, unspecified trigger Take 1 tablet (10 mg) by mouth Once per day. 90 tablet 2 Active lisinopril 30 MG tablet TAKE 1 TABLET BY MOUTH EVERY DAY 90 tablet 1 Active Lasmiditan Succinate (Reyvow) 50 MG tabletIndicatio ns:Other migraine without status migrainosus, not intractable Take 1 tablet by mouth at onset of migraine, may repeat dose x 1 . Do not exceed 2 tablets in 24 hours or 4 tablets in 1 week 8 tablet Active zolpidem (Ambien) 5 MG tabletIndicatio ns:Insomnia, unspecified type TAKE 1 TABLET BY MOUTH AT BEDTIME NEEDED FOR SLEEP 30 tablet Active triamcinolone (Kenalog) 0.1 % ointmentIndicat ions:Guttate psoriasis APPLY THIN LAYER TOPICALLY TO THE AFFECTED AREA TWICE DAILY 45 g 025 Active oxyCODONE (Roxicodone) 15 MG immediate release tabletIndicatio ns:Chronic pain syndrome Take 1 tablet (15 mg) by mouth every 6 (six) hours if needed (for severe pain) for up to 28 days. 112 tablet 025 2024 Active acetaminophen (Tylenol Extra Strength) 500 MG tablet Take 1 tablet (500 mg) by mouth every 6 (six) hours if needed for mild pain. 120 tablet 025 2024 Active fluticasone (Flonase) 50 MCG/ACT nasal spray Administer 1 spray into each nostril Once per day. Shake gently. Before first use, prime pump. After use, clean tip and replace cap. 48 mL 025 2025 Active triamcinolone (Kenalog) 0.1 % ointmentIndicat ions:Guttate psoriasis APPLY THIN LAYER TOPICALLY TO THE AFFECTED AREA TWICE DAILY 45 g 025 2024 Discontinued(R eorder (will not trigger notification to Pharmacy)) fluticasone (Flonase) 50 MCG/ACT nasal spray Administer 1 spray into each nostril Once per day. Shake gently. Before first use, prime pump. After use, clean tip and replace cap. 48 g 025 2024 Discontinued zolpidem (Ambien) 5 MG tabletIndicatio ns:Insomnia, unspecified type TAKE 1 TABLET BY MOUTH AT BEDTIME NEEDED FOR SLEEP 30 tablet 2024 Discontinued(R eorder (will not trigger notification to Pharmacy)) oxyCODONE (Roxicodone) 15 MG immediate release tabletIndicatio ns:Chronic pain syndrome Take 1 tablet (15 mg) by mouth every 6 (six) hours if needed (for severe pain) for up to 28 days. 112 tablet 2024 Discontinued(R eorder (will not trigger notification to Pharmacy)) fluticasone (Flonase) 50 MCG/ACT nasal spray ADMINISTER 1 SPRAY INTO EACH NOSTRIL ONCE PER DAY. SHAKE GENTLY. BEFORE FIRST USE, PRIME PUMP. AFTER USE, CLEAN TIP AND REPLACE CAP. 48 mL 025 2024 Discontinued(R eorder (will not trigger notification to Pharmacy)) Active Problems Problem Noted Date Diagnosed Date Viral upper respiratory tract infection 11/30/19 Assessment & Plan (11/29/2024 3:36 PM EDT): Rapid viral test were negative today Rest (sleep at least 8 hours a night). Hydrate with plenty of water (avoid caffeine and alcohol). Use saline nose drops to loosen mucus + Flonase Take Acetaminophen (Tylenol ) as needed to reduce fever, headache, body aches or discomfort Gargle with salt water and use throat sprays/lozenges for throat pain. Use heated, humidified air. If you do not have a humidifier, take hot showers. Cover coughs and sneezes using the crook of your elbow. If you have a fever, stay home and away from others (self isolation) until fever-free for 72 hours (temperature should be less than 100 F without medication). Long-term current use of opiate analgesic 2024 Cervicalgia 11/23/2023 Assessment & Plan (12/16/2023 3:10 PM EDT): Chronic issue, will refer to physiatry Left leg pain 11/23/2023 Mild protein-calorie malnutrition 08/23/2023 Assessment & Plan (09/23/2023 3:37 PM EDT): Pt reports loss of appetite during allergy season Pharyngitis 07/16/2023 Assessment & Plan (07/17/2023 4:31 PM EDT): Negative rapid strep , no exudate Acute non-recurrent maxillary sinusitis 07/16/19 24 Assessment & Plan (07/17/2023 4:30 PM EDT): Rapid strep and covid/flu negative, Pt with rapidly worsening sinus pain, congestion, and chills, Reviewed that many sinus infections are viral but if symptoms continue to rapidly worsen may start augmentin rx, Medication Indications, side effects and duration of therapy reviewed, pt aware to call clinic for worsening symptoms or failure to resolve H/O healed fragility fracture 06/04/2023 Assessment & Plan (06/04/2023 7:10 PM EDT): Dexa ordered, continue caclium and vit d Mixed hyperlipidemia 08/27/2022 Assessment & Plan (08/27/2022 3:13 PM EDT): The 10-year ASCVD risk score (Audrey DK, et al., 2019) is: 3.2% Values used to calculate the score: Age: 57 years Sex: Female Is Non- : No Diabetic: No Tobacco smoker: No Systolic Blood Pressure: 118 mmHg Is BP treated: Yes HDL Cholesterol: 64 mg/dL Total Cholesterol: 209 mg/dL Component Ref Range & Units 1 mo ago 5 mo ago Cholesterol, Total <200 mg/dL 209 High 218 High HDL Cholesterol > OR = 50 mg/dL 64 56 Triglycerides <150 mg/dL 79 161 High LDL Cholesterol mg/dL (calc) 127 High 132 High CM Comment: Reference range: <100 Desirable range <100 mg/dL for primary prevention; <70 mg/dL for patients with CHD or diabetic patients with > or = 2 CHD risk factors. LDL-C is now calculated using the Constantine calculation, which is a validated novel method providing better accuracy than the Friedewald equation in the estimation of LDL-C. Juan CONNOLLY et al. LINN. 2013;310(19): 8064-7177 (http://education.[employer]/faq/ABN964) Chol/HDLC Ratio <5.0 (calc) 3.3 3.9 Non-HDL Cholesterol <130 mg/dL (calc) 145 High 162 High CM Lipids trending in a therapeutic direction. No statins recommended at this time. Educate patient on healthy lifestyle choices. Pain in right axilla 07/16/2022 Assessment & Plan (08/28/2022 2:33 PM EDT): Pain is much improved. She still feels some soreness from time to time. RTC PRN if symptoms worsen or fail to improve. Assessment & Plan (07/16/2022 12:38 PM EDT): DDx: strain of serratus anterior muscle, teres major muscle, latissimus dorsi muscle Patient instructed to rest the muscle but to continue ROM movements. She should RTC PRN if symptoms worsen or fail to improve after cyclobenzaprine use. Insomnia 05/15/2022 Assessment & Plan (09/23/2023 3:39 PM EDT): Chronic issue, encouraged pt to slightly taper ambien by cutting tablets down by 1/4 every few weeks. Pt will attempt this at own pace before next follow up Assessment & Plan (06/04/2023 7:09 PM EDT): Resume zolpidem, reviewed prn usage idea, and potential gradual cross taper in the future Herpes zoster without complication 05/15/2022 Assessment & Plan (05/15/2022 4:09 PM EDT): Healing well. Elevated lipids 05/15/2022
[2024-12-08 06:57] VITALS: BP 145/88; PULSE 60; RESP 19; O2SAT 97
[2024-12-08 07:05] VITALS: BP 145/88; PULSE 60; RESP 19; TEMP -17.7; TEMP 0; O2SAT 97
== END 2024-12-08 07:05 | disposition home or self-care (01) ==
PROVIDERS: Emergency Provider Emergency Medicine
DX: J01.00 Acute maxillary sinusitis, unspecified (principal); J18.9 Pneumonia, unspecified organism; R07.89 Other chest pain; R05.9 Cough, unspecified; R11.0 Nausea; Z11.52 Encounter for screening for COVID-19; Z79.899 Other long term (current) drug therapy
CPT/HCPCS: 71045; 80053; 85025; 87502; 87635; 93005; 94640; 99284; 99285; J1100

== ENCOUNTER → 2024-12-08 05:25 | Outpatient (BNV) | payer MEDICAID, SELFPAY | PROVIDERS: Emergency Provider Emergency Medicine; Visit Provider Radiology Diagnostic Radiology | DX: R05.9 Cough, unspecified (principal) | CPT/HCPCS: 71045 ==

== ENCOUNTER → 2024-12-08 06:07 | Outpatient (BNV) | payer MEDICAID, SELFPAY | PROVIDERS: Emergency Provider Emergency Medicine; Visit Provider Internal Medicine Cardiovascular Disease | DX: R00.1 Bradycardia, unspecified (principal) | CPT/HCPCS: 93010 ==

== ENCOUNTER 2024-12-21 12:27 | Inpatient (IN) | payer MEDICAID, SELFPAY ==
[2024-12-21] VITALS (8 sets, daily range): BP systolic 102–141; BP diastolic 50–82; PULSE 73–104; RESP 14–26; TEMP 36.6–38.6; O2SAT 88–96; BMI 22.7
--- NOTE | ~2024-12-21 | XR_ITS ---
CLINICAL HISTORY: constipation 1 view abdomen Comparison: None provided Findings: No pneumoperitoneum or pneumatosis. Significant diffuse fecal retention. No small bowel obstruction or free air identified. Multiple metal fragments project over the abdomen. IMPRESSION: Significant fecal retention throughout the colon. No small bowel obstruction or free air identified. This document has been electronically signed by: Geo Moreno MD on 12/24/2024 12:55:12
--- NOTE | ~2024-12-21 | CT_ITS ---
CLINICAL HISTORY: hypoxia, fever, effusion CT chest without contrast Comparison: CR/SR - XR CHEST 2 VIEWS - 12/21/24 13:13 EST Findings: Dense consolidation within the dependent portion of the lower lobes bilaterally. Also area of subtle peripheral consolidation within the posterior and inferior aspect of the right upper lobe. Mild emphysematous changes throughout. Trace bilateral pleural effusions. No pneumothorax. Trace pericardial effusion. Overall heart size within normal limits. No pathologically enlarged lymph nodes. Pneumobilia seen within the upper abdomen. Heterogeneity of the liver without discrete mass in the unenhanced exam. 2 cm simple cyst within the upper pole of the right kidney. No acute fractures. Degenerative change throughout the thoracolumbar spine. Metallic density seen at the level of the T11-12 disc space. IMPRESSION: Multifocal areas of consolidation as discussed above. This is most characteristic of multifocal pneumonia. This document has been electronically signed by: Asad Richter MD on 12/21/2024 22:55:57
--- NOTE | ~2024-12-21 | XR_ITS ---
EXAMINATION: XR CHEST CLINICAL INFORMATION: chest pain COMPARISON: December 08, 2024 TECHNIQUE: PA and lateral views FINDINGS: Hyperinflated lungs. Pulmonary reticular pattern. Blunting of the right costophrenic angle. No pneumothorax. Cardiac mediastinal silhouette size is normal. Prominent tortuous thoracic aorta with calcified plaques. Osteopenia versus osteoporosis. Multilevel thoracolumbar spondylosis and a shaped curvature of the thoracolumbar spine. Radiopaque material to the right side of the thoracolumbar spine junction. Degenerative changes in the shoulders. 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 Superimposed acute airspace disease cannot be excluded. Scoliosis and spondylosis, thoracolumbar spine. Electronically signed by: Jean Marie Sanchez MD 12/21/2024 01:14 PM [facility]
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
--- NOTE | 2024-12-21 13:06 | PC.NURSE ---
Away for Xray at this time. FAMILIA Hudson to evaluate the patient upon return.
[2024-12-21 13:25] LABS: MANUAL DIFF FLAG NO
[2024-12-21 13:27] LABS: Venous Blood Gas Refer to POC result
[2024-12-21 13:28] LABS: VBG HCO3 22 mmol/L (22-26); VBG O2 % Saturation 84.0 %
[2024-12-21 13:28] LABS: Hematocrit 40.5 % (37.0-47.0); Hemoglobin 13.6 g/dl (12.0-16.0); Imm Gran Abs Auto 0.03 X10*3/uL (0.00-0.03); Imm Gran Pct Auto 0.3 % (0.0-0.4); Lymphocytes Absolute Auto 0.8 X10*3/uL (1.2-4.9); Mean Corpuscular HGB Conc 33.6 g/dl (31.0-35.0); Mean Corpuscular Hemoglobin 30.2 pg (27.0-33.0); Mean Corpuscular Volume 90.0 fL (80.0-98.0); NRBC Abs Auto 0.000 X10*3/uL (0.0-0.012); NRBC Pct Auto 0.0 /100WBC (0.0-0.2); Platelet Count 283 X10*3/uL (160-400); Red Blood Count 4.50 X10*6/uL (4.20-5.50); White Blood Count 9.0 X10*3/uL (4.8-10.8)
[2024-12-21 13:41] LABS: COVID-19 Test Negative (Negative); IDNOW Serial# 55D5AD1C
[2024-12-21 13:43] LABS: IDNOW Serial# 58CA691E; Influenza B2 Negative (Negative)
[2024-12-21] MEDS: Albuterol Sulfate 5 MG, Albuterol/Iprat 2.5/0.5MG 3 ML 3 ML INHALE (14:01)
[2024-12-21 14:05] LABS: Troponin-I High Sensitivity < 2.7 ng/L (<3.5-17.0)
--- NOTE | 2024-12-21 14:34 | PC.NURSE ---
Patient received updraft treatment by RT, completed. 18g IV access to right AC, medications infusing as ordered. Care ongoing by this RN.
[2024-12-21 15:26] LABS: Alanine Aminotransferase 11 U/L (0-31); Albumin Level 4.5 g/dL (3.5-5.0); Alkaline Phosphatase 120 U/L (39-117); Anion Gap 13 (12-20); Aspartate Amino Transferase 25 U/L (5-31); Blood Urea Nitrogen 15 mg/dL (9-16); Calcium 9.4 mg/dL (8.4-10.2); Carbon Dioxide 22 mmol/L (22-29); Chloride 107 mmol/L (96-108); Creatinine Clr Calc Pharmacy 87.9; Estimated Glomerular Filt Rate > 60; Magnesium 2.2 mg/dL (1.6-2.6); Potassium 3.7 mmol/L (3.3-5.1); Sodium 138 mmol/L (135-145); Total Protein 7.9 g/dL (6.5-8.0)
[2024-12-21 16:02] LABS: OBS Int Ctl Valid YES; OBS1 NEGATIVE (NEGATIVE)
--- NOTE | 2024-12-21 16:23 | PC.NURSE ---
Dr. Marie (hospitalist) at bedside speaking with the patient at this time.
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
--- OUTSIDE RECORDS SUMMARY | 2024-12-21 17:18 | XMS_ITS | Encounter Summary ---
Author Organization [facility] Address [address] [place] [address] Care Team Providers Care Fire Management Officer Name Role Phone Ezequiel Davis Primary Care Provider Unavail Sarah PugaP Primary Care Provider [phone] Latasha Cline NP Primary Care Provider [phone] Reason for Visit * Reason Comments Med Refill Encounter Details Date Type Department Care Team (Late st Contact Info) Description 08/18/2022 Refill [facility] [address] [place], [place] [phone] Ezequiel Davis AGNP Insomnia, unspecified type Social [...] Description 02/02/2025 3:15 PM EST Office Visit [facility] [address] [place], [place] [phone] Latasha Cline, EV[place] [address] [place] [address] 03/01/2025 1:00 PM EST Clinical Support [facility] [address] [place] [address] Patricia Tejeda, RN documented as of this encounter Visit Diagnoses Diagnosis Insomnia, unspecified type documented in this encounter Care Teams Fire Management Officer Relationship Specialty Start Date End Date Ezequiel Davis AGNP PCP - General Family Medicine 02/23/22 10/15/22 Sarah Burrell FNP [address] [place] [id number] PCP - General Family Medicine 10/16/22 03/16/23 Latasha Cline, EVANS [address] [place] [id number] PCP - General Family Medicine 03/17/23 Pramod Del Real Fruit Packer Face And FillShank Sorter 07/15/23 documented as of this encounter
--- OUTSIDE RECORDS SUMMARY | 2024-12-21 17:19 | XMS_ITS | Encounter Summary ---
Author Organization [employer] Address [address] [facility] 7t [place] [address] Care Team Providers Care Critical Care Physician Assistant Name Role Phone Sarah BurrellP Primary Care Provider [phone] Latasha Cline NP Primary Care Provider [phone] Encounter Details Date Type Department Care Team (Late st Contact Info) Description 12/28/2022 Abstract [facility] MEDICINE [address] [place] [address] Sarah Burrell FNP [address] [place], [place] [phone] Social History Tobacco Use Types Packs/Day Years [...] Description 02/02/2025 3:15 PM EST Office Visit [address] [address] Latasha Cline NP [address] [place] [address] 03/01/2025 1:00 PM EST Clinical Support [address] [address] Patricia Tejeda, RAE documented as of this encounter Visit Diagnoses Not on filedocumented in this encounter Care Teams Critical Care Physician Assistant Relationship Specialty Start Date End Date Sarah Burrell FNP [address] [place] [address] PCP - General Family Medicine 10/16/22 03/16/23 Latasha Cline NP [address] [place] [address] PCP - General Family Medicine 03/17/23 Pramod Del Real Supervisor CardingPressure Tester 07/15/23 documented as of this encounter
--- OUTSIDE RECORDS SUMMARY | 2024-12-21 17:19 | XMS_ITS | Encounter Summary ---
Author Organization [employer] Address 75 [facility] 7t [place] [address] Care Team Providers Care Sawmill Manager Name Role Phone Ezequiel Davis Primary Care Provider Unavail Sarah Puga SECURITY AGENT Primary Care Provider [phone] Latasha Cline NP Primary Care Provider [phone] Reason for Visit * Reason Onset Date Comments Med Refill 04/17/2022 Encounter Details Date Type Department Care Team (Late st Contact Info) Description 04/17/2022 Telephone [facility] MEDICINE 230 [place] [address] Ezequiel Davis AGNP Med Refill Social History [...] Smith LPN - 04/17/2022 11:52 AM EST MECHANICAL DESIGN ENGINEER PRODUCTS checked on 04/17/22 medication has not been prescribed elsewhere. Per [facility] medication vtrbpuae06/19/2015. Please review. Last seen 03/18/22. * Telephone Encounter - [place] - 04/17/2022 10:40 AM EST Tc from pt requesting med refill on Ambien 5 mg Tablet. Medication is currently inactive. Please sent to [id number] - [place] - [address] [facility] documented in this encounter Plan of Treatment Upcoming Encounters Date Type Department Care Team (Late st Contact Info) Description 02/02/2025 3:15 PM EST Office Visit [address] [address] Latasha Cline NP [address] [place] [address] 03/01/2025 1:00 PM EST Clinical Support [address] [address] Patricia Tejeda RN documented as of this encounter Visit Diagnoses Not on filedocumented in this encounter Care Teams Sawmill Manager Relationship Specialty Start Date End Date Ezequiel Davis AGNP PCP - General Family Medicine 02/23/22 10/15/22 Sarah Burrell FNP [address] [place] [address] PCP - General Family Medicine 10/16/22 03/16/23 Latasha Cline NP [address] [place] [address] PCP - General Family Medicine 03/17/23 Pramod Del Real Wellness ConsultantAwning Hanger Supervisor 07/15/23 documented as of this encounter
--- OUTSIDE RECORDS SUMMARY | 2024-12-21 17:19 | XMS_ITS | Encounter Summary ---
Author Organization [employer] Address 75 [facility] 7t [place] [address] Care Team Providers Care Bleach Tester Name Role Phone Latasha Cline NP Primary Care Provider [phone] Encounter Details Date Type Department Care Team ([facility] st Contact Info) Description 06/07/2023 Telephone [facility] MEDICINE 230 [place], [place] [phone] Latasha Cline NP 230 [place] [address] Social History Tobacco Use Types Packs/Day Years [...] Description 02/02/2025 3:15 PM EST Office Visit [address] [address] Latasha Cline NP [address] [place] [address] 03/01/2025 1:00 PM EST Clinical Support [address] [address] Patricia Tejeda RN documented as of this encounter Visit Diagnoses Not on filedocumented in this encounter Additional Health Concerns Assessment Noted Time PHQ-9 Depression Total Score: 0 06/04/19 24 9:43 AM EDT documented as of this encounter Care Teams Bleach Tester Relationship Specialty Start Date End Date Latasha Cline NP [address] [place] [address] PCP - General Family Medicine 03/17/23 Pramod Del Real Sales Effectiveness ManagerInternal Affairs Investigator 07/15/23 documented as of this encounter
--- OUTSIDE RECORDS SUMMARY | 2024-12-21 17:19 | XMS_ITS | Encounter Summary ---
Author Organization [employer] Address 75 [facility] 7t [place] [address] Care Team Providers Care Fraud Examiner Name Role Phone Sarah BurrellP Primary Care Provider [phone] Latasha Cline NP Primary Care Provider [phone] Reason for Visit * Reason Onset Date Comments Appointment Request 02/22/2023 Encounter Details Date Type Department Care Team ([facility] st Contact Info) Description 02/22/2023 Telephone [facility] MEDICINE [address] [place] [address] Sarah Burrell FNP [address] [place], [place] [phone] Appointment Request Social History Tobacco Use Types [...] Description 02/02/2025 3:15 PM EST Office Visit [facility] MEDICINE [address] [place] [address] Latasha Cline NP 230 [place] [address] 03/01/2025 1:00 PM EST Clinical Support [address] [address] Patricia Tejeda, RAE documented as of this encounter Visit Diagnoses Not on filedocumented in this encounter Care Teams Fraud Examiner Relationship Specialty Start Date End Date Sarah Burrell FNP [address] [place] [address] PCP - General Family Medicine 10/16/22 03/16/23 Latasha Cline NP [address] [place] [address] PCP - General Family Medicine 03/17/23 Pramod Del Real Athletic Team PhysicianDust Puller 07/15/23 documented as of this encounter
--- OUTSIDE RECORDS SUMMARY | 2024-12-21 17:19 | XMS_ITS | Encounter Summary ---
Author Organization [employer] Address 75 [facility] 7t [place] [address] Care Team Providers Care Uniform Room Attendant Name Role Phone Latasha Cline NP Primary Care Provider [phone] Reason for Visit * Reason Onset Date Comments Med Refill 04/01/2023 Encounter Details Date Type Department Care Team (Late st Contact Info) Description 04/01/2023 Refill [facility] MEDICINE 230 [place] [address] Latasha Cline, EVANS [address] [place] [address] Migraine without status migrainosus, not intractable, unspecified [...] requesting medication refill. Medications needing refill : [id number]-[id number] 50-325-40 MG tablet To be sent to: [facility][id number] - [place], [place] - [facility] [place] [facility] documented in this encounter Plan of Treatment Upcoming Encounters Date Type Department Care Team (Late st Contact Info) Description 02/02/2025 3:15 PM EST Office Visit [facility] MEDICINE [address] [place] [address] Latasha Cline NP 230 [place] [address] 03/01/2025 1:00 PM EST Clinical Support [facility] MEDICINE [address] [place] [address] Patricia Tejeda RN documented as of this encounter Visit Diagnoses Diagnosis Migraine without status migrainosus, not intractable, unspecified migraine type documented in this encounter Care Teams Uniform Room Attendant Relationship Specialty Start Date End Date Latasha Cline NP 230 [place] [address] PCP - General Family Medicine 03/17/23 Pramod Del Real Reliability EngineerIdentity Management Consultant 07/15/23 documented as of this encounter
--- OUTSIDE RECORDS SUMMARY | 2024-12-21 17:19 | XMS_ITS | Encounter Summary ---
Author Organization [employer] Address 75 [facility] 7t [place] [address] Care Team Providers Care Regional Sales Associate Name Role Phone Latasha Cline NP Primary Care Provider [phone] Reason for Visit * Reason Onset Date Comments Med Refill 10/13/2024 Encounter Details Date Type Department Care Team ([facility] st Contact Info) Description 10/13/2024 Telephone [facility] MEDICINE 230 [place] [address] Latasha Cline NP [address] [place] [address] Med Refill Social History Tobacco Use Types [...] 5 MG tablet To be sent to: [facility]/pharmacy #[address] [place] [address] documented in this encounter Plan of Treatment Upcoming Encounters Date Type Department Care Team (Late st Contact Info) Description 02/02/2025 3:15 PM EST Office Visit [facility] MEDICINE [address] [place] [address] Latasha Cline NP 230 [place] [address] 03/01/2025 1:00 PM EST Clinical Support [facility] [address] [place] [address] Patricia Tejeda RN documented as of this encounter Visit Diagnoses Not on filedocumented in this encounter Additional Health Concerns Assessment Noted Time PHQ-9 Depression Total Score: 0 06/04/19 24 9:43 AM EDT documented as of this encounter Care Teams Regional Sales Associate Relationship Specialty Start Date End Date Latasha Cline NP [address] [place] [address] PCP - General Family Medicine 03/17/23 Pramod Del Real Procurement CoordinatorBirdcage Assembler 07/15/23 documented as of this encounter
--- OUTSIDE RECORDS SUMMARY | 2024-12-21 17:19 | XMS_ITS | Encounter Summary ---
Author Organization [employer] Address [address] [facility] [address] 7t [place] [address] Care Team Providers Care Senior Director Creative Services Name Role Phone Latasha Cline NP Primary Care Provider [phone] Encounter Details Date Type Department Care Team ([facility] st Contact Info) Description 01/20/2024 Refill [facility] MEDICINE 230 [place], [place] [phone] Latasha Cline NP [address] [place] [address] Chronic pain syndrome Social History Tobacco Use [...] immediate release tablet To be sent to: [id number] - [place] [facility] documented in this encounter Plan of Treatment Upcoming Encounters Date Type Department Care Team (Late st Contact Info) Description 02/02/2025 3:15 PM EST Office Visit [facility] MEDICINE [address] [place] [address] Latasha Cline NP [address] [place] [address] 03/01/2025 1:00 PM EST Clinical Support [address] [address] Patricia Tejeda, RAE documented as of this encounter Visit Diagnoses Diagnosis Chronic pain syndrome documented in this encounter Additional Health Concerns Assessment Noted Time PHQ-9 Depression Total Score: 0 06/04/19 24 9:43 AM EDT documented as of this encounter Care Teams Senior Director Creative Services Relationship Specialty Start Date End Date Latasha Cline NP [address] [place] [address] PCP - General Family Medicine 03/17/23 Pramod Del Real I&C TechnicianContract Writer 07/15/23 documented as of this encounter
--- OUTSIDE RECORDS SUMMARY | 2024-12-21 17:19 | XMS_ITS | Encounter Summary ---
Author Organization [employer] Address 75 [facility] 7t [place] [address] Care Team Providers Care Equal Opportunity Assistant Name Role Phone Latasha Cline NP Primary Care Provider [phone] Reason for Visit * Reason Onset Date Comments Med Refill 05/19/2024 Encounter Details Date Type Department Care Team ([facility] st Contact Info) Description 05/19/2024 Telephone [facility] MEDICINE 230 [place] [address] Latasha Cline NP 230 [place] [address] Med Refill Social History Tobacco Use Types [...] 25 MG capsule To be sent to: [id number] [place] [facility] [place] [facility] documented in this encounter Plan of Treatment Upcoming Encounters Date Type Department Care Team (Late st Contact Info) Description 02/02/2025 3:15 PM EST Office Visit [address] [phone] Latasha Cline NP 230 [place] [address] 03/01/2025 1:00 PM EST Clinical Support [address] [phone] Ileana, Patricia, RN documented as of this encounter Visit Diagnoses Not on filedocumented in this encounter Additional Health Concerns Assessment Noted Time PHQ-9 Depression Total Score: 0 06/04/19 24 9:43 AM EDT documented as of this encounter Care Teams Equal Opportunity Assistant Relationship Specialty Start Date End Date Latasha Cline NP 230 [place] [address] PCP - General Family Medicine 03/17/23 Pramod Del Real Industrial EngPython Consultant 07/15/23 documented as of this encounter
--- OUTSIDE RECORDS SUMMARY | 2024-12-21 17:19 | XMS_ITS | Encounter Summary ---
Author Organization [employer] Address [address] [facility] 7t [place] [address] Care Team Providers Care Bindery Machine Feeder Offbearer Name Role Phone Sarah Burrell Primary Care Provider [phone] Latasha Cline NP Primary Care Provider [phone] Reason for Visit * Reason Onset Date Comments Med Refill 01/06/2023 Encounter Details Date Type Department Care Team ([facility] st Contact Info) Description 01/06/2023 Telephone [facility] MEDICINE [address] [place] [address] Sarah Burrell FNP [address] [place], [place] [phone] Med Refill Social History Tobacco Use Types [...] 5 MG tablet to be sent to [facility][id number] - [place], [place] - [place] [facility] documented in this encounter Plan of Treatment Upcoming Encounters Date Type Department Care Team (Late st Contact Info) Description 02/02/2025 3:15 PM EST Office Visit [address] [address] Latasha Cline NP 230 [place] [address] 03/01/2025 1:00 PM EST Clinical Support [address] [address] Patricia Tejeda RN documented as of this encounter Visit Diagnoses Not on filedocumented in this encounter Care Teams Bindery Machine Feeder Offbearer Relationship Specialty Start Date End Date Sarah Burrell FNP [address] [place] [address] PCP - General Family Medicine 10/16/22 03/16/23 Latasha Cline NP [address] [place] [address] PCP - General Family Medicine 03/17/23 Pramod Del Real Chemist BiologicalCadastral Surveyor 07/15/23 documented as of this encounter
--- OUTSIDE RECORDS SUMMARY | 2024-12-21 17:19 | XMS_ITS | Clinical Summary ---
Author Organization [employer] Address [address] [place] [address] Care Team Providers Care Channel Sales Manager Name Role Phone Son Latasha KRUEGER Primary Care Provider [phone] Allergies Active Allergy Reactions Criticality Noted Date [...] route every day as needed for constipation 017 Active Calamine-Zinc Oxide (RA Calamine) 6.971-6.971 % lotion Apply to affected area upto 4 times daily as needed 017 Active Clobetasol Prop Emollient Base 0.05 % emollient cream Apply topically. 2 times every day a thin layer to the affected area 022 Active diclofenac (Voltaren) 75 MG EC tablet [...] mouth in the morning. Active sodium chloride (Turon) 0.65 % nasal spray 1-2 sprays in [...] USE DIRECTED Active neomycin-polymy echo-dexAMETHaso ne (Polydex) 3.5-47608-3.1 ointment ophthalmic ointment Active omeprazole OTC (PriLOSEC [...] needed for opioid reversal. 2 each 3 023 Active hydrocortisone (Anusol-HC) 2.5 % rectal creamIndication s:Guttate psoriasis APPLY RECTALLY TO THE AFFECTED AREA TWICE DAILY NEEDED FOR HEMORRHOIDS 30 g 1 024 Active Calcium Carb-Cholecalci ferol (Calcium 600+D3) 600-10 MG-MCG tablet Take 1 tablet by mouth 2 times daily. TAKE 1 TABLET BY MOUTH TWICE A DAY 180 tablet 024 Active Citrucel 500 MG tablet Take 1 tablet by mouth 2 times daily. 30 tablet 2 024 Active fish oil (Williston-3) 500 MG capsuleIndicati ons:Elevated lipids TAKE 1 CAPSULE BY MOUTH EVERY DAY 90 capsule 024 Active amoxicillin-cla vulanate (Augmentin) 875-125 MG tablet Take 1 tablet by mouth 2 times daily. 14 tablet 025 Active loratadine (Claritin) 10 MG tabletIndicatio ns:Allergic rhinitis, unspecified seasonality, unspecified trigger Take 1 tablet (10 mg) by mouth Once per day. 90 tablet 2 025 Active lisinopril 30 MG tablet TAKE 1 TABLET BY MOUTH EVERY DAY 90 tablet 1 025 Active Lasmiditan Succinate (Reyvow) 50 MG tabletIndicatio ns:Other migraine without status migrainosus, not intractable Take 1 tablet by mouth at onset of migraine, may repeat dose x 1 . Do not exceed 2 tablets in 24 hours or 4 tablets in 1 week 8 tablet 025 Active triamcinolone (Kenalog) 0.1 % ointmentIndicat ions:Guttate [...] replace cap. 48 mL 025 2025 Active zolpidem (Ambien) 5 MG tabletIndicatio ns:Insomnia, unspecified type TAKE 1 TABLET BY MOUTH AT BEDTIME NEEDED FOR SLEEP 30 tablet Active fluticasone (Flonase) 50 MCG/ACT nasal spray Administer 1 spray into each nostril Once per day. Shake gently. Before first use, prime pump. After use, clean tip and replace cap. 48 g 025 2024 Discontinued oxyCODONE (Roxicodone) 15 MG immediate release tabletIndicatio ns:Chronic pain syndrome Take 1 tablet (15 mg) by mouth every 6 (six) hours if needed (for severe pain) for up to 28 days. 112 tablet 025 2024 Discontinued(R eorder (will not trigger notification to Pharmacy)) zolpidem (Ambien) 5 MG tabletIndicatio ns:Insomnia, unspecified type TAKE 1 TABLET BY MOUTH AT BEDTIME NEEDED FOR SLEEP 30 tablet 025 2024 Discontinued(R eorder (will not trigger [...] Date Viral upper respiratory tract infection 11/30/19 25 Assessment & Plan (11/29/2024 3:36 PM EDT): [...] EDT): The 10-year ASCVD risk score (Audrey OLIVEIRA, et al., 2019) is: 3.2% Values used [...] factors. LDL-C is now calculated using the Juan-Mata calculation, which is a validated novel method providing better accuracy than the Friedewald equation in the estimation of LDL-C. Juan CONNOLLY et al. LINN. 2013;310(19): 2616-1123 (http://education.Digital Shadows.Wengo/faq/HIN022) Chol/HDLC Ratio <5.0 (calc) 3.3 3.9 Non-HDL [...] PM EDT): Healing well. Elevated lipids 05/15/2022 Assessment & Plan (07/15/2022 3:26 PM EDT): [...] She reports never being contacted by the manager plant. She would like another referral. Routine adult health maintenance 05/15/2022 Assessment & Plan (06/04/2023 7:15 PM EDT): In care with dial painter, mammogram ordered, will address routine health maintenance [...] last visit 07/15. She is still waiting button sewer hand from orthopedics regarding her referral. Assessment & [...] back pain 10/29/2011 Flare of rheumatoid arthritis ([facility]) 10/29/19 12 Assessment & Plan (06/04/2023 7:10 [...] Encounters Date Type Department Care Team Description 12/21/2024 Orders Only GENERIC EXTERNAL DATA DEPARTMENT Provider, Generic External Data 12/19/2024 Telephone [facility] [address] [place] [phone] Latasha Cline NP ER Follow-up 12/13/[address] [address] Latasha Cline NP ER Follow-up 12/13/[address] [address] Latasha Cline NP Insomnia, unspecified type 12/08/2024 Orders Only GENERIC EXTERNAL DATA DEPARTMENT Provider, Generic External Data 11/30/[address] [address] Latasha Cline NP DEC RECALL 11/29/2024 3:00 PM EDT Office Visit [facility] [address] [address] Iris Herring MD Viral upper respiratory tract infection (Primary Dx); Cough, unspecified type; Body aches 11/29/2024 2:30 PM EDT Clinical Support [address] [address] Patricia Tejeda, RN Long-term current use of opiate analgesic (Primary Dx) 11/29/[address] [address] Patricia Tejeda, RN TEXT TRANSCRIBER Tier 2 11/29/2024 Travel 11/27/2024 Refill [facility] [address] [place] [address] Latasha Cline NP Chronic pain syndrome 11/25/2024 Refill [facility] [address] [place] [address] Tod Bhatia MD 11/13/2024 Refill [facility] [address] [place] [address] Latasha Cline NP Insomnia, unspecified type; 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/31/2024 10:30 AM EDT Clinical Support [address] [address] Patricia Tejeda, RN Long-term current use of opiate analgesic (Primary Dx) 10/31/[address] [place] [address] Latasha Cline, EVANS Nurse Triage 10/30/2024 1:00 PM EDT Office Visit [address] [place] [address] Latasha Cline, EVANS Chronic pain syndrome (Primary Dx) 10/30/[address] [place] [address] Latasha Cline NP 10/30/[address] [place] [address] Patricia Tejeda RN 10/30/2024 Travel 10/26/[address] [place] [address] Latasha Cline NP CHARTPREP 10/13/[address] [address] Latasha Cline NP Med Refill 10/13/[address] [place] [address] Latasha Cline NP Insomnia, unspecified type 10/13/[address] [address] Latasha Cline NP Chronic pain syndrome 10/03/2024 Results Follow-Up [address] [address] Latasha Cline NP POCT NELSON-14 Urine Drug Screen, Drug Monitoring, Benzodiazepines, Quantitative, Urine 10/03/[address] [address] Patricia Tejeda, RN UTOX confirmation Pos BZO 09/28/2024 10:30 AM EDT Clinical Support [address] [place] [address] Patricia Tejeda, RN Long-term current use of opiate analgesic (Primary Dx) 09/28/[address] [address] Patricia Tejeda, RN Clarification of anxiety medication 09/28/2024 Refill [facility] [address] [place] [address] Patricia Tejeda RN Chronic pain syndrome 09/28/2024 Travel 09/20/2024 Telephone [facility] [address] [place] [address] Latasha Cline NP from Last 3 Months Immunizations Immunization Administration [...] Description 02/02/2025 3:15 PM EST Office Visit [facility] [address] [place] [address] Latasha Cline NP [address] [place] [address] 03/01/2025 1:00 PM EST Clinical Support [facility] [address] [place] [address] Patricia Tejeda, RN Health Maintenance Due Date Last Done Comments [...] 06/16, 07/10/2020, Additional history exists COVID-19 Vaccine ( season) 2024 05/14/2023, 11/27/2021, 06/26/2021, Additional history exists Influenza Vaccine (#1) 2024 , 11/27/2021, 11/22/2020, Additional history exists Colonoscopy 2025 2020, 09/22/2013 Colorectal Cancer Screening 2025 Alcohol/Substance Use Screening 10/30/2025 10/30/2024 Depression Screening 10/30/2025 10/30/2024, 10/31/19 SDOH Screening 10/30/2025 10/30/2024 Tobacco Screening 11/29/2025 [...] Procedure Name Priority Date/Time Associated Diagnosis Comments OBSX1 Routine 12/21/2024 3:48 PM EST LACTIC ACID Routine 12/21/2024 1:55 PM EST VENOUS BLOOD GAS Routine 12/21/2024 1:25 PM EST MAGNESIUM Routine 12/21/2024 1:18 PM EST COMPREHENSIVE METABOLIC PANEL Routine 12/21/2024 1:18 PM EST HIGH SENSITIVITY TROPONIN I Routine 12/21/2024 1:18 PM EST CBC WITH AUTO DIFFERENTIAL Routine 12/21/2024 1:18 PM EST COVID-19 ID NOW (LI) Routine 12/21/2024 1:17 PM EST INFLUENZA A B2 ID NOW (LI) Routine 12/21/2024 1:17 PM EST XR CHEST 2 VIEWS Routine 12/21/2024 1:00 PM EST XR CHEST 1 VIEW Routine 12/08/2024 6:22 [...] Recently Relevant to Health Maintenance Results * OBSX1 (12/21/2024 3:48 PM EST) [facility] OBS1 NEGATIVE NEGATIVE [facility] 12/21/2024 3:48 PM EST 12/21/2024 3:53 PM EST Generic External Data Provider LAB BLOOD ORDERAB LES Final Result Performing Organization Address City/[facility]/ZIP Co de Phone Number [facility] [address] [place] [phone] * Lactic Acid (12/21/2024 1:55 PM EST) [facility] Lactic Acid 1.1 0.5 - 2.0 mmol/L [facility] 12/21/2024 1:55 PM EST 12/21/2024 2:05 PM EST Generic External Data Provider LAB BLOOD ORDERAB LES Final Result Performing Organization Address [facility] Co de Phone Number [facility] [address] [place] [phone] * (ABNORMAL) VENOUS BLOOD GAS (12/21/2024 1:25 PM EST) [facility] VBG pH 7.47(H) 7.32 - 7.43 [facility] Comment:METER #: [id number] additional_comment: Cb abliai VBG PCO2 30 mmHg [facility] Comment:METER #: [id number] additional_comment: Cb abliai VBG PO2 53 mmHg [facility] Comment:METER #: [id number] additional_comment: Cb abliai VBG Base Excess -0.4 mmol/L [facility] Comment:METER #: [id number] additional_comment: Cb abliai VBG HCO3 22 22 - 26 mmol/L [facility] Comment:METER #: [id number] additional_comment: Cb abliai O2 Sat, Neymar 84.0 % [facility] Comment:METER #: [id number] additional_comment: Cb arie 12/21/2024 1:25 PM EST 12/21/2024 1:28 PM EST Generic External Data Provider LAB BLOOD ORDERAB LES Final Result Performing Organization Address [facility] Number [facility] [address] [place] [address] [phone] * High Sensitivity Troponin I (12/21/2024 1:18 PM EST) [facility] TROPONIN I HIGH SENSITIVITY <2.7 <3.5 - 17.0 ng/L [facility] Comment:The Li high sens itivity Troponin-I results should beused in conjunction with other diagnostic information suchas ECG, clinical observations and information, and patientsymptoms to aid in the diagnosis of ND. 12/21/2024 1:18 PM EST 12/21/2024 1:23 PM EST Generic External Data Provider LAB BLOOD ORDERAB LES Final Result Performing Organization Address [facility] [address] [place] [phone] * (ABNORMAL) CBC auto differential (12/21/2024 1:18 PM EST) Only the most recent of2 resultswithin the time period is included. [facility] White Blood Count 9.0 4.8 - 10.8 X10*3/uL [facility] Red Blood Count 4.50 4.20 - 5.50 X10*6/uL [facility] Hemoglobin 13.6 12.0 - 16.0 g/dl [facility] Hematocrit 40.5 37.0 - 47.0 % [facility] Mean Corpuscular Volume 90.0 80.0 - 98.0 fL [facility] Mean Corpuscular Hemoglobin 30.2 27.0 - 33.0 pg [facility] Mean Corpuscular HGB Conc 33.6 31.0 - 35.0 g/dl [facility] Red Cell Distribution Width 12.5 11.0 - 16.0 % [facility] Platelet Count 283 160 - 400 X10*3/uL [facility] Mean Platelet Volume 10.3 9.4 - 12.3 fL [facility] Neutrophils Percent Auto 85.4(H) 45 - 73 % [facility] Imm Gran Pct Auto 0.3 0.0 - 0.4 % [facility] Lymphocytes Percent Auto 8.7(L) 20 - 40 % [facility] Monocytes Percent Auto 4.9 2 - 11 % [facility] Eosinophils Percent Auto 0.4 0 - 4 % [facility] Basophils Percent Auto 0.3 0 - 2 % [facility] NRBC Pct Auto 0.0 0.0 - 0.2 /100WBC [facility] Neutrophils Absolute Auto 7.7 2.0 - 8.3 x10*3/uL [facility] Imm Gran Abs Auto 0.03 0.00 - 0.03 X10*3/uL [facility] Lymphocytes Absolute Auto 0.8(L) 1.2 - 4.9 X10*3/uL [facility] Monocytes Absolute Auto 0.4 0.1 - 1.2 X10*3/uL [facility] Eosinophils Absolute Auto 0.0 0.0 - 0.4 X10*3/uL [facility] Basophils Absolute Auto 0.0 0.0 - 0.2 X10*3/uL [facility] NRBC Abs Auto 0.000 0.0 - 0.012 X10*3/uL [facility] 12/21/2024 1:18 PM EST 12/21/2024 1:23 PM EST us Generic External Data Provider LAB BLOOD ORDERAB LES Final Result [facility] [address] [place] [address] [phone] * Magnesium (12/21/2024 1:18 PM EST) Magnesium 2.2 1.6 - 2.6 mg/dL [facility] 12/21/2024 1:18 PM EST 12/21/2024 1:23 PM EST us Generic External Data Provider LAB BLOOD ORDERAB LES Final Result [facility] [address] [place] [address] [phone] * (ABNORMAL) Comprehensive Metabolic Panel (12/21/2024 1:18 PM EST) Only the most recent of2 resultswithin the time period is included. Sodium 138 135 - 145 mmol/L [facility] Potassium 3.7 3.3 - 5.1 mmol/L [facility] Chloride 107 96 - 108 mmol/L [facility] Carbon Dioxide 22 22 - 29 mmol/L [facility] Anion Gap 13 12 - 20 [facility] Urea Nitrogen (BUN) 15 9 - 16 mg/dL [facility] Creatinine, Serum 0.58 0.5 - 1.4 mg/dL [facility] Creatinine Clr Calc Pharmacy 87.9 [facility] Comment:Provided height and weight: 162.56 cm,60.1 kg.eGFR (calculated from the MDRD study equation) and eCrCl(calculated from the Cockcroft-Gault equation) are based ondifferent parameters and may not yield comparable results.If eCrCl result is absurd, please check patient'sheight/weight. Estimated Glomerular Filt Rate >60 [facility] Comment:Chronic Kidney Disea se: Estimated GFR < 60 mL/min/1.11f4Foamsz Kidney Disease: Estimated GFR < 15 mL/min/1.73m2 Glucose 99 60 - 115 mg/dL [facility] Calcium 9.4 8.4 - 10.2 mg/dL [facility] Bilirubin, Total 1.0 0.0 - 1.0 mg/dL [facility] Aspartate Amino Transferase 25 5 - 31 U/L [facility] Alanine Aminotransferase 11 0 - 31 U/L [facility] Total Protein 7.9 6.5 - 8.0 g/dL [facility] Albumin Level 4.5 3.5 - 5.0 g/dL [facility] Alkaline Phosphatase 120(H) 39 - 117 U/L [facility] 12/21/2024 1:18 PM EST 12/21/2024 1:23 PM EST Generic External Data Provider LAB BLOOD ORDERAB LES Final Result Performing Organization Address [facility] Co de Phone Number [facility] [address] [place] [phone] * Influenza A B2 ID NOW (Li) (12/21/2024 1:17 PM EST) Only the most recent of2 resultswithin the time period is included. IDNOW SERIAL# [id number] [facility] Influenza A Negative Negative [facility] Influenza B2 Negative Negative [facility] Influenza A B2 Note See Note [facility] Comment:The Li ID NOW In [...] specimen and co- infection withRespiratory Syncytial Virus. 12/21/2024 1:17 PM EST 12/21/2024 1:23 PM EST Generic External Data Provider LAB MICROBIOLOGY - GENERAL ORDERABLES Final Result Performing Organization Address [facility]/ZIP Co de Phone Number [facility] [address] [place] [phone] * COVID-19 ID NOW (LI) (12/21/2024 1:17 PM EST) Only the most recent of2 resultswithin the time period is included. ANJUM SERIAL# [id number] [facility] COVID-19 TEST Negative Negative [facility] COVID-19 NOTE See Note [facility] Comment: Results are for the identification of SARS-CoV2 RNA. TheSARS-CoV2 RNA is generally detectable in respiratory samplesduring the acute phase of infection. Positive results areindicative of the presence of SARS-CoV-2 RNA; clinicalcorrelation with patient history and other diagnosticinformation is necessary to determine patient infectionstatus. Positive results do not rule out bacterial infectionor co- infection with other viruses.Testing facilities [facility] and itsterritories are required to report all positive results [...] on the Li ID NOW utilizing NAAT. 12/21/2024 1:17 PM EST 12/21/2024 1:23 PM EST us Generic External Data Provider LAB MOLECULAR DON GNOSTICS ORDERABLES Final Result [facility] [address] [place] [phone] * XR Chest 2 Views (12/21/2024 1:00 PM EST) Anatomical Region Laterality Modality Chest Radiographic Carole ging 12/21/2024 1:00 PM EST Narrative 12/21/2024 1:17 PM EST [address] [address] XRay Report Signed Patient: Soni Mahoney MR#: [id number] : 1965 Acct:[id number] Age/Sex: 59 / F ADM Date: 12/21/24 Loc: HO.ED Attending Dr: Ordering Physician: Katherine Dick Date of Service: 12/21/24 Procedure(s): XR chest 2V Accession Number(s): [id number] cc: Katherine Dick; [facility] Reason for Exam: chest pain EXAMINATION: XR CHEST CLINICAL INFORMATION: chest pain COMPARISON: December 08, 2024 TECHNIQUE: PA and lateral views FINDINGS: Hyperinflated lungs. Pulmonary reticular pattern. Blunting of the right costophrenic angle. No pneumothorax. Cardiac mediastinal silhouette size is normal. Prominent tortuous thoracic aorta with calcified plaques. Osteopenia versus osteoporosis. Multilevel thoracolumbar spondylosis and a shaped curvature of the thoracolumbar spine. Radiopaque material to the right side of the thoracolumbar spine junction. Degenerative changes in the shoulders. 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 Superimposed acute airspace disease cannot be excluded. Scoliosis and spondylosis, thoracolumbar spine. Electronically signed by: Jean Marie Sanchez MD 12/21/2024 01:14 PM [facility] Dictated By: Jean Marie Bermudez MD Signed By: <Electronically signed by Jean Marie Vanessa MD in OV> 12/21/24 1314 DD/ 1300 TD/TT: 12/21/24 1307 [facility] Dem[facility] Agent: Procedure Note Donotuseinterpreter, Image - 12/21/[address] [address] XRay Report Signed Patient: Soni MahoneyMR#: [id number] : 1965Acct:[id number] Age/Sex: 59 / FADM Date: 12/21/24 Loc: HO.ED Attending Dr: Ordering Physician: Katherine Dick Date of Service: 12/21/24 Procedure(s): XR chest 2V Accession Number(s): [id number] cc: Katherine Dick; [facility] Reason for Exam: chest pain EXAMINATION: XR CHEST CLINICAL INFORMATION: chest pain COMPARISON: December 08, 2024 TECHNIQUE: PA and lateral views FINDINGS: Hyperinflated lungs. Pulmonary reticular pattern. Blunting of the right costophrenic angle. No pneumothorax. Cardiac mediastinal silhouette size is normal. Prominent tortuous thoracic aorta with calcified plaques. Osteopenia versus osteoporosis. Multilevel thoracolumbar spondylosis and a shaped curvature of the thoracolumbar spine. Radiopaque material to the right side of the thoracolumbar spine junction. Degenerative changes in the shoulders. 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 Superimposed acute airspace disease cannot be excluded. Scoliosis and spondylosis, thoracolumbar spine. Electronically signed by: Jean Marie Sanchez MD 12/21/2024 01:14 PM [facility] Dictated By: Jean Marie Bermudez MD Signed By: <Electronically signed by Jean Marie Vanessa MDin OV> 12/21/24 1314 DD/ 1300 TD/TT: 12/21/24 1307 [facility] [employer] Agent: [facility] External Provider IMG XR PROCEDURES Final Result * XR Chest 1 View (12/08/2024 6:22 AM EDT) Anatomical Region Laterality Modality Chest Radiographic Carole ging 12/08/2024 6:22 AM EDT Narrative 12/08/2024 6:24 AM EDT [address] [address] XRay Report Signed Patient: Soni Mahoney MR#: [id number] : 1965 Acct:[id number] Age/Sex: 59 / F ADM Date: 12/08/24 Loc: HO.ED Attending Dr: Ordering Physician: Laisha Coon DO Date of Service: 12/08/24 Procedure(s): XR chest 1V Accession Number(s): [id number] cc: Laisha Coon DO; [facility] Reason for Exam: cough CLINICAL HISTORY: [...] in OV> 12/08/24622 DD/ 1 TD/TT: 12/08/246[address] [facility] [employer] Agent: Procedure Note Donotuseinterpreter, Image - 12/08/2024 [place] [address] XRay Report Signed Patient: Artur Mahoney#: [id number] : 1965Acct:[id number] Age/Sex: 59 / FADM Date: 12/08/24 Loc: .ED Attending Dr: Ordering Physician: Laisha Coon DO Date of Service: 12/08/24 Procedure(s): XR chest 1V Accession Number(s): [id number] cc: Laisha Coon DO; [facility] Reason for Exam: cough CLINICAL HISTORY: [...] in OV> 12/08/24622 DD/ 1 TD/TT: 12/08/24621 [facility] [employer] Agent: [facility] External Provider IMG XR PROCEDURES Final Result * POCT Rapid Influenza A LI ID NOW (11/29/2024 3:36 PM EDT) Influenza A Negative Negative, Indeterminate [facility] QC Media Lot # [id number] [facility] Lot# Expiration Date [facility] Swab 11/29/2024 3:36 PM EDT Iris Herring MD POINT OF CARE TEST ENTER /EDIT ORDERABLES Final Result Performing Organization Address City/State/[facility] Co de Phone Number [facility] [address] [place] [phone] * POCT Rapid Covid-19 BinaxNOW (11/29/2024 3:36 PM EDT) Rapid COVID Ag Negative QC Media Lot # [id number] Lot# Expiration Date 026 Swab 11/29/2024 3:36 PM EDT Iris Herring MD POINT OF CARE TEST ENTER /EDIT ORDERABLES Final Result * POCT Rapid Influenza B LI ID NOW (11/29/2024 3:35 PM EDT) Influenza B Negative Negative, Indeterminate [facility] QC Media Lot # [id number] [facility] Lot# Expiration Date [facility] Swab 11/29/2024 3:35 PM EDT Iris Herring MD POINT OF CARE TEST ENTER /EDIT ORDERABLES Final Result [facility] [address] [place] [address] [phone] * (ABNORMAL) POCT NELSON-14 Urine Drug [...] Negative ng/mL Oxycodone Screen, Urine Positive(A) Negative Comment:TEXT TRANSCRIBER pt, on oxycodone Phencyclidine (PCP), Urine Negative Negative Propoxyphene, Urine Negative Negative Fentanyl, Urine Negative Negative Urine Urine specimen obtained by clean catch procedure / Unknown 11/29/2024 2:39 PM EDT Patricia Covarrubias, RAE - 11/29/2024 2:39 PM EDT UTOX cup Lot#[id number] Exp. 11/21/25 Internal Pass Control Latasha Cline NP POINT OF CARE TEST ENTER/EDIT OR DERABLES Final Result * Drug Monitoring, Benzodiazepines, Quantitative, Urine (09/28/2024 10:30 AM EDT) Nordiazepam, GCMS Urine 52 [facility] Comment:CUTOFF: 50 ng/mL Oxazepam, GCMS Urine NEGATIVE [facility] Comment:CUTOFF: 50 ng/mL Lorazepam GCMS Urine NEGATIVE [facility] Comment:CUTOFF: 50 ng/mL Alprazolam, GCMS Urine NEGATIVE [facility] Comment:CUTOFF: 25 ng/mL Alphahydroxytriazolam, GCMS Ur NEGATIVE [facility] Comment:CUTOFF: 50 ng/mL Temazepam, GCMS Urine 132 [facility] Comment:CUTOFF: 50 ng/mL Alphahydroxymidazolam,GC MS Ur NEGATIVE [facility] Comment:CUTOFF: 50 ng/mL Aminoclonazepam, GCMS Urine NEGATIVE [facility] Comment:CUTOFF: 25 ng/mL Flurazepam Metabolite,GCMS Ur NEGATIVE [facility] Comment:CUTOFF: 50 ng/mL Benzodiazepines Comments SEE NOTE [facility] Comment: This drug testing is [...] their analyticalperformance characteristics have been determined by [employer]. It has not been cleared or approved by the FDA.This assay has been validated pursuant to the CLIAregulations and is used for clinical purposes.Healthcare Providers needing Interpretation assistance,please contact us at [phone] ( ) M-F,8am to 10pm ESTPERFORMING SITE:[facility] [employer] [facility], [address] [place] [phone] Undertaker Assistant: ASHELY MCFARLAND MD, CLIA:[id number] Urine (Urine, Random) 09/28/2024 10:30 AM EDT 09/28/2024 4:40 PM EDT us Latasha Cline NP LAB URINE ORDERABLES Final Resul t Performing Organization Address City/[facility]/ZIP Co de Phone Number [facility] [address] [place] [address] [phone] * (ABNORMAL) Lipid Panel, Standard (07/17/2022 9:05 AM EDT) Cholesterol, Total 209(H) <200 mg/dL [facility] HDL Cholesterol 64 > OR = 50 mg/dL [facility] Triglycerides 79 <150 mg/dL [facility] [place] [facility] LDL Cholesterol 127(H) mg/dL (calc) [facility] Comment: Reference range: <100 Desirable range <100 mg/dL for primary prevention; <70 mg/dL for patients with CHD or diabetic patients with > or = 2 CHD risk factors. LDL-C is now calculated using the Constantine calculation, which is a validated novel method providing better accuracy than the Friedewald equation in the estimation of LDL-C. Juan SS et al. LINN. 2013;310(19): 9991-5894 (http://education.[employer]/faq/PIV022) Chol/HDLC Ratio 3.3 <5.0 (calc) [facility] [place] [facility] Non-HDL Cholesterol 145(H) <130 mg/dL (calc) [facility] Comment: For patients with diabetes plus 1 major ASCVD risk factor, treating to a non-HDL-C goal of <100 mg/dL (LDL-C of <70 mg/dL) is considered a therapeutic option. Blood Venous blood specimen / Unknown 07/17/2022 9:05 AM EDT 07/17/2022 9:06 AM EDT Narrative [facility] - 07/17/2022 8:14 PM EDT FASTING:YES FASTING: YES us Ezequiel CALLE LAB BLOOD ORDERABLES Final Res ult [facility] [address], [place] [address] [place] [place] [facility] [address] [place] [address] * BI Mammogram Screening Tomosynthesis Bilateral (06/09/2022 1:50 PM EDT) Anatomical Region Laterality Modality Breast Bilateral Mammography 06/09/2022 1:50 PM EDT Narrative 06/11/2022 5:15 PM EDT [facility] [address] [place] [address] Mammography Report Signed Patient: Soni Mahoney MR#: [id number] : 1965 Acct:[id number] Age/Sex: 56 / F ADM Date: 06/09/22 Loc: HO.MAMMO Attending Dr: Camron Medrano MD Ordering Physician: Camron Medrano MD Results: 2 Benign Findings Date of Service: 06/09/22 Follow Up: 1 Year From [facility] Mammogram Procedure(s): MM tomosynthesis screening BI Accession Number(s): [id number] cc: Camron Medrano MD EXAMINATION: MM SCREENING [...] in OV> 06/11/22 1712 DD/ 1350 TD/TT: [facility] Demonstration Agent: MORILLO Procedure Note Donotuseinterpreter, Image - 08/13/2022 [facility] [address] [place], [place] [address] Mammography Report Signed Patient: Soni MahoneyMR#: [id number] : 1965Acct:[id number] Age/Sex: 56 / FADM Date: 06/09/22 Loc: HO.MAMMO Attending Dr: Camron Medrano MD Ordering Physician: Camron Medrano MDResults: 2 Benign Findings Date of Service: 06/09/22Follow Up: 1 Year From [facility] Mammogram Procedure(s): MM tomosynthesis screening BI Accession Number(s): [id number] cc: Camron Medrano MD EXAMINATION: MM SCREENING [...] in OV> 06/11/22 1712 DD/ 1350 TD/TT: [facility] Demonstration Agent: YISEL [facility] External Provider IMG BI PROCEDURES Final Result * Hepatitis Panel, General (04/06/2022 3:31 AM EST) Hepatitis A IgM Nonreactive Nonreactive [facility] Comment:IgM antibodies to DELGADO V not detected; does not exclude earlyacute or recovered HAV infection. ~Hepatitis B Surface Antibody NONREACTIVE Nonreactive [facility] Comment:Nonreactive: < 8.00 mIU/mL Hepatitis B Core Antibody Nonreactive Nonreactive [facility] Hepatitis C Antibody Nonreactive Nonreactive [facility] Comment:Antibodies to HCV no t detected; does not exclude early acuteHCV infection. Hepatitis B Surface Ag Negative Negative [facility] 04/06/2022 3:31 AM EST 04/06/2022 7:25 AM EST [facility] External Provider LAB BLO OD ORDERABLES Final Result [facility] [address] [place] [phone] * Hm Colonoscopy (2020) Colonoscopy Normal Normal Narrative Sheila Anders - 2020 Repeat in 5 years Historical Provider HEALTH MAINTENANCE Final Result from Last 3 Months or Most Recently Relevant to Health Maintenance Insurance [facility] C3 Care Teams Channel Sales Manager Relationship Specialty Start Date End Date Latasha Cline NP [address] [place] [phone] PCP - General Family Medicine 03/17/23 Pramod Del Real Overlock Sleeve SetterPoultry Farmer Egg 07/15/23
--- OUTSIDE RECORDS SUMMARY | 2024-12-21 17:19 | XMS_ITS | Encounter Summary ---
Author Organization [employer] Address [address] [facility] [address]t [place] [address] Care Team Providers Care Dive Superintendent Name Role Phone Latasha Cline NP Primary Care Provider [phone] Reason for Visit * Reason Onset Date Comments Medication Question 09/27/2023 Encounter Details Date Type Department Care Team ([facility] Contact Info) Description 09/27/2023 Telephone [facility] [address] [place] [address] Latasha Cline NP [address] [place] [address] Medication Question Social History Tobacco Use Types [...] EDT Return T/C x 2 am through Motorator id - [id number] for below message, No answer. LVM to call back on [phone]. * Telephone Encounter - Krzysztof Harrison - [...] any questions you can contact pt at [phone]. (Faroese Speaker) documented in this encounter Plan of Treatment Upcoming Encounters Date Type Department Care Team ([facility] Contact Info) Description 02/02/2025 3:15 PM EST Office Visit [facility] [address] [place] [address] Latasha Cline NP [address] [place] [address] 03/01/2025 1:00 PM EST Clinical Support [facility] [address] [facility] [place] [address] Patricia Tejeda, RN documented as of this encounter Visit Diagnoses Not on filedocumented in this encounter Additional Health Concerns Assessment Noted Time PHQ-9 Depression Total Score: 0 06/04/19 24 9:43 AM EDT documented as of this encounter Care Teams Dive Superintendent Relationship Specialty Start Date End Date Latasha Cline NP [address] [facility] [place] [address] PCP - General Family Medicine 03/17/23 Pramod Del Real Special Procedures [employer] Hand 07/15/23 documented as of this encounter
--- OUTSIDE RECORDS SUMMARY | 2024-12-21 17:19 | XMS_ITS | Encounter Summary ---
Author Organization [employer] Address [address] [facility] 7[address] [place] [address] Care Team Providers Care Irrigator Sprinkling System Name Role Phone Latasha Cline NP Primary Care Provider [phone] Reason for Visit * Reason Onset Date Comments Med Refill 11/01/2023 Encounter Details Date Type Department Care Team ([facility] st Contact Info) Description 11/01/2023 Telephone [facility] [address] [place] [address] Latasha Cline NP [address] [place] [address] Med Refill Social History Tobacco Use Types [...] 9:47 AM EDT Medication was sent to [facility] #[id number] on 09/28/23 #30 with 1 refill. SHEET ROCK NAILER checked 11/01/23 last filled 09/28/23 patient has 1 refill left. * Telephone Encounter - Bg Catalan - 11/01/2023 9:15 AM EDT TC from pt requesting medication refill. Medications needing refill : zolpidem (Ambien) 5 MG tablet To be sent to: [id number] - [place] - [address] [facility] documented in this encounter Plan of Treatment Upcoming Encounters Date Type Department Care Team ([facility] st Contact Info) Description 02/02/2025 3:15 PM EST Office Visit [facility] [address] [place] [address] Latasha Cline NP [address] [place] [address] 03/01/2025 1:00 PM EST Clinical Support [facility] [address] [place] [address] Patricia Tejeda, RN documented as of this encounter Visit Diagnoses Not on filedocumented in this encounter Additional Health Concerns Assessment Noted Time PHQ-9 Depression Total Score: 0 06/04/19 9:43 AM EDT documented as of this encounter Care Teams Irrigator Sprinkling System Relationship Specialty Start Date End Date Latasha Cline NP [address] [place] [address] PCP - General Family Medicine 03/17/23 Pramod Del Real Rigger HelperJig Boring Machine Operator For Metal 07/15/23 documented as of this encounter
--- OUTSIDE RECORDS SUMMARY | 2024-12-21 17:19 | XMS_ITS | Encounter Summary ---
Author Organization [employer] Address [address] [facility] 7[address] [place] [address] Care Team Providers Care Ladies Underwear Operator Name Role Phone Latasha Cline NP Primary Care Provider [phone] Reason for Visit * Reason Onset Date Comments Med Refill 12/31/2023 Encounter Details Date Type Department Care Team ([facility] st Contact Info) Description 12/31/2023 Telephone [facility] [address] [place] [address] Latasha Clnie NP [address] [place] [address] Med Refill Social History Tobacco Use Types [...] requesting medication refill. Medications needing refill : lpytqjtosk-hgtnkrytpcrak-sqymtzdb 50-325-40 MG tablet To be sent to: [id number] - [place], [place] - [facility] [address] [facility] documented in this encounter Plan of Treatment Upcoming Encounters Date Type Department Care Team (Late st Contact Info) Description 02/02/2025 3:15 PM EST Office Visit [facility] [address] [place] [phone] Latasha Cline NP [address] [place] [address] 03/01/2025 1:00 PM EST Clinical Support [facility] [address] [place], [place] [phone] Ileana, Patricia, RN documented as of this encounter Visit Diagnoses Not on filedocumented in this encounter Additional Health Concerns Assessment Noted Time PHQ-9 Depression Total Score: 0 06/04/19 24 9:43 AM EDT documented as of this encounter Care Teams Ladies Underwear Operator Relationship Specialty Start Date End Date Latasha Cline NP [address] [place] [address] PCP - General Family Medicine 03/17/23 Pramod Del Real Textile Screen PrinterProduction Cook 07/15/23 documented as of this encounter
--- OUTSIDE RECORDS SUMMARY | 2024-12-21 17:19 | XMS_ITS | Encounter Summary ---
Author Organization [employer] Address [address] [facility] 7t [place] [address] Care Team Providers Care Cardiothoracic Anesthesia Technician Name Role Phone Latasha Cline NP Primary Care Provider [phone] Encounter Details Date Type Department Care Team (Late st Contact Info) Description 12/21/2024 Orders Only GENERIC EXTERNAL DATA [...] t he electric, gas, oil or water [employer] threatened to shut off services in your [...] 02/02/2025 3:15 PM EST Office Visit [facility] [address] [place] [phone] Latasha Cline NP [address] [place], [place] [phone] 03/01/2025 1:00 PM EST Clinical Support [facility] [address] [place] [phone] Patricia Tejeda RN documented as of this encounter Procedures Procedure Name Priority Date/Time Associated Diagnosis Comments OBSX1 Routine 12/21/2024 3:48 PM EST LACTIC ACID Routine 12/21/2024 1:55 PM EST VENOUS BLOOD GAS Routine 12/21/2024 1:25 PM EST HIGH SENSITIVITY TROPONIN I Routine 12/21/2024 1:18 PM EST CBC WITH AUTO DIFFERENTIAL Routine 12/21/2024 1:18 PM EST MAGNESIUM Routine 12/21/2024 1:18 PM EST COMPREHENSIVE METABOLIC PANEL Routine 12/21/2024 1:18 PM EST INFLUENZA A B2 ID NOW (LI) Routine 12/21/2024 1:17 PM EST COVID-19 ID NOW (LI) Routine 12/21/2024 1:17 PM EST documented in this encounter Results * OBSX1 (12/21/2024 3:48 PM EST) Pathologist [facility] OBS1 NEGATIVE NEGATIVE [facility] 12/21/2024 3:48 PM EST 12/21/2024 3:53 PM EST Generic External Data Provider LAB BLOOD ORDERAB LES Final Result Performing Organization Address [facility]/ZIP Co de Phone Number [facility] [address] [place] [phone] * Lactic Acid (12/21/2024 1:55 PM EST) [facility] Lactic Acid 1.1 0.5 - 2.0 mmol/L [facility] 12/21/2024 1:55 PM EST 12/21/2024 2:05 PM EST Generic External Data Provider LAB BLOOD ORDERAB LES Final Result Performing Organization Address [facility] Co de Phone Number [facility] [address] [place] [address] [phone] * (ABNORMAL) VENOUS BLOOD GAS (12/21/2024 1:25 PM EST) [facility] VBG pH 7.47(H) 7.32 - 7.43 [facility] Comment:METER #: [id number] additional_comment: Cb abliai VBG PCO2 30 mmHg [facility] Comment:METER #: [id number] additional_comment: Cb abliai VBG PO2 53 mmHg [facility] Comment:METER #: [id number] additional_comment: Cb abliai VBG Base Excess -0.4 mmol/L [facility] Comment:METER #: [id number] additional_comment: Cb abliai VBG HCO3 22 22 - 26 mmol/L [facility] Comment:METER #: [id number] additional_comment: Cb abliai O2 Sat, Neymar 84.0 % [facility] Comment:METER #: [id number] additional_comment: Cb abliai 12/21/2024 1:25 PM EST 12/21/2024 1:28 PM EST Generic External Data Provider LAB BLOOD ORDERAB LES Final Result Performing Organization Address [facility] Co de Phone Number [facility] [address] [place] [phone] * Magnesium (12/21/2024 1:18 PM EST) Pathologist [facility] Magnesium 2.2 1.6 - 2.6 mg/dL [facility] 12/21/2024 1:18 PM EST 12/21/2024 1:23 PM EST Semmle External Data Provider LAB BLOOD ORDERAB LES Final Result Performing Organization Address [facility] de Phone Number [facility] [address] [place] [phone] * (ABNORMAL) Comprehensive Metabolic Panel (12/21/2024 1:18 PM EST) Pathologist [facility] Sodium 138 135 - 145 mmol/L [facility] Potassium 3.7 3.3 - 5.1 mmol/L [facility] Chloride 107 96 - 108 mmol/L [facility] Carbon Dioxide 22 22 - 29 mmol/L [facility] Anion Gap 13 12 - 20 [facility] Urea Nitrogen (BUN) 15 9 - 16 mg/dL [facility] Creatinine, Serum 0.58 0.5 - 1.4 mg/dL [facility] Creatinine Clr Calc Pharmacy 87.9 [facility] Comment:Provided height and weight: 162.56 cm,60.1 kg.eGFR (calculated from the MDRD study equation) and eCrCl(calculated from the Cockcroft-Gault equation) are based ondifferent parameters and may not yield comparable results.If eCrCl result is absurd, please check patient'sheight/weight. Estimated Glomerular Filt Rate >60 [facility] Comment:Chronic Kidney Disea se: Estimated GFR < 60 mL/min/1.75b2Blzrjf Kidney Disease: Estimated GFR < 15 mL/min/1.73m2 Glucose 99 60 - 115 mg/dL [facility] Calcium 9.4 8.4 - 10.2 mg/dL [facility] Bilirubin, Total 1.0 0.0 - 1.0 mg/dL [facility] Aspartate Amino Transferase 25 5 - 31 U/L [facility] Alanine Aminotransferase 11 0 - 31 U/L [facility] Total Protein 7.9 6.5 - 8.0 g/dL [facility] Albumin Level 4.5 3.5 - 5.0 g/dL [facility] Alkaline Phosphatase 120(H) 39 - 117 U/L [facility] 12/21/2024 1:18 PM EST 12/21/2024 1:23 PM EST Generic External Data Provider LAB BLOOD ORDERAB LES Final Result Performing Organization Address [facility] de Phone Number [facility] [address] [place] [phone] * High Sensitivity Troponin I (12/21/2024 1:18 PM EST) TROPONIN I HIGH SENSITIVITY <2.7 <3.5 - 17.0 ng/L [facility] Comment:The Li high sens itivity Troponin-I results should beused in conjunction with other diagnostic information suchas ECG, clinical observations and information, and patientsymptoms to aid in the diagnosis of [place]. 12/21/2024 1:18 PM EST 12/21/2024 1:23 PM EST us Generic External Data Provider LAB BLOOD ORDERAB LES Final Result Performing Organization Address [facility] Co de Phone Number [facility] [address] [place] [address] [phone] * (ABNORMAL) CBC auto differential (12/21/2024 1:18 PM EST) White Blood Count 9.0 4.8 - 10.8 X10*3/uL [facility] Red Blood Count 4.50 4.20 - 5.50 X10*6/uL [facility] Hemoglobin 13.6 12.0 - 16.0 g/dl [facility] Hematocrit 40.5 37.0 - 47.0 % [facility] Mean Corpuscular Volume 90.0 80.0 - 98.0 fL [facility] Mean Corpuscular Hemoglobin 30.2 27.0 - 33.0 pg [facility] Mean Corpuscular HGB Conc 33.6 31.0 - 35.0 g/dl [facility] Red Cell Distribution Width 12.5 11.0 - 16.0 % [facility] Platelet Count 283 160 - 400 X10*3/uL [facility] Mean Platelet Volume 10.3 9.4 - 12.3 fL [facility] Neutrophils Percent Auto 85.4(H) 45 - 73 % [facility] Imm Gran Pct Auto 0.3 0.0 - 0.4 % [facility] Lymphocytes Percent Auto 8.7(L) 20 - 40 % [facility] Monocytes Percent Auto 4.9 2 - 11 % [facility] Eosinophils Percent Auto 0.4 0 - 4 % [facility] Basophils Percent Auto 0.3 0 - 2 % [facility] NRBC Pct Auto 0.0 0.0 - 0.2 /100WBC [facility] Neutrophils Absolute Auto 7.7 2.0 - 8.3 x10*3/uL [facility] Imm Gran Abs Auto 0.03 0.00 - 0.03 X10*3/uL [facility] Lymphocytes Absolute Auto 0.8(L) 1.2 - 4.9 X10*3/uL [facility] Monocytes Absolute Auto 0.4 0.1 - 1.2 X10*3/uL [facility] Eosinophils Absolute Auto 0.0 0.0 - 0.4 X10*3/uL [facility] Basophils Absolute Auto 0.0 0.0 - 0.2 X10*3/uL [facility] NRBC Abs Auto 0.000 0.0 - 0.012 X10*3/uL [facility] 12/21/2024 1:18 PM EST 12/21/2024 1:23 PM EST Generic External Data Provider LAB BLOOD ORDERAB LES Final Result Performing Organization Address [facility] Co de Phone Number [facility] [address] [place] [phone] * Influenza A B2 ID NOW ([place]) (12/21/2024 1:17 PM EST) Pathologist [facility] SERIAL# [id number] [facility] Influenza A Negative Negative [facility] Influenza B2 Negative Negative [facility] Influenza A B2 Note See Note [facility] Comment:The Li ID NOW In [...] GENERAL ORDERABLES Final Result Performing Organization Address [facility] Co de Phone Number [facility] [address] [place] [phone] * COVID-19 ID NOW (LI) (12/21/2024 1:17 PM EST) [id number] [facility] COVID-19 TEST Negative Negative [facility] COVID-19 NOTE See Note [facility] Comment: Results are for the identification of SARS-CoV2 RNA. TheSARS-CoV2 RNA is generally detectable in respiratory samplesduring the acute phase of infection. Positive results areindicative of the presence of SARS-CoV-2 RNA; clinicalcorrelation with patient history and other diagnosticinformation is necessary to determine patient infectionstatus. Positive results do not rule out bacterial infectionor co- infection with other viruses.Testing facilities within the [place] and itsterritories are required to report all [...] use by authorized laboratories.Testing performed on the [employer] NOW utilizing NAAT. 12/21/2024 1:17 PM EST 12/21/2024 1:23 PM EST us Generic External Data Provider LAB MOLECULAR DON GNOSTICS ORDERABLES Final Result [facility] [address] [place] [phone] documented in this encounter Visit Diagnoses Not on filedocumented in this encounter Additional Health Concerns Assessment Noted Time PHQ-9 Depression Total Score: 0 10/31/19 25 12:58 PM EDT documented as of this encounter Care Teams Cardiothoracic Anesthesia Technician Relationship Specialty Start Date End Date Latasha Cline NP [address] [place] [phone] PCP - General Family Medicine 03/17/23 Pramod Del Real Cook TortillaHand Roller Engraver 07/15/23 documented as of this encounter
--- OUTSIDE RECORDS SUMMARY | 2024-12-21 17:19 | XMS_ITS | Encounter Summary ---
Author Organization [employer] Address [address] [facility] [address]t [place] [address] Care Team Providers Care Construction Sales Manager Name Role Phone Latasha Cline NP Primary Care Provider [phone] Reason for Visit * Reason Onset Date Comments ER Follow-up 12/19/2024 Encounter Details Date Type Department Care Team ([facility] st Contact Info) Description 12/19/2024 Telephone [facility] MEDICINE [address] [place] [address] Latasha Cline NP [address] [place] [address] ER Follow-up Social History Tobacco Use Types Packs/Day Years [...] your housing situation today? I have giovany sing 10/30/[address] you li [...] encounter Miscellaneous Notes * Telephone Encounter - Mariama Roldan RN - 12/20/2024 10:31 AM EST Pt evaluated in [facility] ED 12/08/24 Diagnosis: Pleural effusion, pneumonia, sinusitis. Pt discharged home with prescriptions for Doxycycline 100 mg capsule- Take one capsule by oral route two times every day x 7 days, cephalexin 500 mg- Take one tab by oral route two times daily x 7 days and codeine-guaifenesin 10-100mg/5ml-Take 5 ml by oral route every 6 hours as needed for cough. TC placed to pt via [employer] taping machine operator (ID#[id number]) for status check and to schedule ED follow up. No answer, LVM to call office back and ask to speak to the blue team nurses. ED notes obtained from [facility] and placed in medical records bin for scanning. * Telephone Encounter - Krzysztof Harrison - 12/19/2024 12:30 PM EST Patient calling to report ED visit on : Date: 12/08/24 Hospital: [facility] Seen for: pneumonia Symptomatic No Please contact pt at [phone]. (Welsh Speaker) documented in this encounter Plan of Treatment Upcoming Encounters Date Type Department Care Team (Late st Contact Info) Description 02/02/2025 3:15 PM EST Office Visit [facility] MEDICINE [address] [place] [address] Latasha Cline NP [address] [place] [address] 03/01/2025 1:00 PM EST Clinical Support [facility] MEDICINE [address] [place] [phone] Patricia Tejeda RN documented as of this encounter Visit Diagnoses Not on filedocumented in this encounter Additional Health Concerns Assessment Noted Time PHQ-9 Depression Total Score: 0 10/31/19 25 12:58 PM EDT documented as of this encounter Care Teams Construction Sales Manager Relationship Specialty Start Date End Date Latasha Cline NP [address] [place] [id number] PCP - General Family Medicine 03/17/23 Pramod Del Real Department Of Mathematics ChairCombat Systems Engineer 07/15/23 documented as of this encounter
--- OUTSIDE RECORDS SUMMARY | 2024-12-21 17:19 | XMS_ITS | Encounter Summary ---
Author Organization [employer] Address [address] [facility] [address] [place] [address] Care Team Providers Care Machine Rug Cleaner Name Role Phone Latasha Cline NP Primary Care Provider [phone] Reason for Visit * Reason Comments Med Refill Encounter Details Date Type Department Care Team (Late st Contact Info) Description 12/22/2023 Refill [facility] MEDICINE [address] [place] [address] Name, MD Vidal [address] [place] [address] Migraine without status migrainosus, not intractable, unspecified [...] Description 02/02/2025 3:15 PM EST Office Visit [address] [address] Latasha Cline NP [address] [place] [address] 03/01/2025 1:00 PM EST Clinical Support [address] [address] Patricia Tejeda RN documented as of this encounter Visit Diagnoses Diagnosis Migraine without status migrainosus, not intractable, unspecified migraine type documented in this encounter Additional Health Concerns Assessment Noted Time PHQ-9 Depression Total Score: 0 06/04/19 24 9:43 AM EDT documented as of this encounter Care Teams Machine Rug Cleaner Relationship Specialty Start Date End Date Latasha Cline NP [address] [place] [address] PCP - General Family Medicine 03/17/23 Pramod Del Real Access Services LibrarianChess Instructor 07/15/23 documented as of this encounter
--- OUTSIDE RECORDS SUMMARY | 2024-12-21 17:19 | XMS_ITS | Encounter Summary ---
Author Organization [employer] Address [address] [facility] 7t [place] [address] Care Team Providers Care Commission Specialist Name Role Phone Kenny Loyd MD Primary Care Provider Ezequiel Roblero AGNP Primary Care Provider Unavail Sarah PugaP Primary Care Provider [phone] Latasha Cline NP Primary Care Provider [phone] Reason for Visit * Reason Onset Date Comments Appointment Request 02/20/2022 Encounter Details Date Type Department Care Team (Late st Contact Info) Description 02/20/2022 Telephone [facility] [address] [place] [address] Kenny Loyd MD Appointment Request Social History [...] at 1 pm Please contact pt at [phone] documented in this encounter Plan of Treatment Upcoming Encounters Date Type Department Care Team (Late st Contact Info) Description 02/02/2025 3:15 PM EST Office Visit [address] [address] Latasha Cline, EVANS [address] [place] [address] 03/01/2025 1:00 PM EST Clinical Support [address] [address] Patricia Tejeda RN documented as of this encounter Visit Diagnoses Not on filedocumented in this encounter Care Teams Commission Specialist Relationship Specialty Start Date End Date Kenny Loyd MD PCP - General Family Medicine 12/30/18 02/22/22 Ezequiel Davis AGNP PCP - General Family Medicine 02/23/22 10/15/22 Sarah Burrell FNP [address] [place] [address] PCP - General Family Medicine 10/16/22 03/16/23 Latasha Cline, EVANS [address] [place] [address] PCP - General Family Medicine 03/17/23 Pramod Del Real Blood TyperField Sales Representative 07/15/23 documented as of this encounter
--- OUTSIDE RECORDS SUMMARY | 2024-12-21 17:19 | XMS_ITS | Encounter Summary ---
Author Organization [employer] Address [address] [facility] [address] 7[address] [place] [address] Care Team Providers Care Gluer And Wedger Name Role Phone Latasha Cline NP Primary Care Provider [phone] Encounter Details Date Type Department Care Team ([facility] st Contact Info) Description 01/19/2024 Telephone [facility] MEDICINE [address] [place], [place] [phone] Latasha Cline NP [address] [place] [address] Social History Tobacco Use Types Packs/Day Years [...] Description 02/02/2025 3:15 PM EST Office Visit [address] [address] Latasha Cline NP [address] [place] [address] 03/01/2025 1:00 PM EST Clinical Support [address] [address] Patricia Tejeda RN documented as of this encounter Visit Diagnoses Not on filedocumented in this encounter Additional Health Concerns Assessment Noted Time PHQ-9 Depression Total Score: 0 06/04/19 24 9:43 AM EDT documented as of this encounter Care Teams Gluer And Wedger Relationship Specialty Start Date End Date Latasha Cline NP [address] [place] [address] PCP - General Family Medicine 03/17/23 Pramod Del Real Ethanol Quality LeaderAviation Engineer 07/15/23 documented as of this encounter
--- NOTE | 2024-12-21 18:02 | PC.NURSE ---
Assume Care Approx @ 1745 ?A&O x4,? On RA, Dim. lung sounds. Intermittent moist cough. NO pain reported.? 18G L. forearm. Fall risk precaution in place.???
--- NOTE | 2024-12-21 18:35 | PHA.MEDREC ---
Addendum entered by Sissy Garcia RPh 12/21/24 18:39: Reviewed by [facility] Original Note: Pharmacy Consult ? Medication Reconciliation Pharmacy has completed the medication reconciliation. Spoke to patient and patient spouse through translator and interpreter service to confirm med list. Patient had all her morning medications to day.
--- NOTE | 2024-12-21 19:39 | PC.NURSE ---
pt c/o nausea and migraine. no PRNs available for either. Hospitalist messaged. pt medicated per MAR
[2024-12-21] MEDS: Butalb/Acetamin/Caff 50/325/40 TABLET 1 TAB PO (20:31)
[2024-12-21] MEDS: oxyCODONE HCl Immed Release 15 MG TABLET PO (20:32)
[2024-12-21] MEDS: Albuterol/Iprat 2.5/0.5MG 3 ML AMPUL.NEB INHALE (20:46)
--- NOTE | 2024-12-21 21:05 | PC.NURSE ---
pt taken to CT scan at this time
[2024-12-22] VITALS (12 sets, daily range): BP systolic 90–105; BP diastolic 50–64; PULSE 54–86; RESP 14–20; TEMP 36.1–36.9; O2SAT 92–96
[2024-12-22] MEDS: Butalb/Acetamin/Caff 50/325/40 TABLET 1 TAB PO ×2 (03:09→14:51)
[2024-12-22] MEDS: oxyCODONE HCl Immed Release 15 MG TABLET PO ×3 (04:33→18:28)
[2024-12-22 06:46] LABS: Hematocrit 36.0 % (37.0-47.0); Hemoglobin 11.9 g/dl (12.0-16.0); Mean Corpuscular HGB Conc 33.1 g/dl (31.0-35.0); Mean Corpuscular Hemoglobin 30.3 pg (27.0-33.0); Mean Corpuscular Volume 91.6 fL (80.0-98.0); NRBC Abs Auto 0.000 X10*3/uL (0.0-0.012); NRBC Pct Auto 0.0 /100WBC (0.0-0.2); Platelet Count 248 X10*3/uL (160-400); Red Blood Count 3.93 X10*6/uL (4.20-5.50); White Blood Count 9.1 X10*3/uL (4.8-10.8)
[2024-12-22 06:57] LABS: Anion Gap 12 (12-20); Blood Urea Nitrogen 16 mg/dL (9-16); Calcium 9.1 mg/dL (8.4-10.2); Carbon Dioxide 25 mmol/L (22-29); Chloride 106 mmol/L (96-108); Creatinine Clr Calc Pharmacy 83.6; Estimated Glomerular Filt Rate > 60; Magnesium 2.2 mg/dL (1.6-2.6); Potassium 3.6 mmol/L (3.3-5.1); Sodium 139 mmol/L (135-145)
[2024-12-22 07:01] LABS: NT Pro B Type Natriuretic Pept 280.7 pg/mL (<300)
[2024-12-22] MEDS: 0.9 % Sodium Chloride Flush 3 ML SYRINGE IVFLUSH ×3 (07:34→14:52)
[2024-12-22] MEDS: cefEPime HCl/D5W 2 GM/50 ML PIGGYBACK IV ×3 (07:35→14:57)
--- NOTE | 2024-12-22 07:38 | PC.NURSE ---
low BP held Lisinopril.Dr. Marie notified
[2024-12-22] MEDS: Albuterol/Iprat 2.5/0.5MG 3 ML AMPUL.NEB INHALE (07:51)
[2024-12-22 08:40] LABS: MRSA Nasal PCR NEGATIVE (Negative); SA Nasal PCR POSITIVE (Negative)
[2024-12-22 09:02] LABS: Chlamydia pneumoniae PCR Not Detected (Not Detect.); Coronavirus 229E PCR Not Detected (Not Detect.); Coronavirus HKU1 PCR Not Detected (Not Detect.); Coronavirus NL63 PCR Not Detected (Not Detect.); Coronavirus OC43 PCR Not Detected (Not Detect.); RSV PCR Not Detected (Not Detect.); Rhino/Enterovirus PCR Not Detected (Not Detect.)
[2024-12-22 09:03] LABS: SARS-CoV-2 PCR Not Detected (Not Detect.)
[2024-12-22 09:04] LABS: Influenza A H1 PCR Not Detected (Not Detect.); Influenza A H1-2009 PCR Not Detected (Not Detect.); Influenza A H3 PCR Not Detected (Not Detect.)
--- NOTE | 2024-12-22 09:41 | P.PNIM_ITS ---
Subjective Subjective Date of Service: 12/22/24 Interval History: cough Physical Exam 2 Exam: Exam: General: AO X 3, frail, ill-appearing, tachypneic Resp: Diminished bilateral, accessory muscles used CVS: S1,S2,RRR GI: soft, non tender, non distended Neuro: motor grossly intact, alert Psych: appropriate affect, appropriate insight Vital Signs: Vital Signs: Last Vital Signs Temp 96.9 F 12/22/24 07:40 Pulse 86 12/22/24 07:52 Resp 18 12/22/24 07:52 BP 90/52 L 12/22/24 07:31 Pulse Ox 94 12/22/24 07:31 O2 Del Method Room Air 12/22/24 07:31 O2 Flow Rate 2 12/21/24 13:47 BMI result Body Mass Index 22.7 Objective Data Active Medications Acetaminophen (Acetaminophen 325 Mg Tablet) 650 mg PO Q6H PRN PRN Reason: Pain, Mild 1-3,fever,headache Last Admin: 12/22/24 07:45 Dose: 650 mg Documented By: FERNANDO Albuterol/Ipratropium (Albuterol/Iprat 2.5/0.5mg 3 Ml Ampul.Neb) 3 ml INHALE RQ4H WHILE AWAKE PRN PRN Reason: sob Last Admin: 12/22/24 07:51 Dose: 3 ml Documented By: GUTIERREZ Azithromycin (Azithromycin 500 Mg Tablet) 500 mg PO Q24H [facility] Last Admin: 12/21/24 18:20 Dose: 500 mg Documented By: CTORRZ Calcium Carbonate (Calcium Carbonate 750 Mg Tab.Chew) 750 mg PO Q4H PRN PRN Reason: Heartburn Enoxaparin Sodium (Enoxaparin Sodium 40 Mg/0.4 Ml Syringe) 40 mg SUBCUT Q24H [facility] Last Admin: 12/22/24 07:47 Dose: 40 mg Documented By: FERNANDO Fluticasone Propionate (Fluticasone Propionate Nasal 16 Gm [place]) 1 spray NOSTRIL-B DAILY [facility] Guaifenesin (Guaifenesin [place] 600 Mg Tab.Er.12h) 600 mg PO BID [facility] Cefepime HCl (Maxipime) 2 gm in 50 mls @ 100 mls/hr IV Q8H [facility] Last Infusion: 12/22/24 08:32 Dose: Infused Documented By: FERNANDO Lisinopril (Lisinopril 10 Mg Tablet) 30 mg PO DAILY [facility]; Protocol Last Admin: 12/22/24 07:36 Dose: Not Given Documented By: FERNANDO Non-Admin Reason: low BP held per Dr. Marie Loratadine (Loratadine 10 Mg Tablet) 10 mg PO DAILY [facility] Last Admin: 12/22/24 07:35 Dose: 10 mg Documented By: FERNANDO Magnesium Hydroxide (Milk Of Magnesia 30 Ml Oral.Susp) 30 ml PO DAILY PRN PRN Reason: Constipation Melatonin (Melatonin 3 Mg Tablet) 6 mg PO BEDTIME PRN PRN Reason: Insomnia Omeprazole (Omeprazole 20 Mg Capsule.) 20 mg PO BID@0630,1630 [facility] Last Admin: 12/22/24 05:54 Dose: 20 mg Documented By: CHRISTINA Oxycodone HCl (Oxycodone Hcl Immed Release 15 Mg Tablet) 15 mg PO QID PRN PRN Reason: Pain, Severe (Pain Scale 7-10) Last Admin: 12/22/24 04:33 Dose: 15 mg Documented By: CHRISTINA Polyethylene Glycol (Polyethylene Glycol 3350 17 Gm Powd.Pack) 17 gm PO DAILY [facility] Last Admin: 12/22/24 07:35 Dose: 17 gm Documented By: FERNANDO Sodium Chloride (0.9 % Sodium Chloride Flush 3 Ml Syringe) 3 ml IVFLUSH QSHIFT [facility] Last Admin: 12/22/24 07:34 Dose: 3 ml Documented By: FERNANDO Zolpidem Tartrate (Zolpidem Tartrate 5 Mg Tablet) 5 mg PO BEDTIME PRN PRN Reason: Sleep Last Admin: 12/21/24 20:32 Dose: 5 mg Documented By: JULISSAORRK Labs 12/22/24 05:44 12/22/24 05:44 Labs: Laboratory Results - last 24 hr 12/21/24 12/21/24 12/21/24 13:17 13:18 13:25 MCV 90.0 MCH 30.2 MCHC 33.6 RDW 12.5 Plt Count 283 D MPV 10.3 Immature Gran % (Auto) 0.3 Neut % (Auto) 85.4 H Lymph % (Auto) 8.7 L [place] % (Auto) 4.9 Eos % (Auto) 0.4 Baso % (Auto) 0.3 Lymph # (Auto) 0.8 L [place] # (Auto) 0.4 Eos # (Auto) 0.0 Baso # (Auto) 0.0 Abs Immat Gran (auto) 0.03 Absolute Neuts (auto) 7.7 Absolute Nucleated RBC 0.000 Nucleated RBC % (auto) 0.0 VBG pH 7.47 H VBG pCO2 30 VBG pO2 53 VBG HCO3 22 VBG O2 Saturation 84.0 VBG Base Excess -0.4 Anion Gap 13 Estim Creat Clear Calc 87.9 Estimated GFR > 60 Random Glucose 99 Lactic Acid Calcium 9.4 Magnesium 2.2 Total Bilirubin 1.0 AST 25 ALT 11 Alkaline Phosphatase 120 H Troponin I High Sens < 2.7 NT-Pro-B Natriuret Pep Total Protein 7.9 Albumin 4.5 Nasal Screen MRSA (PCR) Nasal S. aureus Screen Nasal MRSA/S.aureus Interp Stool Occult Blood Respiratory Panel Leija Adenovirus (Rapid PCR) B.pert (TEM-PCR) B.parapertussis DNA PCR C. pneumoniae DNA (PCR) Coronavirus OC43 (PCR) Coronavirus HKU1 (PCR) Coronavirus 229E (PCR) COVID-19 (MANOLO) Negative COVID-19 Clin Com See Note Coronavirus NL63 (PCR) Human Metapneumovir PCR Influenza Type A (BRADY) Negative Influenza A (RT-PCR) Influenza A (H1) PCR Influ A (H1/09) PCR Influenza A (H3) PCR Influenza Type B (BRADY) Negative Influenza B (RT-PCR) Influenza A & B Note See Note M. pneumoniae (PCR) Parainfluenza 1 (PCR) Parainfluenza 2 (PCR) Parainfluenza 3 (PCR) Parainfluenza 4 (PCR) RSV (PCR) Entero/Rhino (PCR) SARS-CoV-2 RNA (RT-PCR) 12/21/24 12/21/24 12/21/24 13:55 15:48 16:51 MCV MCH MCHC RDW Plt Count MPV Immature Gran % (Auto) Neut % (Auto) Lymph % (Auto) [place] % (Auto) Eos % (Auto) Baso % (Auto) Lymph # (Auto) [place] # (Auto) Eos # (Auto) Baso # (Auto) Abs Immat Gran (auto) Absolute Neuts (auto) Absolute Nucleated RBC Nucleated RBC % (auto) VBG pH VBG pCO2 VBG pO2 VBG HCO3 VBG O2 Saturation VBG Base Excess Anion Gap Estim Creat Clear Calc Estimated GFR Random Glucose Lactic Acid 1.1 Calcium Magnesium Total Bilirubin AST ALT Alkaline Phosphatase Troponin I High Sens NT-Pro-B Natriuret Pep Total Protein Albumin Nasal Screen MRSA (PCR) NEGATIVE Nasal S. aureus Screen POSITIVE A Nasal MRSA/S.aureus Interp SEE NOTE Stool Occult Blood NEGATIVE Respiratory Panel Leija See Note Adenovirus (Rapid PCR) Not Detected B.pert (TEM-PCR) Not Detected B.parapertussis DNA PCR Not Detected C. pneumoniae DNA (PCR) Not Detected Coronavirus OC43 (PCR) Not Detected Coronavirus HKU1 (PCR) Not Detected Coronavirus 229E (PCR) Not Detected COVID-19 (MANOLO) COVID-19 Clin Com Coronavirus NL63 (PCR) Not Detected Human Metapneumovir PCR Not Detected Influenza Type A (BRADY) Influenza A (RT-PCR) Not Detected Influenza A (H1) PCR Not Detected Influ A (H1/09) PCR Not Detected Influenza A (H3) PCR Not Detected Influenza Type B (BRADY) Influenza B (RT-PCR) Not Detected Influenza A & B Note M. pneumoniae (PCR) Not Detected Parainfluenza 1 (PCR) Not Detected Parainfluenza 2 (PCR) Not Detected Parainfluenza 3 (PCR) Not Detected Parainfluenza 4 (PCR) Not Detected RSV (PCR) Not Detected Entero/Rhino (PCR) Not Detected SARS-CoV-2 RNA (RT-PCR) Not Detected 12/21/24 12/22/24 18:11 05:44 MCV 91.6 MCH 30.3 MCHC 33.1 RDW 12.7 Plt Count 248 MPV 10.5 Immature Gran % (Auto) Neut % (Auto) Lymph % (Auto) [place] % (Auto) Eos % (Auto) Baso % (Auto) Lymph # (Auto) [place] # (Auto) Eos # (Auto) Baso # (Auto) Abs Immat Gran (auto) Absolute Neuts (auto) Absolute Nucleated RBC 0.000 Nucleated RBC % (auto) 0.0 VBG pH VBG pCO2 VBG pO2 VBG HCO3 VBG O2 Saturation VBG Base Excess Anion Gap 12 Estim Creat Clear Calc 83.6 Estimated GFR > 60 Random Glucose 106 Lactic Acid Calcium 9.1 Magnesium 2.2 Total Bilirubin AST ALT Alkaline Phosphatase Troponin I High Sens NT-Pro-B Natriuret Pep 280.7 Total Protein Albumin Nasal Screen MRSA (PCR) Nasal S. aureus Screen Nasal MRSA/S.aureus Interp Stool Occult Blood Respiratory Panel Leija Cancelled Adenovirus (Rapid PCR) Cancelled B.pert (TEM-PCR) Cancelled B.parapertussis DNA PCR Cancelled C. pneumoniae DNA (PCR) Cancelled Coronavirus OC43 (PCR) Cancelled Coronavirus HKU1 (PCR) Cancelled Coronavirus 229E (PCR) Cancelled COVID-19 (MANOLO) COVID-19 Clin Com Coronavirus NL63 (PCR) Cancelled Human Metapneumovir PCR Cancelled Influenza Type A (BRADY) Influenza A (RT-PCR) Cancelled Influenza A (H1) PCR Cancelled Influ A (H1/09) PCR Cancelled Influenza A (H3) PCR Cancelled Influenza Type B (BRADY) Influenza B (RT-PCR) Cancelled Influenza A & B Note M. pneumoniae (PCR) Cancelled Parainfluenza 1 (PCR) Cancelled Parainfluenza 2 (PCR) Cancelled Parainfluenza 3 (PCR) Cancelled Parainfluenza 4 (PCR) Cancelled RSV (PCR) Cancelled Entero/Rhino (PCR) Cancelled SARS-CoV-2 RNA (RT-PCR) Cancelled Assessment and Plan (1) HTN (hypertension): Status: Acute Plan 59F PMH htn, RA (not on meds), gastroparesis, presented with cough and fever Sepsis and acute hypoxic respiratory failure secondary to pneumonia Cefepime, azithromycin, follow up cultures, respiratory viral panel negative, MRSA swab negative now on room air [employer] p.r.n. speech eval History of RA Not on any immunosuppressants, we will hold off on steroids for now Oxycodone for pain Hypertension Lisinopril DVT prophylaxis with Lovenox Full code reason for continued hospitalization: still sob, symptomatic, pumper gauger eval Quality Stroke Does the patient have a stroke diagnosis?: No VTE Prior VTE?: No VTE Risk Level:: Medical - moderate - high VTE Device Contraindication: Treatment Not Indicated VTE Drug Contraindication: N/A - Med Ordered
[2024-12-22] MEDS: guaiFENesin LA 600 MG TAB.ER.12H PO ×2 (10:33→21:13)
--- NOTE | 2024-12-22 11:40 | MHC.CLN ---
CONSULT-ROUTINE REPORTED WEIGHT LOSS 14-#. REVIEW OF WEIGHT HX SHOWS NO SIGNIFICANT WEIGHT CHANGE X ONE YEAR. DIET RX: REGULAR. CONTINUE CURRENT NUTRITION INTERVENTIONS.
[2024-12-22] MEDS: guaiFENesin DM 100/10/5 ML 5 ML SYRUP PO ×2 (12:23→17:04)
--- NOTE | 2024-12-22 13:55 | MHC.SL.SWA ---
Speech Pathologist Impression: Pharyngoesophageal Dysphagia Risk of Aspiration Due to: Dx PNA, GI conditions gastroparesis, chronic GERD Dysphasia Diet Status: No Change Liquid Consistency and Strategies for Safe Swallow: Liquid Intake Recommendation: Thin Solid Food Consistency: Dietary Recommendations: Regular Oral Medication Intake: Whole with Liquid Please contact the pharmacy regarding appropriate crushable or liquid drug formulations that are available whenever modified delivery is recommended. Compensatory Strategies and Precautions to be Taken for Safe Swallow: Small bites, chew food well, alternate with sips of liquid, remain upright 30 min after intake Supervision While Eating and Drinking for Safe Swallow: None Needed Recommendation for Speech: Inpatient Speech Therapy Comment: 1 f/u Frequency/Duration: Date Range for Service Req: Timeline to reassess: Lithographic Photographer Clinican/Clinical Fellow: No Supervisory Statement: I have reviewed and agree with the student/clinical fellow's documentation: N/A Speech Language Pathologist: Shae Christine M.A., CCC-SNACK STEWARD
[2024-12-23] VITALS (10 sets, daily range): BP systolic 95–109; BP diastolic 54–60; PULSE 49–86; RESP 16–18; TEMP 36.1–36.7; O2SAT 94–99
[2024-12-23] MEDS: 0.9 % Sodium Chloride Flush 3 ML SYRINGE IVFLUSH ×4 (00:11→20:32)
[2024-12-23] MEDS: cefEPime HCl/D5W 2 GM/50 ML PIGGYBACK IV ×4 (00:11→23:24)
[2024-12-23] MEDS: oxyCODONE HCl Immed Release 15 MG TABLET PO ×4 (00:20→18:16)
[2024-12-23] MEDS: Lactated Ringers 500 ML 999 ML IV (01:16)
[2024-12-23] MEDS: guaiFENesin LA 600 MG TAB.ER.12H PO ×2 (08:06→20:31)
[2024-12-23] MEDS: guaiFENesin DM 100/10/5 ML 5 ML SYRUP PO ×3 (08:22→21:13)
--- NOTE | 2024-12-23 08:53 | P.PNIM_ITS ---
Subjective Subjective Date of Service: 12/23/24 Interval History: Still with cough and shortness of breaths but starting to improve Physical Exam 2 Exam: Exam: General: AO X 3, frail, ill-appearing, Resp: Diminished bilateral, mild accessory muscles used CVS: S1,S2,RRR GI: soft, non tender, non distended Neuro: motor grossly intact, alert Psych: appropriate affect, appropriate insight Vital Signs: Vital Signs: Last Vital Signs Temp 98.1 F 12/23/24 08:00 Pulse 57 12/23/24 08:00 Resp 16 12/23/24 08:00 BP 104/55 L 12/23/24 08:00 Pulse Ox 94 12/23/24 08:00 O2 Del Method Room Air 12/23/24 08:00 O2 Flow Rate 2 12/21/24 13:47 BMI result Body Mass Index 22.7 Objective Data Active Medications Acetaminophen (Acetaminophen 325 Mg Tablet) 650 mg PO Q6H PRN PRN Reason: Pain, Mild 1-3,fever,headache Last Admin: 12/23/24 08:06 Dose: 650 mg Documented By: DUARTE Acetaminophen/Butalbital/Caffeine (Butalb/Acetamin/Caff 50/325/40 Tablet) 1 tab PO Q4H PRN PRN Reason: Headache Last Admin: 12/22/24 14:51 Dose: 1 tab Documented By: FERNANDO Albuterol/Ipratropium (Albuterol/Iprat 2.5/0.5mg 3 Ml Ampul.Neb) 3 ml INHALE RQ4H WHILE AWAKE PRN PRN Reason: sob Last Admin: 12/22/24 07:51 Dose: 3 ml Documented By: GUTIERREZ Azithromycin (Azithromycin 500 Mg Tablet) 500 mg PO Q24H [facility] Last Admin: 12/22/24 15:50 Dose: 500 mg Documented By: FERNANDO Calcium Carbonate (Calcium Carbonate 750 Mg Tab.Chew) 750 mg PO Q4H PRN PRN Reason: Heartburn Enoxaparin Sodium (Enoxaparin Sodium 40 Mg/0.4 Ml Syringe) 40 mg SUBCUT Q24H [facility] Last Admin: 12/23/24 08:06 Dose: 40 mg Documented By: DUARTE Fluticasone Propionate (Fluticasone Propionate Nasal 16 Gm [place]) 1 spray NOSTRIL-B DAILY [facility] Last Admin: 12/23/24 08:06 Dose: 1 spray Documented By: DUARTE Guaifenesin (Guaifenesin La 600 Mg Tab.Er.12h) 600 mg PO BID [facility] Last Admin: 12/23/24 08:06 Dose: 600 mg Documented By: DUARTE Guaifenesin/Dextromethorphan (Guaifenesin Dm 100/10/5 Ml 5 Ml Syrup) 5 ml PO Q4H PRN PRN Reason: Cough Last Admin: 12/23/24 08:22 Dose: 5 ml Documented By: DUARTE Cefepime HCl (Maxipime) 2 gm in 50 mls @ 100 mls/hr IV Q8H [facility] Last Infusion: 12/23/24 08:48 Dose: Infused Documented By: DUARTE Loratadine (Loratadine 10 Mg Tablet) 10 mg PO DAILY [facility] Last Admin: 12/23/24 08:06 Dose: 10 mg Documented By: DUARTE Magnesium Hydroxide (Milk Of Magnesia 30 Ml Oral.Susp) 30 ml PO DAILY PRN PRN Reason: Constipation Melatonin (Melatonin 3 Mg Tablet) 6 mg PO BEDTIME PRN PRN Reason: Insomnia Omeprazole (Omeprazole 20 Mg Capsule.Dr) 20 mg PO BID@0630,1630 [facility] Last Admin: 12/23/24 06:26 Dose: 20 mg Documented By: NOREEN Ondansetron HCl (Ondansetron Hcl 4 Mg/2 Ml Vial) 4 mg IVPUSH Q8H PRN PRN Reason: Nausea and Vomiting Last Admin: 12/22/24 21:12 Dose: 4 mg Documented By: ANJANA Oxycodone HCl (Oxycodone Hcl Immed Release 15 Mg Tablet) 15 mg PO QID PRN PRN Reason: Pain, Severe (Pain Scale 7-10) Last Admin: 12/23/24 06:26 Dose: 15 mg Documented By: NOREEN Polyethylene Glycol (Polyethylene Glycol 3350 17 Gm Powd.Pack) 17 gm PO DAILY [facility] Last Admin: 12/23/24 08:06 Dose: 17 gm Documented By: DUARTE Prednisone (Prednisone 20 Mg Tablet) 40 mg PO DAILY [facility] Last Admin: 12/23/24 08:06 Dose: 40 mg Documented By: DUARTE Sodium Chloride (0.9 % Sodium Chloride Flush 3 Ml Syringe) 3 ml IVFLUSH QSHIFT [facility] Last Admin: 12/23/24 08:07 Dose: 3 ml Documented By: DUARTE Zolpidem Tartrate (Zolpidem Tartrate 5 Mg Tablet) 5 mg PO BEDTIME PRN PRN Reason: Sleep Last Admin: 12/22/24 21:12 Dose: 5 mg Documented By: ANJANA Labs 12/22/24 05:44 12/22/24 05:44 Labs: Laboratory Results - last 24 hr 12/21/24 16:51 Respiratory Panel Leija See Note Adenovirus (Rapid PCR) Not Detected B.pert (TEM-PCR) Not Detected B.parapertussis DNA PCR Not Detected C. pneumoniae DNA (PCR) Not Detected Coronavirus OC43 (PCR) Not Detected Coronavirus HKU1 (PCR) Not Detected Coronavirus 229E (PCR) Not Detected Coronavirus NL63 (PCR) Not Detected Human Metapneumovir PCR Not Detected Influenza A (RT-PCR) Not Detected Influenza A (H1) PCR Not Detected Influ A (H1/09) PCR Not Detected Influenza A (H3) PCR Not Detected Influenza B (RT-PCR) Not Detected M. pneumoniae (PCR) Not Detected Parainfluenza 1 (PCR) Not Detected Parainfluenza 2 (PCR) Not Detected Parainfluenza 3 (PCR) Not Detected Parainfluenza 4 (PCR) Not Detected RSV (PCR) Not Detected Entero/Rhino (PCR) Not Detected SARS-CoV-2 RNA (RT-PCR) Not Detected Microbiology Microbiology Results: Microbiology 12/21/24 14:01 Blood Culture - Preliminary Blood - Venous No growth after 24 hours. 12/21/24 13:55 Blood Culture - Preliminary Blood - Venous No growth after 24 hours. Assessment and Plan (1) HTN (hypertension): Status: Acute Plan 59F PMH htn, RA (not on meds), gastroparesis, presented with cough and fever Sepsis and acute hypoxic respiratory failure secondary to pneumonia Cefepime, azithromycin, follow up cultures, respiratory viral panel negative, MRSA swab negative now on room air DuoNebs p.r.n. speech appreciated no signs of dysphagia History of RA Not on any immunosuppressants Oxycodone for pain COPD with acute decompensation Prednisone, DuoNebs Hypertension Lisinopril DVT prophylaxis with Lovenox Full code reason for continued hospitalization: still sob, symptomatic Quality Stroke Does the patient have a stroke diagnosis?: No VTE Prior VTE?: No VTE Risk Level:: Medical - moderate - high VTE Device Contraindication: Treatment Not Indicated VTE Drug Contraindication: N/A - Med Ordered
--- NOTE | 2024-12-23 16:38 | MHC.CM.PN ---
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
[2024-12-24] VITALS (8 sets, daily range): BP systolic 101–118; BP diastolic 53–74; PULSE 51–93; RESP 14–16; TEMP 36.1–36.9; O2SAT 94–96
[2024-12-24] MEDS: oxyCODONE HCl Immed Release 15 MG TABLET PO ×4 (02:54→22:34)
[2024-12-24 07:23] LABS: Hematocrit 35.5 % (37.0-47.0); Hemoglobin 11.1 g/dl (12.0-16.0); Mean Corpuscular HGB Conc 31.3 g/dl (31.0-35.0); Mean Corpuscular Hemoglobin 29.4 pg (27.0-33.0); Mean Corpuscular Volume 94.2 fL (80.0-98.0); NRBC Abs Auto 0.000 X10*3/uL (0.0-0.012); NRBC Pct Auto 0.0 /100WBC (0.0-0.2); Platelet Count 241 X10*3/uL (160-400); Red Blood Count 3.77 X10*6/uL (4.20-5.50); White Blood Count 6.5 X10*3/uL (4.8-10.8)
[2024-12-24 07:45] LABS: Anion Gap 10 (12-20); Blood Urea Nitrogen 16 mg/dL (9-16); Calcium 9.3 mg/dL (8.4-10.2); Carbon Dioxide 27 mmol/L (22-29); Chloride 109 mmol/L (96-108); Creatinine Clr Calc Pharmacy 82.3; Estimated Glomerular Filt Rate > 60; Potassium 3.8 mmol/L (3.3-5.1); Sodium 142 mmol/L (135-145)
[2024-12-24] MEDS: guaiFENesin DM 100/10/5 ML 5 ML SYRUP PO ×2 (08:43→14:17)
[2024-12-24] MEDS: guaiFENesin LA 600 MG TAB.ER.12H PO ×2 (08:43→20:13)
[2024-12-24] MEDS: 0.9 % Sodium Chloride Flush 3 ML SYRINGE IVFLUSH ×2 (08:44→15:24)
[2024-12-24] MEDS: cefEPime HCl/D5W 2 GM/50 ML PIGGYBACK IV ×2 (08:44→15:23)
--- NOTE | 2024-12-24 11:12 | HO.PM.IMPN ---
Subjective Subjective Date of Service: 12/24/24 Interval History: Feeling worse today with nausea and vomiting, reports last bowel movement 5 days ago Physical Exam Exam: Exam: General: AO X 3, in acute distress, actively vomiting, coughing Resp: diminsihed bilateral, no accessory muscles used CVS: S1,S2,RRR GI: soft, non tender, non distended Neuro: motor grossly intact, alert Psych: appropriate affect, appropriate insight Vital Signs: Vital Signs: Last Vital Signs Temp 98.1 F 12/24/24 07:42 Pulse 51 12/24/24 07:42 Resp 16 12/24/24 07:42 BP 118/74 12/24/24 07:42 Pulse Ox 96 12/24/24 07:42 O2 Del Method Room Air 12/24/24 07:42 O2 Flow Rate 2 12/21/24 13:47 BMI result Body Mass Index 22.7 Objective Data Active Medications Acetaminophen (Acetaminophen 325 Mg Tablet) 650 mg PO Q6H PRN PRN Reason: Pain, Mild 1-3,fever,headache Last Admin: 12/23/24 18:18 Dose: 650 mg Documented By: DUARTE Acetaminophen/Butalbital/Caffeine (Butalb/Acetamin/Caff 50/325/40 Tablet) 1 tab PO Q4H PRN PRN Reason: Headache Last Admin: 12/22/24 14:51 Dose: 1 tab Documented By: FERNANDO Albuterol/Ipratropium (Albuterol/Iprat 2.5/0.5mg 3 Ml Ampul.Neb) 3 ml INHALE RQ4H WHILE AWAKE PRN PRN Reason: sob Last Admin: 12/22/24 07:51 Dose: 3 ml Documented By: GUTIERREZ Azithromycin (Azithromycin 500 Mg Tablet) 500 mg PO Q24H [facility] Last Admin: 12/23/24 16:29 Dose: 500 mg Documented By: DUARTE Calcium Carbonate (Calcium Carbonate 750 Mg Tab.Chew) 750 mg PO Q4H PRN PRN Reason: Heartburn Enoxaparin Sodium (Enoxaparin Sodium 40 Mg/0.4 Ml Syringe) 40 mg SUBCUT Q24H [facility] Last Admin: 12/24/24 08:44 Dose: 40 mg Documented By: DUARTE Fluticasone Propionate (Fluticasone Propionate Nasal 16 Gm [place]) 1 spray NOSTRIL-B DAILY [facility] Last Admin: 12/24/24 08:44 Dose: 1 spray Documented By: DUARTE Guaifenesin (Guaifenesin La 600 Mg Tab.Er.12h) 600 mg PO BID [facility] Last Admin: 12/24/24 08:43 Dose: 600 mg Documented By: DUARTE Guaifenesin/Dextromethorphan (Guaifenesin Dm 100/10/5 Ml 5 Ml Syrup) 5 ml PO Q4H PRN PRN Reason: Cough Last Admin: 12/24/24 08:43 Dose: 5 ml Documented By: DUARTE Cefepime HCl (Maxipime) 2 gm in 50 mls @ 100 mls/hr IV Q8H [facility] Last Infusion: 12/24/24 10:07 Dose: Infused Documented By: DUARTE Loratadine (Loratadine 10 Mg Tablet) 10 mg PO DAILY [facility] Last Admin: 12/24/24 08:43 Dose: 10 mg Documented By: DUARTE Magnesium Hydroxide (Milk Of Magnesia 30 Ml Oral.Susp) 30 ml PO DAILY PRN PRN Reason: Constipation Melatonin (Melatonin 3 Mg Tablet) 6 mg PO BEDTIME PRN PRN Reason: Insomnia Omeprazole (Omeprazole 20 Mg Capsule.Dr) 20 mg PO BID@0630,1630 [facility] Last Admin: 12/24/24 05:50 Dose: 20 mg Documented By: RUDI Ondansetron HCl (Ondansetron Hcl 4 Mg/2 Ml Vial) 4 mg IVPUSH Q8H PRN PRN Reason: Nausea and Vomiting Last Admin: 12/24/24 09:10 Dose: 4 mg Documented By: DUARTE Oxycodone HCl (Oxycodone Hcl Immed Release 15 Mg Tablet) 15 mg PO QID PRN PRN Reason: Pain, Severe (Pain Scale 7-10) Last Admin: 12/24/24 08:43 Dose: 15 mg Documented By: DUARTE Polyethylene Glycol (Polyethylene Glycol 3350 17 Gm Powd.Pack) 17 gm PO DAILY [facility] Last Admin: 12/24/24 08:44 Dose: 17 gm Documented By: DUARTE Prednisone (Prednisone 20 Mg Tablet) 40 mg PO DAILY [facility] Last Admin: 12/24/24 08:43 Dose: 40 mg Documented By: DUARTE Sodium Chloride (0.9 % Sodium Chloride Flush 3 Ml Syringe) 3 ml IVFLUSH QSHIFT [facility] Last Admin: 12/24/24 08:44 Dose: 3 ml Documented By: DUARTE Zolpidem Tartrate (Zolpidem Tartrate 5 Mg Tablet) 5 mg PO BEDTIME PRN PRN Reason: Sleep Last Admin: 12/23/24 21:12 Dose: 5 mg Documented By: RUDI Labs 12/24/24 06:45 12/24/24 06:45 Labs: Laboratory Results - last 24 hr 12/24/24 06:45 MCV 94.2 MCH 29.4 MCHC 31.3 RDW 12.7 Plt Count 241 MPV 10.3 Absolute Nucleated RBC 0.000 Nucleated RBC % (auto) 0.0 Anion Gap 10 L Estim Creat Clear Calc 82.3 Estimated GFR > 60 Random Glucose 88 Calcium 9.3 Microbiology Microbiology Results: Microbiology 12/21/24 14:01 Blood Culture - Preliminary Blood - Venous No growth after 48 hours. 12/21/24 13:55 Blood Culture - Preliminary Blood - Venous No growth after 48 hours. Assessment and Plan (1) HTN (hypertension): Status: Acute Plan 59F PMH htn, RA (not on meds), gastroparesis, presented with cough and fever Sepsis and acute hypoxic respiratory failure secondary to pneumonia Cefepime, azithromycin, follow up cultures, respiratory viral panel negative, MRSA swab negative now on room air DuoNebs p.r.n. speech appreciated no signs of dysphagia Nausea and vomiting Suspect primarily due to constipation Dulcolax pr History of RA Not on any immunosuppressants Oxycodone for pain COPD with acute decompensation Prednisone, DuoNebs Hypertension Lisinopril DVT prophylaxis with Lovenox Full code reason for continued hospitalization: actively vomiting, constipated Quality Stroke Does the patient have a stroke diagnosis?: No VTE Prior VTE?: No VTE Risk Level:: Medical - moderate - high VTE Device Contraindication: Treatment Not Indicated VTE Drug Contraindication: N/A - Med Ordered
[2024-12-25] MEDS: cefEPime HCl/D5W 2 GM/50 ML PIGGYBACK IV ×2 (00:14→08:03)
[2024-12-25] MEDS: 0.9 % Sodium Chloride Flush 3 ML SYRINGE IVFLUSH ×2 (00:15→08:03)
[2024-12-25 03:11] VITALS: BP 119/68; PULSE 50; RESP 14; TEMP 36.8; O2SAT 97
[2024-12-25 04:00] VITALS: BP 119/68; PULSE 50; RESP 14; TEMP 36.8; O2SAT 97
[2024-12-25] MEDS: oxyCODONE HCl Immed Release 15 MG TABLET PO (05:13)
[2024-12-25 06:06] LABS: Hematocrit 35.6 % (37.0-47.0); Hemoglobin 11.5 g/dl (12.0-16.0); Mean Corpuscular HGB Conc 32.3 g/dl (31.0-35.0); Mean Corpuscular Hemoglobin 30.2 pg (27.0-33.0); Mean Corpuscular Volume 93.4 fL (80.0-98.0); NRBC Abs Auto 0.000 X10*3/uL (0.0-0.012); NRBC Pct Auto 0.0 /100WBC (0.0-0.2); Platelet Count 252 X10*3/uL (160-400); Red Blood Count 3.81 X10*6/uL (4.20-5.50); White Blood Count 5.2 X10*3/uL (4.8-10.8)
[2024-12-25 06:19] LABS: Anion Gap 12 (12-20); Blood Urea Nitrogen 15 mg/dL (9-16); Calcium 9.6 mg/dL (8.4-10.2); Carbon Dioxide 24 mmol/L (22-29); Chloride 109 mmol/L (96-108); Creatinine Clr Calc Pharmacy 82.3; Estimated Glomerular Filt Rate > 60; Potassium 3.9 mmol/L (3.3-5.1); Sodium 141 mmol/L (135-145)
[2024-12-25 08:00] VITALS: BP 115/63; PULSE 50; RESP 16; TEMP 36.3; O2SAT 95
[2024-12-25] MEDS: guaiFENesin LA 600 MG TAB.ER.12H PO (08:04)
[2024-12-25] MEDS: guaiFENesin DM 100/10/5 ML 5 ML SYRUP PO (08:15)
[2024-12-25] MEDS: Butalb/Acetamin/Caff 50/325/40 TABLET 1 TAB PO (08:15)
--- NOTE | 2024-12-25 08:21 | P.DS_ITS ---
DS: Providers Provider Date of Service: 12/25/24 Date of admission: 12/21/24 16:28 Date of discharge: 12/25/24 Primary care physician: [facility] DS: Diagnosis Discharge Diagnosis (1) HTN (hypertension): Status: Acute DS: Summary Hospital Course Hospital Course: from initial hpi: 59F PMH htn, RA (not on meds), gastroparesis, presented with cough and fever. Patient's symptoms began about 2 weeks prior to presentation. She was in the ED on 12/08/2024 and discharged on Keflex and doxycycline. She completed course but denies any improvement. Continued to have productive cough, chills, rigors, shortness of breath, fevers. In ED noted to be febrile to 101.4 with tachypnea and hypoxia to 80% on room air. Chest x-ray showing probable COPD emphysema (nonsmoker), small volume right-sided pleural effusion versus pleural thickening superimposed acute airspace disease can not be excluded. hospital course: Was admitted for sepsis and acute hypoxic respiratory failure secondary to pneumonia. Was treated with cefepime and azithromycin. Respiratory viral panel was negative MRSA swab was negative. Patient was eventually weaned to room air on discharge we will continue 5 more days of Ceftin and azithromycin. For COPD with acute decompensation was treated with prednisone and DuoNebs wheezing resolved. On discharge we will continue 5 more days of prednisone. Course complicated by constipation which resolved with Dulcolax. For history of rheumatoid arthritis was continued oxycodone. For hypertension lisinopril has been held due to relative hypotension. Time Attestation Discharge Coordination Time (in mins): 32 Quality: Safe Use of Opioids Does Pt have an Active Cancer Diagnosis on the Problem List?: No Quality: Stroke Does the patient have a stroke diagnosis?: No Physical Exam Exam: Exam: General: AO X 3, no acute distress Resp: CTA bilateral, no accessory muscles used CVS: S1,S2,RRR GI: soft, non tender, non distended Neuro: motor grossly intact, alert Psych: appropriate affect, appropriate insight Vital Signs: Vital Signs: Last Vital Signs Temp 97.3 F 12/25/24 08:00 Pulse 50 12/25/24 08:00 Resp 16 12/25/24 08:00 BP 115/63 12/25/24 08:00 Pulse Ox 95 12/25/24 08:00 O2 Del Method Room Air 12/25/24 08:00 O2 Flow Rate 2 12/21/24 13:47 BMI result Body Mass Index 22.7 DS: Data Data Completed and Pending Completed studies during hospitalization [Text1]: Procedures Dilation of Common Bile Duct, Via Natural or Artificial Opening Endoscopic (04/06/22) Dilation of Lower Esophagus, Via Natural or Artificial Opening Endoscopic (04/06/22) Dilation of Upper Esophagus, Via Natural or Artificial Opening Endoscopic (04/06/22) Excision of Esophagus, Via Natural or Artificial Opening Endoscopic, Diagnostic (04/06/22) Excision of Stomach, Pylorus, Via Natural or Artificial Opening Endoscopic, Diagnostic (04/06/22) Extraction of Common Bile Duct, Via Natural or Artificial Opening Endoscopic, Diagnostic (04/06/22) Labs on day of discharge: Laboratory Results - last 24 hr 12/25/24 12/25/24 05:27 05:28 WBC 5.2 RBC 3.81 L Hgb 11.5 L Hct 35.6 L MCV 93.4 MCH 30.2 MCHC 32.3 RDW 12.6 Plt Count 252 MPV 10.3 Absolute Nucleated RBC 0.000 Nucleated RBC % (auto) 0.0 Sodium 141 Potassium 3.9 Chloride 109 H Carbon Dioxide 24 Anion Gap 12 BUN 15 Creatinine 0.62 Estim Creat Clear Calc 82.3 Estimated GFR > 60 Random Glucose 94 Calcium 9.6 Preliminary micro results at discharge 12/21/24 14:01 Blood Culture - Preliminary Blood - Venous No growth after 48 hours. 12/21/24 13:55 Blood Culture - Preliminary Blood - Venous No growth after 48 hours. Discharge Plan Discharge Anticipated Discharge Date/Time: 12/25/24 08:19 Patient Disposition: Home, Self-Care Discharge Diagnosis: pna Referrals: [facility] [Primary Care Provider, Medical] - 1 Week Discharge Medications: New prednisone 20 mg Tablet 40 mg PO DAILY 5 Days Qty: 10 0RF azithromycin 500 mg Tablet 500 mg PO Q24H 5 Days Qty: 5 0RF cefuroxime axetil 500 mg tablet 500 mg PO BID Qty: 10 0RF Continued loratadine 10 mg Tablet 10 mg PO DAILY acetaminophen 500 mg tablet 500 mg PO Q6H PRN (Reason: mild pain) fluticasone propionate 50 mcg/actuation spray,suspension 1 spray intranasal DAILY diclofenac sodium [Arthritis Pain (diclofenac)] 1 % gel 4 g topical QID PRN (Reason: Pain) Rx Instructions: apply to hands 4 times a day oxycodone 15 mg tablet 15 mg PO QID PRN (Reason: Pain) polyethylene glycol 3350 [Miralax] 17 gram/dose powder 17 g PO DAILY Qty: 510 2RF zolpidem [Ambien] 5 mg tablet 5 mg PO BEDTIME PRN (Reason: sleep) Qty: 10 0RF omeprazole 20 mg capsule,delayed release(DR/EC) 20 mg PO BID@0630,1630 90 Days Qty: 180 2RF Rx Instructions: please fill LAURI Discontinued lisinopril 30 mg tablet 30 mg PO DAILY Discharge Orders: Discharge Order (Routine); Ordered 12/25/24 Ordered By: Brendan Marie Diet: Advance to usual diet Activity on Discharge: As tolerated Stand Alone Forms: Patient Portal Discharge page Print Language: [place] Island[place] Care Plan Goals: recovery Health Concerns: pna Plan of Treatment: 5 more days ceftin, azithro, and prednisone Assessment: see above
--- NOTE | 2024-12-25 08:43 | MHC.CM.PN ---
DP: PT HAS BEEN MEDICALLY CLEARED FOR DC HOME, NO SERVICES. PT HAS OWN RIDE HOME.
[2024-12-25 11:40] VITALS: BP 113/74; PULSE 60; RESP 17; TEMP 36.7; O2SAT 94
== END 2024-12-25 10:40 | disposition home or self-care (01) | DRG 720 ==
LOC: HO.ED 14:07 → HO.EDOVER 16:28 → HO.S3 12-22 00:09
PROVIDERS: Physician Assistant Medical; Admitting Provider Internal Medicine; Emergency Provider Emergency Medicine; Visit Provider Internal Medicine
DX: A41.9 Sepsis, unspecified organism (principal); J18.9 Pneumonia, unspecified organism; J44.0 Chronic obstructive pulmonary disease with (acute) lower respiratory infection; M06.9 Rheumatoid arthritis, unspecified; J44.1 Chronic obstructive pulmonary disease with (acute) exacerbation; K59.00 Constipation, unspecified; Z20.822 Contact with and (suspected) exposure to COVID-19; Z79.51 Long term (current) use of inhaled steroids; Z79.899 Other long term (current) drug therapy
CPT/HCPCS: 36415; 71046; 71250; 74018; 80048; 80053; 82272; 82803; 83605; 83735; 83880; 84484; 85025; 85027; 87040; 87502; 87633; 87635; 87640; 87641; 92610; 93005; 94640; 99285; J0131; J0692; J0696; J1650; J2405; J7120

== ENCOUNTER → 2024-12-21 12:48 | Outpatient (BNV) | payer MEDICAID, SELFPAY | PROVIDERS: Emergency Provider Emergency Medicine; Visit Provider Radiology Diagnostic Radiology | DX: J90 Pleural effusion, not elsewhere classified (principal); R09.02 Hypoxemia; R50.9 Fever, unspecified | CPT/HCPCS: 71046; 71250 ==

== ENCOUNTER → 2024-12-21 12:48 | Outpatient (BNV) | payer MEDICAID, SELFPAY | PROVIDERS: Admitting Provider Internal Medicine; Emergency Provider Emergency Medicine; Visit Provider Internal Medicine Cardiovascular Disease | DX: R06.02 Shortness of breath (principal) | CPT/HCPCS: 93010 ==

== ENCOUNTER 2024-12-21 16:28 | Outpatient (BNV) | payer MEDICAID, SELFPAY | END 2024-12-24 10:50 | PROVIDERS: Admitting Provider Internal Medicine; Emergency Provider Emergency Medicine; Visit Provider Radiology Vascular & Interventional Radiology | DX: K59.00 Constipation, unspecified (principal) | CPT/HCPCS: 74018 ==

== ENCOUNTER → 2024-12-21 16:28 | Outpatient (BNV) | payer MEDICAID, SELFPAY | PROVIDERS: Admitting Provider Internal Medicine; Emergency Provider Emergency Medicine; Visit Provider Internal Medicine | DX: I10 Essential (primary) hypertension (principal) | CPT/HCPCS: 99223; 99233 ==

== ENCOUNTER 2024-12-28 17:36 | Emergency (ER) | payer MEDICAID, SELFPAY ==
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
[2024-12-28 17:42] VITALS: BP 138/74; PULSE 57; RESP 18; TEMP 36.9; O2SAT 96; BMI 22.0
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
[2024-12-28 17:56] LABS: MANUAL DIFF FLAG NO
[2024-12-28 18:08] LABS: Hematocrit 35.8 % (37.0-47.0); Hemoglobin 11.8 g/dl (12.0-16.0); Imm Gran Abs Auto 0.11 X10*3/uL (0.00-0.03); Imm Gran Pct Auto 2.3 % (0.0-0.4); Lymphocytes Absolute Auto 0.8 X10*3/uL (1.2-4.9); Mean Corpuscular HGB Conc 33.0 g/dl (31.0-35.0); Mean Corpuscular Hemoglobin 30.6 pg (27.0-33.0); Mean Corpuscular Volume 92.7 fL (80.0-98.0); NRBC Abs Auto 0.000 X10*3/uL (0.0-0.012); NRBC Pct Auto 0.0 /100WBC (0.0-0.2); Platelet Count 278 X10*3/uL (160-400); Red Blood Count 3.86 X10*6/uL (4.20-5.50); White Blood Count 4.7 X10*3/uL (4.8-10.8)
[2024-12-28 18:13] LABS: Alanine Aminotransferase 38 U/L (0-31); Albumin Level 4.1 g/dL (3.5-5.0); Alkaline Phosphatase 96 U/L (39-117); Anion Gap 11 (12-20); Aspartate Amino Transferase 39 U/L (5-31); Blood Urea Nitrogen 21 mg/dL (9-16); Calcium 9.3 mg/dL (8.4-10.2); Carbon Dioxide 25 mmol/L (22-29); Chloride 108 mmol/L (96-108); Creatinine Clr Calc Pharmacy 100.6; Estimated Glomerular Filt Rate > 60; Lipase 24 U/L (8-78); Potassium 4.4 mmol/L (3.3-5.1); Sodium 140 mmol/L (135-145); Total Protein 7.2 g/dL (6.5-8.0)
--- OUTSIDE RECORDS SUMMARY | 2024-12-28 20:32 | XMS_ITS | Encounter Summary ---
Author Organization [employer] Address [address] [facility] 7t [place] [address] Care Team Providers Care Busgirl Name Role Phone Kenny Loyd MD Primary Care Provider Ezequiel Roblero AGNP Primary Care Provider Unavail Sarah PugaP Primary Care Provider [phone] Latasha Cline NP Primary Care Provider [phone] Reason for Visit * Reason Onset Date Comments Appointment Request 02/20/2022 Encounter Details Date Type Department Care Team (Late st Contact Info) Description 02/20/2022 Telephone [facility] MEDICINE [address] [place] [address] Kenny Loyd MD Appointment Request Social History [...] at 1 pm Please contact pt at [phone] documented in this encounter Plan of Treatment Upcoming Encounters Date Type Department Care Team (Late st Contact Info) Description 02/02/2025 3:15 PM EST Office Visit [address] [address] Latasha Cline, EVANS [address] [place] [address] 03/01/2025 1:00 PM EST Clinical Support [address] [address] Patricia Tejeda RN documented as of this encounter Visit Diagnoses Not on filedocumented in this encounter Care Teams Busgirl Relationship Specialty Start Date End Date Kenny Loyd MD PCP - General Family Medicine 12/30/18 02/22/22 Ezequiel Davis AGNP PCP - General Family Medicine 02/23/22 10/15/22 Sarah Burrell FNP [address] [place] [id number] PCP - General Family Medicine 10/16/22 03/16/23 Latasha Cline, EVANS [address] [place] [address] PCP - General Family Medicine 03/17/23 Pramod Del Real Hospice ChaplainFuneral Car Chauffeur 07/15/23 documented as of this encounter
--- OUTSIDE RECORDS SUMMARY | 2024-12-28 20:32 | XMS_ITS | Encounter Summary ---
Author Organization [employer] Address [address] [facility] [address] 7[address] [place] [address] Care Team Providers Care Grain Merchandiser Name Role Phone Latasha Cline NP Primary Care Provider [phone] Encounter Details Date Type Department Care Team ([facility] st Contact Info) Description 01/20/2024 Refill [facility] MEDICINE [address] [place], [place] [phone] Latasha Cline NP [address] [place] [address] Chronic pain syndrome Social History Tobacco Use [...] immediate release tablet To be sent to: [id number] - [place] [facility] [place] AT [facility] documented in this encounter Plan of Treatment Upcoming Encounters Date Type Department Care Team (Late st Contact Info) Description 02/02/2025 3:15 PM EST Office Visit [facility] MEDICINE [address] [place] [address] Latasha Cline NP [address] [place] [address] 03/01/2025 1:00 PM EST Clinical Support [address] [address] Patricia Tejeda, RAE documented as of this encounter Visit Diagnoses Diagnosis Chronic pain syndrome documented in this encounter Additional Health Concerns Assessment Noted Time PHQ-9 Depression Total Score: 0 06/04/19 24 9:43 AM EDT documented as of this encounter Care Teams Grain Merchandiser Relationship Specialty Start Date End Date Latasha Cline NP [address] [place] [address] PCP - General Family Medicine 03/17/23 Pramod Del Real Chemistry SpecialistShampooer 07/15/23 documented as of this encounter
--- OUTSIDE RECORDS SUMMARY | 2024-12-28 20:32 | XMS_ITS | Encounter Summary ---
Author Organization [employer] Address [address] [facility] 7t [place] [address] Care Team Providers Care President Name Role Phone Sarah Burrell Primary Care Provider [phone] Latasha Cline NP Primary Care Provider [phone] Reason for Visit * Reason Onset Date Comments Med Refill 01/06/2023 Encounter Details Date Type Department Care Team ([facility] st Contact Info) Description 01/06/2023 Telephone [facility] MEDICINE [address] [place] [address] Sarah Burrell FNP [address] [place], [place] [phone] Med Refill Social History Tobacco Use Types [...] 5 MG tablet to be sent to [facility][id number] - [place], [place] - [address] [place] AT [facility] [place] documented in this encounter Plan of Treatment Upcoming Encounters Date Type Department Care Team (Late st Contact Info) Description 02/02/2025 3:15 PM EST Office Visit [address] [address] Latasha Cline NP [address] [place] [address] 03/01/2025 1:00 PM EST Clinical Support [address] [address] Patricia Tejeda RN documented as of this encounter Visit Diagnoses Not on filedocumented in this encounter Care Teams President Relationship Specialty Start Date End Date Sarah Burrell FNP [address] [place] [address] PCP - General Family Medicine 10/16/22 03/16/23 Latasha Cline NP [address] [place] [address] PCP - General Family Medicine 03/17/23 Pramod Del Real Furniture Upholsterer ApprenticeAppliance Assembler 07/15/23 documented as of this encounter
--- OUTSIDE RECORDS SUMMARY | 2024-12-28 20:32 | XMS_ITS | Encounter Summary ---
Author Organization [employer] [facility] Address [address] [facility] 7t [place] [address] Care Team Providers Care Retail General Manager Name Role Phone Ezequiel Davis Primary Care Provider Unavail Sarah PugaP Primary Care Provider [phone] Latasha Cline NP Primary Care Provider [phone] Reason for Visit * Reason Comments Med Refill Encounter Details Date Type Department Care Team (Late st Contact Info) Description 08/18/2022 Refill [facility] MEDICINE [address] [place], [place] [phone] Ezequiel Davis AGNP Insomnia, unspecified type Social [...] Description 02/02/2025 3:15 PM EST Office Visit [facility] MEDICINE [address] [place], [place] [phone] Latasha Cline, EVANS [address] [place] [address] 03/01/2025 1:00 PM EST Clinical Support [facility] MEDICINE [address] [place] [address] Patricia Tejeda, RN documented as of this encounter Visit Diagnoses Diagnosis Insomnia, unspecified type documented in this encounter Care Teams Retail General Manager Relationship Specialty Start Date End Date Ezequiel Davis AGNP PCP - General Family Medicine 02/23/22 10/15/22 Sarah Burrell FNP [address] [place] [address] PCP - General Family Medicine 10/16/22 03/16/23 Latasha Cline, EVANS [address] [place] [address] PCP - General Family Medicine 03/17/23 Pramod Del Real Quality AssociateBelt Weaver 07/15/23 documented as of this encounter
--- OUTSIDE RECORDS SUMMARY | 2024-12-28 20:32 | XMS_ITS | Encounter Summary ---
Author Organization [employer] Address [address] [facility] 7t [place] [address] Care Team Providers Care Mission Systems Engineer Name Role Phone Latasha Cline NP Primary Care Provider [phone] Reason for Visit * Reason Onset Date Comments Med Refill 05/19/2024 Encounter Details Date Type Department Care Team ([facility] st Contact Info) Description 05/19/2024 Telephone [facility] MEDICINE [address] [place] [address] Latasha Cline NP [address] [place] [address] Med Refill Social History Tobacco Use Types [...] 25 MG capsule To be sent to: [id number] [place] - [facility] [place] [facility] [place] documented in this encounter Plan of Treatment Upcoming Encounters Date Type Department Care Team (Late st Contact Info) Description 02/02/2025 3:15 PM EST Office Visit [address] [phone] Latasha Cline NP [address] [place] [address] 03/01/2025 1:00 PM EST Clinical Support [address] [phone] Ileana, Patricia, RN documented as of this encounter Visit Diagnoses Not on filedocumented in this encounter Additional Health Concerns Assessment Noted Time PHQ-9 Depression Total Score: 0 06/04/19 24 9:43 AM EDT documented as of this encounter Care Teams Mission Systems Engineer Relationship Specialty Start Date End Date Latasha Cline NP [address] [place] [address] PCP - General Family Medicine 03/17/23 Pramod Del Real Warp Scouring Vat TenderThermal Cutting Machine Operator 07/15/23 documented as of this encounter
--- OUTSIDE RECORDS SUMMARY | 2024-12-28 20:32 | XMS_ITS | Encounter Summary ---
Author Organization [employer] Address [address] [facility] 7t [place] [address] Care Team Providers Care Funnel Coater Name Role Phone Latasha Cline NP Primary Care Provider [phone] Reason for Visit * Reason Onset Date Comments Med Refill 12/27/2024 Encounter Details Date Type Department Care Team (Late st Contact Info) Description 12/27/2024 Refill [facility] MEDICINE [address] [place] [address] Latasha Cline NP [address] [place] [address] Chronic pain syndrome Social History Tobacco Use [...] encounter Miscellaneous Notes * Telephone Encounter - Porter Leonard - 12/27/2024 11:27 AM EST TC from pt requesting medication refill. Medications needing refill : oxyCODONE (Roxicodone) 15 MG immediate release tablet To be sent to: [facility]/pharmacy #[id number] [place] [address] documented in this encounter Plan of Treatment Upcoming Encounters Date Type Department Care Team (Late st Contact Info) Description 02/02/2025 3:15 PM EST Office Visit [facility] MEDICINE [address] [place] [address] Latasha Cline NP [address] [place] [address] 03/01/2025 1:00 PM EST Clinical Support [facility] MEDICINE [address] [place] [address] Patricia Tejeda RN documented as of this encounter Visit Diagnoses Diagnosis Chronic pain syndrome documented in this encounter Additional Health Concerns Assessment Noted Time PHQ-9 Depression Total Score: 0 09/15/20 25 12:58 PM EDT documented as of this encounter Care Teams Funnel Coater Relationship Specialty Start Date End Date Latasha Cline NP [address] [place] [address] PCP - General Family Medicine 03/17/23 Pramod Del Real Aeronautical Engineering ProfessorBusiness Services Assistant 07/15/23 documented as of this encounter
--- OUTSIDE RECORDS SUMMARY | 2024-12-28 20:32 | XMS_ITS | Encounter Summary ---
Author Organization [employer] Address 75 [facility] 7t [place] [address] Care Team Providers Care Dean Of Women Name Role Phone Latasha Cline NP Primary Care Provider [phone] Reason for Visit * Reason Onset Date Comments Med Refill 04/01/2023 Encounter Details Date Type Department Care Team (Late st Contact Info) Description 04/01/2023 Refill [facility] MEDICINE [address] [place] [address] Latasha Cline, EVANS [address] [place] [address] Migraine without status migrainosus, not intractable, unspecified [...] requesting medication refill. Medications needing refill : [id number]-iocdjjzfmeezo-ksuhcfxg 50-325-40 MG tablet To be sent to: [id number] - [place], [place] - [facility] [address] [facility] documented in this encounter Plan of Treatment Upcoming Encounters Date Type Department Care Team (Late st Contact Info) Description 02/02/2025 3:15 PM EST Office Visit [facility] [address] [place] [address] Latasha Cline NP [address] [place] [address] 03/01/2025 1:00 PM EST Clinical Support [facility] [address] [place] [address] Patricia Tejeda RN documented as of this encounter Visit Diagnoses Diagnosis Migraine without status migrainosus, not intractable, unspecified migraine type documented in this encounter Care Teams Dean Of Women Relationship Specialty Start Date End Date Latasha Cline NP [address] [place] [address] PCP - General Family Medicine 03/17/23 Pramod Del Real Polisher Balance ScrewheadLast Waxer 07/15/23 documented as of this encounter
--- OUTSIDE RECORDS SUMMARY | 2024-12-28 20:32 | XMS_ITS | Encounter Summary ---
Author Organization [employer] Address 75 [facility] 7t [place] [address] Care Team Providers Care Outdoor Landscape Architect Name Role Phone Latasha Cline NP Primary Care Provider [phone] Reason for Visit * Reason Comments Med Refill Encounter Details Date Type Department Care Team (Late st Contact Info) Description 12/22/2023 Refill [facility] [place] MEDICINE 230 [place] [address] Name, MD Vidal [address] [place] [address] Migraine without status migrainosus, not intractable, unspecified [...] 02/02/2025 3:15 PM EST Office Visit [address] [address] Latasha Cline NP [address] [place] [address] 03/01/2025 1:00 PM EST Clinical Support [address] [address] Patricia Tejeda RN documented as of this encounter Visit Diagnoses Diagnosis Migraine without status migrainosus, not intractable, unspecified migraine type documented in this encounter Additional Health Concerns Assessment Noted Time PHQ-9 Depression Total Score: 0 06/04/19 24 9:43 AM EDT documented as of this encounter Care Teams Outdoor Landscape Architect Relationship Specialty Start Date End Date Latasha Cline NP [address] [place] [address] PCP - General Family Medicine 03/17/23 Pramod Del Real Networking AdministratorCooling Room Attendant 07/15/23 documented as of this encounter
--- OUTSIDE RECORDS SUMMARY | 2024-12-28 20:32 | XMS_ITS | Encounter Summary ---
Author Organization [employer] Address 75 [facility] 7t [place] [address] Care Team Providers Care Electoral Officer Name Role Phone Ezequiel Davis Primary Care Provider Unavail Sarah Puga MEDICAL ANTHROPOLOGY DIRECTOR Primary Care Provider [phone] Latasha Cline NP Primary Care Provider [phone] Reason for Visit * Reason Onset Date Comments Med Refill 04/17/2022 Encounter Details Date Type Department Care Team (Late st Contact Info) Description 04/17/2022 Telephone [facility] MEDICINE 230 [place] [address] Ezequiel Davis AGNP Med Refill Social History [...] Smith LPN - 04/17/2022 11:52 AM EST 911 EMERGENCY DISPATCHER checked on 04/17/22 medication has not been prescribed elsewhere. Per [employer] medication clwalgor66/19/2015. Please review. Last seen 03/18/22. * Telephone Encounter - [place] - 04/17/2022 10:40 AM EST Tc from pt requesting med refill on Ambien 5 mg Tablet. Medication is currently inactive. Please sent to [id number] - [place] - [address] [facility] documented in this encounter Plan of Treatment Upcoming Encounters Date Type Department Care Team (Late st Contact Info) Description 02/02/2025 3:15 PM EST Office Visit [address] [address] Latasha Cline NP [address] [place] [address] 03/01/2025 1:00 PM EST Clinical Support [address] [address] Patricia Tejeda RN documented as of this encounter Visit Diagnoses Not on filedocumented in this encounter Care Teams Electoral Officer Relationship Specialty Start Date End Date Ezequiel Davis AGNP PCP - General Family Medicine 02/23/22 10/15/22 Sarah Burrell FNP [address] [place] [address] PCP - General Family Medicine 10/16/22 03/16/23 Latasha Cline NP [address] [place] [address] PCP - General Family Medicine 03/17/23 Pramod Del Real Surface GrinderCarpentry Specialist 07/15/23 documented as of this encounter
--- OUTSIDE RECORDS SUMMARY | 2024-12-28 20:32 | XMS_ITS | Encounter Summary ---
Author Organization [employer] Address [address] [facility] [address] 7t [place] [address] Care Team Providers Care Career Education Teacher Name Role Phone Latasha Cline NP Primary Care Provider [phone] Encounter Details Date Type Department Care Team ([facility] st Contact Info) Description 01/19/2024 Telephone [facility] MEDICINE 230 [place], [place] [phone] Latasha Cline NP 230 [place] [address] Social History Tobacco Use Types Packs/Day Years [...] Description 02/02/2025 3:15 PM EST Office Visit [address] [address] Latasha Cline NP 230 [place] [address] 03/01/2025 1:00 PM EST Clinical Support [address] [address] Patricia Tejeda RN documented as of this encounter Visit Diagnoses Not on filedocumented in this encounter Additional Health Concerns Assessment Noted Time PHQ-9 Depression Total Score: 0 06/04/19 24 9:43 AM EDT documented as of this encounter Care Teams Career Education Teacher Relationship Specialty Start Date End Date Latasha Cline NP [address] [place] [address] PCP - General Family Medicine 03/17/23 Pramod Del Real Clinical HaematologistFood Tray Assembler 07/15/23 documented as of this encounter
--- OUTSIDE RECORDS SUMMARY | 2024-12-28 20:32 | XMS_ITS | Encounter Summary ---
Author Organization [employer] Address 75 [facility] 7t [place] [address] Care Team Providers Care C++ Professor Name Role Phone Sarah BurrellP Primary Care Provider [phone] Latasha Cline NP Primary Care Provider [phone] Encounter Details Date Type Department Care Team (Late st Contact Info) Description 12/28/2022 Abstract [facility] MEDICINE [address] [place] [address] Sarah Burrell FNP 230 [place], [place] [phone] Social History Tobacco Use Types Packs/Day Years [...] Description 02/02/2025 3:15 PM EST Office Visit [address] [address] Latasha Cline NP [address] [place] [address] 03/01/2025 1:00 PM EST Clinical Support [address] [address] Patricia Tejeda, RAE documented as of this encounter Visit Diagnoses Not on filedocumented in this encounter Care Teams C++ Professor Relationship Specialty Start Date End Date Sarah Burrell FNP [address] [place] [address] PCP - General Family Medicine 10/16/22 03/16/23 Latasha Cline NP [address] [place] [address] PCP - General Family Medicine 03/17/23 Pramod Del Real Inspector PlatingFreight Handler 07/15/23 documented as of this encounter
--- OUTSIDE RECORDS SUMMARY | 2024-12-28 20:32 | XMS_ITS | Encounter Summary ---
Author Organization [employer] Address 75 [facility] 7t [place] [address] Care Team Providers Care Admitted Attorneys Name Role Phone Latasha Cline NP Primary Care Provider [phone] Reason for Visit * Reason Onset Date Comments Med Refill 12/31/2023 Encounter Details Date Type Department Care Team ([facility] st Contact Info) Description 12/31/[address] [facility] MEDICINE 230 [place] [address] Latasha Cline NP [address] [place] [address] Med Refill Social History Tobacco Use Types [...] requesting medication refill. Medications needing refill : [id number] 50-325-40 MG tablet To be sent to: [facility][id number] - [place], [place] - [facility] documented in this encounter Plan of Treatment Upcoming Encounters Date Type Department Care Team (Late st Contact Info) Description 02/02/2025 3:15 PM EST Office [address] [facility] MED[facility]INE [address] [place] [address] Latasha Cline NP [address] [place] [address] 03/01/2025 1:00 PM EST Clinical Support [facility] 230 [place], [place] [phone] Ielana, Patricia, RN documented as of this encounter Visit Diagnoses Not on filedocumented in this encounter Additional Health Concerns Assessment Noted Time PHQ-9 Depression Total Score: 0 06/04/19 24 9:43 AM EDT documented as of this encounter Care Teams Admitted Attorneys Relationship Specialty Start Date End Date Latasha Cline NP [address] [place] [address] PCP - General Family Medicine 03/17/23 Pramod Del Real Manager Clinical ResearchOccupational Therapist'S Assistant 07/15/23 documented as of this encounter
--- OUTSIDE RECORDS SUMMARY | 2024-12-28 20:32 | XMS_ITS | Encounter Summary ---
Author Organization [employer] Address 75 [facility] 7t [place] [address] Care Team Providers Care Station Examiner Name Role Phone Latasha Cline NP Primary Care Provider [phone] Reason for Visit * Reason Onset Date Comments Med Refill 10/13/2024 Encounter Details Date Type Department Care Team ([facility] st Contact Info) Description 10/13/2024 Telephone [facility] MEDICINE 230 [place] [address] Latasha Cline NP 230 [place] [address] Med Refill Social History Tobacco Use Types [...] 5 MG tablet To be sent to: [facility]/pharmacy #[address] [place] [address] documented in this encounter Plan of Treatment Upcoming Encounters Date Type Department Care Team (Late st Contact Info) Description 02/02/2025 3:15 PM EST Office Visit [facility] MEDICINE [address] [place] [address] Latasha Cline NP 230 [place] [address] 03/01/2025 1:00 PM EST Clinical Support [facility] MEDICINE [address] [place] [address] Patricia Tejeda RN documented as of this encounter Visit Diagnoses Not on filedocumented in this encounter Additional Health Concerns Assessment Noted Time PHQ-9 Depression Total Score: 0 06/04/19 24 9:43 AM EDT documented as of this encounter Care Teams Station Examiner Relationship Specialty Start Date End Date Latasha Cline NP 230 [place] [address] PCP - General Family Medicine 03/17/23 Pramod Del Real Director Of NeurologyRn Community Health 07/15/23 documented as of this encounter
--- OUTSIDE RECORDS SUMMARY | 2024-12-28 20:32 | XMS_ITS | Encounter Summary ---
Author Organization [employer] Address 75 [facility] 7t [place] [address] Care Team Providers Care Tractor Drill Operator Name Role Phone Latasha Cline NP Primary Care Provider [phone] Reason for Visit * Reason Onset Date Comments Medication Question 09/27/2023 Encounter Details Date Type Department Care Team ([facility] st Contact Info) Description 09/27/2023 Telephone [facility] MEDICINE 230 [place] [address] Latsaha Cline NP 230 [place] [address] Medication Question Social History Tobacco Use Types [...] EDT Return T/C x 2 am through [place] id - [id number] for below message, No answer. LVM to call back on [phone]. * Telephone Encounter - Krzysztof Harrison - [...] any questions you can contact pt at [phone]. (Irish Speaker) documented in this encounter Plan of Treatment Upcoming Encounters Date Type Department Care Team ([facility] st Contact Info) Description 02/02/2025 3:15 PM EST Office Visit [facility] MEDICINE 230 [place] [address] Latasha Cline NP 230 [place] [address] 03/01/2025 1:00 PM EST Clinical Support [facility] MEDICINE [address] [facility] [place] [address] Patricia Tejeda, RN documented as of this encounter Visit Diagnoses Not on filedocumented in this encounter Additional Health Concerns Assessment Noted Time PHQ-9 Depression Total Score: 0 06/04/19 24 9:43 AM EDT documented as of this encounter Care Teams Tractor Drill Operator Relationship Specialty Start Date End Date Latasha Cline NP [address] [facility] [place] [address] PCP - General Family Medicine 03/17/23 Pramod Del Real Glue Maker BoneDeep Fryer Assembler 07/15/23 documented as of this encounter
--- OUTSIDE RECORDS SUMMARY | 2024-12-28 20:32 | XMS_ITS | Encounter Summary ---
Author Organization [employer] Address 75 [facility] 7t [place] [address] Care Team Providers Care Metal Base Blocker Name Role Phone Latasha Cline NP Primary Care Provider [phone] Encounter Details Date Type Department Care Team (Late st Contact Info) Description 12/28/2024 Orders Only GENERIC EXTERNAL DATA DEPARTMENT Provider, [...] t he electric, gas, oil or water [employer] threatened to shut off services in your [...] Description 02/02/2025 3:15 PM EST Office Visit [facility] MEDICINE [address] [place] [phone] Latasha Cline NP 230 [place], [place] [phone] 03/01/2025 1:00 PM EST Clinical Support [address] [phone] Patricia Tejeda RN documented as of this encounter Procedures Procedure Name Priority Date/Time Associated Diagnosis Comments CBC WITH AUTO DIFFERENTIAL Routine 12/28/2024 5:51 PM EST LIPASE Routine 12/28/2024 5:51 PM EST COMPREHENSIVE METABOLIC PANEL Routine 12/28/2024 5:51 PM EST documented in this encounter Results * Lipase (12/28/2024 5:51 PM EST) Lipase 24 8 - 78 U/L [facility] 12/28/2024 5:51 PM EST 12/28/2024 5:54 PM EST us Generic External Data Provider LAB BLOOD ORDERAB LES Final Result [facility] [address] [place] [phone] * (ABNORMAL) Comprehensive Metabolic Panel (12/28/2024 5:51 PM EST) Sodium 140 135 - 145 mmol/L [facility] Potassium 4.4 3.3 - 5.1 mmol/L [facility] Chloride 108 96 - 108 mmol/L [facility] Carbon Dioxide 25 22 - 29 mmol/L [facility] Anion Gap 11(L) 12 - 20 [facility] Urea Nitrogen (BUN) 21(H) 9 - 16 mg/dL [facility] Creatinine, Serum 0.55 0.5 - 1.4 mg/dL [facility] Creatinine Clr Calc Pharmacy 100.6 [facility] Comment:Provided height and weight: 167.64 cm,61.9 kg.eGFR (calculated from the MDRD study equation) and eCrCl(calculated from the Cockcroft-Gault equation) are based ondifferent parameters and may not yield comparable results.If eCrCl result is absurd, please check patient'sheight/weight. Estimated Glomerular Filt Rate >60 [facility] Comment:Chronic Kidney Disea se: Estimated GFR < 60 mL/min/1.08b2Lxjvfe Kidney Disease: Estimated GFR < 15 mL/min/1.73m2 Glucose 117(H) 60 - 115 mg/dL [facility] Calcium 9.3 8.4 - 10.2 mg/dL [facility] Bilirubin, Total 0.2 0.0 - 1.0 mg/dL [facility] Aspartate Amino Transferase 39(H) 5 - 31 U/L [facility] Alanine Aminotransferase 38(H) 0 - 31 U/L [facility] Total Protein 7.2 6.5 - 8.0 g/dL [facility] Albumin Level 4.1 3.5 - 5.0 g/dL [facility] Alkaline Phosphatase 96 39 - 117 U/L [facility] 12/28/2024 5:51 PM EST 12/28/2024 5:54 PM EST us Generic External Data Provider LAB BLOOD ORDERAB LES Final Result [facility] [address] [place], [place] [phone] * (ABNORMAL) CBC auto differential (12/28/2024 5:51 PM EST) White Blood Count 4.7(L) 4.8 - 10.8 X10*3/uL [facility] Red Blood Count 3.86(L) 4.20 - 5.50 X10*6/uL [facility] Hemoglobin 11.8(L) 12.0 - 16.0 g/dl [facility] Hematocrit 35.8(L) 37.0 - 47.0 % [facility] Mean Corpuscular Volume 92.7 80.0 - 98.0 fL [facility] Mean Corpuscular Hemoglobin 30.6 27.0 - 33.0 pg [facility] Mean Corpuscular HGB Conc 33.0 31.0 - 35.0 g/dl [facility] Red Cell Distribution Width 12.6 11.0 - 16.0 % [facility] Platelet Count 278 160 - 400 X10*3/uL [facility] Mean Platelet Volume 9.7 9.4 - 12.3 fL [facility] Neutrophils Percent Auto 76.6(H) 45 - 73 % [facility] Imm Gran Pct Auto 2.3(H) 0.0 - 0.4 % [facility] Lymphocytes Percent Auto 16.7(L) 20 - 40 % [facility] Monocytes Percent Auto 4.2 2 - 11 % [facility] Eosinophils Percent Auto 0.0 0 - 4 % [facility] Basophils Percent Auto 0.2 0 - 2 % [facility] NRBC Pct Auto 0.0 0.0 - 0.2 /100WBC [facility] Neutrophils Absolute Auto 3.6 2.0 - 8.3 x10*3/uL [facility] Imm Gran Abs Auto 0.11(H) 0.00 - 0.03 X10*3/uL [facility] Lymphocytes Absolute Auto 0.8(L) 1.2 - 4.9 X10*3/uL [facility] Monocytes Absolute Auto 0.2 0.1 - 1.2 X10*3/uL [facility] Eosinophils Absolute Auto 0.0 0.0 - 0.4 X10*3/uL [facility] Basophils Absolute Auto 0.0 0.0 - 0.2 X10*3/uL [facility] NRBC Abs Auto 0.000 0.0 - 0.012 X10*3/uL [facility] 12/28/2024 5:51 PM EST 12/28/2024 5:53 PM EST us Generic External Data Provider LAB BLOOD ORDERAB LES Final Result Performing Organization Address City/State/[facility] Co de Phone Number [facility] [address] [place] [address] [phone] documented in this encounter Visit Diagnoses Not on filedocumented in this encounter Additional Health Concerns Assessment Noted Time PHQ-9 Depression Total Score: 0 10/31/19 25 12:58 PM EDT documented as of this encounter Care Teams Metal Base Blocker Relationship Specialty Start Date End Date Latasha Cline NP [address] [place] [address] PCP - General Family Medicine 03/17/23 Pramod Del Real Film Rental ClerkConference Translator 07/15/23 documented as of this encounter
--- OUTSIDE RECORDS SUMMARY | 2024-12-28 20:32 | XMS_ITS | Encounter Summary ---
Author Organization [employer] Address 75 [facility] 7t [place] [address] Care Team Providers Care Woven Blind Loom Tender Name Role Phone Latasha Cline NP Primary Care Provider [phone] Reason for Visit * Reason Onset Date Comments Med Refill 11/01/2023 Encounter Details Date Type Department Care Team ([facility] st Contact Info) Description 11/01/2023 Telephone [facility] MEDICINE [address] [place] [address] Latasha Cline NP [address] [place] [address] Med Refill Social History Tobacco Use Types [...] 9:47 AM EDT Medication was sent to [facility] #[id number] on 09/28/23 #30 with 1 refill. IS CONSULTANT checked 11/01/23 last filled 09/28/23 patient has 1 refill left. * Telephone Encounter - [facility] - 11/01/2023 9:15 AM EDT TC from pt requesting medication refill. Medications needing refill : zolpidem (Ambien) 5 MG tablet To be sent to: [id number] - [place] [facility] [address] [facility] documented in this encounter Plan of Treatment Upcoming Encounters Date Type Department Care Team ([facility] st Contact Info) Description 02/02/2025 3:15 PM EST Office Visit [facility] MEDICINE [address] [place] [address] Latasha Cline NP [address] [place] [address] 03/01/2025 1:00 PM EST Clinical Support [facility] MEDICINE [address] [place] [address] Patricia Tejeda, RN documented as of this encounter Visit Diagnoses Not on filedocumented in this encounter Additional Health Concerns Assessment Noted Time PHQ-9 Depression Total Score: 0 06/04/19 9:43 AM EDT documented as of this encounter Care Teams Woven Blind Loom Tender Relationship Specialty Start Date End Date Latasha Cline NP [address] [place] [address] PCP - General Family Medicine 03/17/23 Pramod Del Real Curriculum Advisory TeacherBlacksmith Assistant 07/15/23 documented as of this encounter
--- OUTSIDE RECORDS SUMMARY | 2024-12-28 20:32 | XMS_ITS | Encounter Summary ---
Author Organization [employer] Address 75 [facility] 7t [place] [address] Care Team Providers Care Consolidation Accountant Name Role Phone Latasha Cline NP Primary Care Provider [phone] Encounter Details Date Type Department Care Team ([facility] st Contact Info) Description 06/07/2023 Telephone [facility] MEDICINE 230 [place], [place] [phone] Latasha Cline NP [address] [place] [address] Social History Tobacco Use Types Packs/Day Years [...] Description 02/02/2025 3:15 PM EST Office Visit [address] [address] Latasha Cline NP [address] [place] [address] 03/01/2025 1:00 PM EST Clinical Support [address] [address] Patricia Tejeda RN documented as of this encounter Visit Diagnoses Not on filedocumented in this encounter Additional Health Concerns Assessment Noted Time PHQ-9 Depression Total Score: 0 06/04/19 24 9:43 AM EDT documented as of this encounter Care Teams Consolidation Accountant Relationship Specialty Start Date End Date Latasha Cline NP [address] [place] [address] PCP - General Family Medicine 03/17/23 Pramod Del Real Microbiological Lab TechnicianPbx Inspector 07/15/23 documented as of this encounter
--- OUTSIDE RECORDS SUMMARY | 2024-12-28 20:32 | XMS_ITS | Encounter Summary ---
Author Organization [employer] Address [address] [facility] [address] [place] [address] Care Team Providers Care Program Clinician Name Role Phone Sarah BurrellP Primary Care Provider [phone] Latasha Cline NP Primary Care Provider [phone] Reason for Visit * Reason Onset Date Comments Appointment Request 02/22/2023 Encounter Details Date Type Department Care Team ([facility] st Contact Info) Description 02/22/[address] [facility] [address] [place] [address] Sarah Burrell FNP [address], [place] [phone] Appointment Request Social History Tobacco Use Types [...] Description 02/02/2025 3:15 PM EST Office Visit [facility] [address] [place] [phone] Latasha Cline NP [address] [place] [address] 03/01/2025 1:00 PM EST Clinical Support [address] [address] Patricia Tejeda, RAE documented as of this encounter Visit Diagnoses Not on filedocumented in this encounter Care Teams Program Clinician Relationship Specialty Start Date End Date Sarah Burrell FNP [address] [place] [phone] PCP - General Family Medicine 10/16/22 03/16/23 Latasha Cline NP [address] [place] [phone] PCP - General Family Medicine 03/17/23 Pramod Del Real Campground AttendantLegal Operations Manager 07/15/23 documented as of this encounter
--- OUTSIDE RECORDS SUMMARY | 2024-12-28 20:32 | XMS_ITS | Encounter Summary ---
Author Organization [facility] Address [address] [place] [address] Care Team Providers Care Microstrategy Developer Name Role Phone Latasha Cline NP Primary Care Provider [phone] Reason for Visit * Reason Onset Date Comments ER Follow-up 12/19/2024 Encounter Details Date Type Department Care Team ([facility] st Contact Info) Description 12/19/2024 Telephone [facility] [address] [place] [address] Latasha Cline NP [address] [place] [address] ER Follow-up Social History Tobacco Use Types [...] encounter Miscellaneous Notes * Telephone Encounter - Vidal Sawyer - 12/28/2024 3:29 PM EST Tc from pt returning call back regarding prior message. Contact pt at [phone] * Telephone Encounter - Mariama Roldan RN - 12/20/2024 10:31 AM EST Pt evaluated in [facility] ED 12/08/24 Diagnosis: Pleural effusion, pneumonia, sinusitis. [...] for cough. TC placed to pt via [employer] science interpreter (ID#[id number]) for status check and to schedule ED follow up. No answer, LVM to call office back and ask to speak to the blue team nurses. ED notes obtained from [facility] and placed in medical records bin for scanning. * Telephone Encounter - Krzysztof Harrison - 12/19/2024 12:30 PM EST Patient calling to report ED visit on : Date: 12/08/24 Hospital: [facility] Seen for: pneumonia Symptomatic No Please contact pt at [phone]. (Slovenian Speaker) documented in this encounter Plan of Treatment Upcoming Encounters Date Type Department Care Team (Late st Contact Info) Description 02/02/2025 3:15 PM EST Office Visit [facility] [address] [place] [phone] Latasha Cline NP [address] [place] [phone] 03/01/2025 1:00 PM EST Clinical Support [address] [address] Patricia Tejeda RN documented as of this encounter Visit Diagnoses Not on filedocumented in this encounter Additional Health Concerns Assessment Noted Time PHQ-9 Depression Total Score: 0 10/31/19 25 12:58 PM EDT documented as of this encounter Care Teams Microstrategy Developer Relationship Specialty Start Date End Date Latasha Cline NP [address] [place] [phone] PCP - General Family Medicine 03/17/23 Pramod Del Real Quality Control HeadChildren'S Service Worker 07/15/23 documented as of this encounter
--- OUTSIDE RECORDS SUMMARY | 2024-12-28 20:33 | XMS_ITS | Clinical Summary ---
Author Organization [employer] Address [address] [facility] [address] [place] [address] Care Team Providers Care Offset Machine Operator Name Role Phone Son Latasha KRUEGER Primary Care Provider [phone] Allergies Active Allergy Reactions Criticality Noted Date [...] mouth in the morning. Active sodium chloride (Defiance) 0.65 % nasal spray 1-2 sprays in [...] USE DIRECTED Active neomycin-polymy echo-dexAMETHaso ne (Polydex) 3.5-04754-9.1 ointment ophthalmic ointment Active omeprazole OTC (PriLOSEC [...] 30 tablet 2 024 Active fish oil (Mazon-3) 500 MG capsuleIndicati ons:Elevated lipids TAKE 1 [...] AREA TWICE DAILY 45 g 025 Active acetaminophen (Tylenol Extra Strength) 500 MG [...] BEDTIME NEEDED FOR SLEEP 30 tablet Active oxyCODONE (Roxicodone) 15 MG immediate release tabletIndicatio ns:Chronic pain syndrome Take 1 tablet (15 mg) by mouth every 6 (six) hours if needed (for severe pain) for up to 28 days. 112 tablet 025 2024 Active zolpidem (Ambien) 5 MG tabletIndicatio ns:Insomnia, [...] no exudate Acute non-recurrent maxillary sinusitis 07/16/19 Assessment & Plan (07/17/2023 4:30 PM EDT): [...] LDL-C. Juan CONNOLLY et al. LINN. 2013;310(19): 9506-0501 (http://education.[employer].Qoniac/faq/WHE878) Chol/HDLC Ratio <5.0 (calc) 3.3 3.9 Non-HDL [...] She reports never being contacted by the rapid extractor operator. She would like another referral. Routine adult health maintenance 05/15/2022 Assessment & Plan (06/04/2023 7:15 PM EDT): In care with synthetic plasterer, mammogram ordered, will address routine health maintenance [...] last visit 07/15. 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 Assessment & [...] back pain 10/29/2011 Flare of rheumatoid arthritis ([facility]) 10/29/19 12 Assessment & Plan (06/04/2023 7:10 [...] Encounters Date Type Department Care Team Description 12/28/2024 Orders Only GENERIC EXTERNAL DATA DEPARTMENT Provider, Generic External Data 12/27/2024 Refill [facility] [address] [place] [address] Latasha Cline NP Chronic pain syndrome 12/21/2024 Orders Only GENERIC EXTERNAL DATA DEPARTMENT Provider, Generic External Data 12/19/[address] [address] Latasha Cline NP ER Follow-up 12/13/[address] [address] Latasha Cline NP ER Follow-up 12/13/[address] [address] Latasha Cline NP Insomnia, unspecified type 12/08/2024 Orders Only GENERIC EXTERNAL DATA DEPARTMENT Provider, Generic External Data 11/30/[address] [address] Latasha Cline NP DEC RECALL 11/29/2024 3:00 PM EDT Office Visit [facility] [address] [address] Iris Herring MD Viral upper respiratory tract infection (Primary Dx); Cough, unspecified type; Body aches 11/29/2024 2:30 PM EDT Clinical Support [address] [address] Patricia Tejeda, RN Long-term current use of opiate analgesic (Primary Dx) 11/29/[address] [address] Patricia 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, RN 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 11/29/2024 Travel 11/27/2024 Refill [facility] [address] [place] [address] Latasha Cline NP Chronic pain syndrome 11/25/2024 Refill [facility] [address] [place] [address] oTd Bhatia MD 11/13/2024 Refill [facility] [address] [place] [address] Latasha Cline NP Insomnia, unspecified type; 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/31/2024 10:30 AM EDT Clinical Support [address] [address] Patricia Tejeda, RN Long-term current use of opiate analgesic (Primary Dx) 10/31/[address] [place] [address] Latasha Cline, EVANS Nurse Triage 10/30/2024 1:00 PM EDT Office Visit [address] [place] [address] Latasha Cline, EVANS Chronic pain syndrome (Primary Dx) 10/30/[address] [place] [address] Latasha Cline NP 10/30/[address] [address] Patricia Tejeda RN 10/30/2024 Travel 10/26/[address] [place] [address] Latasha Cline NP CHARTPREP 10/13/[address] [address] Latasha Cline NP Med Refill 10/13/[address] [address] Latasha Cline NP Insomnia, unspecified type 10/13/[address] [address] Latasha Cline NP Chronic pain syndrome 10/03/2024 Results Follow-Up [address] [address] Latasha Cline NP POCT NELSON-14 Urine Drug Screen, Drug Monitoring, Benzodiazepines, Quantitative, Urine 10/03/[address] [address] Patricia Tejeda, RAE UTOX confirmation Pos BZO 09/28/2024 10:30 AM EDT Clinical Support [address] [address] Patricia Tejeda, RN Long-term current use of opiate analgesic (Primary Dx) 09/28/[address] [address] Patricia Tejeda, RN Clarification of anxiety medication 09/28/2024 [address] [place] [address] 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 I have goivany delacruz 10/30/[address] you [...] Description 02/02/2025 3:15 PM EST Office Visit [address] [address] Latasha Cline NP [address] [place] [address] 03/01/2025 1:00 PM EST Clinical Support [address] [address] Patricia Tejeda, RN Health Maintenance Due Date [...] Procedure Name Priority Date/Time Associated Diagnosis Comments LIPASE Routine 12/28/2024 5:51 PM EST COMPREHENSIVE METABOLIC PANEL Routine 12/28/2024 5:51 PM EST CBC WITH AUTO DIFFERENTIAL Routine 12/28/2024 5:51 PM EST XR KUB AND UPRIGHT 2 VIEWS Routine 12/24/2024 12:[address] CHEST WO CONTRAST Routine 12/21/2024 10:55 PM EST OBSX1 Routine 12/21/2024 3:48 PM EST LACTIC [...] Recently Relevant to Health Maintenance Results * (ABNORMAL) CBC auto differential (12/28/2024 5:51 PM EST) Only the most recent of3 resultswithin the time period is included. White Blood Count 4.7(L) 4.8 - 10.8 X10*3/uL [facility] Red Blood Count 3.86(L) 4.20 - 5.50 X10*6/uL [facility] Hemoglobin 11.8(L) 12.0 - 16.0 g/dl [facility] Hematocrit 35.8(L) 37.0 - 47.0 % [facility] Mean Corpuscular Volume 92.7 80.0 - 98.0 fL [facility] Mean Corpuscular Hemoglobin 30.6 27.0 - 33.0 pg [facility] Mean Corpuscular HGB Conc 33.0 31.0 - 35.0 g/dl [facility] Red Cell Distribution Width 12.6 11.0 - 16.0 % [facility] Platelet Count 278 160 - 400 X10*3/uL [facility] Mean Platelet Volume 9.7 9.4 - 12.3 fL [facility] Neutrophils Percent Auto 76.6(H) 45 - 73 % [facility] Imm Gran Pct Auto 2.3(H) 0.0 - 0.4 % [facility] Lymphocytes Percent Auto 16.7(L) 20 - 40 % [facility] Monocytes Percent Auto 4.2 2 - 11 % [facility] Eosinophils Percent Auto 0.0 0 - 4 % [facility] Basophils Percent Auto 0.2 0 - 2 % [facility] NRBC Pct Auto 0.0 0.0 - 0.2 /100WBC [facility] Neutrophils Absolute Auto 3.6 2.0 - 8.3 x10*3/uL [facility] Imm Gran Abs Auto 0.11(H) 0.00 - 0.03 X10*3/uL [facility] Lymphocytes Absolute Auto 0.8(L) 1.2 - 4.9 X10*3/uL [facility] Monocytes Absolute Auto 0.2 0.1 - 1.2 X10*3/uL [facility] Eosinophils Absolute Auto 0.0 0.0 - 0.4 X10*3/uL [facility] Basophils Absolute Auto 0.0 0.0 - 0.2 X10*3/uL [facility] NRBC Abs Auto 0.000 0.0 - 0.012 X10*3/uL [facility] 12/28/2024 5:51 PM EST 12/28/2024 5:53 PM EST us Generic External Data Provider LAB BLOOD ORDERAB LES Final Result Performing Organization Address [facility] Co de Phone Number [facility] [address] [place] [phone] * Lipase (12/28/2024 5:51 PM EST) Lipase 24 8 - 78 U/L [facility] 12/28/2024 5:51 PM EST 12/28/2024 5:54 PM EST us Generic External Data Provider LAB BLOOD ORDERAB LES Final Result Performing Organization Address [facility] Co de Phone Number [facility] [address] [place] [phone] * (ABNORMAL) Comprehensive Metabolic Panel (12/28/2024 5:51 PM EST) Only the most recent of3 resultswithin the time period is included. Sodium 140 135 - 145 mmol/L [facility] Potassium 4.4 3.3 - 5.1 mmol/L [facility] Chloride 108 96 - 108 mmol/L [facility] Carbon Dioxide 25 22 - 29 mmol/L [facility] Anion Gap 11(L) 12 - 20 [facility] Urea Nitrogen (BUN) 21(H) 9 - 16 mg/dL [facility] Creatinine, Serum 0.55 0.5 - 1.4 mg/dL [facility] Creatinine Clr Calc Pharmacy 100.6 [facility] Comment:Provided height and weight: 167.64 cm,61.9 kg.eGFR (calculated from the MDRD study equation) and eCrCl(calculated from the Cockcroft-Gault equation) are based ondifferent parameters and may not yield comparable results.If eCrCl result is absurd, please check patient'sheight/weight. Estimated Glomerular Filt Rate >60 [facility] Comment:Chronic Kidney Disea se: Estimated GFR < 60 mL/min/1.12v2Mzllik Kidney Disease: Estimated GFR < 15 mL/min/1.73m2 Glucose 117(H) 60 - 115 mg/dL [facility] Calcium 9.3 8.4 - 10.2 mg/dL [facility] Bilirubin, Total 0.2 0.0 - 1.0 mg/dL [facility] Aspartate Amino Transferase 39(H) 5 - 31 U/L [facility] Alanine Aminotransferase 38(H) 0 - 31 U/L [facility] Total Protein 7.2 6.5 - 8.0 g/dL [facility] Albumin Level 4.1 3.5 - 5.0 g/dL [facility] Alkaline Phosphatase 96 39 - 117 U/L [facility] 12/28/2024 5:51 PM EST 12/28/2024 5:54 PM EST us Generic External Data Provider LAB BLOOD ORDERAB LES Final Result [facility] [address] [place] [phone] * XR KUB and Upright 2 Views (12/24/2024 12:55 PM EST) Anatomical Region Laterality Modality Radiographic Carole ging 12/24/2024 12:5 5 PM EST Narrative 12/24/2024 12:56 PM EST [place] [address] XRay Report Signed Patient: Soni Mahoney MR#: [id number] : 1965 Acct:[id number] Age/Sex: 59 / F ADM Date: 12/21/24 Loc: HO.S3 380-[address]: Brendan Marie MD Ordering Physician: Brendan Marie MD Date of Service: 12/24/24 Procedure(s): XR KUB Accession Number(s): [id number] cc: [facility]; Brendan Marie MD Reason for Exam: constipation CLINICAL HISTORY: constipation 1 view abdomen Comparison: None provided Findings: No pneumoperitoneum or pneumatosis. Significant diffuse fecal retention. No small bowel obstruction or free air identified. Multiple metal fragments project over the abdomen. IMPRESSION: Significant fecal retention throughout the colon. No small bowel obstruction or free air identified. This document has been electronically signed by: Geo Moreno MD on 12/24/2024 12:55:12 Dictated By: Geo Moreno MD Signed By: <Electronically signed by Geo Moreno MD in OV> 12/24/24 1255 DD/ 1255 TD/TT: 12/24/24 1255 Lien Searcher: Procedure Note Donotuseinterpreter, Image - 12/24/2024 [place] [address] XRay Report Signed Patient: Soni MahoneyMR#: [id number] : 1965Acct:[id number] Age/Sex: 59 / FADM Date: 12/21/24 Loc: HO.S3 380-[address]: Brendan Marie MD Ordering Physician: Brendan Marie MD Date of Service: 12/24/24 Procedure(s): XR KUB Accession Number(s): [id number] cc: [facility]; Brendan Marie MD Reason for Exam: constipation CLINICAL HISTORY: constipation 1 view abdomen Comparison: None provided Findings: No pneumoperitoneum or pneumatosis. Significant diffuse fecal retention. No small bowel obstruction or free air identified. Multiple metal fragments project over the abdomen. IMPRESSION: Significant fecal retention throughout the colon. No small bowel obstruction or free air identified. This document has been electronically signed by: Geo Moreno MD on 12/24/2024 12:55:12 Dictated By: Geo Moreno MD Signed By: <Electronically signed by Geo Moreno MD in OV> 12/24/24 1255 DD/ 1255 TD/TT: 12/24/24 125 Lien Searcher: [facility] External Provider IMG XR PROCEDURES Edited Result - Final * CT Chest w/o Contrast (12/21/2024 10:55 PM EST) Anatomical Region Laterality Modality Body, Chest Computed Tomogra phy 12/21/2024 10:5 5 PM EST Narrative 12/21/2024 10:57 PM EST [place] [address] CT Scan Report Signed Patient: Soni Mahoney MR#: [id number] : 1965 Acct:[id number] Age/Sex: 59 / F ADM Date: 12/21/24 Loc: [facility] Attending Dr: Brendan Marie MD Ordering Physician: Brendan Marie MD Date of Service: 12/21/24 Procedure(s): CT chest wo IV con Accession Number(s): [id number] cc: [facility]; Brendan Marie MD Report Number: [id number]: Total DLP = 0.00 mGy-cm Reason for Exam: hypoxia, fever, effusion CLINICAL HISTORY: hypoxia, fever, effusion CT chest without contrast Comparison: CR/SR - XR CHEST 2 VIEWS - 12/21/24 13:13 EST Findings: Dense consolidation within the dependent portion of the lower lobes bilaterally. Also area of subtle peripheral consolidation within the posterior and inferior aspect of the right upper lobe. Mild emphysematous changes throughout. Trace bilateral pleural effusions. No pneumothorax. Trace pericardial effusion. Overall heart size within normal limits. No pathologically enlarged lymph nodes. Pneumobilia seen within the upper abdomen. Heterogeneity of the liver without discrete mass in the unenhanced exam. 2 cm simple cyst within the upper pole of the right kidney. No acute fractures. Degenerative change throughout the thoracolumbar spine. Metallic density seen at the level of the T11-12 disc space. IMPRESSION: Multifocal areas of consolidation as discussed above. This is most characteristic of multifocal pneumonia. This document has been electronically signed by: Asad Richter MD on 12/21/2024 22:55:57 Dictated By: Asad Richter MD Signed By: <Electronically signed by Asad Richter MD in OV> 12/21/242256 DD/ 54 TD/TT: 12/21/242254 Lien Searcher: Procedure Note Donotuseinterpreter, Image - 12/21/[address] [place] [address] [address] Scan Report Signed Patient: Artur Mahoney#: [id number] : 1965Acct:[id number] Age/Sex: 59 / FADM Date: 12/21/24 Loc: [place] [address]: Brendan Marie MD Ordering Physician: Brendan Marie MD Date of Service: 12/21/24 Procedure(s): CT chest wo IV con Accession Number(s): [id number] cc: [facility]; Brendan Marie MD Report Number: [id number]: Total DLP = 0.00 mGy-cm Reason for Exam: hypoxia, fever, effusion CLINICAL HISTORY: hypoxia, fever, effusion CT chest without contrast Comparison: CR/SR - XR CHEST 2 VIEWS - 12/21/24 13:13 EST Findings: Dense consolidation within the dependent portion of the lower lobes bilaterally. Also area of subtle peripheral consolidation within the posterior and inferior aspect of the right upper lobe. Mild emphysematous changes throughout. Trace bilateral pleural effusions. No pneumothorax. Trace pericardial effusion. Overall heart size within normal limits. No pathologically enlarged lymph nodes. Pneumobilia seen within the upper abdomen. Heterogeneity of the liver without discrete mass in the unenhanced exam. 2 cm simple cyst within the upper pole of the right kidney. No acute fractures. Degenerative change throughout the thoracolumbar spine. Metallic density seen at the level of the T11-12 disc space. IMPRESSION: Multifocal areas of consolidation as discussed above. This is most characteristic of multifocal pneumonia. This document has been electronically signed by: Asad Richter MD on 12/21/2024 22:55:57 Dictated By: Asad Richter MD Signed By: <Electronically signed by Asad Richter MD in OV> 12/21/242256 DD/ 54 TD/TT: 12/21/242254 Lien Searcher: [facility] External Provider IMG CT PROCEDURES Edited Result - Final * OBSX1 (12/21/2024 3:48 PM EST) OBS1 NEGATIVE NEGATIVE [facility] 12/21/2024 3:48 PM EST 12/21/2024 3:53 PM EST Generic External Data Provider LAB BLOOD ORDERAB LES Final Result Performing Organization Address [facility] Co de Phone Number [facility] [address] [place] [phone] * Lactic Acid (12/21/2024 1:55 PM EST) Pathologist [facility] Lactic Acid 1.1 0.5 - 2.0 mmol/L [facility] 12/21/2024 1:55 PM EST 12/21/2024 2:05 PM EST Generic External Data Provider LAB BLOOD ORDERAB LES Final Result Performing Organization Address [facility] Co de Phone Number [facility] [address] [place] [phone] * (ABNORMAL) VENOUS BLOOD GAS (12/21/2024 1:25 PM EST) VBG pH 7.47(H) 7.32 - 7.43 [facility] Comment:METER #: [id number] additional_comment: Cb abliai VBG PCO2 30 mmHg [facility] Comment:METER #: [id number] additional_comment: Cb abliai VBG PO2 53 mmHg [facility] Comment:METER #: [id number] additional_comment: Cb abliai VBG Base Excess -0.4 mmol/L [facility] Comment:METER #: [id number] additional_comment: Cb abliai VBG HCO3 22 22 - 26 mmol/L [facility] Comment:METER #: [id number] additional_comment: Cb abliai O2 Sat, Neymar 84.0 % [facility] Comment:METER #: [id number] additional_comment: Cb abliai 12/21/2024 1:25 PM EST 12/21/2024 1:28 PM EST us Generic External Data Provider LAB BLOOD ORDERAB LES Final Result Performing Organization Address [facility] de Phone Number [facility] [address] [place] [phone] * High Sensitivity Troponin I (12/21/2024 1:18 PM EST) Pathologist [facility] TROPONIN I HIGH SENSITIVITY <2.7 <3.5 - 17.0 ng/L [facility] Comment:The Li high sens itivity Troponin-I results should beused in conjunction with other diagnostic information suchas ECG, clinical observations and information, and patientsymptoms to aid in the diagnosis of [place]. 12/21/2024 1:18 PM EST 12/21/2024 1:23 PM EST us Generic External Data Provider LAB BLOOD ORDERAB LES Final Result Performing Organization Address [facility] Co de Phone Number [facility] [address] [place] [phone] [phone] * Magnesium (12/21/2024 1:18 PM EST) Magnesium 2.2 1.6 - 2.6 mg/dL [facility] 12/21/2024 1:18 PM EST 12/21/2024 1:23 PM EST Generic External Data Provider LAB BLOOD ORDERAB LES Final Result Performing Organization Address [facility] Co de Phone Number [facility] [address] [place] [phone] * Influenza A B2 ID NOW ([employer]) (12/21/2024 1:17 PM EST) Only the most recent of2 resultswithin the time period is included. IDNOW SERIAL# [id number] [facility] Influenza A Negative Negative [facility] Influenza B2 Negative Negative [facility] Influenza A B2 Note See Note [facility] Comment:The Li ID NOW In [...] GENERAL ORDERABLES Final Result Performing Organization Address [facility] Co de Phone Number [facility] [address] [place] [phone] * COVID-19 ID NOW ([employer]) (12/21/2024 1:17 PM EST) Only the most recent of2 resultswithin the time period is included. IDNOW SERIAL# [id number] [facility] COVID-19 TEST Negative Negative [facility] COVID-19 NOTE See Note [facility] Comment: Results are for the identification of SARS-CoV2 RNA. TheSARS-CoV2 RNA is generally detectable in respiratory samplesduring the acute phase of infection. Positive results areindicative of the presence of SARS-CoV-2 RNA; clinicalcorrelation with patient history and other diagnosticinformation is necessary to determine patient infectionstatus. Positive results do not rule out bacterial infectionor co- infection with other viruses.Testing facilities within the [place] and itsterritories are required to report [...] use by authorized laboratories.Testing performed on the [employer] ID NOW utilizing NAAT. 12/21/2024 1:17 PM EST 12/21/2024 1:23 PM EST us Generic External Data Provider LAB MOLECULAR DON GNOSTICS ORDERABLES Final Result [facility] [address] [place] [phone] * XR Chest 2 Views (12/21/2024 1:00 PM EST) Anatomical Region Laterality Modality Chest Radiographic Carole ging 12/21/2024 1:00 PM EST Narrative 12/21/2024 1:17 PM EST [address] [address] XRay Report Signed Patient: Soni Mahoney MR#: [id number] : 1965 Acct:[id number] Age/Sex: 59 / F ADM Date: 12/21/24 Loc: HO.ED Attending Dr: Ordering Physician: Katherine Dick Date of Service: 12/21/24 Procedure(s): XR chest 2V Accession Number(s): [id number] cc: Katherine Dick; [facility] Reason for Exam: chest pain EXAMINATION: XR [...] Jean Marie Sanchez MD 12/21/2024 01:14 PM [facility] Dictated By: Jean Marie Bermudez MD Signed By: <Electronically signed by Jean Marie Vanessa MD in OV> 12/21/24 1314 DD/ 1300 TD/TT: 12/21/24 1307 Lien Searcher: Procedure Note Donotuseinterpreter, Image - 12/21/[address] [address] XRay Report Signed Patient: Soni MahoneyMR#: [id number] : 1965Acct:[id number] Age/Sex: 59 / FADM Date: 12/21/24 Loc: HO.ED Attending Dr: Ordering Physician: Katherine Dick Date of Service: 12/21/24 Procedure(s): XR chest 2V Accession Number(s): [id number] cc: Katherine Dick; [facility] Reason for Exam: chest pain EXAMINATION: XR [...] Jean Marie Sanchez MD 12/21/2024 01:14 PM [facility] Dictated By: Jean Marie Bermudez MD Signed By: <Electronically signed by Jean Marie Vanessa MDin OV> 12/21/24 1314 DD/ 1300 TD/TT: 12/21/24 1307 Lien Searcher: [facility] External Provider IMG XR PROCEDURES Final Result * XR Chest 1 View (12/08/2024 6:22 AM EDT) Anatomical Region Laterality Modality Chest Radiographic Carole ging 12/08/2024 6:22 AM EDT Narrative 12/08/2024 6:24 AM EDT [address] [address] XRay Report Signed Patient: Soni Mahoney MR#: [id number] : 1965 Acct:[id number] Age/Sex: 59 / F ADM Date: 12/08/24 Loc: HO.ED Attending Dr: Ordering Physician: Laisha Coon DO Date of Service: 12/08/24 Procedure(s): XR chest 1V Accession Number(s): [id number] cc: Laisha Coon DO; [facility] Reason for Exam: cough CLINICAL HISTORY: cough [...] in OV> 12/08/24622 DD/ 1 TD/TT: 12/08/24621 Lien Searcher: Procedure Note Donotuseinterpreter, Image - 12/08/2024 [place] [address] XRay Report Signed Patient: Artur Mahoney#: [id number] : 1965Acct:[id number] Age/Sex: 59 / FADM Date: 12/08/24 Loc: .ED Attending Dr: Ordering Physician: Laisha Coon DO Date of Service: 12/08/24 Procedure(s): XR chest 1V Accession Number(s): [id number] cc: Laisha Coon DO; [facility] Reason for Exam: cough CLINICAL HISTORY: cough [...] in OV> 12/08/24622 DD/ 1 TD/TT: 12/08/24621 Lien Searcher: [facility] External Provider IMG XR PROCEDURES Final Result * POCT Rapid Influenza A LI ID NOW (11/29/2024 3:36 PM EDT) Influenza A Negative Negative, Indeterminate [facility] QC Media Lot # [id number] [facility] Lot# Expiration Date [facility] Swab 11/29/2024 3:36 PM EDT Result [facility] Iris Herring MD POINT OF CARE TEST ENTER /EDIT ORDERABLES Final Result Performing Organization Address [facility]/ZIP Co de Phone Number [facility] [address] [place] [phone] * POCT Rapid Covid-19 BinaxNOW (11/29/2024 3:36 PM EDT) Rapid COVID Ag Negative QC Media Lot # [id number] Lot# Expiration Date Swab 11/29/2024 3:36 PM EDT Result [facility] Iris Herring MD POINT OF CARE TEST ENTER /EDIT ORDERABLES Final Result * POCT Rapid Influenza B LI ID NOW (11/29/2024 3:35 PM EDT) Influenza B Negative Negative, Indeterminate [facility] QC Media Lot # [id number] [facility] Lot# Expiration Date [facility] Swab 11/29/2024 3:35 PM EDT Result [facility] Iris Herring MD POINT OF CARE TEST ENTER /EDIT ORDERABLES Final Result [facility] [address] [place] [phone] [phone] * (ABNORMAL) POCT NELSON-14 Urine Drug [...] Negative ng/mL Oxycodone Screen, Urine Positive(A) Negative 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 11/21/25 Internal Pass Control Latasha Cline NP POINT OF CARE TEST ENTER/EDIT OR DERABLES Final Result * Drug Monitoring, Benzodiazepines, Quantitative, Urine (09/28/2024 10:30 AM EDT) Nordiazepam, GCMS Urine 52 [facility] Comment:CUTOFF: 50 ng/mL Oxazepam, GCMS Urine NEGATIVE [facility] Comment:CUTOFF: 50 ng/mL Lorazepam GCMS Urine NEGATIVE [facility] Comment:CUTOFF: 50 ng/mL Alprazolam, GCMS Urine NEGATIVE [facility] Comment:CUTOFF: 25 ng/mL Alphahydroxytriazolam, GCMS Ur NEGATIVE [facility] Comment:CUTOFF: 50 ng/mL Temazepam, GCMS Urine 132 [facility] Comment:CUTOFF: 50 ng/mL Alphahydroxymidazolam,GC MS Ur NEGATIVE [facility] Comment:CUTOFF: 50 ng/mL Aminoclonazepam, GCMS Urine NEGATIVE [facility] Comment:CUTOFF: 25 ng/mL Flurazepam Metabolite,GCMS Ur NEGATIVE [facility] Comment:CUTOFF: 50 ng/mL Benzodiazepines Comments SEE NOTE [facility] Comment: This drug testing is [...] their analyticalperformance characteristics have been determined by [employer]. It has not been cleared or approved by the FDA.This assay has been validated pursuant to the CLIAregulations and is used for clinical purposes.Healthcare Providers needing Interpretation assistance,please contact us at [phone] ( ) M-F,8am to 10pm ESTPERFORMING SITE:[facility] [employer] [facility], [address] [place] [phone] Mechanical Facilities Technician: ASHELY MCFARLAND MD, CLIA:[id number] Urine (Urine, Random) 09/28/2024 10:30 AM EDT 09/28/2024 4:40 PM EDT us Latasha Cline NP LAB URINE ORDERABLES Final Resul t [facility] [address] [place] [phone] * (ABNORMAL) Lipid Panel, Standard (07/17/2022 9:05 AM EDT) Cholesterol, Total 209(H) <200 mg/dL [facility] [employer] [place] [employer] HDL Cholesterol 64 > OR = 50 mg/dL [facility] Triglycerides 79 <150 mg/dL [facility] LDL Cholesterol 127(H) mg/dL (calc) [facility] Comment: Reference range: <100 Desirable range <100 mg/dL for primary prevention; <70 mg/dL for patients with CHD or diabetic patients with > or = 2 CHD risk factors. LDL-C is now calculated using the Constantine calculation, which is a validated novel method providing better accuracy than the Friedewald equation in the estimation of LDL-C. Juan CONNOLLY et al. LINN. 2013;310(19): 3031-4025 (http://education.Dot VN/faq/TVG492) Chol/HDLC Ratio 3.3 <5.0 (calc) [facility] Non-HDL Cholesterol 145(H) <130 mg/dL (calc) [employer] [place] [employer] Comment: For patients with diabetes plus 1 major ASCVD risk factor, treating to a non-HDL-C goal of <100 mg/dL (LDL-C of <70 mg/dL) is considered a therapeutic option. Blood Venous blood specimen / Unknown 07/17/2022 9:05 AM EDT 07/17/2022 9:06 AM EDT Narrative [facility] - 07/17/2022 8:14 PM EDT FASTING:YES FASTING: YES us Ezequiel CALLE LAB BLOOD ORDERABLES Final Res ult [address], [place] [address] [employer] [place] [employer] [facility] [address] [place] [phone] * BI Mammogram Screening Tomosynthesis Bilateral (06/09/2022 1:50 PM EDT) Anatomical Region Laterality Modality Breast Bilateral Mammography 06/09/2022 1:50 PM EDT Narrative 06/11/2022 5:15 PM EDT [facility] [address] [place], [place] [address] Mammography Report Signed Patient: Soni Mahoney MR#: [id number] : 1965 Acct:[id number] Age/Sex: 56 / F ADM Date: 06/09/22 Loc: HO.MAMMO Attending Dr: Camron Medrano MD Ordering Physician: Camron Medrano MD Results: 2 Benign Findings Date of Service: 06/09/22 Follow Up: 1 Year From Orig ina Mammogram Procedure(s): MM tomosynthesis screening BI Accession Number(s): [id number] cc: Camron Medrano MD EXAMINATION: MM SCREENING [...] in OV> 06/11/22 1712 DD/ 1350 TD/TT: Lien Searcher: YISEL Procedure Note Donotuseinterpreter, Image - 08/13/2022 [facility] [address] [place] [address] Mammography Report Signed Patient: Artur Mahoney#: [id number] : 1965Acct:[id number] Age/Sex: 56 / FADM Date: 06/09/22 Loc: HO.MAMMO Attending Dr: Camron Medrano MD Ordering Physician: Camron Medrano MDResults: 2 Benign Findings Date of Service: 06/09/22Follow Up: 1 Year From Orig inal Mammogram Procedure(s): MM tomosynthesis screening BI Accession Number(s): [id number] cc: Camron Medrano MD EXAMINATION: MM SCREENING [...] in OV> 06/11/22 1712 DD/ 1350 TD/TT: Lien Searcher: YISEL [facility] External Provider IMG BI PROCEDURES Final Result * Hepatitis Panel, General (04/06/2022 3:31 AM EST) Hepatitis A IgM Nonreactive Nonreactive [facility] Comment:IgM antibodies to DELGADO V not detected; does not exclude earlyacute or recovered HAV infection. ~Hepatitis B Surface Antibody NONREACTIVE Nonreactive [facility] Comment:Nonreactive: < 8.00 mIU/mL Hepatitis B Core Antibody Nonreactive Nonreactive [facility] Hepatitis C Antibody Nonreactive Nonreactive [facility] Comment:Antibodies to HCV no t detected; does not exclude early acuteHCV infection. Hepatitis B Surface Ag Negative Negative [facility] 04/06/2022 3:31 AM EST 04/06/2022 7:25 AM EST [facility] External Provider LAB BLO OD ORDERABLES Final Result Performing Organization Address City/State/[facility] Co de Phone Number [facility] [address] [place] [phone] * Hm Colonoscopy (2020) Colonoscopy Normal Normal Narrative Sheila Anders - 2020 Repeat in 5 years Historical Provider HEALTH MAINTENANCE Final Result from Last 3 Months or Most Recently Relevant to Health Maintenance Insurance [facility] C3 Care Teams Offset Machine Operator Relationship Specialty Start Date End Date Latasha Cline NP [address] [place] [address] PCP - General Family Medicine 03/17/23 Pramod Del Real Dredge Operator SupervisorPatent Attorney 07/15/23
[2024-12-28 20:37] VITALS: BP 117/74; PULSE 48; RESP 16; TEMP 36.9; O2SAT 97
[2024-12-28 21:28] LABS: Appearance Urine Clear; Glucose Urine UA Negative (Negative); PH 6.0 (5.0-9.0); Specific Gravity - Urine 1.025 (1.005-1.025)
[2024-12-28 22:05] VITALS: BP 117/68; PULSE 42; RESP 16; O2SAT 98
[2024-12-29] MEDS: iohexoL 350 MG/ML 100 ML INFUS..BTL IV (00:15)
[2024-12-29 00:31] VITALS: BP 126/66; PULSE 42; RESP 12; TEMP 36.7; O2SAT 95
[2024-12-29 02:25] VITALS: BP 128/90; PULSE 40; RESP 11; TEMP 36.8; O2SAT 97
== END 2024-12-29 02:26 | disposition home or self-care (01) ==
PROVIDERS: Physician Assistant; Emergency Provider Emergency Medicine
DX: K59.09 Other constipation (principal); R11.2 Nausea with vomiting, unspecified; R35.89 Other polyuria; R10.22 Pelvic and perineal pain left side; G89.29 Other chronic pain; Z79.899 Other long term (current) drug therapy
CPT/HCPCS: 36415; 51701; 74177; 80053; 81003; 83690; 85025; 96361; 96374; 96375; 99284; J1885; J2270; Q9967

== ENCOUNTER → 2024-12-29 00:30 | Outpatient (BNV) | payer MEDICAID, SELFPAY | PROVIDERS: Emergency Provider Emergency Medicine; Visit Provider Radiology Diagnostic Radiology | DX: K56.609 Unspecified intestinal obstruction, unspecified as to partial versus complete obstruction (principal) | CPT/HCPCS: 74177 ==

== ENCOUNTER 2025-01-02 12:52 | Outpatient (AMB) | payer MEDICAID, SELFPAY ==
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
[2025-01-02 13:02] VITALS: BP 120/60; PULSE 55; BMI 22.8
== END 2025-01-02 13:23 | disposition home or self-care (01) ==
LOC: HO.HCS 12:52
PROVIDERS: Visit Provider Nurse Practitioner Family
DX: I10 Essential (primary) hypertension (principal); I77.89 Other specified disorders of arteries and arterioles; Z09 Encounter for follow-up examination after completed treatment for conditions other than malignant neoplasm
CPT/HCPCS: 99214

== ENCOUNTER → 2025-01-02 12:52 | Outpatient (BNVA) | payer MEDICAID, SELFPAY | PROVIDERS: Visit Provider Nurse Practitioner Family | DX: Z09 Encounter for follow-up examination after completed treatment for conditions other than malignant neoplasm (principal); I10 Essential (primary) hypertension; I77.89 Other specified disorders of arteries and arterioles | CPT/HCPCS: 99212 ==

== ENCOUNTER 2025-01-17 11:36 | Outpatient (REF) | payer MEDICAID, SELFPAY ==
--- NOTE | ~2025-01-17 | XR_ITS ---
EXAMINATION: XR CHEST 2 VIEWS HISTORY: chronic cough SOB recovering from pneumonia COMPARISON: Comparison is made with the prior examination dated 12/21/2024. FINDINGS: PA and lateral views of the chest are submitted. The lungs are expanded and clear. There is no pleural effusion, pneumothorax, or pulmonary vascular congestion. The cardiac silhouette appears enlarged when compared to the prior examination. A pericardial effusion is not excluded. There is degenerative disc disease and scoliosis of the spine. Metallic densities project over the upper abdomen without change. XR/XR chest 2V IMPRESSION: Interval enlargement of the cardiac silhouette. A pericardial effusion is not excluded. This could be further evaluated with echocardiography. The lungs are clear. Electronically signed by: Shahab Andino MD 01/17/2025 01:02 PM SHAN
--- OUTSIDE RECORDS SUMMARY | 2025-01-17 14:12 | XMS_ITS | Encounter Summary ---
Author Organization [employer] Address [address] [facility] [address] [place] [address] Care Team Providers Care Pneumatic Tool Operator Name Role Phone Latasha Cline NP Primary Care Provider Reason for Visit * Reason Onset Date Comments Med Refill 12/31/2023 Encounter Details Date Type Department Care Team ([facility] st Contact Info) Description 12/31/2023 Telephone [facility] [address] [place] [address] Latasha Cline NP [address] [place] [address] Med Refill Social History Tobacco Use Types [...] requesting medication refill. Medications needing refill : fcxcdoxzpi-bfomagbxrpqdt-thizrfeq 50-325-40 MG tablet To be sent to: [id number] - [place], [place] - [facility] documented in this encounter Plan of Treatment Upcoming Encounters Date Type Department Care Team (Late st Contact Info) Description 02/02/2025 3:15 PM EST Office Visit [facility] [address] [place] [phone] Latasha Cline NP [address] [place] [address] 03/01/2025 1:00 PM EST Clinical Support [facility] [address], [place] [phone] Ileana, Patricia, RN documented as of this encounter Visit Diagnoses Not on filedocumented in this encounter Additional Health Concerns Assessment Noted Time PHQ-9 Depression Total Score: 0 06/04/19 24 9:43 AM EDT documented as of this encounter Care Teams Pneumatic Tool Operator Relationship Specialty Start Date End Date Latasha Cline NP [address] [place] [address] PCP - General Family Medicine 03/17/23 Pramod Del Real Associate Medical DirectorRegistered Clinical Dietitian 07/15/23 documented as of this encounter
--- OUTSIDE RECORDS SUMMARY | 2025-01-17 14:12 | XMS_ITS | Encounter Summary ---
Author Organization [employer] Address [address] [facility] [address] [place] [address] Care Team Providers Care Pocketed Spring Assembler Name Role Phone Kenny Loyd MD Primary Care Provider Ezequiel Roblero AGNP Primary Care Provider Unavail Sarah PugaP Primary Care Provider [phone] Latasha Cline NP Primary Care Provider [phone] Reason for Visit * Reason Onset Date Comments Appointment Request 02/20/2022 Encounter Details Date Type Department Care Team (Late st Contact Info) Description 02/20/2022 Telephone [facility] [address] [place] [address] Kenny Loyd MD Appointment Request Social History [...] at 1 pm Please contact pt at [phone] documented in this encounter Plan of Treatment Upcoming Encounters Date Type Department Care Team (Late st Contact Info) Description 02/02/2025 3:15 PM EST Office Visit [address] [address] Latasha Cline, EVANS [address] [place] [address] 03/01/2025 1:00 PM EST Clinical Support [address] [address] Patricia Tejeda RN documented as of this encounter Visit Diagnoses Not on filedocumented in this encounter Care Teams Pocketed Spring Assembler Relationship Specialty Start Date End Date Kenny Loyd MD PCP - General Family Medicine 12/30/18 02/22/22 Ezequiel Davis AGNP PCP - General Family Medicine 02/23/22 10/15/22 Sarah Burrell FNP [address] [place] [address] PCP - General Family Medicine 10/16/22 03/16/23 Latasha Cline, EVANS [address] [place] [phone] PCP - General Family Medicine 03/17/23 Pramod Del Real Tool AdjusterSupervisor Beet End 07/15/23 documented as of this encounter
--- OUTSIDE RECORDS SUMMARY | 2025-01-17 14:12 | XMS_ITS | Encounter Summary ---
Author Organization [employer] Address [address] [facility] 7t [place] [address] Care Team Providers Care Branch Or Department Chief Librarian Name Role Phone Sarah Burrell Primary Care Provider [phone] Latasha Cline NP Primary Care Provider [phone] Reason for Visit * Reason Onset Date Comments Med Refill 01/06/2023 Encounter Details Date Type Department Care Team ([facility] st Contact Info) Description 01/06/2023 Telephone [facility] MEDICINE [address] [place] [address] Sarah Burrell FNP [address] [place], [place] [phone] Med Refill Social History Tobacco Use Types [...] 5 MG tablet to be sent to [email or web address] #[id number] - [place], [place] - 4 [place] [facility] documented in this encounter Plan of Treatment Upcoming Encounters Date Type Department Care Team (Late st Contact Info) Description 02/02/2025 3:15 PM EST Office Visit [address] [address] Latasha Cline NP 230 [place] [address] 03/01/2025 1:00 PM EST Clinical Support [address] [address] Patricia Tejeda RN documented as of this encounter Visit Diagnoses Not on filedocumented in this encounter Care Teams Branch Or Department Chief Librarian Relationship Specialty Start Date End Date Sarah Burrell FNP [address] [place] [address] PCP - General Family Medicine 10/16/22 03/16/23 Latasha Cline NP [address] [place] [address] PCP - General Family Medicine 03/17/23 Pramod Del Real Geothermal Operations ManagerEquipment Operat0R 07/15/23 documented as of this encounter
--- OUTSIDE RECORDS SUMMARY | 2025-01-17 14:12 | XMS_ITS | Encounter Summary ---
Author Organization [employer] [facility] Address 75 [facility] 7t [place] [address] Care Team Providers Care Physicist Acoustics Name Role Phone Ezequiel Davis Primary Care Provider Unavail Sarah PugaP Primary Care Provider [phone] Latasha Cline NP Primary Care Provider [phone] Reason for Visit * Reason Comments Med Refill Encounter Details Date Type Department Care Team (Late st Contact Info) Description 08/18/2022 Refill [facility] MEDICINE [address] [place], [place] [phone] Ezequiel Davis AGNP Insomnia, unspecified type Social [...] 3:15 PM EST Office Visit [facility] MEDICINE [address] [place], [place] [phone] Latasha Cline, EVANS [address] [place] [address] 03/01/2025 1:00 PM EST Clinical Support [facility] MEDICINE [address] [place] [address] Patricia Tejeda, RN documented as of this encounter Visit Diagnoses Diagnosis Insomnia, unspecified type documented in this encounter Care Teams Physicist Acoustics Relationship Specialty Start Date End Date Ezequiel Davis AGNP PCP - General Family Medicine 02/23/22 10/15/22 Sarah Burrell FNP [address] [place] [address] PCP - General Family Medicine 10/16/22 03/16/23 Latasha Cline, EVANS [address] [place] [address] PCP - General Family Medicine 03/17/23 Pramod Del Real Carry Out ClerkRadiator Specialist 07/15/23 documented as of this encounter
--- OUTSIDE RECORDS SUMMARY | 2025-01-17 14:12 | XMS_ITS | Encounter Summary ---
Author Organization [employer] Address 75 [facility] 7t [place] [address] Care Team Providers Care Child And Adolescent Therapist Name Role Phone Latasha Cline NP Primary Care Provider [phone] Reason for Visit * Reason Onset Date Comments Med Refill 10/13/2024 Encounter Details Date Type Department Care Team ([facility] st Contact Info) Description 10/13/2024 Telephone [facility] MEDICINE 230 [place] [address] Latasha Cline NP [address] [place] [address] Med Refill Social History Tobacco Use Types [...] 5 MG tablet To be sent to: [facility]/pharmacy #[address] [place] [address] documented in this encounter Plan of Treatment Upcoming Encounters Date Type Department Care Team (Late st Contact Info) Description 02/02/2025 3:15 PM EST Office Visit [facility] MEDICINE [address] [place] [address] Latasha Cline NP [address] [place] [address] 03/01/2025 1:00 PM EST Clinical Support [facility] MEDICINE [address] [place] [address] Patricia Tejeda RN documented as of this encounter Visit Diagnoses Not on filedocumented in this encounter Additional Health Concerns Assessment Noted Time PHQ-9 Depression Total Score: 0 06/04/19 24 9:43 AM EDT documented as of this encounter Care Teams Child And Adolescent Therapist Relationship Specialty Start Date End Date Latasha Cline NP [address] [place] [address] PCP - General Family Medicine 03/17/23 Pramod Del Real Back Panel PadderSkein Yard Drier 07/15/23 documented as of this encounter
--- OUTSIDE RECORDS SUMMARY | 2025-01-17 14:12 | XMS_ITS | Encounter Summary ---
Author Organization [employer] Address 75 [facility] 7t [place] [address] Care Team Providers Care Development Vice President Name Role Phone Latasha Cline NP Primary Care Provider [phone] Encounter Details Date Type Department Care Team ([facility] st Contact Info) Description 06/07/2023 Telephone [facility] MEDICINE 230 [place], [place] [phone] Latasha Cline NP 230 [place] [address] Social History Tobacco Use Types Packs/Day Years [...] 02/02/2025 3:15 PM EST Office Visit [address] [address] Latasha Cline NP [address] [place] [address] 03/01/2025 1:00 PM EST Clinical Support [address] [address] Patricia Tejeda RN documented as of this encounter Visit Diagnoses Not on filedocumented in this encounter Additional Health Concerns Assessment Noted Time PHQ-9 Depression Total Score: 0 06/04/19 24 9:43 AM EDT documented as of this encounter Care Teams Development Vice President Relationship Specialty Start Date End Date Latasha Cline NP [address] [place] [address] PCP - General Family Medicine 03/17/23 Pramod Del Real Allergy NursePrinting Table Worker 07/15/23 documented as of this encounter
--- OUTSIDE RECORDS SUMMARY | 2025-01-17 14:12 | XMS_ITS | Encounter Summary ---
Author Organization [employer] Address [address] [facility] [address] 7t [place] [address] Care Team Providers Care Dry Cell And Battery Assembler Name Role Phone Latasha Cline NP Primary Care Provider [phone] Encounter Details Date Type Department Care Team ([facility] st Contact Info) Description 01/19/2024 Telephone [facility] MEDICINE [address] [place], [place] [phone] Latasha Cline NP 230 [place] [address] Social History Tobacco Use Types Packs/Day Years [...] Description 02/02/2025 3:15 PM EST Office Visit [address] [address] Latasha Cline NP [address] [place] [address] 03/01/2025 1:00 PM EST Clinical Support [address] [address] Patricia Tejeda RN documented as of this encounter Visit Diagnoses Not on filedocumented in this encounter Additional Health Concerns Assessment Noted Time PHQ-9 Depression Total Score: 0 06/04/19 24 9:43 AM EDT documented as of this encounter Care Teams Dry Cell And Battery Assembler Relationship Specialty Start Date End Date Latasha Cline NP [address] [place] [address] PCP - General Family Medicine 03/17/23 Pramod Del Real Analysis Or Research Safety InspectorSetup Operator 07/15/23 documented as of this encounter
--- OUTSIDE RECORDS SUMMARY | 2025-01-17 14:12 | XMS_ITS | Encounter Summary ---
Author Organization [employer] Address 75 [facility] 7t [place] [address] Care Team Providers Care It Systems Manager Name Role Phone Sarah BurrellP Primary Care Provider [phone] Latasha Cline NP Primary Care Provider [phone] Reason for Visit * Reason Onset Date Comments Appointment Request 02/22/2023 Encounter Details Date Type Department Care Team ([facility] st Contact Info) Description 02/22/2023 Telephone [facility] MEDICINE [address] [place] [address] Sarah Burrell FNP [address] [place], [place] [phone] Appointment Request Social History Tobacco Use Types [...] Description 02/02/2025 3:15 PM EST Office Visit [facility] MEDICINE [address] [place] [address] Latasha Cline NP 230 [place] [address] 03/01/2025 1:00 PM EST Clinical Support [address] [address] Patricia Tejeda, RAE documented as of this encounter Visit Diagnoses Not on filedocumented in this encounter Care Teams It Systems Manager Relationship Specialty Start Date End Date Sarah Burrell FNP [address] [place] [address] PCP - General Family Medicine 10/16/22 03/16/23 Latasha Cline NP [address] [place] [address] PCP - General Family Medicine 03/17/23 Pramod Del Real Rice FarmworkerFish Egg Packer 07/15/23 documented as of this encounter
--- OUTSIDE RECORDS SUMMARY | 2025-01-17 14:12 | XMS_ITS | Encounter Summary ---
Author Organization [employer] Address [address] [facility] [address] 7t [place] [address] Care Team Providers Care Marine Railway Operator Name Role Phone Latasha Cline NP Primary Care Provider [phone] Encounter Details Date Type Department Care Team ([facility] st Contact Info) Description 01/20/2024 Refill [facility] MEDICINE 230 [place], [place] [phone] Latasha Cline NP [address] [place] [address] Chronic pain syndrome Social History Tobacco Use [...] immediate release tablet To be sent to: [id number] - [place] [facility] documented in this encounter Plan of Treatment Upcoming Encounters Date Type Department Care Team (Late st Contact Info) Description 02/02/2025 3:15 PM EST Office Visit [facility] MEDICINE [address] [place] [address] Latasha Cline NP [address] [place] [address] 03/01/2025 1:00 PM EST Clinical Support [address] [address] Patricia Tejeda, RAE documented as of this encounter Visit Diagnoses Diagnosis Chronic pain syndrome documented in this encounter Additional Health Concerns Assessment Noted Time PHQ-9 Depression Total Score: 0 06/04/19 24 9:43 AM EDT documented as of this encounter Care Teams Marine Railway Operator Relationship Specialty Start Date End Date Latasha Cline NP [address] [place] [address] PCP - General Family Medicine 03/17/23 Pramod Del Real Hand Pattern MarkerBull Fiddle Player 07/15/23 documented as of this encounter
--- OUTSIDE RECORDS SUMMARY | 2025-01-17 14:12 | XMS_ITS | Clinical Summary ---
Author Organization [email or web address] Address [address] [facility] [address] [place] [address] Care Team Providers Care Director Data Name Role Phone Son Latasha KRUEGER Primary Care Provider [phone] Allergies Active Allergy Reactions Criticality Noted Date [...] mouth in the morning. Active sodium chloride (Heavener) 0.65 % nasal spray 1-2 sprays in [...] USE DIRECTED Active neomycin-polymy echo-dexAMETHaso ne (Polydex) 3.5-15235-4.1 ointment ophthalmic ointment Active omeprazole OTC (PriLOSEC [...] 30 tablet 2 024 Active fish oil (Rickman-3) 500 MG capsuleIndicati ons:Elevated lipids TAKE 1 [...] AREA TWICE DAILY 45 g 025 Active fluticasone (Flonase) 50 MCG/ACT nasal spray Administer 1 spray into each nostril Once per day. Shake gently. Before first use, prime pump. After use, clean tip and replace cap. 48 mL 025 2025 Active oxyCODONE (Roxicodone) 15 MG immediate release [...] eorder (will not trigger notification to Pharmacy)) acetaminophen (Tylenol Extra Strength) 500 MG tablet Take 1 tablet (500 mg) by mouth every 6 (six) hours if needed for mild pain. 120 tablet 025 2024 zolpidem (Ambien) 5 MG tabletIndicatio ns:Insomnia, unspecified type TAKE 1 TABLET BY MOUTH AT BEDTIME NEEDED FOR SLEEP 30 tablet 025 2024 Discontinued(R eorder (will not trigger notification to Pharmacy)) Active Problems Problem Noted Date Diagnosed Date Colovesical fistula 01/04/2025 Pneumonia due to infectious organism 01/04/2025 Viral upper respiratory tract infection 11/30/19 25 [...] LDL-C. Juan CONNOLLY et al. LINN. 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 She would like another referral. Routine adult health maintenance 05/15/2022 Assessment & Plan (06/04/2023 7:15 PM EDT): In care with grinder needle tip, mammogram ordered, will address routine health maintenance [...] last visit 07/15. She is still waiting vice president of instruction from orthopedics regarding her referral. Assessment & [...] Encounters Date Type Department Care Team Description 01/12/2025 Refill [facility] MEDICINE [address] [place] [phone] Latasha Cline, OIL DIPPER Insomnia, unspecified type 01/10/2025 Refill [facility] MEDICINE [address] [place] [address] Latasha Cline, EVANS Insomnia, unspecified type 01/05/2025 Telephone [facility] MEDICINE [address] [place] [phone] Latasha Cline, EVANS Prior Authorization (Reyvow) 01/04/2025 9:00 AM EST Office Visit [address] [address] Kae Joiner, THORACIC MEDICINE SPECIALIST Pneumonia due to infectious organism, unspecified laterality, unspecified part of lung (Primary Dx); Colovesical fistula 01/04/2025 Travel 01/03/[address] [address] Latasha Cline NP Chart Prep 12/28/2024 Orders Only GENERIC EXTERNAL DATA DEPARTMENT Provider, Generic External Data 12/27/[address] [address] Latasha Cline NP Chronic pain syndrome 12/21/2024 Orders Only GENERIC EXTERNAL DATA DEPARTMENT Provider, Generic External Data 12/19/[address] [address] Latasha Cline NP ER Follow-up 12/13/[address] [address] Latasha Cline NP ER Follow-up 12/13/[address] [address] Latasha Cline NP Insomnia, unspecified type 12/08/2024 Orders Only GENERIC EXTERNAL DATA DEPARTMENT Provider, Generic External Data 11/30/[address] [address] Latasha Cline NP DEC RECALL 11/29/2024 3:00 PM EDT Office Visit [facility]ALK[facility] [address] [place] [phone] Iris Herring MD Viral upper respiratory tract infection (Primary Dx); Cough, unspecified type; Body aches 11/29/2024 2:30 PM EDT Clinical Support [address] [address] Patricia Tejeda, RN Long-term current use of opiate analgesic (Primary Dx) 11/29/[address] [address] Patricia Tejeda, RN [facility] 11/29/2024 Travel 11/27/2024 Refill [facility] MEDICINE [address] [place] [address] Latasha Cline NP Chronic pain syndrome 11/25/2024 Refill [facility] [address] [place] [address] Tod Bhatia MD 11/13/2024 Refill [facility] MEDICINE [address] [place] [phone] Latasha Cline NP Insomnia, unspecified type; 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/31/2024 10:30 AM EDT Clinical Support [facility]INE [address] [place] [phone] Patricia Tejeda RN Long-term current use of opiate analgesic (Primary Dx) 10/31/[address] [address] Latasha Cline NP Nurse Triage 10/30/2024 1:00 PM EDT Office Visit [address] [address] Latasha Cline NP Chronic pain syndrome (Primary Dx) 10/30/2024 Telephone [facility] MEDICINE [address] [place] [phone] Latasha Cline NP 10/30/[address] [address] Patricia Tejeda RN 10/30/2024 Travel 10/26/[address] [address] Latasha Cline NP CHARTPREP from Last 3 Months Immunizations Immunization Administration [...] Sign Reading Time Taken Comments Blood Pressure 138/76 01/04/2025 8:59 AM EST Pulse 55 01/04/2025 8:59 AM EST Temperature 36.9 C (98.5 F) 01/04/2025 8:59 AM EST Respiratory Rate 16 01/04/2025 8:59 AM EST Oxygen Saturation 96% 01/04/2025 8:59 AM EST Inhaled Oxygen Concentration - - Weight 64.5 kg (142 lb 4 oz) 01/04/2025 8:59 AM EST Height 167.6 cm (5' 6 ) 01/04/2025 8:59 AM EST Body Mass Index 22.96 01/04/2025 8:59 AM EST Plan of Treatment Upcoming Encounters Date Type Department Care Team (Late st Contact Info) Description 02/02/2025 3:15 PM EST Office Visit [address] [address] Latasha Cline NP [address] [place] [address] 03/01/2025 1:00 PM EST Clinical Support [address] [address] Patricia Tejeda, RN Health Maintenance Due Date Last Done Comments CT Colonography 1965 FIT DNA/Cologuard 1965 FIT 1965 FOBT 1965 HIV Screening 1965 Sigmoidoscopy 1965 Pap Smear 07/07/1984 Cervical Cancer Screening [...] 10/30/2025 10/30/2024, 10/31/19 SDOH Screening 10/30/2025 10/30/2024 Disability Screening 01/04/2026 01/04/2025 Tobacco Screening 01/04/2026 01/04/2025 Lipid Panel 07/18/2027 07/17/2022, 03/24/2022 RSV Patients [...] Priority Date/Time Associated Diagnosis Comments XR CHEST 2 VIEWS Routine 01/17/2025 11:5 8 AM EST Pneumonia due to infectious organism, unspecified laterality, unspecified part of lung LIPASE Routine 12/28/2024 5:51 PM EST COMPREHENSIVE [...] to Health Maintenance Results * XR Chest 2 Views (01/17/2025 11:58 AM EST) Only the most recent of2 resultswithin the time period is included. Anatomical Region Laterality Modality Chest Radiographic Carole ging 01/17/2025 11:5 8 AM EST Narrative 01/17/2025 1:[address] [address] XRay Report Signed Patient: Soni Mahoney MR#: [id number] : 1965 Acct:[id number] Age/Sex: 59 / F ADM Date: 01/17/25 Loc: [facility] Attending Dr: Kae PATEL Ordering Physician: Kae Joiner Date of Service: 01/17/25 Procedure(s): XR chest 2V Accession Number(s): [id number] cc: Latasha Cline OIL DIPPER; Kae Joiner Reason for Exam: chronic cough SOB reccovering from pneumonia EXAMINATION: XR CHEST 2 VIEWS HISTORY: chronic cough SOB recovering from pneumonia COMPARISON: Comparison is made with the prior examination dated 12/21/2024. FINDINGS: PA and lateral views of the chest are submitted. The lungs are expanded and clear. There is no pleural effusion, pneumothorax, or pulmonary vascular congestion. The cardiac silhouette appears enlarged when compared to the prior examination. A pericardial effusion is not excluded. There is degenerative disc disease and scoliosis of the spine. Metallic densities project over the upper abdomen without change. XR/XR chest 2V IMPRESSION: Interval enlargement of the cardiac silhouette. A pericardial effusion is not excluded. This could be further evaluated with echocardiography. The lungs are clear. Electronically signed by: Shahab Andino MD 01/17/2025 01:02 PM [facility] Dictated By: Shahab Andino MD Signed By: <Electronically signed by Shahab Andino MD in OV> 01/17/25 1302 DD/ 1158 TD/TT: 01/17/25 1159 Creative Producer: Procedure Note Donotuseinterpreter, Image - 01/17/[address] [address] XRay Report Signed Patient: Soni MahoneyMR#: [id number] : 1965Acct:[id number] Age/Sex: 59 / FADM Date: 01/17/25 Loc: [facility] Attending Dr: Kae PATEL Ordering Physician: Kae Joiner Date of Service: 01/17/25 Procedure(s): XR chest 2V Accession Number(s): [id number] cc: Latasha Cline OIL DIPPER; Kae Joiner Reason for Exam: chronic cough SOB reccovering from pneumonia EXAMINATION: XR CHEST 2 VIEWS HISTORY: chronic cough SOB recovering from pneumonia COMPARISON: Comparison is made with the prior examination dated 12/21/2024. FINDINGS: PA and lateral views of the chest are submitted. The lungs are expanded and clear. There is no pleural effusion, pneumothorax, or pulmonary vascular congestion. The cardiac silhouette appears enlarged when compared to the prior examination. A pericardial effusion is not excluded. There is degenerative disc disease and scoliosis of the spine. Metallic densities project over the upper abdomen without change. XR/XR chest 2V IMPRESSION: Interval enlargement of the cardiac silhouette. A pericardial effusion is not excluded. This could be further evaluated with echocardiography. The lungs are clear. Electronically signed by: Shahab Andino MD 01/17/2025 01:02 PM EST RP Dictated By: Shahab Andino MD Signed By: <Electronically signed by Shahab Andino MD in OV> 01/17/25 1302 DD/ 1158 TD/TT: 01/17/25 1159 Creative Producer: Kae PATEL IMG XR PROCEDURES Final Result * (ABNORMAL) CBC auto differential (12/28/2024 5:51 PM EST) Only the most recent of3 resultswithin the time period is included. White Blood Count 4.7(L) 4.8 - 10.8 X10*3/uL [facility] Red Blood Count 3.86(L) 4.20 - 5.50 X10*6/uL [facility] Hemoglobin 11.8(L) 12.0 - 16.0 g/dl [facility] Hematocrit 35.8(L) 37.0 - 47.0 % [facility] Mean Corpuscular Volume 92.7 80.0 - 98.0 fL [facility] Mean Corpuscular Hemoglobin 30.6 27.0 - 33.0 pg [facility] Mean Corpuscular HGB Conc 33.0 31.0 - 35.0 g/dl [facility] Red Cell Distribution Width 12.6 11.0 - 16.0 % [facility] Platelet Count 278 160 - 400 X10*3/uL [facility] Mean Platelet Volume 9.7 9.4 - 12.3 fL [facility] Neutrophils Percent Auto 76.6(H) 45 - 73 % [facility] Imm Gran Pct Auto 2.3(H) 0.0 - 0.4 % [facility] Lymphocytes Percent Auto 16.7(L) 20 - 40 % [facility] Monocytes Percent Auto 4.2 2 - 11 % [facility] Eosinophils Percent Auto 0.0 0 - 4 % [facility] Basophils Percent Auto 0.2 0 - 2 % [facility] NRBC Pct Auto 0.0 0.0 - 0.2 /100WBC [facility] Neutrophils Absolute Auto 3.6 2.0 - 8.3 x10*3/uL [facility] Imm Gran Abs Auto 0.11(H) 0.00 - 0.03 X10*3/uL [facility] Lymphocytes Absolute Auto 0.8(L) 1.2 - 4.9 X10*3/uL [facility] Monocytes Absolute Auto 0.2 0.1 - 1.2 X10*3/uL [facility] Eosinophils Absolute Auto 0.0 0.0 - 0.4 X10*3/uL [facility] Basophils Absolute Auto 0.0 0.0 - 0.2 X10*3/uL [facility] NRBC Abs Auto 0.000 0.0 - 0.012 X10*3/uL [facility] 12/28/2024 5:51 PM EST 12/28/2024 5:53 PM EST us Generic External Data Provider LAB BLOOD ORDERAB LES Final Result Performing Organization Address [facility]/State/ZIP Co de Phone Number [facility] [address] [place] [address] [phone] * Lipase (12/28/2024 5:51 PM EST) Lipase 24 8 - 78 U/L [facility] 12/28/2024 5:51 PM EST 12/28/2024 5:54 PM EST us Generic External Data Provider LAB BLOOD ORDERAB LES Final Result Performing Organization Address [facility] Co de Phone Number [facility] [address] [place] [phone] * (ABNORMAL) Comprehensive Metabolic Panel (12/28/2024 5:51 PM EST) Only the most recent of3 resultswithin the time period is included. Sodium 140 135 - 145 mmol/L [facility] Potassium 4.4 3.3 - 5.1 mmol/L [facility] Chloride 108 96 - 108 mmol/L [facility] Carbon Dioxide 25 22 - 29 mmol/L [facility] Anion Gap 11(L) 12 - 20 [facility] Urea Nitrogen (BUN) 21(H) 9 - 16 mg/dL [facility] Creatinine, Serum 0.55 0.5 - 1.4 mg/dL [facility] Creatinine Clr Calc Pharmacy 100.6 [facility] Comment:Provided height and weight: 167.64 cm,61.9 kg.eGFR (calculated from the MDRD study equation) and eCrCl(calculated from the Cockcroft-Gault equation) are based ondifferent parameters and may not yield comparable results.If eCrCl result is absurd, please check patient'sheight/weight. Estimated Glomerular Filt Rate >60 [facility] Comment:Chronic Kidney Disea se: Estimated GFR < 60 mL/min/1.71j6Kgoukg Kidney Disease: Estimated GFR < 15 mL/min/1.73m2 Glucose 117(H) 60 - 115 mg/dL [facility] Calcium 9.3 8.4 - 10.2 mg/dL [facility] Bilirubin, Total 0.2 0.0 - 1.0 mg/dL [facility] Aspartate Amino Transferase 39(H) 5 - 31 U/L [facility] Alanine Aminotransferase 38(H) 0 - 31 U/L [facility] Total Protein 7.2 6.5 - 8.0 g/dL [facility] Albumin Level 4.1 3.5 - 5.0 g/dL [facility] Alkaline Phosphatase 96 39 - 117 U/L [facility] 12/28/2024 5:51 PM EST 12/28/2024 5:54 PM EST us Generic External Data Provider LAB BLOOD ORDERAB LES Final Result Performing Organization Address City/State/[facility] de Phone Number [facility] [address] [place] [phone] * XR KUB and Upright 2 Views (12/24/2024 12:55 PM EST) Anatomical Region Laterality Modality Radiographic Carole ging 12/24/2024 12:5 5 PM EST Narrative 12/24/2024 12:56 PM EST [address] [address] XRay Report Signed Patient: Soni Mahoney MR#: [id number] : 1965 Acct:[id number] Age/Sex: 59 / F ADM Date: 12/21/24 Loc: HO.S3 380-[address]: Brendan Marie MD Ordering Physician: Brendan Marie MD Date of Service: 12/24/24 Procedure(s): XR KUB Accession Number(s): [id number] cc: [facility]; Brendan Marie MD Reason for Exam: constipation [...] by Geo Moreno MD in OV> 12/24/24 125 DD/ 125 TD/TT: 12/24/241254 Creative Producer: Procedure Note Donotwendyinterpreter, Image - 12/24/2024 [place] [address] XRay Report Signed Patient: Artur Mahoney#: [id number] : 1965Acct:[id number] Age/Sex: 59 / FADM Date: 12/21/24 Loc: HO.S3 380-[address]: Brendan Marie MD Ordering Physician: Brendan Marie MD Date of Service: 12/24/24 Procedure(s): XR KUB Accession Number(s): [id number] cc: [facility]; Brendan Marie MD Reason for Exam: constipation [...] by Geo Moreno MD in OV> 12/24/24 125 DD/ 54 TD/TT: 12/24/241254 Creative Producer: [facility] External Provider IMG XR PROCEDURES Edited Result - Final * CT Chest w/o Contrast (12/21/2024 10:55 PM EST) Anatomical Region Laterality Modality Body, Chest Computed Tomogra phy 12/21/2024 10:5 5 PM EST Narrative 12/21/2024 10:57 PM EST [address] [address] [address] Scan Report Signed Patient: Soni Mahoney MR#: [id number] : 1965 Acct:[id number] Age/Sex: 59 / F ADM Date: 12/21/24 Loc: [place] [address]: Brendan Marie MD Ordering Physician: Brendan Marie MD Date of Service: 12/21/24 Procedure(s): CT chest wo IV con Accession Number(s): [id number] cc: [facility]; Brendan Marie MD Report Number: [id number]: Total DLP = 0.00 mGy-cm Reason for [...] in OV> 12/21/242256 DD/ 54 TD/TT: 12/21/242254 Creative Producer: Procedure Note Donotuseinterpreter, Image - 12/21/[address] [address] [address] Scan Report Signed Patient: Artur Mahoney#: [id number] : 1965Acct:[id number] Age/Sex: 59 / FADM Date: 12/21/24 Loc: [facility]: Brendan Marie MD Ordering Physician: Brendan Marie MD Date of Service: 12/21/24 Procedure(s): CT chest wo IV con Accession Number(s): [id number] cc: [facility]; Brendan Marie MD Report Number: [id number]: Total DLP = 0.00 mGy-cm Reason for [...] in OV> 12/21/242256 DD/ 54 TD/TT: 12/21/242254 Creative Producer: [facility] External Provider IMG CT PROCEDURES Edited Result - Final * OBSX1 (12/21/2024 3:48 PM EST) OBS1 NEGATIVE NEGATIVE [facility] 12/21/2024 3:48 PM EST 12/21/2024 3:53 PM EST us Generic External Data Provider LAB BLOOD ORDERAB LES Final Result Performing Organization Address [facility]/ZIP Co de Phone Number [facility] [address] [place] [phone] * Lactic Acid (12/21/2024 1:55 PM EST) Lactic Acid 1.1 0.5 - 2.0 mmol/L [facility] 12/21/2024 1:55 PM EST 12/21/2024 2:05 PM EST us Generic External Data Provider LAB BLOOD ORDERAB LES Final Result Performing Organization Address [facility] Co de Phone Number [facility] [address] [place] [phone] * (ABNORMAL) VENOUS BLOOD GAS (12/21/2024 1:25 PM EST) Pathologist [facility] VBG pH 7.47(H) 7.32 - 7.43 [facility] Comment:METER #: [id number] additional_comment: Cb abliai VBG PCO2 30 mmHg [facility] Comment:METER #: [id number] additional_comment: Cb abliai VBG PO2 53 mmHg [facility] Comment:METER #: [id number] additional_comment: Cb abliai VBG Base Excess -0.4 mmol/L [facility] Comment:METER #: [id number] additional_comment: Cb abliai VBG HCO3 22 22 - 26 mmol/L [facility] Comment:METER #: [id number] additional_comment: Cb abliai O2 Sat, Neymar 84.0 % [facility] Comment:METER #: [id number] additional_comment: Cb abliai 12/21/2024 1:25 PM EST 12/21/2024 1:28 PM EST us Generic External Data Provider LAB BLOOD ORDERAB LES Final Result Performing Organization Address [facility] de Phone Number [facility] [address] [place] [phone] * High Sensitivity Troponin I (12/21/2024 1:18 PM EST) [facility] TROPONIN I HIGH SENSITIVITY <2.7 <3.5 - 17.0 ng/L [facility] Comment:The Li high sens itivity Troponin-I results should beused in conjunction with other diagnostic information suchas ECG, clinical observations and information, and patientsymptoms to aid in the diagnosis of [place]. 12/21/2024 1:18 PM EST 12/21/2024 1:23 PM EST Generic External Data Provider LAB BLOOD ORDERAB LES Final Result Performing Organization Address [facility] Phone Number [facility] [address] [place] [phone] * Magnesium (12/21/2024 1:18 PM EST) [facility] Magnesium 2.2 1.6 - 2.6 mg/dL [facility] 12/21/2024 1:18 PM EST 12/21/2024 1:23 PM EST Generic External Data Provider LAB BLOOD ORDERAB LES Final Result Performing Organization Address [facility] de Phone Number [facility] [address] [place] [phone] * Influenza A B2 ID NOW (Li) (12/21/2024 1:17 PM EST) Only the most recent of2 resultswithin the time period is included. [facility] IDNOW SERIAL# [id number] [facility] Influenza A Negative Negative [facility] Influenza B2 Negative Negative [facility] Influenza A B2 Note See Note [facility] Comment:The Li ID NOW In [...] EST us Generic External Data Provider LAB MICROBIOLOGY - GENERAL ORDERABLES Final Result [facility] [address] [place] [phone] * COVID-19 ID NOW (LI) (12/21/2024 1:17 PM EST) Only the most recent of2 resultswithin the time period is included. IDNOW SERIAL# [id number] [facility] COVID-19 TEST Negative Negative [facility] COVID-19 NOTE See Note [facility] Comment: Results are for the identification of SARS-CoV2 RNA. TheSARS-CoV2 RNA is generally detectable in respiratory samplesduring the acute phase of infection. Positive results areindicative of the presence of SARS-CoV-2 RNA; clinicalcorrelation with patient history and other diagnosticinformation is necessary to determine patient infectionstatus. Positive results do not rule out bacterial infectionor co- infection with other viruses.Testing facilities within the [facility] and itsterritories are required to report [...] use by authorized laboratories.Testing performed on the [employer] ID NOW utilizing NAAT. 12/21/2024 1:17 PM EST 12/21/2024 1:23 PM EST us Generic External Data Provider LAB MOLECULAR DON GNOSTICS ORDERABLES Final Result Performing Organization Address City/State/[facility] Co de Phone Number [facility] [address] [place] [phone] * XR Chest 1 View (12/08/2024 6:22 AM EDT) Anatomical Region Laterality Modality Chest Radiographic Carole ging 12/08/2024 6:22 AM EDT Narrative 12/08/2024 6:24 AM EDT [address] [address] XRay Report Signed Patient: Soni Mahoney MR#: [id number] : 1965 Acct:[id number] Age/Sex: 59 / F ADM Date: 12/08/24 Loc: HO.ED Attending Dr: Ordering Physician: Laisha Coon DO Date of Service: 12/08/24 Procedure(s): XR chest 1V Accession Number(s): [id number] cc: Laisha Coon DO; [facility] Reason for Exam: cough CLINICAL HISTORY: [...] signed by Fredy Araujo MD in OV> 12/08/24 0623 DD/ TD/TT: 12/08/24621 Creative Producer: Procedure Note Donotuseinterpreter, Image - 12/08/[address] [address] XRay Report Signed Patient: Artur Mahoney#: [id number] : 1965Acct:[id number] Age/Sex: 59 / FADM Date: 12/08/24 Loc: HO.ED Attending Dr: Ordering Physician: Laisha Coon DO Date of Service: 12/08/24 Procedure(s): XR chest 1V Accession Number(s): [id number] cc: Laisha Coon DO; [facility] Reason for Exam: cough CLINICAL HISTORY: [...] in OV> 12/08/24622 DD/ 1 TD/TT: 12/08/24621 Creative Producer: [facility] External Provider IMG XR PROCEDURES Final Result * POCT Rapid Influenza A LI ID NOW (11/29/2024 3:36 PM EDT) Influenza A Negative Negative, Indeterminate [facility] QC Media Lot # [id number] [facility] Lot# Expiration Date [facility] Swab 11/29/2024 3:36 PM EDT Iris Herring MD POINT OF CARE TEST ENTER /EDIT ORDERABLES Final Result Performing Organization Address [facility] Co de Phone Number [facility] [address] [place] [phone] * POCT Rapid Covid-19 BinaxNOW (11/29/2024 3:36 PM EDT) [facility] Rapid COVID Ag Negative QC Media Lot # [id number] Lot# Expiration Date Swab 11/29/2024 3:36 PM EDT Iris Herring MD POINT OF CARE TEST ENTER /EDIT ORDERABLES Final Result * POCT Rapid Influenza B LI ID NOW (11/29/2024 3:35 PM EDT) [facility] Influenza B Negative Negative, Indeterminate [facility] QC Media Lot # [id number] [facility] Lot# Expiration Date [facility] Swab 11/29/2024 3:35 PM EDT Iris Herring MD POINT OF CARE TEST ENTER /EDIT ORDERABLES Final Result Performing Organization Address [facility] Co de Phone Number [facility] [address] [place] [phone] * (ABNORMAL) POCT NELSON-14 Urine Drug Screen (11/29/2024 2:39 PM EDT) Only the most recent of2 resultswithin the time period is included. [facility] THC Negative Negative Cocaine Screen, Urine Negative Negative Opiate Screen, Urine Negative Negative Methamphetamine Screen Urine Negative Negative Amphetamine Screen, Urine Negative Negative Benzodiazepines Screen, Urine Negative Negative Barbiturate Screen, Urine Negative Negative Methadone Screen, Urine Negative Negative Buprenophine Screen, Urine Negative Negative TCA, Urine Positive(A) Negative MDMA Urine Negative Negative ng/mL Oxycodone Screen, Urine Positive(A) Negative Comment:[facility], on oxycodone Phencyclidine (PCP), Urine Negative Negative Propoxyphene, Urine Negative Negative Fentanyl, Urine Negative Negative Urine Urine specimen obtained by clean catch procedure / Unknown 11/29/2024 2:39 PM EDT Patricia Covarrubias RN - 11/29/2024 2:39 PM EDT UTOX cup Lot#[id number] Exp. 11/21/25 Internal Pass Control Latasha Cline NP POINT OF CARE TEST ENTER/EDIT OR DERABLES Final Result * (ABNORMAL) Lipid Panel, Standard (07/17/2022 9:05 AM EDT) Cholesterol, Total 209(H) <200 mg/dL [facility] HDL Cholesterol 64 > OR = 50 mg/dL [facility] Triglycerides 79 <150 mg/dL [facility] LDL Cholesterol 127(H) mg/dL (calc) [facility] Comment: Reference range: <100 Desirable range <100 mg/dL for primary prevention; <70 mg/dL for patients with CHD or diabetic patients with > or = 2 CHD risk factors. LDL-C is now calculated using the Juan-Mata calculation, which is a validated novel method providing better accuracy than the Friedewald equation in the estimation of LDL-C. Juan SS et al. LINN. 2013;310(19): 2602-2264 (http://education.LessThan3/faq/JAC759) Chol/HDLC Ratio 3.3 <5.0 (calc) [facility] Non-HDL Cholesterol 145(H) <130 mg/dL (calc) [facility] Comment: For patients with diabetes plus 1 major ASCVD risk factor, treating to a non-HDL-C goal of <100 mg/dL (LDL-C of <70 mg/dL) is considered a therapeutic option. Blood Venous blood specimen / Unknown 07/17/2022 9:05 AM EDT 07/17/2022 9:06 AM EDT Ruth QUEST - 07/17/2022 8:14 PM EDT FASTING:YES FASTING: YES Ezequiel CALLE LAB BLOOD ORDERABLES Final Res ult [facility] [address] [facility], [place] [address] [facility] [address] [place] [address] * BI Mammogram Screening Tomosynthesis Bilateral (06/09/2022 1:50 PM EDT) Anatomical Region Laterality Modality Breast Bilateral Mammography 06/09/2022 1:50 PM EDT Narrative 06/11/2022 5:15 PM EDT [facility] [address] [place] [address] Mammography Report Signed Patient: Soni Mahoney MR#: [id number] : 1965 Acct:[id number] Age/Sex: 56 / F ADM Date: 06/09/22 Loc: HO.MAMMO Attending Dr: Camron Medrano MD Ordering Physician: Camron Medrano MD Results: 2 Benign Findings Date of Service: 06/09/22 Follow Up: 1 Year From [facility] Mammogram Procedure(s): MM tomosynthesis screening BI Accession Number(s): [id number] cc: Camron Medrano MD EXAMINATION: MM SCREENING [...] in OV> 06/11/22 1712 DD/ 1350 TD/TT: Creative Producer: MORILLO Procedure Note Donotuseinterpreter, Image - 08/13/2022 [facility] [address] [place] [address] Mammography Report Signed Patient: Artur Mahoney#: [id number] : 1965Acct:[id number] Age/Sex: 56 / FADM Date: 06/09/22 Loc: HO.MAMMO Attending Dr: Camron Medrano MD Ordering Physician: Camron Medrano MDResults: 2 Benign Findings Date of Service: 06/09/22Follow Up: 1 Year From Orig [facility] Mammogram Procedure(s): MM tomosynthesis screening BI Accession Number(s): [id number] cc: Camron Medrano MD EXAMINATION: MM SCREENING [...] in OV> 06/11/22 1712 DD/ 1350 TD/TT: Creative Producer: YISEL [facility] External Provider IMG BI PROCEDURES Final Result * Hepatitis Panel, General (04/06/2022 3:31 AM EST) Hepatitis A IgM Nonreactive Nonreactive [facility] Comment:IgM antibodies to DELGADO V not detected; does not exclude earlyacute or recovered HAV infection. ~Hepatitis B Surface Antibody NONREACTIVE Nonreactive [facility] Comment:Nonreactive: < 8.00 mIU/mL Hepatitis B Core Antibody Nonreactive Nonreactive [facility] Hepatitis C Antibody Nonreactive Nonreactive [facility] Comment:Antibodies to HCV no t detected; does not exclude early acuteHCV infection. Hepatitis B Surface Ag Negative Negative [facility] 04/06/2022 3:31 AM EST 04/06/2022 7:25 AM EST [facility] External Provider LAB BLO OD ORDERABLES Final Result [facility] [address] [place] [address] [phone] * Colonoscopy (2020) Colonoscopy Normal Normal Narrative Sheila Anders - 2020 Repeat in 5 years Historical Provider HEALTH MAINTENANCE Final Result from Last 3 Months or Most Recently Relevant to Health Maintenance Insurance [facility] C3 Care Teams Director Data Relationship Specialty Start Date End Date Latasha Cline NP [address] [place] [address] PCP - General Family Medicine 03/17/23 Pramod Del Real Supervisor Hydrochloric AreaScalp Treatment Specialist 07/15/23
--- OUTSIDE RECORDS SUMMARY | 2025-01-17 14:12 | XMS_ITS | Encounter Summary ---
Author Organization [employer] Address [address] [facility] 7t [place] [address] Care Team Providers Care Instrumental Musician Name Role Phone Latasha Cline NP Primary Care Provider [phone] Reason for Visit * Reason Comments Med Refill Encounter Details Date Type Department Care Team (Late st Contact Info) Description 01/12/2025 Refill [facility] MEDICINE [address] [place] [address] Latasha Cline NP [address] [place] [address] Insomnia, unspecified type Social History Tobacco Use [...] Description 02/02/2025 3:15 PM EST Office Visit [address] [address] Latasha Cline NP [address] [place] [address] 03/01/2025 1:00 PM EST Clinical Support [address] [address] Patricia Tejeda RN documented as of this encounter Visit Diagnoses Diagnosis Insomnia, unspecified type documented in this encounter Additional Health Concerns Assessment Noted Time PHQ-9 Depression Total Score: 0 10/31/19 25 12:58 PM EDT documented as of this encounter Care Teams Instrumental Musician Relationship Specialty Start Date End Date Latasha Cline NP [address] [place] [address] PCP - General Family Medicine 03/17/23 Pramod Del Real Production ConsultantThermite Welder 07/15/23 documented as of this encounter
--- OUTSIDE RECORDS SUMMARY | 2025-01-17 14:12 | XMS_ITS | Encounter Summary ---
Author Organization [employer] Address [address] [facility] 7t [place] [address] Care Team Providers Care Hand Mica Plate Layer Name Role Phone Sarah BurrellP Primary Care Provider [phone] Latasha Cline NP Primary Care Provider [phone] Encounter Details Date Type Department Care Team (Late st Contact Info) Description 12/28/2022 Abstract [facility] MED[facility]INE [address] [place] [address] Sarah Burrell FNP [address] [place], [place] [phone] Social History Tobacco Use Types Packs/Day Years [...] Description 02/02/2025 3:15 PM EST Office Visit [address] [address] Latasha Cline NP [address] [place] [address] 03/01/2025 1:00 PM EST Clinical Support [address] [address] Patricia Tejeda, RAE documented as of this encounter Visit Diagnoses Not on filedocumented in this encounter Care Teams Hand Mica Plate Layer Relationship Specialty Start Date End Date Sarah Burrell FNP [address] [place] [address] PCP - General Family Medicine 10/16/22 03/16/23 Latasha Cline NP [address] [place] [address] PCP - General Family Medicine 03/17/23 Pramod Del Real Foundry Equipment MechanicDirector Targeted Marketing 07/15/23 documented as of this encounter
--- OUTSIDE RECORDS SUMMARY | 2025-01-17 14:12 | XMS_ITS | Encounter Summary ---
Author Organization [employer] Address [address] [facility] 7t [place] [address] Care Team Providers Care Salesperson Stereo Equipment Name Role Phone Latasha Cline NP Primary Care Provider Reason for Visit * Reason Comments Med Refill Encounter Details Date Type Department Care Team (Late st Contact Info) Description 12/22/2023 Refill [facility] MEDICINE [address] [place] [address] Name, MD Vidal [address] [place] [address] Migraine without status migrainosus, not intractable, unspecified [...] Description 02/02/2025 3:15 PM EST Office Visit [address] [address] Latasha Cline NP [address] [place] [address] 03/01/2025 1:00 PM EST Clinical Support [address] [address] Patricia Tejeda RN documented as of this encounter Visit Diagnoses Diagnosis Migraine without status migrainosus, not intractable, unspecified migraine type documented in this encounter Additional Health Concerns Assessment Noted Time PHQ-9 Depression Total Score: 0 06/04/19 24 9:43 AM EDT documented as of this encounter Care Teams Salesperson Stereo Equipment Relationship Specialty Start Date End Date Latasha Cline NP [address] [place] [address] PCP - General Family Medicine 03/17/23 Pramod Del Real Tar And Ammonia Pump OperatorWholesale Account Executive 07/15/23 documented as of this encounter
--- OUTSIDE RECORDS SUMMARY | 2025-01-17 14:12 | XMS_ITS | Encounter Summary ---
Author Organization [employer] Address [address] [facility] 7t [place] [address] Care Team Providers Care Purchasing/Receiving Name Role Phone Ezequiel Davis Primary Care Provider Unavail Sarah Puga LAMINATION INSPECTOR Primary Care Provider [phone] Latasha Cline NP Primary Care Provider [phone] Reason for Visit * Reason Onset Date Comments Med Refill 04/17/2022 Encounter Details Date Type Department Care Team (Late st Contact Info) Description 04/17/2022 Telephone [facility] MEDICINE [address] [place] [address] Ezequiel Davis AGNP Med Refill Social History [...] Smith LPN - 04/17/2022 11:52 AM EST REAL ESTATE SITE ANALYST checked on 04/17/22 medication has not been prescribed elsewhere. Per [facility] medication ewqrandh58/19/2015. Please review. Last seen 03/18/22. * Telephone Encounter - [place] - 04/17/2022 10:40 AM EST Tc from pt requesting med refill on Ambien 5 mg Tablet. Medication is currently inactive. Please sent to [id number] - [place] - [address] [facility] documented in this encounter Plan of Treatment Upcoming Encounters Date Type Department Care Team (Late st Contact Info) Description 02/02/2025 3:15 PM EST Office Visit [address] [address] Latasha Cline NP [address] [place] [address] 03/01/2025 1:00 PM EST Clinical Support [address] [address] Patricia Tejeda RN documented as of this encounter Visit Diagnoses Not on filedocumented in this encounter Care Teams Purchasing/Receiving Relationship Specialty Start Date End Date Ezequiel Davis AGNP PCP - General Family Medicine 02/23/22 10/15/22 Sarah Burrell FNP [address] [place] [address] PCP - General Family Medicine 10/16/22 03/16/23 Latasha Cline NP [address] [place] [address] PCP - General Family Medicine 03/17/23 Pramod Del Real Information Systems AnalystCustomer Solutions Supervisor 07/15/23 documented as of this encounter
--- OUTSIDE RECORDS SUMMARY | 2025-01-17 14:12 | XMS_ITS | Encounter Summary ---
Author Organization [employer] Address [address] [facility] 7t [place] [address] Care Team Providers Care Rv Service Technician Name Role Phone Latasha Cline NP Primary Care Provider [phone] Reason for Visit * Reason Onset Date Comments Med Refill 11/01/2023 Encounter Details Date Type Department Care Team ([facility] st Contact Info) Description 11/01/2023 Telephone [facility] MEDICINE [address] [place] [address] Latasha Cline NP [address] [place] [address] Med Refill Social History Tobacco Use Types [...] 9:47 AM EDT Medication was sent to [facility] #[id number] on 09/28/23 #30 with 1 refill. MAINFRAME PROGRAMMER ANALYST checked 11/01/23 last filled 09/28/23 patient has 1 refill left. * Telephone Encounter - Bg Catalan - 11/01/2023 9:15 AM EDT TC from pt requesting medication refill. Medications needing refill : zolpidem (Ambien) 5 MG tablet To be sent to: [id number] - [place] - [address] [facility] documented in this encounter Plan of Treatment Upcoming Encounters Date Type Department Care Team ([facility] st Contact Info) Description 02/02/2025 3:15 PM EST Office Visit [facility] MEDICINE [address] [place] [address] Latasha Cline NP [address] [place] [address] 03/01/2025 1:00 PM EST Clinical Support [facility] MEDICINE [address] [place] [address] Patricia Tejeda, RN documented as of this encounter Visit Diagnoses Not on filedocumented in this encounter Additional Health Concerns Assessment Noted Time PHQ-9 Depression Total Score: 0 06/04/19 9:43 AM EDT documented as of this encounter Care Teams Rv Service Technician Relationship Specialty Start Date End Date Latasha Cline NP [address] [place] [address] PCP - General Family Medicine 03/17/23 Pramod Del Real Telegraph Office ManagerSenior Principal Process Engineer 07/15/23 documented as of this encounter
--- OUTSIDE RECORDS SUMMARY | 2025-01-17 14:12 | XMS_ITS | Encounter Summary ---
Author Organization [employer] Address [address] [facility] 7t [place] [address] Care Team Providers Care Hospice Consultant Name Role Phone Latasha Cline NP Primary Care Provider Reason for Visit * Reason Onset Date Comments Med Refill 05/19/2024 Encounter Details Date Type Department Care Team ([facility] st Contact Info) Description 05/19/2024 Telephone [facility] MEDICINE [address] [place] [address] Latasha Cline NP [address] [place] [address] Med Refill Social History Tobacco Use Types [...] 25 MG capsule To be sent to: [id number] [place] - [facility] [place] [facility] documented in this encounter Plan of Treatment Upcoming Encounters Date Type Department Care Team (Late st Contact Info) Description 02/02/2025 3:15 PM EST Office Visit [address] [phone] Latasha Cline NP [address] [place] [address] 03/01/2025 1:00 PM EST Clinical Support [address] [phone] Ileana, Patricia, RN documented as of this encounter Visit Diagnoses Not on filedocumented in this encounter Additional Health Concerns Assessment Noted Time PHQ-9 Depression Total Score: 0 06/04/19 24 9:43 AM EDT documented as of this encounter Care Teams Hospice Consultant Relationship Specialty Start Date End Date Latasha Cline NP [address] [place] [address] PCP - General Family Medicine 03/17/23 Pramod Del Real Blood Bank Calendar Control ClerkLeather Stretcher 07/15/23 documented as of this encounter
--- OUTSIDE RECORDS SUMMARY | 2025-01-17 14:12 | XMS_ITS | Encounter Summary ---
Author Organization [employer] Address [address] [facility] 7t [place] [address] Care Team Providers Care Carbide Die Maker Name Role Phone Latasha Cline NP Primary Care Provider [phone] Reason for Visit * Reason Onset Date Comments Med Refill 04/01/2023 Encounter Details Date Type Department Care Team (Late st Contact Info) Description 04/01/2023 Refill [facility] MEDICINE [address] [place] [address] Latasha Cline, EVANS [address] [place] [address] Migraine without status migrainosus, not intractable, unspecified [...] requesting medication refill. Medications needing refill : zypwpxpmdw-ewlmbqhzlkcsm-nxaowtvb 50-325-40 MG tablet To be sent to: [facility] #[id number] - [place], [place] - [facility] documented in this encounter Plan of Treatment Upcoming Encounters Date Type Department Care Team (Late st Contact Info) Description 02/02/2025 3:15 PM EST Office Visit [facility] MEDICINE [address] [place] [address] Latasha Cline NP [address] [place] [address] 03/01/2025 1:00 PM EST Clinical Support [facility] MEDICINE [address] [place] [address] Patricia Tejeda RN documented as of this encounter Visit Diagnoses Diagnosis Migraine without status migrainosus, not intractable, unspecified migraine type documented in this encounter Care Teams Carbide Die Maker Relationship Specialty Start Date End Date Latasha Cline NP [address] [place] [address] PCP - General Family Medicine 03/17/23 Pramod Del Real Heel PrickerImpersonator Character 07/15/23 documented as of this encounter
--- OUTSIDE RECORDS SUMMARY | 2025-01-17 14:12 | XMS_ITS | Encounter Summary ---
Author Organization [employer] Address [address] [facility] 7t [place] [address] Care Team Providers Care Picking Belt Operator Name Role Phone Latasha Cline NP Primary Care Provider [phone] Reason for Visit * Reason Onset Date Comments Medication Question 09/27/2023 Encounter Details Date Type Department Care Team ([facility] st Contact Info) Description 09/27/2023 Telephone [facility] MEDICINE [address] [place] [address] Latasha Cline NP [address] [place] [address] Medication Question Social History Tobacco Use Types [...] EDT Return T/C x 2 am through [place] id - [id number] for below message, No answer. LVM to call back on [phone]. * Telephone Encounter - Krzysztof Harrison - [...] any questions you can contact pt at [phone]. (Pashto Speaker) documented in this encounter Plan of Treatment Upcoming Encounters Date Type Department Care Team ([facility] st Contact Info) Description 02/02/2025 3:15 PM EST Office Visit [facility] MEDICINE [address] [place] [address] Latasha Cline NP [address] [place] [address] 03/01/2025 1:00 PM EST Clinical Support [facility]INE [address] [facility] [place] [address] Patricia Tejeda, RN documented as of this encounter Visit Diagnoses Not on filedocumented in this encounter Additional Health Concerns Assessment Noted Time PHQ-9 Depression Total Score: 0 06/04/19 24 9:43 AM EDT documented as of this encounter Care Teams Picking Belt Operator Relationship Specialty Start Date End Date Latasha Cline NP [address] [facility] [place] [address] PCP - General Family Medicine 03/17/23 Pramod Del Real Tower TechnicianSurveillance Technician 07/15/23 documented as of this encounter
== END 2025-01-17 11:37 | disposition home or self-care (01) ==
LOC: HO.XRAY 11:36
PROVIDERS: PCP Nurse Practitioner Family; Visit Provider Nurse Practitioner Family
DX: R05.3 Chronic cough (principal); J18.9 Pneumonia, unspecified organism; R06.02 Shortness of breath
CPT/HCPCS: 71046

== ENCOUNTER → 2025-01-17 11:49 | Outpatient (BNV) | payer MEDICAID, SELFPAY | PROVIDERS: PCP Nurse Practitioner Family; Visit Provider Radiology Diagnostic Radiology | DX: R05.9 Cough, unspecified (principal); R06.02 Shortness of breath | CPT/HCPCS: 71046 ==